=== PATIENT | female | born 1945 | race Caucasian/White ===

== ENCOUNTER 2017-06-05 12:47 | Inpatient (IN) | payer MEDICARE ==
[~2017-06-05] VITALS: Ht 160 cm; Wt 63.6 kg
[~2017-06-05 12:47] MED LIST: ACET325T9 PO; AMLO10TA4 PO; ASPI-630 PO; CLON0.5T3 PO; ESCITALOPRAM OX10 MG PO; LORA0.5T PO; MAG355OR17 PO; MAGN2400 PO; METH29OI TP; NITR0.4T22 SL; PROM25TA10 PO; QUET25TA5 PO; SERT25TA PO; SODI126M NS; TEMA15CA PO
[2017-06-05] MEDS ORDERED: METHYL SALICYLATE/MENTHOL TOPICAL OINTMENT 29GM TUBE. TP PRN ×2 (16:15→16:45)
[2017-06-05] MEDS ORDERED: PANT40TA3 PO (16:33)
[2017-06-05] MEDS ORDERED: ATOR20TA58 PO (16:33)
[2017-06-05] MEDS ORDERED: ONDA8TAB12 PO (16:33)
[2017-06-05] MEDS ORDERED: DOCU100C28 PO (16:33)
[2017-06-05] MEDS ORDERED: MULT1TAB52 PO (16:33)
[2017-06-05] MEDS ORDERED: QUET25TA5 PO (16:37)
[2017-06-05] MEDS ORDERED: LORA1TAB PO (16:37)
[2017-06-05] MEDS ORDERED: PARO20TA3 PO (16:37)
[2017-06-05] MEDS ORDERED: ACETAMINOPHEN 325 MG TABLET PO PRN (16:45)
[2017-06-05] MEDS ORDERED: NON FORMULARY ITEM (Magnesium Hydroxide (Milk Of Magnesia) 2,400 MG) PO PRN (16:45)
[2017-06-05] MEDS ORDERED: NON FORMULARY ITEM (Mag Hydrox/Al Hydrox/Simeth (Advanced Antacid Liquid) 15 ML) PO PRN (16:45)
[2017-06-05] MEDS ORDERED: SODIUM CHLORIDE 0.65% NASAL SPRAY 45ML BOTTLE. NS PRN (17:15)
[2017-06-05 17:23] LABS: BASO % 1 % (0-3); EOS % 1 % (0-3); HEMATOCRIT 29.7 % (36.0-47.0); HEMOGLOBIN 10.2 g/dL (12.0-15.5); LYMPH # 1.9 x10^3/uL (1.0-4.8); LYMPH % 29 % (24-48); MEAN CORPUSCULAR HEMOGLOBIN 32 pg (25-35); MEAN CORPUSCULAR HGB CONC 34 g/dL (31-37); MEAN CORPUSCULAR VOLUME 92 fL (79-100); MONO # 0.8 x10^3/uL (0.0-1.1); MONO % 13 % (0-9); NEUT # 3.7 x10^3uL (1.8-7.7); NEUT % 57 % (31-73); PLATELET COUNT 325 x10^3/uL (140-400); RED BLOOD COUNT 3.22 x10^6/uL (3.50-5.40); RED CELL DISTRIBUTION WIDTH 15.6 % (11.5-14.5); WHITE BLOOD COUNT 6.5 x10^3/uL (4.0-11.0)
[2017-06-05 17:35] LABS: ALBUMIN 3.3 g/dL (3.4-5.0); ALBUMIN/GLOBULIN RATIO 1.1 (1.0-1.7); CALCIUM 8.9 mg/dL (8.5-10.1); CREATININE 1.2 mg/dL (0.6-1.0); TOTAL PROTEIN 6.4 g/dL (6.4-8.2)
[2017-06-05 17:36] LABS: GFR 44.3; POTASSIUM 3.9 mmol/L (3.5-5.1); TOTAL BILIRUBIN 0.4 mg/dL (0.2-1.0)
[2017-06-05 18:10] VITALS: BP 133/77
[2017-06-05] MEDS ORDERED: ALPRAZolam 0.25 MG TABLET PO PRN (18:45)
[2017-06-05] MEDS: DOCUSATE SODIUM 100 MG CAPSULE PO SCH (19:45)
[2017-06-05] MEDS: ATORVASTATIN CALCIUM 20 MG TABLET PO SCH (19:45)
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
--- NOTE | 2017-06-05 20:05 | PDOC ---
Exam Note: Rian Note: Please also refer to the separate dictated note~for this date of service dictated separately.~Patient seen individually. Discussed the patient with Nursing staff reviewed the chart.~Reviewed interim history and current functioning. Reviewed vital signs,~Labs/ Radiology~and current medications noted below. Continue current treatment with the changes noted in the dictated addendum note Assessment: Vital Signs: Vital Signs Date Time Temp Pulse Resp B/P (MAP) Pulse Ox O2 Delivery O2 Flow Rate FiO2 06/05/17 18:10 98.2 86 18 133/77 (95) 97 Labs: Laboratory Tests Test 06/05/17 16:28 White Blood Count 6.5 x10^3/uL (4.0-11.0) Red Blood Count 3.22 x10^6/uL (3.50-5.40) L Hemoglobin 10.2 g/dL (12.0-15.5) L Hematocrit 29.7 % (36.0-47.0) L Mean Corpuscular Volume 92 fL (79-100) Mean Corpuscular Hemoglobin 32 pg (25-35) Mean Corpuscular Hemoglobin Concent 34 g/dL (31-37) Red Cell Distribution Width 15.6 % (11.5-14.5) H Platelet Count 325 x10^3/uL (140-400) Neutrophils (%) (Auto) 57 % (31-73) Lymphocytes (%) (Auto) 29 % (24-48) Monocytes (%) (Auto) 13 % (0-9) H Eosinophils (%) (Auto) 1 % (0-3) Basophils (%) (Auto) 1 % (0-3) Neutrophils # (Auto) 3.7 x10^3uL (1.8-7.7) Lymphocytes # (Auto) 1.9 x10^3/uL (1.0-4.8) Monocytes # (Auto) 0.8 x10^3/uL (0.0-1.1) Eosinophils # (Auto) 0.0 x10^3/uL (0.0-0.7) Basophils # (Auto) 0.0 x10^3/uL (0.0-0.2) Sodium Level 137 mmol/L (136-145) Potassium Level 3.9 mmol/L (3.5-5.1) Chloride Level 101 mmol/L (98-107) Carbon Dioxide Level 28 mmol/L (21-32) Anion Gap 8 (6-14) Blood Urea Nitrogen 10 mg/dL (7-20) Creatinine 1.2 mg/dL (0.6-1.0) H Estimated GFR (Cockcroft-Gault) 44.3 BUN/Creatinine Ratio 8 (6-20) Glucose Level 134 mg/dL (70-99) H Calcium Level 8.9 mg/dL (8.5-10.1) Magnesium Level 1.7 mg/dL (1.8-2.4) L Total Bilirubin 0.4 mg/dL (0.2-1.0) Aspartate Amino Transferase (AST) 23 U/L (15-37) Alanine Aminotransferase (ALT) 28 U/L (14-59) Alkaline Phosphatase 45 U/L (46-116) L Total Protein 6.4 g/dL (6.4-8.2) Albumin 3.3 g/dL (3.4-5.0) L Albumin/Globulin Ratio 1.1 (1.0-1.7) Current Medications: Meds: Current Medications Acetaminophen (Tylenol) 650 mg PRN Q6HRS PRN PO PAIN / TEMP; Start 06/05/17 at 16:15 Multi-Ingredient Ointment (Analgesic [place]) 1 stevan PRN QID PRN TP MUSCLE PAIN; Start 06/05/17 at 16:15 Al Hydroxide/Mg Hydroxide (Mylanta Plus Xs) 15 ml PRN AFTMEALHC PRN PO DYSPEPSIA; Start 06/05/17 at 16:15 Magnesium Hydroxide (Milk Of Magnesia) 2,400 mg PRN QHS PRN PO CONSTIPATION; Start 06/05/17 at 16:15 Aspirin (Children'S Aspirin) 81 mg DAILY PO ; Start 06/06/17 at 09:00 Sodium Chloride (Saline Mist Nasal) 1 stevan PRN Q1HR PRN NS NASAL CONGESTION; Start 06/05/17 at 17:15 Acetaminophen (Tylenol) 650 mg PRN Q6HRS PRN PO PAIN / TEMP; Start 06/05/17 at 16:45; Stop 06/05/17 at 16:45; Status DC Atorvastatin Calcium (Lipitor) 20 mg QHS PO Last administered on 06/05/17at 19:45 ; Start 06/05/17 at 21:00 Docusate Sodium (Colace) 100 mg BID PO Last administered on 06/05/17at 19:45; Start 06/05/17 at 21:00 Multi-Ingredient Ointment (Analgesic [place]) 1 stevan PRN QID PRN TP MUSCLE PAIN; Start 06/05/17 at 16:45; Stop 06/05/17 at 16:45; Status DC Pantoprazole Sodium (Protonix) 40 mg DAILY06 PO ; Start 06/06/17 at 06:00 Non-Formulary Medication 15 ml PRN AFTMEALHC PRN PO DYSPEPSIA; Start 06/05/17 at 16:45; Stop 06/05/17 at 16:45; Status DC Non-Formulary Medication 2,400 mg PRN QHS PRN PO CONSTIPATION; Start 06/05/17 at 16:45; Stop 06/05/17 at 16:45; Status DC Multivitamins/ Calcium (Thera-M Plus) 1 tab DAILY PO ; Start 06/06/17 at 09:00 Ondansetron HCl (Zofran Odt) 8 mg PRN Q6HRS PRN PO NAUSEA; Start 06/05/17 at 17: 00 Alprazolam (Xanax) 1 mg PRN TID PRN PO ANXIETY / AGITATION; Start 06/05/17 at 18 :45; Stop 06/05/17 at 19:15; Status DC Quetiapine Fumarate (SEROquel) 12.5 mg TID@0900,1300,1700 PO ; Start 06/06/17 at 09:00 Alprazolam (Xanax) 1 mg TIDAFTMEAL PO ; Start 06/06/17 at 09:00 Active Scripts Active Reported Seroquel (Quetiapine Fumarate) 25 Mg Tablet 1 Tab PO DAILY Paroxetine Hcl 20 Mg Tablet 1 Tab PO DAILY Lorazepam 1 Mg Tablet 1 Tab PO TID Protonix (Pantoprazole Sodium) 40 Mg Tablet.dr 1 Tab PO DAILY06 Zofran Odt (Ondansetron) 8 Mg Tab.rapdis 1 Tab PO Q6HRS PRN Multivitamins (Multivitamin) 1 Each Tablet 1 Tab PO DAILY Docusate Sodium 100 Mg Capsule 1 Cap PO BID Atorvastatin Calcium 20 Mg Tablet 20 Mg PO QHS Saline Nasal Mist (Sodium Chloride) 126 Ml Mist 1 Stevan NS PRN Q1HR PRN Zoloft (Sertraline Hcl) 25 Mg Tablet 12.5 Mg PO DAILY Seroquel (Quetiapine Fumarate) 25 Mg Tablet 12.5 Mg PO [id number] Seroquel (Quetiapine Fumarate) 25 Mg Tablet 25 Mg PO QHS NITROGLYCERIN SubLingual (Nitroglycerin) 0.4 Mg Tab.subl 0.4 Mg SL PRN Q5MIN PRN Analgesic [place] (Methyl Salicylate/Menthol) 29 Gm Oint...g. 1 Stevan TP PRN QID PRN Milk Of Magnesia (Magnesium Hydroxide) 2,400 Mg/10 Ml Oral.susp 2,400 Mg PO PRN QHS PRN Advanced Antacid Liquid (Mag Hydrox/Al Hydrox/Simeth) 355 Ml Oral.susp 15 Ml PO PRN AFTMEALHC PRN Lorazepam 0.5 Mg Tablet 0.5 Mg PO PRN TID PRN Lorazepam 0.5 Mg Tablet 0.5 Mg PO Q8HRS Tylenol (Acetaminophen) 325 Mg Tablet 650 Mg PO PRN Q6HRS PRN Promethazine Hcl 25 Mg Tablet 12.5 Mg PO PRN Q4HRS PRN Aspirin 81 Mg Tab.chew 81 Mg PO DAILY I have reviewed the current psychotropics carefully including drug interactions. Risk benefit ratio favors no change other than as noted in my dictated progress note. Diagnosis: Problems: (1) Anxiety disorder (2) Bipolar affective disorder, mixed (3) Impulse control disorder (4) Panic disorder with agoraphobia and severe panic attacks (5) Obsessive compulsive disorder SANTIAGO FARFAN MD Jun 05, 2017 20:05
[2017-06-06] MEDS: ACETAMINOPHEN 325 MG TABLET PO PRN ×2 (00:37→23:37)
[2017-06-06 05:45] VITALS: BP 148/58
[2017-06-06] MEDS: PANTOPRAZOLE 40 MG TABLET. PO SCH (06:02)
[2017-06-06] MEDS: DOCUSATE SODIUM 100 MG CAPSULE PO SCH ×2 (08:20→19:46)
[2017-06-06] MEDS: MULTIVITAMIN with MINERAL TABLET. PO SCH (08:20)
[2017-06-06] MEDS: QUEtiapine 25 MG TABLET. PO SCH ×3 (08:20→16:53)
[2017-06-06] MEDS: ASPIRIN 81 MG TAB.CHEW PO SCH (08:20)
[2017-06-06] MEDS: ALPRAZolam 0.5 MG TABLET PO SCH ×3 (08:21→16:53)
[2017-06-06 15:51] VITALS: BP 135/80
[2017-06-06] MEDS: MIRTAZAPINE 7.5 MG TABLET. PO SCH (19:46)
[2017-06-06] MEDS: ATORVASTATIN CALCIUM 20 MG TABLET PO SCH (19:46)
--- NOTE | 2017-06-06 20:17 | PDOC ---
Exam Note: Rian Note: Please also refer to the separate dictated note~for this date of service dictated separately.~Patient seen individually. Discussed the patient with Nursing staff reviewed the chart.~Reviewed interim history and current functioning. Reviewed vital signs,~Labs/ Radiology~and current medications noted below. Continue current treatment with the changes noted in the dictated addendum note Assessment: Vital Signs: Vital Signs Date Time Temp Pulse Resp B/P (MAP) Pulse Ox O2 Delivery O2 Flow Rate FiO2 06/06/17 15:51 98.3 89 16 135/80 (98) 97 I&O Intake and Output 06/06/17 07:00 Intake Total 240 ml Balance 240 ml Intake Oral 240 ml Current Medications: Meds: Current Medications Acetaminophen (Tylenol) 650 mg PRN Q6HRS PRN PO PAIN / TEMP Last administered on 06/06/17at 00:37; Start 06/05/17 at 16:15 Multi-Ingredient Ointment (Analgesic [place]) 1 stevan PRN QID PRN TP MUSCLE PAIN; Start 06/05/17 at 16:15 Al Hydroxide/Mg Hydroxide (Mylanta Plus Xs) 15 ml PRN AFTMEALHC PRN PO DYSPEPSIA; Start 06/05/17 at 16:15 Magnesium Hydroxide (Milk Of Magnesia) 2,400 mg PRN QHS PRN PO CONSTIPATION; Start 06/05/17 at 16:15 Aspirin (Children'S Aspirin) 81 mg DAILY PO Last administered on 06/06/17at 08:20 ; Start 06/06/17 at 09:00 Sodium Chloride (Saline Mist Nasal) 1 stevan PRN Q1HR PRN NS NASAL CONGESTION; Start 06/05/17 at 17:15 Acetaminophen (Tylenol) 650 mg PRN Q6HRS PRN PO PAIN / TEMP; Start 06/05/17 at 16:45; Stop 06/05/17 at 16:45; Status DC Atorvastatin Calcium (Lipitor) 20 mg QHS PO Last administered on 06/06/17at 19:46 ; Start 06/05/17 at 21:00 Docusate Sodium (Colace) 100 mg BID PO Last administered on 06/06/17at 19:46; Start 06/05/17 at 21:00 Multi-Ingredient Ointment (Analgesic [place]) 1 stevan PRN QID PRN TP MUSCLE PAIN; Start 06/05/17 at 16:45; Stop 06/05/17 at 16:45; Status DC Pantoprazole Sodium (Protonix) 40 mg DAILY06 PO Last administered on 06/06/17at 06:02; Start 06/06/17 at 06:00 Non-Formulary Medication 15 ml PRN AFTMEALHC PRN PO DYSPEPSIA; Start 06/05/17 at 16:45; Stop 06/05/17 at 16:45; Status DC Non-Formulary Medication 2,400 mg PRN QHS PRN PO CONSTIPATION; Start 06/05/17 at 16:45; Stop 06/05/17 at 16:45; Status DC Multivitamins/ Calcium (Thera-M Plus) 1 tab DAILY PO Last administered on at 08:20; Start 06/06/17 at 09:00 Ondansetron HCl (Zofran Odt) 8 mg PRN Q6HRS PRN PO NAUSEA; Start 06/05/17 at 17: 00 Alprazolam (Xanax) 1 mg PRN TID PRN PO ANXIETY / AGITATION; Start 06/05/17 at 18 :45; Stop 06/05/17 at 19:15; Status DC Quetiapine Fumarate (SEROquel) 12.5 mg TID@0900,1300,1700 PO Last administered on 06/06/17at 16:53; Start 06/06/17 at 09:00 Alprazolam (Xanax) 1 mg TIDAFTMEAL PO Last administered on 06/06/17at 16:53; Start 06/06/17 at 09:00 Mirtazapine (Remeron) 7.5 mg QHS PO Last administered on 06/06/17at 19:46; Start 06/06/17 at 21:00 Trazodone HCl (Desyrel) 50 mg PRN QHS PRN PO INSOMNIA, MAY REPEAT X1; Start 06/06/17 at 18:30 Active Scripts Active Reported Seroquel (Quetiapine Fumarate) 25 Mg Tablet 1 Tab PO DAILY Paroxetine Hcl 20 Mg Tablet 1 Tab PO DAILY Lorazepam 1 Mg Tablet 1 Tab PO TID Protonix (Pantoprazole Sodium) 40 Mg Tablet.dr 1 Tab PO DAILY06 Zofran Odt (Ondansetron) 8 Mg Tab.rapdis 1 Tab PO Q6HRS PRN Multivitamins (Multivitamin) 1 Each Tablet 1 Tab PO DAILY Docusate Sodium 100 Mg Capsule 1 Cap PO BID Atorvastatin Calcium 20 Mg Tablet 20 Mg PO QHS Saline Nasal Mist (Sodium Chloride) 126 Ml Mist 1 Stevan NS PRN Q1HR PRN Zoloft (Sertraline Hcl) 25 Mg Tablet 12.5 Mg PO DAILY Seroquel (Quetiapine Fumarate) 25 Mg Tablet 12.5 Mg PO [id number] Seroquel (Quetiapine Fumarate) 25 Mg Tablet 25 Mg PO QHS NITROGLYCERIN SubLingual (Nitroglycerin) 0.4 Mg Tab.subl 0.4 Mg SL PRN Q5MIN PRN Analgesic [place] (Methyl Salicylate/Menthol) 29 Gm Oint...g. 1 Stevan TP PRN QID PRN Milk Of Magnesia (Magnesium Hydroxide) 2,400 Mg/10 Ml Oral.susp 2,400 Mg PO PRN QHS PRN Advanced Antacid Liquid (Mag Hydrox/Al Hydrox/Simeth) 355 Ml Oral.susp 15 Ml PO PRN AFTMEALHC PRN Lorazepam 0.5 Mg Tablet 0.5 Mg PO PRN TID PRN Lorazepam 0.5 Mg Tablet 0.5 Mg PO Q8HRS Tylenol (Acetaminophen) 325 Mg Tablet 650 Mg PO PRN Q6HRS PRN Promethazine Hcl 25 Mg Tablet 12.5 Mg PO PRN Q4HRS PRN Aspirin 81 Mg Tab.chew 81 Mg PO DAILY I have reviewed the current psychotropics carefully including drug interactions. Risk benefit ratio favors no change other than as noted in my dictated progress note. Diagnosis: Problems: (1) Anxiety disorder (2) Bipolar affective disorder, mixed (3) Impulse control disorder (4) Panic disorder with agoraphobia and severe panic attacks (5) Obsessive compulsive disorder SANTIAGO FARFAN MD Jun 06, 2017 20:17
[2017-06-07] MEDS: PANTOPRAZOLE 40 MG TABLET. PO SCH (05:25)
[2017-06-07 05:45] VITALS: BP 149/87
[2017-06-07] MEDS: ASPIRIN 81 MG TAB.CHEW PO SCH (08:05)
[2017-06-07] MEDS: DOCUSATE SODIUM 100 MG CAPSULE PO SCH ×3 (08:05→20:12)
[2017-06-07] MEDS: MULTIVITAMIN with MINERAL TABLET. PO SCH (08:06)
[2017-06-07] MEDS: QUEtiapine 25 MG TABLET. PO SCH ×3 (08:06→17:26)
[2017-06-07] MEDS: ALPRAZolam 0.5 MG TABLET PO SCH ×3 (08:07→17:25)
[2017-06-07 15:51] VITALS: BP 116/68
[2017-06-07] MEDS: MIRTAZAPINE 7.5 MG TABLET. PO SCH (20:09)
[2017-06-07] MEDS: ATORVASTATIN CALCIUM 20 MG TABLET PO SCH (20:09)
--- NOTE | 2017-06-07 22:17 | PDOC ---
Exam Note: Rian Note: Please also refer to the separate dictated note~for this date of service dictated separately.~Patient seen individually. Discussed the patient with Nursing staff reviewed the chart.~Reviewed interim history and current functioning. Reviewed vital signs,~Labs/ Radiology~and current medications noted below. Continue current treatment with the changes noted in the dictated addendum note Assessment: Vital Signs: Vital Signs Date Time Temp Pulse Resp B/P (MAP) Pulse Ox O2 Delivery O2 Flow Rate FiO2 06/07/17 15:51 97.9 72 18 116/68 (84) 98 Room Air I&O Intake and Output 06/07/17 06:59 Intake Total 1200 ml Balance 1200 ml Intake Oral 1200 ml # Bowel Movements 1 Current Medications: Meds: Current Medications Acetaminophen (Tylenol) 650 mg PRN Q6HRS PRN PO PAIN / TEMP Last administered on 06/06/17at 23:37; Start 06/05/17 at 16:15 Multi-Ingredient Ointment (Analgesic [place]) 1 stevan PRN QID PRN TP MUSCLE PAIN; Start 06/05/17 at 16:15 Al Hydroxide/Mg Hydroxide (Mylanta Plus Xs) 15 ml PRN AFTMEALHC PRN PO DYSPEPSIA; Start 06/05/17 at 16:15 Magnesium Hydroxide (Milk Of Magnesia) 2,400 mg PRN QHS PRN PO CONSTIPATION; Start 06/05/17 at 16:15 Aspirin (Children'S Aspirin) 81 mg DAILY PO Last administered on 06/07/17at 08:05 ; Start 06/06/17 at 09:00 Sodium Chloride (Saline Mist Nasal) 1 stevan PRN Q1HR PRN NS NASAL CONGESTION; Start 06/05/17 at 17:15 Acetaminophen (Tylenol) 650 mg PRN Q6HRS PRN PO PAIN / TEMP; Start 06/05/17 at 16:45; Stop 06/05/17 at 16:45; Status DC Atorvastatin Calcium (Lipitor) 20 mg QHS PO Last administered on 06/07/17at 20:09 ; Start 06/05/17 at 21:00 Docusate Sodium (Colace) 100 mg BID PO Last administered on 06/07/17at 08:05; Start 06/05/17 at 21:00 Multi-Ingredient Ointment (Analgesic [place]) 1 stevan PRN QID PRN TP MUSCLE PAIN; Start 06/05/17 at 16:45; Stop 06/05/17 at 16:45; Status DC Pantoprazole Sodium (Protonix) 40 mg DAILY06 PO Last administered on 06/07/17at 05:25; Start 06/06/17 at 06:00 Non-Formulary Medication 15 ml PRN AFTMEALHC PRN PO DYSPEPSIA; Start 06/05/17 at 16:45; Stop 06/05/17 at 16:45; Status DC Non-Formulary Medication 2,400 mg PRN QHS PRN PO CONSTIPATION; Start 06/05/17 at 16:45; Stop 06/05/17 at 16:45; Status DC Multivitamins/ Calcium (Thera-M Plus) 1 tab DAILY PO Last administered on at 08:06; Start 06/06/17 at 09:00 Ondansetron HCl (Zofran Odt) 8 mg PRN Q6HRS PRN PO NAUSEA; Start 06/05/17 at 17: 00 Alprazolam (Xanax) 1 mg PRN TID PRN PO ANXIETY / AGITATION; Start 06/05/17 at 18 :45; Stop 06/05/17 at 19:15; Status DC Quetiapine Fumarate (SEROquel) 12.5 mg TID@0900,1300,1700 PO Last administered on 06/07/17at 17:26; Start 06/06/17 at 09:00 Alprazolam (Xanax) 1 mg TIDAFTMEAL PO Last administered on 06/07/17at 17:25; Start 06/06/17 at 09:00; Stop 06/07/17 at 19:13; Status DC Mirtazapine (Remeron) 7.5 mg QHS PO Last administered on 06/07/17at 20:09; Start 06/06/17 at 21:00 Trazodone HCl (Desyrel) 50 mg PRN QHS PRN PO INSOMNIA, MAY REPEAT X1; Start 06/06/17 at 18:30 Alprazolam (Xanax) 1 mg BID PO ; Start 06/08/17 at 09:00 Alprazolam (Xanax) 0.75 mg DAILY@1300 PO ; Start 06/08/17 at 13:00 Active Scripts Active Reported Seroquel (Quetiapine Fumarate) 25 Mg Tablet 1 Tab PO DAILY Paroxetine Hcl 20 Mg Tablet 1 Tab PO DAILY Lorazepam 1 Mg Tablet 1 Tab PO TID Protonix (Pantoprazole Sodium) 40 Mg Tablet.dr 1 Tab PO DAILY06 Zofran Odt (Ondansetron) 8 Mg Tab.rapdis 1 Tab PO Q6HRS PRN Multivitamins (Multivitamin) 1 Each Tablet 1 Tab PO DAILY Docusate Sodium 100 Mg Capsule 1 Cap PO BID Atorvastatin Calcium 20 Mg Tablet 20 Mg PO QHS Saline Nasal Mist (Sodium Chloride) 126 Ml Mist 1 Stevan NS PRN Q1HR PRN Zoloft (Sertraline Hcl) 25 Mg Tablet 12.5 Mg PO DAILY Seroquel (Quetiapine Fumarate) 25 Mg Tablet 12.5 Mg PO [id number] Seroquel (Quetiapine Fumarate) 25 Mg Tablet 25 Mg PO QHS NITROGLYCERIN SubLingual (Nitroglycerin) 0.4 Mg Tab.subl 0.4 Mg SL PRN Q5MIN PRN Analgesic [place] (Methyl Salicylate/Menthol) 29 Gm Oint...g. 1 Stevan TP PRN QID PRN Milk Of Magnesia (Magnesium Hydroxide) 2,400 Mg/10 Ml Oral.susp 2,400 Mg PO PRN QHS PRN Advanced Antacid Liquid (Mag Hydrox/Al Hydrox/Simeth) 355 Ml Oral.susp 15 Ml PO PRN AFTMEALHC PRN Lorazepam 0.5 Mg Tablet 0.5 Mg PO PRN TID PRN Lorazepam 0.5 Mg Tablet 0.5 Mg PO Q8HRS Tylenol (Acetaminophen) 325 Mg Tablet 650 Mg PO PRN Q6HRS PRN Promethazine Hcl 25 Mg Tablet 12.5 Mg PO PRN Q4HRS PRN Aspirin 81 Mg Tab.chew 81 Mg PO DAILY I have reviewed the current psychotropics carefully including drug interactions. Risk benefit ratio favors no change other than as noted in my dictated progress note. Diagnosis: Problems: (1) Anxiety disorder (2) Bipolar affective disorder, mixed (3) Impulse control disorder (4) Panic disorder with agoraphobia and severe panic attacks (5) Obsessive compulsive disorder SANTIAGO FARFAN MD Jun 07, 2017 22:17
[2017-06-08] MEDS: ACETAMINOPHEN 325 MG TABLET PO PRN ×2 (04:37→22:38)
[2017-06-08 06:08] VITALS: BP 122/65
[2017-06-08] MEDS: PANTOPRAZOLE 40 MG TABLET. PO SCH (06:31)
--- NOTE | 2017-06-08 07:50 | CONS ---
DATE OF CONSULTATION: REASON FOR CONSULTATION: Medical management. HISTORY OF PRESENT ILLNESS: The patient is a 72-year-old female patient resident of an independent living facility who apparently was seen at [facility] Emergency Room about 5 times within the last 10 days due to panic attacks, decreased appetite and depression, complaining that she is anxious, she is going to . All this and possible bipolar mixed anxiety disorder, panic disorder and was admitted to [facility] for inpatient psychiatric stabilization. PAST MEDICAL HISTORY: Significant for hypertension, hyperlipidemia, severe anxiety and weight loss. PAST SURGICAL HISTORY: Significant for right sinus surgery, and cholecystectomy. ALLERGIES: She is allergic to chocolate. FAMILY HISTORY: She has 2 sisters and brothers, all younger and healthy. SOCIAL HISTORY: She is . She has 2 daughters, 1 lives in [place] on 1 in [place]. She has never smoked. She does not drink alcohol or use recreational drugs. MEDICATIONS: She is currently on following medications: Tylenol 650 mg every 4 hours as needed, aspirin 81 mg once a day, atorvastatin, calcium 20 mg at bedtime, Colace 100 mg twice a day, lorazepam ____, magnesium hydroxide for Milk Of Magnesia 30 mL p.o. daily p.r.n. for constipation, multivitamin 1 tablet once a day, nitroglycerin 0.4 mg tablet sublingually q. 5 minutes x 3, ondansetron 8 mg as needed, Protonix 40 mg once a day, paroxetine 20 mg daily, promethazine 12.5 mg q. 4 hourly, Seroquel ____, sertraline 12.5 mg daily, saline nasal spray 1 spray to each nostril every hour. PHYSICAL EXAMINATION: GENERAL: When I examined her, she was resting slightly propped up in bed, in no apparent respiratory distress, pale, but no jaundice, cyanosis, or thyromegaly. No jugular venous distention. No limb edema. VITAL SIGNS: Her heart rate was 89, blood pressure 135/80, temperature was 98.3, respiratory rate was 16, and oxygen saturation was 97%. HEAD, EYES, EARS, NOSE AND THROAT: Showed normocephalic, atraumatic. NECK: Supple. HEART: Showed normal first and second sounds. No gallop, rub or murmur. CHEST: Clear to auscultation. No crepitation or rhonchi. ABDOMEN: Distended, soft, nontender. No guarding or rigidity. No organomegaly. Hernial orifice intact. Bowel sounds normal. NEUROLOGIC: She was awake, alert, responding appropriately. Cranial nerves intact. EXTREMITIES: She moves extremities without difficulty. She ambulates without assistance or assistive devices. LABORATORY DATA: Showed a white cell count 6500; hemoglobin 10; hematocrit 30; MCV 92; and platelet count 325,000. Her chemistry showed a serum sodium of 137, potassium 3.9, chloride 101, bicarbonate 28, anion gap of 8, BUN 10, creatinine 1.2, estimated GFR was 44 mL per minute. Her glucose 134, calcium was 8.9. Total bilirubin, AST, ALT, alkaline phosphatase were normal. Total protein 6.4, albumin was 3.3. Hemoglobin A1c was 5%. Magnesium was 1.7. Serum iron was 37, TIBC was 279 and percent saturation was 13. Her serum triglycerides were 118, cholesterol 198, LDL was 40, VLDL was 23, HDL cholesterol was 55 and the ratio was 2. TSH was 1.329. IMPRESSION: In summary, this is a 72-year-old female patient who was admitted with increasing anxiety and panic attacks. She apparently was seen in the Emergency Room of [facility] about day 5 times in the last 10 days with a panic attack and poor appetite, has not been eating for almost 2 weeks now. She is admitted here for inpatient psychiatric stabilization. Her vital signs, lab work are all within acceptable range. So medically she is stable. I will follow all the lab work that are still pending and make any necessary recommendation. Thank you, Dr. Lord, for allowing me to participate in the care of this patient. MARA PEANLOZA MD DR: ROBINSON/melody JOB#: [id number] / [id number]
[2017-06-08] MEDS: MULTIVITAMIN with MINERAL TABLET. PO SCH (08:22)
[2017-06-08] MEDS: ASPIRIN 81 MG TAB.CHEW PO SCH (08:22)
[2017-06-08] MEDS: QUEtiapine 25 MG TABLET. PO SCH ×4 (08:22→20:23)
[2017-06-08] MEDS: ALPRAZolam 0.5 MG TABLET PO SCH ×3 (08:23→20:21)
[2017-06-08] MEDS: DOCUSATE SODIUM 100 MG CAPSULE PO SCH ×2 (09:00→20:20)
[2017-06-08 09:44] LABS: BASO % 1 % (0-3); EOS # 0.1 x10^3/uL (0.0-0.7); EOS % 2 % (0-3); HEMATOCRIT 33.4 % (36.0-47.0); HEMOGLOBIN 11.2 g/dL (12.0-15.5); LYMPH # 1.5 x10^3/uL (1.0-4.8); LYMPH % 21 % (24-48); MEAN CORPUSCULAR HEMOGLOBIN 31 pg (25-35); MEAN CORPUSCULAR HGB CONC 34 g/dL (31-37); MEAN CORPUSCULAR VOLUME 93 fL (79-100); MONO # 0.7 x10^3/uL (0.0-1.1); MONO % 9 % (0-9); NEUT # 4.8 x10^3uL (1.8-7.7); NEUT % 67 % (31-73); PLATELET COUNT 358 x10^3/uL (140-400); RED BLOOD COUNT 3.59 x10^6/uL (3.50-5.40); WHITE BLOOD COUNT 7.1 x10^3/uL (4.0-11.0)
[2017-06-08 10:04] LABS: ALBUMIN 3.3 g/dL (3.4-5.0); CALCIUM 8.9 mg/dL (8.5-10.1); GFR 54.7; POTASSIUM 3.6 mmol/L (3.5-5.1); TOTAL BILIRUBIN 0.4 mg/dL (0.2-1.0); TOTAL PROTEIN 6.7 g/dL (6.4-8.2)
[2017-06-08 16:29] VITALS: BP 108/55
[2017-06-08] MEDS: ATORVASTATIN CALCIUM 20 MG TABLET PO SCH (20:20)
--- NOTE | 2017-06-08 20:20 | PDOC ---
Exam Note: Rian Note: Please also refer to the separate dictated note~for this date of service dictated separately.~Patient seen individually. Discussed the patient with Nursing staff reviewed the chart.~Reviewed interim history and current functioning. Reviewed vital signs,~Labs/ Radiology~and current medications noted below. Continue current treatment with the changes noted in the dictated addendum note Assessment: Vital Signs: Vital Signs Date Time Temp Pulse Resp B/P (MAP) Pulse Ox O2 Delivery O2 Flow Rate FiO2 06/08/17 16:29 97.9 76 18 108/55 (72) 100 Room Air 06/08/17 06:08 0.0 I&O Intake and Output 06/08/17 07:00 Intake Total 1200 ml Balance 1200 ml Intake Oral 1200 ml Labs: Laboratory Tests Test 06/08/17 09:25 White Blood Count 7.1 x10^3/uL (4.0-11.0) Red Blood Count 3.59 x10^6/uL (3.50-5.40) Hemoglobin 11.2 g/dL (12.0-15.5) L Hematocrit 33.4 % (36.0-47.0) L Mean Corpuscular Volume 93 fL (79-100) Mean Corpuscular Hemoglobin 31 pg (25-35) Mean Corpuscular Hemoglobin Concent 34 g/dL (31-37) Red Cell Distribution Width 16.0 % (11.5-14.5) H Platelet Count 358 x10^3/uL (140-400) Neutrophils (%) (Auto) 67 % (31-73) Lymphocytes (%) (Auto) 21 % (24-48) L Monocytes (%) (Auto) 9 % (0-9) Eosinophils (%) (Auto) 2 % (0-3) Basophils (%) (Auto) 1 % (0-3) Neutrophils # (Auto) 4.8 x10^3uL (1.8-7.7) Lymphocytes # (Auto) 1.5 x10^3/uL (1.0-4.8) Monocytes # (Auto) 0.7 x10^3/uL (0.0-1.1) Eosinophils # (Auto) 0.1 x10^3/uL (0.0-0.7) Basophils # (Auto) 0.0 x10^3/uL (0.0-0.2) Sodium Level 129 mmol/L (136-145) L Potassium Level 3.6 mmol/L (3.5-5.1) Chloride Level 99 mmol/L (98-107) Carbon Dioxide Level 29 mmol/L (21-32) Anion Gap 1 (6-14) L Blood Urea Nitrogen 12 mg/dL (7-20) Creatinine 1.0 mg/dL (0.6-1.0) Estimated GFR (Cockcroft-Gault) 54.7 BUN/Creatinine Ratio 12 (6-20) Glucose Level 113 mg/dL (70-99) H Lactic Acid Level 1.2 mmol/L (0.4-2.0) Calcium Level 8.9 mg/dL (8.5-10.1) Total Bilirubin 0.4 mg/dL (0.2-1.0) Aspartate Amino Transferase (AST) 21 U/L (15-37) Alanine Aminotransferase (ALT) 28 U/L (14-59) Alkaline Phosphatase 51 U/L (46-116) Lactate Dehydrogenase 156 U/L (81-234) Total Protein 6.7 g/dL (6.4-8.2) Albumin 3.3 g/dL (3.4-5.0) L Albumin/Globulin Ratio 1.0 (1.0-1.7) Lipase 181 U/L (73-393) Current Medications: Meds: Current Medications Acetaminophen (Tylenol) 650 mg PRN Q6HRS PRN PO PAIN / TEMP Last administered on 06/08/17at 04:37; Start 06/05/17 at 16:15 Multi-Ingredient Ointment (Analgesic [place]) 1 stevan PRN QID PRN TP MUSCLE PAIN; Start 06/05/17 at 16:15 Al Hydroxide/Mg Hydroxide (Mylanta Plus Xs) 15 ml PRN AFTMEALHC PRN PO DYSPEPSIA; Start 06/05/17 at 16:15 Magnesium Hydroxide (Milk Of Magnesia) 2,400 mg PRN QHS PRN PO CONSTIPATION; Start 06/05/17 at 16:15 Aspirin (Children'S Aspirin) 81 mg DAILY PO Last administered on 06/08/17at 08:22 ; Start 06/06/17 at 09:00 Sodium Chloride (Saline Mist Nasal) 1 stevan PRN Q1HR PRN NS NASAL CONGESTION; Start 06/05/17 at 17:15 Acetaminophen (Tylenol) 650 mg PRN Q6HRS PRN PO PAIN / TEMP; Start 06/05/17 at 16:45; Stop 06/05/17 at 16:45; Status DC Atorvastatin Calcium (Lipitor) 20 mg QHS PO Last administered on 06/07/17at 20:09 ; Start 06/05/17 at 21:00 Docusate Sodium (Colace) 100 mg BID PO Last administered on 06/07/17at 08:05; Start 06/05/17 at 21:00 Multi-Ingredient Ointment (Analgesic [place]) 1 stevan PRN QID PRN TP MUSCLE PAIN; Start 06/05/17 at 16:45; Stop 06/05/17 at 16:45; Status DC Pantoprazole Sodium (Protonix) 40 mg DAILY06 PO Last administered on 06/08/17at 06:31; Start 06/06/17 at 06:00 Non-Formulary Medication 15 ml PRN AFTMEALHC PRN PO DYSPEPSIA; Start 06/05/17 at 16:45; Stop 06/05/17 at 16:45; Status DC Non-Formulary Medication 2,400 mg PRN QHS PRN PO CONSTIPATION; Start 06/05/17 at 16:45; Stop 06/05/17 at 16:45; Status DC Multivitamins/ Calcium (Thera-M Plus) 1 tab DAILY PO Last administered on at 08:22; Start 06/06/17 at 09:00 Ondansetron HCl (Zofran Odt) 8 mg PRN Q6HRS PRN PO NAUSEA; Start 06/05/17 at 17: 00 Alprazolam (Xanax) 1 mg PRN TID PRN PO ANXIETY / AGITATION; Start 06/05/17 at 18 :45; Stop 06/05/17 at 19:15; Status DC Quetiapine Fumarate (SEROquel) 12.5 mg TID@0900,1300,1700 PO Last administered on 06/08/17at 17:05; Start 06/06/17 at 09:00; Stop 06/08/17 at 18:09; Status DC Alprazolam (Xanax) 1 mg TIDAFTMEAL PO Last administered on 06/07/17at 17:25; Start 06/06/17 at 09:00; Stop 06/07/17 at 19:13; Status DC Mirtazapine (Remeron) 7.5 mg QHS PO Last administered on 06/07/17at 20:09; Start 06/06/17 at 21:00; Stop 06/08/17 at 14:41; Status DC Trazodone HCl (Desyrel) 50 mg PRN QHS PRN PO INSOMNIA, MAY REPEAT X1; Start 06/06/17 at 18:30 Alprazolam (Xanax) 1 mg BID PO Last administered on 06/08/17at 08:23; Start at 09:00 Alprazolam (Xanax) 0.75 mg DAILY@1300 PO Last administered on 06/08/17at 13:23; Start 06/08/17 at 13:00 Quetiapine Fumarate (SEROquel) 12.5 mg QID PO ; Start 06/08/17 at 21:00 Lamotrigine (LaMICtal) 25 mg HS PO ; Start 06/08/17 at 21:00; Stop 06/12/17 at 21 :00 Lamotrigine (LaMICtal) 50 mg HS PO ; Start 06/13/17 at 21:00; Stop 06/17/17 at 21:00 Lamotrigine (LaMICtal) 75 mg HS PO ; Start 06/18/17 at 21:00; Stop 06/22/17 at 21:00 Lamotrigine (LaMICtal) 100 mg HS PO ; Start 06/23/17 at 21:00 Active Scripts Active Reported Seroquel (Quetiapine Fumarate) 25 Mg Tablet 1 Tab PO DAILY Paroxetine Hcl 20 Mg Tablet 1 Tab PO DAILY Lorazepam 1 Mg Tablet 1 Tab PO TID Protonix (Pantoprazole Sodium) 40 Mg Tablet.dr 1 Tab PO DAILY06 Zofran Odt (Ondansetron) 8 Mg Tab.rapdis 1 Tab PO Q6HRS PRN Multivitamins (Multivitamin) 1 Each Tablet 1 Tab PO DAILY Docusate Sodium 100 Mg Capsule 1 Cap PO BID Atorvastatin Calcium 20 Mg Tablet 20 Mg PO QHS Saline Nasal Mist (Sodium Chloride) 126 Ml Mist 1 Stevan NS PRN Q1HR PRN Zoloft (Sertraline Hcl) 25 Mg Tablet 12.5 Mg PO DAILY Seroquel (Quetiapine Fumarate) 25 Mg Tablet 12.5 Mg PO [id number] Seroquel (Quetiapine Fumarate) 25 Mg Tablet 25 Mg PO QHS NITROGLYCERIN SubLingual (Nitroglycerin) 0.4 Mg Tab.subl 0.4 Mg SL PRN Q5MIN PRN Analgesic [place] (Methyl Salicylate/Menthol) 29 Gm Oint...g. 1 Stevan TP PRN QID PRN Milk Of Magnesia (Magnesium Hydroxide) 2,400 Mg/10 Ml Oral.susp 2,400 Mg PO PRN QHS PRN Advanced Antacid Liquid (Mag Hydrox/Al Hydrox/Simeth) 355 Ml Oral.susp 15 Ml PO PRN AFTMEALHC PRN Lorazepam 0.5 Mg Tablet 0.5 Mg PO PRN TID PRN Lorazepam 0.5 Mg Tablet 0.5 Mg PO Q8HRS Tylenol (Acetaminophen) 325 Mg Tablet 650 Mg PO PRN Q6HRS PRN Promethazine Hcl 25 Mg Tablet 12.5 Mg PO PRN Q4HRS PRN Aspirin 81 Mg Tab.chew 81 Mg PO DAILY I have reviewed the current psychotropics carefully including drug interactions. Risk benefit ratio favors no change other than as noted in my dictated progress note. Diagnosis: Problems: (1) Anxiety disorder (2) Bipolar affective disorder, mixed (3) Impulse control disorder (4) Panic disorder with agoraphobia and severe panic attacks (5) Obsessive compulsive disorder SANTIAGO FARFAN MD Jun 08, 2017 20:20
[2017-06-08] MEDS: lamoTRIgine 25 MG TABLET. PO SCH (20:27)
[2017-06-08] MEDS: traZODone 50 MG TABLET. PO PRN (22:38)
--- NOTE | 2017-06-09 04:02 | PN ---
DATE: 06/07/2017 PSYCHIATRIC PROGRESS NOTE SUBJECTIVE: This late entry 06/07/2017 covers elements not covered in my initial note 06/07/2017. I met with the patient in her room. She did well the previous evening and questioned documents examiner 06/07/2017 she was medication seeking, having a weak somatic symptoms including rash on her lips. REVIEW OF SYSTEMS: No CV, , pulmonary, eye systems symptoms on review. MENTAL STATUS EXAM: Reasonably oriented, speech is coherent, abstraction fair, computation impaired. Language function intact. Mood and affect anxious, labile. No suicidal or homicidal ideation. LABORATORY DATA: Reviewed. IMPRESSION: Possible bipolar 1 mixed versus bipolar 2 disorder, depressed, anxiety disorder, panic disorder. PLAN: Reduce the Xanax from 1 mg t.i.d. to 1 mg in the morning and the evening, 0.75 in the afternoon. Seroquel is 12.5 mg t.i.d., may need to increase this. Consider adding Lamictal in due course. Continue Remeron 7.5 mg at bedtime, trazodone p.r.n. for insomnia. She slept 6-3/4 hours previous evening. MAN Richar FARFAN MD DR: INNA/melody JOB#: [id number] / [id number]
--- NOTE | 2017-06-09 04:08 | PN ---
DATE: 06/06/2017 PSYCHIATRIC PROGRESS NOTE This late entry 06/06/2017 covers elements not covered in my initial note 06/06/2017. SUBJECTIVE: Met with the patient in the evening of 06/06/2017 in her room. The patient has been quite anxious, having panic attacks, repeatedly telling nursing staff "I am dying." Slept 4-1/4 hours previous evening. REVIEW OF SYSTEMS: Positive for her anxiety, panic attacks, vague somatic symptoms of sores on her mouth, etc., which she believes is due to Xanax or other things at different times. MENTAL STATUS EXAM: Reasonably oriented. Speech is coherent, abstraction fair, computation impaired, language function intact. Attention span short. She is quite labile in her mood, anxious, somewhat delusional. No active suicidal or homicidal ideation. LABORATORY DATA: Reviewed. IMPRESSION: Bipolar 1 disorder, mixed versus depressed; anxiety disorder, unspecified panic disorder. PLAN: Start Remeron 7.5 mg p.o. at bedtime, trazodone 50 mg at bedtime p.r.n., may repeat x 1 for insomnia, Xanax 1 mg t.i.d., will gradually taper, Seroquel is at 12.5 mg t.i.d. We will maintain it for now and increase further if needed. Consider Lamictal as a mood stabilizer. SANTIAGO FARFAN MD DR: INNA/melody JOB#: [id number] / [id number]
[2017-06-09] MEDS: PANTOPRAZOLE 40 MG TABLET. PO SCH (04:13)
[2017-06-09] MEDS: MAGNESIUM HYDROXIDE 2,400 MG/30 ML ORAL.SUSP. PO PRN (04:13)
[2017-06-09 05:53] VITALS: BP 147/76
[2017-06-09 07:18] LABS: ALBUMIN 3.2 g/dL (3.4-5.0); ALBUMIN/GLOBULIN RATIO 0.9 (1.0-1.7); CREATININE 0.9 mg/dL (0.6-1.0); GFR 61.7; POTASSIUM 4.2 mmol/L (3.5-5.1); TOTAL BILIRUBIN 0.5 mg/dL (0.2-1.0); TOTAL PROTEIN 6.8 g/dL (6.4-8.2)
[2017-06-09] MEDS: MULTIVITAMIN with MINERAL TABLET. PO SCH (07:39)
[2017-06-09] MEDS: ASPIRIN 81 MG TAB.CHEW PO SCH (07:39)
[2017-06-09] MEDS: QUEtiapine 25 MG TABLET. PO SCH ×4 (07:39→20:26)
[2017-06-09] MEDS: DOCUSATE SODIUM 100 MG CAPSULE PO SCH ×2 (07:39→20:26)
[2017-06-09] MEDS: ALPRAZolam 0.5 MG TABLET PO SCH ×3 (07:40→20:30)
[2017-06-09 15:35] VITALS: BP 143/73
--- NOTE | 2017-06-09 20:09 | PDOC ---
Exam Note: Rian Note: Please also refer to the separate dictated note~for this date of service dictated separately.~Patient seen individually. Discussed the patient with Nursing staff reviewed the chart.~Reviewed interim history and current functioning. Reviewed vital signs,~Labs/ Radiology~and current medications noted below. Continue current treatment with the changes noted in the dictated addendum note Assessment: Vital Signs: Vital Signs Date Time Temp Pulse Resp B/P (MAP) Pulse Ox O2 Delivery O2 Flow Rate FiO2 06/09/17 15:35 97.4 81 16 143/73 (96) 99 06/09/17 05:53 Room Air 06/08/17 06:08 0.0 I&O Intake and Output 06/09/17 07:00 Intake Total 720 ml Balance 720 ml Intake Oral 720 ml Labs: Laboratory Tests Test 06/09/17 06:55 Sodium Level 139 mmol/L (136-145) Potassium Level 4.2 mmol/L (3.5-5.1) Chloride Level 104 mmol/L (98-107) Carbon Dioxide Level 28 mmol/L (21-32) Anion Gap 7 (6-14) Blood Urea Nitrogen 17 mg/dL (7-20) Creatinine 0.9 mg/dL (0.6-1.0) Estimated GFR (Cockcroft-Gault) 61.7 BUN/Creatinine Ratio 19 (6-20) Glucose Level 103 mg/dL (70-99) H Calcium Level 9.0 mg/dL (8.5-10.1) Total Bilirubin 0.5 mg/dL (0.2-1.0) Aspartate Amino Transferase (AST) 19 U/L (15-37) Alanine Aminotransferase (ALT) 25 U/L (14-59) Alkaline Phosphatase 48 U/L (46-116) Total Protein 6.8 g/dL (6.4-8.2) Albumin 3.2 g/dL (3.4-5.0) L Albumin/Globulin Ratio 0.9 (1.0-1.7) L Current Medications: Meds: Current Medications Acetaminophen (Tylenol) 650 mg PRN Q6HRS PRN PO PAIN / TEMP Last administered on 06/08/17at 22:38; Start 06/05/17 at 16:15 Multi-Ingredient Ointment (Analgesic [place]) 1 stevan PRN QID PRN TP MUSCLE PAIN; Start 06/05/17 at 16:15 Al Hydroxide/Mg Hydroxide (Mylanta Plus Xs) 15 ml PRN AFTMEALHC PRN PO DYSPEPSIA; Start 06/05/17 at 16:15 Magnesium Hydroxide (Milk Of Magnesia) 2,400 mg PRN QHS PRN PO CONSTIPATION Last administered on 06/09/17at 04:13; Start 06/05/17 at 16:15 Aspirin (Children'S Aspirin) 81 mg DAILY PO Last administered on 06/09/17at 07:39 ; Start 06/06/17 at 09:00 Sodium Chloride (Saline Mist Nasal) 1 stevan PRN Q1HR PRN NS NASAL CONGESTION; Start 06/05/17 at 17:15 Acetaminophen (Tylenol) 650 mg PRN Q6HRS PRN PO PAIN / TEMP; Start 06/05/17 at 16:45; Stop 06/05/17 at 16:45; Status DC Atorvastatin Calcium (Lipitor) 20 mg QHS PO Last administered on 06/08/17at 20:20 ; Start 06/05/17 at 21:00 Docusate Sodium (Colace) 100 mg BID PO Last administered on 06/09/17at 07:39; Start 06/05/17 at 21:00 Multi-Ingredient Ointment (Analgesic [place]) 1 stevan PRN QID PRN TP MUSCLE PAIN; Start 06/05/17 at 16:45; Stop 06/05/17 at 16:45; Status DC Pantoprazole Sodium (Protonix) 40 mg DAILY06 PO Last administered on 06/09/17at 04:13; Start 06/06/17 at 06:00 Non-Formulary Medication 15 ml PRN AFTMEALHC PRN PO DYSPEPSIA; Start 06/05/17 at 16:45; Stop 06/05/17 at 16:45; Status DC Non-Formulary Medication 2,400 mg PRN QHS PRN PO CONSTIPATION; Start 06/05/17 at 16:45; Stop 06/05/17 at 16:45; Status DC Multivitamins/ Calcium (Thera-M Plus) 1 tab DAILY PO Last administered on at 07:39; Start 06/06/17 at 09:00 Ondansetron HCl (Zofran Odt) 8 mg PRN Q6HRS PRN PO NAUSEA; Start 06/05/17 at 17: 00 Alprazolam (Xanax) 1 mg PRN TID PRN PO ANXIETY / AGITATION; Start 06/05/17 at 18 :45; Stop 06/05/17 at 19:15; Status DC Quetiapine Fumarate (SEROquel) 12.5 mg TID@0900,1300,1700 PO Last administered on 06/08/17at 17:05; Start 06/06/17 at 09:00; Stop 06/08/17 at 18:09; Status DC Alprazolam (Xanax) 1 mg TIDAFTMEAL PO Last administered on 06/07/17at 17:25; Start 06/06/17 at 09:00; Stop 06/07/17 at 19:13; Status DC Mirtazapine (Remeron) 7.5 mg QHS PO Last administered on 06/07/17at 20:09; Start 06/06/17 at 21:00; Stop 06/08/17 at 14:41; Status DC Trazodone HCl (Desyrel) 50 mg PRN QHS PRN PO INSOMNIA, MAY REPEAT X1 Last administered on 06/08/17at 22:38; Start 06/06/17 at 18:30 Alprazolam (Xanax) 1 mg BID PO Last administered on 06/09/17at 07:40; Start at 09:00 Alprazolam (Xanax) 0.75 mg DAILY@1300 PO Last administered on 06/09/17at 12:59; Start 06/08/17 at 13:00; Stop 06/09/17 at 18:52; Status DC Quetiapine Fumarate (SEROquel) 12.5 mg QID PO Last administered on 06/09/17at 16: 56; Start 06/08/17 at 21:00 Lamotrigine (LaMICtal) 25 mg HS PO Last administered on 06/08/17at 20:27; Start 06/08/17 at 21:00; Stop 06/12/17 at 21:00 Lamotrigine (LaMICtal) 50 mg HS PO ; Start 06/13/17 at 21:00; Stop 06/17/17 at 21:00 Lamotrigine (LaMICtal) 75 mg HS PO ; Start 06/18/17 at 21:00; Stop 06/22/17 at 21:00 Lamotrigine (LaMICtal) 100 mg HS PO ; Start 06/23/17 at 21:00 Alprazolam (Xanax) 0.5 mg DAILY@1300 PO ; Start 06/10/17 at 13:00 Active Scripts Active Reported Seroquel (Quetiapine Fumarate) 25 Mg Tablet 1 Tab PO DAILY Paroxetine Hcl 20 Mg Tablet 1 Tab PO DAILY Lorazepam 1 Mg Tablet 1 Tab PO TID Protonix (Pantoprazole Sodium) 40 Mg Tablet.dr 1 Tab PO DAILY06 Zofran Odt (Ondansetron) 8 Mg Tab.rapdis 1 Tab PO Q6HRS PRN Multivitamins (Multivitamin) 1 Each Tablet 1 Tab PO DAILY Docusate Sodium 100 Mg Capsule 1 Cap PO BID Atorvastatin Calcium 20 Mg Tablet 20 Mg PO QHS Saline Nasal Mist (Sodium Chloride) 126 Ml Mist 1 Stevan NS PRN Q1HR PRN Zoloft (Sertraline Hcl) 25 Mg Tablet 12.5 Mg PO DAILY Seroquel (Quetiapine Fumarate) 25 Mg Tablet 12.5 Mg PO [id number] Seroquel (Quetiapine Fumarate) 25 Mg Tablet 25 Mg PO QHS NITROGLYCERIN SubLingual (Nitroglycerin) 0.4 Mg Tab.subl 0.4 Mg SL PRN Q5MIN PRN Analgesic [place] (Methyl Salicylate/Menthol) 29 Gm Oint...g. 1 Stevan TP PRN QID PRN Milk Of Magnesia (Magnesium Hydroxide) 2,400 Mg/10 Ml Oral.susp 2,400 Mg PO PRN QHS PRN Advanced Antacid Liquid (Mag Hydrox/Al Hydrox/Simeth) 355 Ml Oral.susp 15 Ml PO PRN AFTMEALHC PRN Lorazepam 0.5 Mg Tablet 0.5 Mg PO PRN TID PRN Lorazepam 0.5 Mg Tablet 0.5 Mg PO Q8HRS Tylenol (Acetaminophen) 325 Mg Tablet 650 Mg PO PRN Q6HRS PRN Promethazine Hcl 25 Mg Tablet 12.5 Mg PO PRN Q4HRS PRN Aspirin 81 Mg Tab.chew 81 Mg PO DAILY I have reviewed the current psychotropics carefully including drug interactions. Risk benefit ratio favors no change other than as noted in my dictated progress note. Diagnosis: Problems: (1) Anxiety disorder (2) Bipolar affective disorder, mixed (3) Impulse control disorder (4) Panic disorder with agoraphobia and severe panic attacks (5) Obsessive compulsive disorder SANTIAGO FARFAN MD Jun 09, 2017 20:09
[2017-06-09] MEDS: ATORVASTATIN CALCIUM 20 MG TABLET PO SCH (20:26)
[2017-06-09] MEDS: lamoTRIgine 25 MG TABLET. PO SCH (20:26)
[2017-06-10 06:21] VITALS: BP 108/67
[2017-06-10] MEDS: ACETAMINOPHEN 325 MG TABLET PO PRN (07:29)
[2017-06-10] MEDS: ALPRAZolam 0.5 MG TABLET PO SCH ×3 (08:18→20:34)
[2017-06-10] MEDS: QUEtiapine 25 MG TABLET. PO SCH ×4 (08:19→20:33)
[2017-06-10] MEDS: MULTIVITAMIN with MINERAL TABLET. PO SCH (08:19)
[2017-06-10] MEDS: PANTOPRAZOLE 40 MG TABLET. PO SCH (08:19)
[2017-06-10] MEDS: DOCUSATE SODIUM 100 MG CAPSULE PO SCH ×2 (08:19→20:33)
[2017-06-10] MEDS: ASPIRIN 81 MG TAB.CHEW PO SCH (08:19)
--- NOTE | 2017-06-10 09:55 | PN ---
DATE: 06/08/2017 PSYCHIATRIC PROGRESS NOTE This late entry of 06/08/2017 covers elements not covered in my initial note for 06/08/2017. SUBJECTIVE: I met with the patient evening of 06/08/2017. The patient slept 8-1/2 hours previous evening, remains somewhat obsessive, repetitive, anxious, noted to have racing thoughts, hyperverbal at times with some loose associations. She is fixated on somatic problems, feels she needs to be transferred to [facility] for her medical treatment. We will defer medical management to Dr. Bertrand. CBC, CMP, lactic acid, lipase and amylase were unremarkable. She is on a 1500 mL fluid restriction. REVIEW OF SYSTEMS: Other than vague somatic symptoms, no CV, , pulmonary, eye system symptoms on review. MENTAL STATUS EXAM: Reasonably oriented. Speech is coherent, pressured at times. Abstraction fair, computation impaired, language function intact, attention span short. Mood and affect remain somewhat labile. LABORATORY DATA: Reviewed. IMPRESSION: Probable bipolar 1 disorder, mixed, obsessive compulsive disorder, anxiety disorder, unspecified panic disorder. PLAN: Start Lamictal as a mood stabilizer increasing from 25 mg a day every 5 days by 25 mg till we reach 100 mg a day, Seroquel is 12.5 mg t.i.d. We will increase it to 4 times a day. Reviewed drug interactions. Make further adjustments depending on her progress. SANTIAGO FARFAN MD DR: INNA/melody JOB#: [id number] / [id number]
[2017-06-10 16:12] VITALS: BP 127/77
--- NOTE | 2017-06-10 20:12 | PDOC ---
Exam Note: Rian Note: Please also refer to the separate dictated note~for this date of service dictated separately.~Patient seen individually. Discussed the patient with Nursing staff reviewed the chart.~Reviewed interim history and current functioning. Reviewed vital signs,~Labs/ Radiology~and current medications noted below. Continue current treatment with the changes noted in the dictated addendum note Assessment: Vital Signs: Vital Signs Date Time Temp Pulse Resp B/P (MAP) Pulse Ox O2 Delivery O2 Flow Rate FiO2 06/10/17 16:12 97.6 88 16 127/77 (94) 98 06/09/17 05:53 Room Air 06/08/17 06:08 0.0 I&O Intake and Output 06/10/17 07:00 Intake Total 600 ml Balance 600 ml Intake Oral 600 ml Current Medications: Meds: Current Medications Acetaminophen (Tylenol) 650 mg PRN Q6HRS PRN PO PAIN / TEMP Last administered on 06/10/17at 07:29; Start 06/05/17 at 16:15 Multi-Ingredient Ointment (Analgesic [place]) 1 stevan PRN QID PRN TP MUSCLE PAIN; Start 06/05/17 at 16:15 Al Hydroxide/Mg Hydroxide (Mylanta Plus Xs) 15 ml PRN AFTMEALHC PRN PO DYSPEPSIA; Start 06/05/17 at 16:15 Magnesium Hydroxide (Milk Of Magnesia) 2,400 mg PRN QHS PRN PO CONSTIPATION Last administered on 06/09/17at 04:13; Start 06/05/17 at 16:15 Aspirin (Children'S Aspirin) 81 mg DAILY PO Last administered on 06/10/17at 08:19 ; Start 06/06/17 at 09:00 Sodium Chloride (Saline Mist Nasal) 1 stevan PRN Q1HR PRN NS NASAL CONGESTION; Start 06/05/17 at 17:15 Acetaminophen (Tylenol) 650 mg PRN Q6HRS PRN PO PAIN / TEMP; Start 06/05/17 at 16:45; Stop 06/05/17 at 16:45; Status DC Atorvastatin Calcium (Lipitor) 20 mg QHS PO Last administered on 06/09/17at 20:26 ; Start 06/05/17 at 21:00 Docusate Sodium (Colace) 100 mg BID PO Last administered on 06/10/17at 08:19; Start 06/05/17 at 21:00 Multi-Ingredient Ointment (Analgesic [place]) 1 stevan PRN QID PRN TP MUSCLE PAIN; Start 06/05/17 at 16:45; Stop 06/05/17 at 16:45; Status DC Pantoprazole Sodium (Protonix) 40 mg DAILY06 PO Last administered on 06/09/17at 04:13; Start 06/06/17 at 06:00; Stop 06/10/17 at 05:49; Status DC Non-Formulary Medication 15 ml PRN AFTMEALHC PRN PO DYSPEPSIA; Start 06/05/17 at 16:45; Stop 06/05/17 at 16:45; Status DC Non-Formulary Medication 2,400 mg PRN QHS PRN PO CONSTIPATION; Start 06/05/17 at 16:45; Stop 06/05/17 at 16:45; Status DC Multivitamins/ Calcium (Thera-M Plus) 1 tab DAILY PO Last administered on at 08:19; Start 06/06/17 at 09:00 Ondansetron HCl (Zofran Odt) 8 mg PRN Q6HRS PRN PO NAUSEA; Start 06/05/17 at 17: 00 Alprazolam (Xanax) 1 mg PRN TID PRN PO ANXIETY / AGITATION; Start 06/05/17 at 18 :45; Stop 06/05/17 at 19:15; Status DC Quetiapine Fumarate (SEROquel) 12.5 mg TID@0900,1300,1700 PO Last administered on 06/08/17at 17:05; Start 06/06/17 at 09:00; Stop 06/08/17 at 18:09; Status DC Alprazolam (Xanax) 1 mg TIDAFTMEAL PO Last administered on 06/07/17at 17:25; Start 06/06/17 at 09:00; Stop 06/07/17 at 19:13; Status DC Mirtazapine (Remeron) 7.5 mg QHS PO Last administered on 06/07/17at 20:09; Start 06/06/17 at 21:00; Stop 06/08/17 at 14:41; Status DC Trazodone HCl (Desyrel) 50 mg PRN QHS PRN PO INSOMNIA, MAY REPEAT X1 Last administered on 06/08/17at 22:38; Start 06/06/17 at 18:30 Alprazolam (Xanax) 1 mg BID PO Last administered on 06/10/17at 08:18; Start at 09:00 Alprazolam (Xanax) 0.75 mg DAILY@1300 PO Last administered on 06/09/17at 12:59; Start 06/08/17 at 13:00; Stop 06/09/17 at 18:52; Status DC Quetiapine Fumarate (SEROquel) 12.5 mg QID PO Last administered on 06/10/17at 17: 02; Start 06/08/17 at 21:00 Lamotrigine (LaMICtal) 25 mg HS PO Last administered on 06/09/17at 20:26; Start 06/08/17 at 21:00; Stop 06/12/17 at 21:00 Lamotrigine (LaMICtal) 50 mg HS PO ; Start 06/13/17 at 21:00; Stop 06/17/17 at 21:00 Lamotrigine (LaMICtal) 75 mg HS PO ; Start 06/18/17 at 21:00; Stop 06/22/17 at 21:00 Lamotrigine (LaMICtal) 100 mg HS PO ; Start 06/23/17 at 21:00 Alprazolam (Xanax) 0.5 mg DAILY@1300 PO Last administered on 06/10/17at 13:15; Start 06/10/17 at 13:00 Pantoprazole Sodium (Protonix) 40 mg DAILYAC PO Last administered on 06/10/17at 08:19; Start 06/10/17 at 07:30 Active Scripts Active Reported Seroquel (Quetiapine Fumarate) 25 Mg Tablet 1 Tab PO DAILY Paroxetine Hcl 20 Mg Tablet 1 Tab PO DAILY Lorazepam 1 Mg Tablet 1 Tab PO TID Protonix (Pantoprazole Sodium) 40 Mg Tablet.dr 1 Tab PO DAILY06 Zofran Odt (Ondansetron) 8 Mg Tab.rapdis 1 Tab PO Q6HRS PRN Multivitamins (Multivitamin) 1 Each Tablet 1 Tab PO DAILY Docusate Sodium 100 Mg Capsule 1 Cap PO BID Atorvastatin Calcium 20 Mg Tablet 20 Mg PO QHS Saline Nasal Mist (Sodium Chloride) 126 Ml Mist 1 Stevan NS PRN Q1HR PRN Zoloft (Sertraline Hcl) 25 Mg Tablet 12.5 Mg PO DAILY Seroquel (Quetiapine Fumarate) 25 Mg Tablet 12.5 Mg PO [id number] Seroquel (Quetiapine Fumarate) 25 Mg Tablet 25 Mg PO QHS NITROGLYCERIN SubLingual (Nitroglycerin) 0.4 Mg Tab.subl 0.4 Mg SL PRN Q5MIN PRN Analgesic [place] (Methyl Salicylate/Menthol) 29 Gm Oint...g. 1 Stevan TP PRN QID PRN Milk Of Magnesia (Magnesium Hydroxide) 2,400 Mg/10 Ml Oral.susp 2,400 Mg PO PRN QHS PRN Advanced Antacid Liquid (Mag Hydrox/Al Hydrox/Simeth) 355 Ml Oral.susp 15 Ml PO PRN AFTMEALHC PRN Lorazepam 0.5 Mg Tablet 0.5 Mg PO PRN TID PRN Lorazepam 0.5 Mg Tablet 0.5 Mg PO Q8HRS Tylenol (Acetaminophen) 325 Mg Tablet 650 Mg PO PRN Q6HRS PRN Promethazine Hcl 25 Mg Tablet 12.5 Mg PO PRN Q4HRS PRN Aspirin 81 Mg Tab.chew 81 Mg PO DAILY I have reviewed the current psychotropics carefully including drug interactions. Risk benefit ratio favors no change other than as noted in my dictated progress note. Diagnosis: Problems: (1) Anxiety disorder (2) Bipolar affective disorder, mixed (3) Impulse control disorder (4) Panic disorder with agoraphobia and severe panic attacks (5) Obsessive compulsive disorder SANTIAGO FARFAN MD Jun 10, 2017 20:12
[2017-06-10] MEDS: ATORVASTATIN CALCIUM 20 MG TABLET PO SCH (20:33)
[2017-06-10] MEDS: lamoTRIgine 25 MG TABLET. PO SCH (20:33)
[2017-06-11] MEDS: PANTOPRAZOLE 40 MG TABLET. PO SCH (05:42)
[2017-06-11 06:25] VITALS: BP 111/68
[2017-06-11] MEDS: ACETAMINOPHEN 325 MG TABLET PO PRN (07:27)
[2017-06-11] MEDS: DOCUSATE SODIUM 100 MG CAPSULE PO SCH ×2 (07:49→20:02)
[2017-06-11] MEDS: ASPIRIN 81 MG TAB.CHEW PO SCH (07:49)
[2017-06-11] MEDS: QUEtiapine 25 MG TABLET. PO SCH ×4 (07:50→20:03)
[2017-06-11] MEDS: MULTIVITAMIN with MINERAL TABLET. PO SCH (07:50)
[2017-06-11] MEDS: ALPRAZolam 0.5 MG TABLET PO SCH ×3 (07:52→20:03)
--- NOTE | 2017-06-11 08:40 | PN ---
DATE: 06/09/2017 PSYCHIATRIC PROGRESS NOTE HISTORY OF PRESENT ILLNESS: This is a late entry of 06/09/2017 covers elements not covered in my initial note of 06/09/2017. I met with the patient in the evening of 06/09/2017. The patient has attended groups. Previous evening refused to talk. She has complained of diarrhea and remains somatically preoccupied later complaining of constipation, received prune juice. Sodium 139 is okay and fluid restrictions have been lifted per Dr. Bertrand. She has vague somatic symptoms. REVIEW OF SYSTEMS: No CV, , pulmonary, eye system symptoms on review, though she complains of some rash around her mouth, lips. MENTAL STATUS EXAMINATION: Reasonably oriented. I met with her in her room. Speech coherent, anxious, less so than before. Abstraction fair, computation impaired, language function intact. Mood and affect showing improvement. LABORATORY DATA: Reviewed. IMPRESSION: Bipolar 1 disorder, mixed versus depressed; anxiety disorder, unspecified; impulse control disorder, unspecified. PLAN: Taper the Xanax. She is currently on 2.75 mg a day. We will reduce it to 2.5 mg a day, 1 mg a.m. and p.m. and 0.5 mg in the afternoon. Continue Seroquel 12.5 mg 3 times a day. Lamictal is being slowly increased to reach a dosage of 100 mg a day. Maintain trazodone. MAN Richar FARFAN MD DR: INNA/melody JOB#: [id number] / [id number]
[2017-06-11 16:17] VITALS: BP 167/79
[2017-06-11 16:51] VITALS: BP 151/77
--- NOTE | 2017-06-11 19:54 | PDOC ---
Exam Note: Rian Note: Please also refer to the separate dictated note~for this date of service dictated separately.~Patient seen individually. Discussed the patient with Nursing staff reviewed the chart.~Reviewed interim history and current functioning. Reviewed vital signs,~Labs/ Radiology~and current medications noted below. Continue current treatment with the changes noted in the dictated addendum note Assessment: Vital Signs: Vital Signs Date Time Temp Pulse Resp B/P (MAP) Pulse Ox O2 Delivery O2 Flow Rate FiO2 06/11/17 16:51 97.8 151/77 (101) 06/11/17 16:17 88 20 98 06/09/17 05:53 Room Air 06/08/17 06:08 0.0 I&O Intake and Output 06/11/17 07:00 Intake Total 1140 ml Balance 1140 ml Intake Oral 1140 ml # Bowel Movements 1 Current Medications: Meds: Current Medications Acetaminophen (Tylenol) 650 mg PRN Q6HRS PRN PO PAIN / TEMP Last administered on 06/11/17at 07:27; Start 06/05/17 at 16:15 Multi-Ingredient Ointment (Analgesic [place]) 1 stevan PRN QID PRN TP MUSCLE PAIN; Start 06/05/17 at 16:15 Al Hydroxide/Mg Hydroxide (Mylanta Plus Xs) 15 ml PRN AFTMEALHC PRN PO DYSPEPSIA; Start 06/05/17 at 16:15 Magnesium Hydroxide (Milk Of Magnesia) 2,400 mg PRN QHS PRN PO CONSTIPATION Last administered on 06/09/17at 04:13; Start 06/05/17 at 16:15 Aspirin (Children'S Aspirin) 81 mg DAILY PO Last administered on 06/11/17at 07: 49; Start 06/06/17 at 09:00 Sodium Chloride (Saline Mist Nasal) 1 stevan PRN Q1HR PRN NS NASAL CONGESTION; Start 06/05/17 at 17:15 Acetaminophen (Tylenol) 650 mg PRN Q6HRS PRN PO PAIN / TEMP; Start 06/05/17 at 16:45; Stop 06/05/17 at 16:45; Status DC Atorvastatin Calcium (Lipitor) 20 mg QHS PO Last administered on 06/10/17at 20:33 ; Start 06/05/17 at 21:00 Docusate Sodium (Colace) 100 mg BID PO Last administered on 06/11/17at 07:49; Start 06/05/17 at 21:00 Multi-Ingredient Ointment (Analgesic [place]) 1 stevan PRN QID PRN TP MUSCLE PAIN; Start 06/05/17 at 16:45; Stop 06/05/17 at 16:45; Status DC Pantoprazole Sodium (Protonix) 40 mg DAILY06 PO Last administered on 06/09/17at 04:13; Start 06/06/17 at 06:00; Stop 06/10/17 at 05:49; Status DC Non-Formulary Medication 15 ml PRN AFTMEALHC PRN PO DYSPEPSIA; Start 06/05/17 at 16:45; Stop 06/05/17 at 16:45; Status DC Non-Formulary Medication 2,400 mg PRN QHS PRN PO CONSTIPATION; Start 06/05/17 at 16:45; Stop 06/05/17 at 16:45; Status DC Multivitamins/ Calcium (Thera-M Plus) 1 tab DAILY PO Last administered on at 07:50; Start 06/06/17 at 09:00 Ondansetron HCl (Zofran Odt) 8 mg PRN Q6HRS PRN PO NAUSEA; Start 06/05/17 at 17: 00 Alprazolam (Xanax) 1 mg PRN TID PRN PO ANXIETY / AGITATION; Start 06/05/17 at 18 :45; Stop 06/05/17 at 19:15; Status DC Quetiapine Fumarate (SEROquel) 12.5 mg TID@0900,1300,1700 PO Last administered on 06/08/17at 17:05; Start 06/06/17 at 09:00; Stop 06/08/17 at 18:09; Status DC Alprazolam (Xanax) 1 mg TIDAFTMEAL PO Last administered on 06/07/17at 17:25; Start 06/06/17 at 09:00; Stop 06/07/17 at 19:13; Status DC Mirtazapine (Remeron) 7.5 mg QHS PO Last administered on 06/07/17at 20:09; Start 06/06/17 at 21:00; Stop 06/08/17 at 14:41; Status DC Trazodone HCl (Desyrel) 50 mg PRN QHS PRN PO INSOMNIA, MAY REPEAT X1 Last administered on 06/08/17at 22:38; Start 06/06/17 at 18:30 Alprazolam (Xanax) 1 mg BID PO Last administered on 06/11/17at 07:52; Start 06/08 at 09:00 Alprazolam (Xanax) 0.75 mg DAILY@1300 PO Last administered on 06/09/17at 12:59; Start 06/08/17 at 13:00; Stop 06/09/17 at 18:52; Status DC Quetiapine Fumarate (SEROquel) 12.5 mg QID PO Last administered on 06/11/17at 16 :56; Start 06/08/17 at 21:00 Lamotrigine (LaMICtal) 25 mg HS PO Last administered on 06/10/17at 20:33; Start 06/08/17 at 21:00; Stop 06/12/17 at 21:00 Lamotrigine (LaMICtal) 50 mg HS PO ; Start 06/13/17 at 21:00; Stop 06/17/17 at 21:00 Lamotrigine (LaMICtal) 75 mg HS PO ; Start 06/18/17 at 21:00; Stop 06/22/17 at 21:00 Lamotrigine (LaMICtal) 100 mg HS PO ; Start 06/23/17 at 21:00 Alprazolam (Xanax) 0.5 mg DAILY@1300 PO Last administered on 06/11/17at 12:59; Start 06/10/17 at 13:00 Pantoprazole Sodium (Protonix) 40 mg DAILYAC PO Last administered on 06/11/17at 05:42; Start 06/10/17 at 07:30 Active Scripts Active Reported Seroquel (Quetiapine Fumarate) 25 Mg Tablet 1 Tab PO DAILY Paroxetine Hcl 20 Mg Tablet 1 Tab PO DAILY Lorazepam 1 Mg Tablet 1 Tab PO TID Protonix (Pantoprazole Sodium) 40 Mg Tablet.dr 1 Tab PO DAILY06 Zofran Odt (Ondansetron) 8 Mg Tab.rapdis 1 Tab PO Q6HRS PRN Multivitamins (Multivitamin) 1 Each Tablet 1 Tab PO DAILY Docusate Sodium 100 Mg Capsule 1 Cap PO BID Atorvastatin Calcium 20 Mg Tablet 20 Mg PO QHS Saline Nasal Mist (Sodium Chloride) 126 Ml Mist 1 Stevan NS PRN Q1HR PRN Zoloft (Sertraline Hcl) 25 Mg Tablet 12.5 Mg PO DAILY Seroquel (Quetiapine Fumarate) 25 Mg Tablet 12.5 Mg PO [id number] Seroquel (Quetiapine Fumarate) 25 Mg Tablet 25 Mg PO QHS NITROGLYCERIN SubLingual (Nitroglycerin) 0.4 Mg Tab.subl 0.4 Mg SL PRN Q5MIN PRN Analgesic [place] (Methyl Salicylate/Menthol) 29 Gm Oint...g. 1 Stevan TP PRN QID PRN Milk Of Magnesia (Magnesium Hydroxide) 2,400 Mg/10 Ml Oral.susp 2,400 Mg PO PRN QHS PRN Advanced Antacid Liquid (Mag Hydrox/Al Hydrox/Simeth) 355 Ml Oral.susp 15 Ml PO PRN AFTMEALHC PRN Lorazepam 0.5 Mg Tablet 0.5 Mg PO PRN TID PRN Lorazepam 0.5 Mg Tablet 0.5 Mg PO Q8HRS Tylenol (Acetaminophen) 325 Mg Tablet 650 Mg PO PRN Q6HRS PRN Promethazine Hcl 25 Mg Tablet 12.5 Mg PO PRN Q4HRS PRN Aspirin 81 Mg Tab.chew 81 Mg PO DAILY I have reviewed the current psychotropics carefully including drug interactions. Risk benefit ratio favors no change other than as noted in my dictated progress note. Diagnosis: Problems: (1) Anxiety disorder (2) Bipolar affective disorder, mixed (3) Impulse control disorder (4) Panic disorder with agoraphobia and severe panic attacks (5) Obsessive compulsive disorder SANTIAGO FARFAN MD Jun 11, 2017 19:54
[2017-06-11] MEDS: ATORVASTATIN CALCIUM 20 MG TABLET PO SCH (20:02)
[2017-06-11] MEDS: lamoTRIgine 25 MG TABLET. PO SCH (20:02)
[2017-06-12] MEDS: ACETAMINOPHEN 325 MG TABLET PO PRN (02:36)
--- NOTE | 2017-06-12 03:29 | PN ---
DATE: 06/10/2017 PSYCHIATRIC PROGRESS NOTE This is late entry 06/10/2017 covers elements not covered in my initial note 06/10/2017 SUBJECTIVE: Met with the patient in the evening of 06/10/2017. The patient remains somatically quite preoccupied and obsessive, slept 7-1/4 hours, slept off and on during the day, quite hyperverbal, distractible. This note covers elements not covered in my initial note 06/10/2017. REVIEW OF SYSTEMS: No CV, , pulmonary, eye system symptoms on review. She has vague somatic symptoms. MENTAL STATUS EXAM: Oriented to herself and situation. Speech is coherent, rapid. Abstraction fair, computation impaired, language function intact, attention span short. Mood and affect remains somewhat labile, at times grandiose. LABORATORY DATA: Reviewed. IMPRESSION: Bipolar 1 disorder, mixed; anxiety disorder, unspecified; panic disorder; symptoms of obsessive compulsive disorder. PLAN: Continue to gradually increase the Lamictal, maintain Seroquel. Xanax will be tapered down from 2.75 mg a day down to 2.5 mg a day. Continue trazodone p.r.n. Adjust further as clinically indicated. SANTIAGO FARFAN MD DR: INNA/melody JOB#: [id number] / [id number]
[2017-06-12] MEDS: PANTOPRAZOLE 40 MG TABLET. PO SCH (04:55)
[2017-06-12 06:04] VITALS: BP 127/67
[2017-06-12] MEDS: MAG HYDROX/AL HYDROX/SIMETH 30 ML ORAL.SUSP PO PRN (06:33)
[2017-06-12] MEDS: ASPIRIN 81 MG TAB.CHEW PO SCH (07:52)
[2017-06-12] MEDS: MULTIVITAMIN with MINERAL TABLET. PO SCH (07:52)
[2017-06-12] MEDS: QUEtiapine 25 MG TABLET. PO SCH ×4 (07:54→19:41)
[2017-06-12] MEDS: DOCUSATE SODIUM 100 MG CAPSULE PO SCH ×2 (07:54→19:41)
[2017-06-12] MEDS: ALPRAZolam 0.5 MG TABLET PO SCH ×3 (07:55→19:43)
[2017-06-12] MEDS: CHOLECALCIFEROL (VITAMIN D3) 1,000 UNIT TABLET PO SCH (12:02)
[2017-06-12 15:52] VITALS: BP 148/65
[2017-06-12] MEDS: ATORVASTATIN CALCIUM 20 MG TABLET PO SCH (19:41)
[2017-06-12] MEDS: lamoTRIgine 25 MG TABLET. PO SCH (19:43)
--- NOTE | 2017-06-12 20:04 | PDOC ---
Exam Note: Rian Note: Please also refer to the separate dictated note~for this date of service dictated separately.~Patient seen individually. Discussed the patient with Nursing staff reviewed the chart.~Reviewed interim history and current functioning. Reviewed vital signs,~Labs/ Radiology~and current medications noted below. Continue current treatment with the changes noted in the dictated addendum note Assessment: Vital Signs: Vital Signs Date Time Temp Pulse Resp B/P (MAP) Pulse Ox O2 Delivery O2 Flow Rate FiO2 06/12/17 15:52 97.9 98 18 148/65 (92) 98 06/09/17 05:53 Room Air 06/08/17 06:08 0.0 I&O Intake and Output 06/12/17 07:00 Intake Total 1320 ml Balance 1320 ml Intake Oral 1320 ml Current Medications: Meds: Current Medications Acetaminophen (Tylenol) 650 mg PRN Q6HRS PRN PO PAIN / TEMP Last administered on 06/12/17at 02:36; Start 06/05/17 at 16:15 Multi-Ingredient Ointment (Analgesic [place]) 1 stevan PRN QID PRN TP MUSCLE PAIN; Start 06/05/17 at 16:15 Al Hydroxide/Mg Hydroxide (Mylanta Plus Xs) 15 ml PRN AFTMEALHC PRN PO DYSPEPSIA Last administered on 06/12/17at 06:33; Start 06/05/17 at 16:15 Magnesium Hydroxide (Milk Of Magnesia) 2,400 mg PRN QHS PRN PO CONSTIPATION Last administered on 06/09/17at 04:13; Start 06/05/17 at 16:15 Aspirin (Children'S Aspirin) 81 mg DAILY PO Last administered on 06/12/17at 07: 52; Start 06/06/17 at 09:00 Sodium Chloride (Saline Mist Nasal) 1 stevan PRN Q1HR PRN NS NASAL CONGESTION; Start 06/05/17 at 17:15 Acetaminophen (Tylenol) 650 mg PRN Q6HRS PRN PO PAIN / TEMP; Start 06/05/17 at 16:45; Stop 06/05/17 at 16:45; Status DC Atorvastatin Calcium (Lipitor) 20 mg QHS PO Last administered on 06/12/17at 19: 41; Start 06/05/17 at 21:00 Docusate Sodium (Colace) 100 mg BID PO Last administered on 06/12/17at 19:41; Start 06/05/17 at 21:00 Multi-Ingredient Ointment (Analgesic [place]) 1 stevan PRN QID PRN TP MUSCLE PAIN; Start 06/05/17 at 16:45; Stop 06/05/17 at 16:45; Status DC Pantoprazole Sodium (Protonix) 40 mg DAILY06 PO Last administered on 06/09/17at 04:13; Start 06/06/17 at 06:00; Stop 06/10/17 at 05:49; Status DC Non-Formulary Medication 15 ml PRN AFTMEALHC PRN PO DYSPEPSIA; Start 06/05/17 at 16:45; Stop 06/05/17 at 16:45; Status DC Non-Formulary Medication 2,400 mg PRN QHS PRN PO CONSTIPATION; Start 06/05/17 at 16:45; Stop 06/05/17 at 16:45; Status DC Multivitamins/ Calcium (Thera-M Plus) 1 tab DAILY PO Last administered on at 07:52; Start 06/06/17 at 09:00 Ondansetron HCl (Zofran Odt) 8 mg PRN Q6HRS PRN PO NAUSEA; Start 06/05/17 at 17: 00 Alprazolam (Xanax) 1 mg PRN TID PRN PO ANXIETY / AGITATION; Start 06/05/17 at 18 :45; Stop 06/05/17 at 19:15; Status DC Quetiapine Fumarate (SEROquel) 12.5 mg TID@0900,1300,1700 PO Last administered on 06/08/17at 17:05; Start 06/06/17 at 09:00; Stop 06/08/17 at 18:09; Status DC Alprazolam (Xanax) 1 mg TIDAFTMEAL PO Last administered on 06/07/17at 17:25; Start 06/06/17 at 09:00; Stop 06/07/17 at 19:13; Status DC Mirtazapine (Remeron) 7.5 mg QHS PO Last administered on 06/07/17at 20:09; Start 06/06/17 at 21:00; Stop 06/08/17 at 14:41; Status DC Trazodone HCl (Desyrel) 50 mg PRN QHS PRN PO INSOMNIA, MAY REPEAT X1 Last administered on 06/08/17at 22:38; Start 06/06/17 at 18:30 Alprazolam (Xanax) 1 mg BID PO Last administered on 06/12/17at 19:43; Start 06/08 at 09:00 Alprazolam (Xanax) 0.75 mg DAILY@1300 PO Last administered on 06/09/17at 12:59; Start 06/08/17 at 13:00; Stop 06/09/17 at 18:52; Status DC Quetiapine Fumarate (SEROquel) 12.5 mg QID PO Last administered on 06/12/17at 19 :41; Start 06/08/17 at 21:00 Lamotrigine (LaMICtal) 25 mg HS PO Last administered on 06/12/17at 19:43; Start 06/08/17 at 21:00; Stop 06/12/17 at 21:00 Lamotrigine (LaMICtal) 50 mg HS PO ; Start 06/13/17 at 21:00; Stop 06/17/17 at 21:00 Lamotrigine (LaMICtal) 75 mg HS PO ; Start 06/18/17 at 21:00; Stop 06/22/17 at 21:00 Lamotrigine (LaMICtal) 100 mg HS PO ; Start 06/23/17 at 21:00 Alprazolam (Xanax) 0.5 mg DAILY@1300 PO Last administered on 06/12/17at 12:57; Start 06/10/17 at 13:00 Pantoprazole Sodium (Protonix) 40 mg DAILYAC PO Last administered on 06/12/17at 04:55; Start 06/10/17 at 07:30 Vitamin D (Vitamin D3) 2,000 unit DAILYBFRLUN PO Last administered on at 12:02; Start 06/12/17 at 11:30 Active Scripts Active Reported Seroquel (Quetiapine Fumarate) 25 Mg Tablet 1 Tab PO DAILY Paroxetine Hcl 20 Mg Tablet 1 Tab PO DAILY Lorazepam 1 Mg Tablet 1 Tab PO TID Protonix (Pantoprazole Sodium) 40 Mg Tablet.dr 1 Tab PO DAILY06 Zofran Odt (Ondansetron) 8 Mg Tab.rapdis 1 Tab PO Q6HRS PRN Multivitamins (Multivitamin) 1 Each Tablet 1 Tab PO DAILY Docusate Sodium 100 Mg Capsule 1 Cap PO BID Atorvastatin Calcium 20 Mg Tablet 20 Mg PO QHS Saline Nasal Mist (Sodium Chloride) 126 Ml Mist 1 Stevan NS PRN Q1HR PRN Zoloft (Sertraline Hcl) 25 Mg Tablet 12.5 Mg PO DAILY Seroquel (Quetiapine Fumarate) 25 Mg Tablet 12.5 Mg PO [id number] Seroquel (Quetiapine Fumarate) 25 Mg Tablet 25 Mg PO QHS NITROGLYCERIN SubLingual (Nitroglycerin) 0.4 Mg Tab.subl 0.4 Mg SL PRN Q5MIN PRN Analgesic [place] (Methyl Salicylate/Menthol) 29 Gm Oint...g. 1 Stevan TP PRN QID PRN Milk Of Magnesia (Magnesium Hydroxide) 2,400 Mg/10 Ml Oral.susp 2,400 Mg PO PRN QHS PRN Advanced Antacid Liquid (Mag Hydrox/Al Hydrox/Simeth) 355 Ml Oral.susp 15 Ml PO PRN AFTMEALHC PRN Lorazepam 0.5 Mg Tablet 0.5 Mg PO PRN TID PRN Lorazepam 0.5 Mg Tablet 0.5 Mg PO Q8HRS Tylenol (Acetaminophen) 325 Mg Tablet 650 Mg PO PRN Q6HRS PRN Promethazine Hcl 25 Mg Tablet 12.5 Mg PO PRN Q4HRS PRN Aspirin 81 Mg Tab.chew 81 Mg PO DAILY I have reviewed the current psychotropics carefully including drug interactions. Risk benefit ratio favors no change other than as noted in my dictated progress note. Diagnosis: Problems: (1) Anxiety disorder (2) Bipolar affective disorder, mixed (3) Impulse control disorder (4) Panic disorder with agoraphobia and severe panic attacks (5) Obsessive compulsive disorder SANTIAGO FARFAN MD Jun 12, 2017 20:04
[2017-06-12] MEDS: traZODone 50 MG TABLET. PO PRN (22:47)
[2017-06-13] MEDS: MAGNESIUM HYDROXIDE 2,400 MG/30 ML ORAL.SUSP. PO PRN (06:04)
[2017-06-13 06:32] VITALS: BP 152/62
[2017-06-13] MEDS: PANTOPRAZOLE 40 MG TABLET. PO SCH (07:13)
[2017-06-13] MEDS: MULTIVITAMIN with MINERAL TABLET. PO SCH (08:15)
[2017-06-13] MEDS: ASPIRIN 81 MG TAB.CHEW PO SCH (08:15)
[2017-06-13] MEDS: QUEtiapine 25 MG TABLET. PO SCH ×4 (08:15→19:09)
[2017-06-13] MEDS: DOCUSATE SODIUM 100 MG CAPSULE PO SCH ×2 (08:15→19:10)
[2017-06-13] MEDS: ALPRAZolam 0.5 MG TABLET PO SCH ×3 (08:17→19:09)
[2017-06-13] MEDS: CHOLECALCIFEROL (VITAMIN D3) 1,000 UNIT TABLET PO SCH (11:35)
[2017-06-13 16:01] VITALS: BP 149/88
[2017-06-13] MEDS: ATORVASTATIN CALCIUM 20 MG TABLET PO SCH (19:09)
--- NOTE | 2017-06-13 20:09 | PDOC ---
Exam Note: Rian Note: Please also refer to the separate dictated note~for this date of service dictated separately.~Patient seen individually. Discussed the patient with Nursing staff reviewed the chart.~Reviewed interim history and current functioning. Reviewed vital signs,~Labs/ Radiology~and current medications noted below. Continue current treatment with the changes noted in the dictated addendum note Assessment: Vital Signs: Vital Signs Date Time Temp Pulse Resp B/P (MAP) Pulse Ox O2 Delivery O2 Flow Rate FiO2 06/13/17 16:01 98.2 91 20 149/88 (108) 98 06/09/17 05:53 Room Air 06/08/17 06:08 0.0 I&O Intake and Output 06/13/17 07:00 Intake Total 960 ml Balance 960 ml Intake Oral 960 ml Current Medications: Meds: Current Medications Acetaminophen (Tylenol) 650 mg PRN Q6HRS PRN PO PAIN / TEMP Last administered on 06/12/17at 02:36; Start 06/05/17 at 16:15 Multi-Ingredient Ointment (Analgesic [place]) 1 stevan PRN QID PRN TP MUSCLE PAIN; Start 06/05/17 at 16:15 Al Hydroxide/Mg Hydroxide (Mylanta Plus Xs) 15 ml PRN AFTMEALHC PRN PO DYSPEPSIA Last administered on 06/12/17at 06:33; Start 06/05/17 at 16:15 Magnesium Hydroxide (Milk Of Magnesia) 2,400 mg PRN QHS PRN PO CONSTIPATION Last administered on 06/13/17at 06:04; Start 06/05/17 at 16:15 Aspirin (Children'S Aspirin) 81 mg DAILY PO Last administered on 06/13/17at 08: 15; Start 06/06/17 at 09:00 Sodium Chloride (Saline Mist Nasal) 1 stevan PRN Q1HR PRN NS NASAL CONGESTION; Start 06/05/17 at 17:15 Acetaminophen (Tylenol) 650 mg PRN Q6HRS PRN PO PAIN / TEMP; Start 06/05/17 at 16:45; Stop 06/05/17 at 16:45; Status DC Atorvastatin Calcium (Lipitor) 20 mg QHS PO Last administered on 06/13/17at 19: 09; Start 06/05/17 at 21:00 Docusate Sodium (Colace) 100 mg BID PO Last administered on 06/13/17at 19:10; Start 06/05/17 at 21:00 Multi-Ingredient Ointment (Analgesic [place]) 1 stevan PRN QID PRN TP MUSCLE PAIN; Start 06/05/17 at 16:45; Stop 06/05/17 at 16:45; Status DC Pantoprazole Sodium (Protonix) 40 mg DAILY06 PO Last administered on 06/09/17at 04:13; Start 06/06/17 at 06:00; Stop 06/10/17 at 05:49; Status DC Non-Formulary Medication 15 ml PRN AFTMEALHC PRN PO DYSPEPSIA; Start 06/05/17 at 16:45; Stop 06/05/17 at 16:45; Status DC Non-Formulary Medication 2,400 mg PRN QHS PRN PO CONSTIPATION; Start 06/05/17 at 16:45; Stop 06/05/17 at 16:45; Status DC Multivitamins/ Calcium (Thera-M Plus) 1 tab DAILY PO Last administered on at 08:15; Start 06/06/17 at 09:00 Ondansetron HCl (Zofran Odt) 8 mg PRN Q6HRS PRN PO NAUSEA; Start 06/05/17 at 17: 00 Alprazolam (Xanax) 1 mg PRN TID PRN PO ANXIETY / AGITATION; Start 06/05/17 at 18 :45; Stop 06/05/17 at 19:15; Status DC Quetiapine Fumarate (SEROquel) 12.5 mg TID@0900,1300,1700 PO Last administered on 06/08/17at 17:05; Start 06/06/17 at 09:00; Stop 06/08/17 at 18:09; Status DC Alprazolam (Xanax) 1 mg TIDAFTMEAL PO Last administered on 06/07/17at 17:25; Start 06/06/17 at 09:00; Stop 06/07/17 at 19:13; Status DC Mirtazapine (Remeron) 7.5 mg QHS PO Last administered on 06/07/17at 20:09; Start 06/06/17 at 21:00; Stop 06/08/17 at 14:41; Status DC Trazodone HCl (Desyrel) 50 mg PRN QHS PRN PO INSOMNIA, MAY REPEAT X1 Last administered on 06/12/17at 22:47; Start 06/06/17 at 18:30 Alprazolam (Xanax) 1 mg BID PO Last administered on 06/13/17at 19:09; Start 06/08 at 09:00 Alprazolam (Xanax) 0.75 mg DAILY@1300 PO Last administered on 06/09/17at 12:59; Start 06/08/17 at 13:00; Stop 06/09/17 at 18:52; Status DC Quetiapine Fumarate (SEROquel) 12.5 mg QID PO Last administered on 06/13/17at 19 :09; Start 06/08/17 at 21:00 Lamotrigine (LaMICtal) 25 mg HS PO Last administered on 06/12/17at 19:43; Start 06/08/17 at 21:00; Stop 06/12/17 at 21:00; Status DC Lamotrigine (LaMICtal) 50 mg HS PO ; Start 06/13/17 at 21:00; Stop 06/17/17 at 21:00 Lamotrigine (LaMICtal) 75 mg HS PO ; Start 06/18/17 at 21:00; Stop 06/22/17 at 21:00 Lamotrigine (LaMICtal) 100 mg HS PO ; Start 06/23/17 at 21:00 Alprazolam (Xanax) 0.5 mg DAILY@1300 PO Last administered on 06/13/17at 12:47; Start 06/10/17 at 13:00 Pantoprazole Sodium (Protonix) 40 mg DAILYAC PO Last administered on 06/13/17at 07:13; Start 06/10/17 at 07:30 Vitamin D (Vitamin D3) 2,000 unit DAILYBFRLUN PO Last administered on at 11:35; Start 06/12/17 at 11:30 Active Scripts Active Reported Seroquel (Quetiapine Fumarate) 25 Mg Tablet 1 Tab PO DAILY Paroxetine Hcl 20 Mg Tablet 1 Tab PO DAILY Lorazepam 1 Mg Tablet 1 Tab PO TID Protonix (Pantoprazole Sodium) 40 Mg Tablet.dr 1 Tab PO DAILY06 Zofran Odt (Ondansetron) 8 Mg Tab.rapdis 1 Tab PO Q6HRS PRN Multivitamins (Multivitamin) 1 Each Tablet 1 Tab PO DAILY Docusate Sodium 100 Mg Capsule 1 Cap PO BID Atorvastatin Calcium 20 Mg Tablet 20 Mg PO QHS Saline Nasal Mist (Sodium Chloride) 126 Ml Mist 1 Stevan NS PRN Q1HR PRN Zoloft (Sertraline Hcl) 25 Mg Tablet 12.5 Mg PO DAILY Seroquel (Quetiapine Fumarate) 25 Mg Tablet 12.5 Mg PO [id number] Seroquel (Quetiapine Fumarate) 25 Mg Tablet 25 Mg PO QHS NITROGLYCERIN SubLingual (Nitroglycerin) 0.4 Mg Tab.subl 0.4 Mg SL PRN Q5MIN PRN Analgesic [place] (Methyl Salicylate/Menthol) 29 Gm Oint...g. 1 Stevan TP PRN QID PRN Milk Of Magnesia (Magnesium Hydroxide) 2,400 Mg/10 Ml Oral.susp 2,400 Mg PO PRN QHS PRN Advanced Antacid Liquid (Mag Hydrox/Al Hydrox/Simeth) 355 Ml Oral.susp 15 Ml PO PRN AFTMEALHC PRN Lorazepam 0.5 Mg Tablet 0.5 Mg PO PRN TID PRN Lorazepam 0.5 Mg Tablet 0.5 Mg PO Q8HRS Tylenol (Acetaminophen) 325 Mg Tablet 650 Mg PO PRN Q6HRS PRN Promethazine Hcl 25 Mg Tablet 12.5 Mg PO PRN Q4HRS PRN Aspirin 81 Mg Tab.chew 81 Mg PO DAILY I have reviewed the current psychotropics carefully including drug interactions. Risk benefit ratio favors no change other than as noted in my dictated progress note. Diagnosis: Problems: (1) Anxiety disorder (2) Bipolar affective disorder, mixed (3) Impulse control disorder (4) Panic disorder with agoraphobia and severe panic attacks (5) Obsessive compulsive disorder SANTIAGO FARFAN MD Jun 13, 2017 20:09
[2017-06-13] MEDS: lamoTRIgine 25 MG TABLET. PO SCH (21:04)
[2017-06-13] MEDS: traZODone 50 MG TABLET. PO PRN (21:14)
[2017-06-14 06:08] VITALS: BP 130/59
[2017-06-14] MEDS: ASPIRIN 81 MG TAB.CHEW PO SCH (07:38)
[2017-06-14] MEDS: MULTIVITAMIN with MINERAL TABLET. PO SCH (07:38)
[2017-06-14] MEDS: PANTOPRAZOLE 40 MG TABLET. PO SCH (07:39)
[2017-06-14] MEDS: QUEtiapine 25 MG TABLET. PO SCH ×4 (07:39→19:21)
[2017-06-14] MEDS: DOCUSATE SODIUM 100 MG CAPSULE PO SCH ×2 (07:39→19:21)
[2017-06-14] MEDS: CHOLECALCIFEROL (VITAMIN D3) 1,000 UNIT TABLET PO SCH (07:43)
[2017-06-14] MEDS: ALPRAZolam 0.5 MG TABLET PO SCH ×3 (07:44→19:21)
[2017-06-14 15:47] VITALS: BP 148/73
[2017-06-14] MEDS: lamoTRIgine 25 MG TABLET. PO SCH (19:21)
[2017-06-14] MEDS: ATORVASTATIN CALCIUM 20 MG TABLET PO SCH (19:21)
--- NOTE | 2017-06-14 20:07 | PDOC ---
Exam Note: Rian Note: Please also refer to the separate dictated note~for this date of service dictated separately.~Patient seen individually. Discussed the patient with Nursing staff reviewed the chart.~Reviewed interim history and current functioning. Reviewed vital signs,~Labs/ Radiology~and current medications noted below. Continue current treatment with the changes noted in the dictated addendum note Assessment: Vital Signs: Vital Signs Date Time Temp Pulse Resp B/P (MAP) Pulse Ox O2 Delivery O2 Flow Rate FiO2 06/14/17 15:47 97.4 88 16 148/73 (98) 100 06/09/17 05:53 Room Air I&O Intake and Output 06/14/17 07:00 Intake Total 600 ml Balance 600 ml Intake Oral 600 ml # Bowel Movements 1 Current Medications: Meds: Current Medications Acetaminophen (Tylenol) 650 mg PRN Q6HRS PRN PO PAIN / TEMP Last administered on 06/12/17at 02:36; Start 06/05/17 at 16:15 Multi-Ingredient Ointment (Analgesic [place]) 1 stevan PRN QID PRN TP MUSCLE PAIN; Start 06/05/17 at 16:15 Al Hydroxide/Mg Hydroxide (Mylanta Plus Xs) 15 ml PRN AFTMEALHC PRN PO DYSPEPSIA Last administered on 06/12/17at 06:33; Start 06/05/17 at 16:15 Magnesium Hydroxide (Milk Of Magnesia) 2,400 mg PRN QHS PRN PO CONSTIPATION Last administered on 06/13/17at 06:04; Start 06/05/17 at 16:15 Aspirin (Children'S Aspirin) 81 mg DAILY PO Last administered on 06/14/17at 07: 38; Start 06/06/17 at 09:00 Sodium Chloride (Saline Mist Nasal) 1 stevan PRN Q1HR PRN NS NASAL CONGESTION; Start 06/05/17 at 17:15 Acetaminophen (Tylenol) 650 mg PRN Q6HRS PRN PO PAIN / TEMP; Start 06/05/17 at 16:45; Stop 06/05/17 at 16:45; Status DC Atorvastatin Calcium (Lipitor) 20 mg QHS PO Last administered on 06/14/17at 19: 21; Start 06/05/17 at 21:00 Docusate Sodium (Colace) 100 mg BID PO Last administered on 06/14/17at 19:21; Start 06/05/17 at 21:00 Multi-Ingredient Ointment (Analgesic [place]) 1 stevan PRN QID PRN TP MUSCLE PAIN; Start 06/05/17 at 16:45; Stop 06/05/17 at 16:45; Status DC Pantoprazole Sodium (Protonix) 40 mg DAILY06 PO Last administered on 06/09/17at 04:13; Start 06/06/17 at 06:00; Stop 06/10/17 at 05:49; Status DC Non-Formulary Medication 15 ml PRN AFTMEALHC PRN PO DYSPEPSIA; Start 06/05/17 at 16:45; Stop 06/05/17 at 16:45; Status DC Non-Formulary Medication 2,400 mg PRN QHS PRN PO CONSTIPATION; Start 06/05/17 at 16:45; Stop 06/05/17 at 16:45; Status DC Multivitamins/ Calcium (Thera-M Plus) 1 tab DAILY PO Last administered on at 07:38; Start 06/06/17 at 09:00 Ondansetron HCl (Zofran Odt) 8 mg PRN Q6HRS PRN PO NAUSEA; Start 06/05/17 at 17: 00 Alprazolam (Xanax) 1 mg PRN TID PRN PO ANXIETY / AGITATION; Start 06/05/17 at 18 :45; Stop 06/05/17 at 19:15; Status DC Quetiapine Fumarate (SEROquel) 12.5 mg TID@0900,1300,1700 PO Last administered on 06/08/17at 17:05; Start 06/06/17 at 09:00; Stop 06/08/17 at 18:09; Status DC Alprazolam (Xanax) 1 mg TIDAFTMEAL PO Last administered on 06/07/17at 17:25; Start 06/06/17 at 09:00; Stop 06/07/17 at 19:13; Status DC Mirtazapine (Remeron) 7.5 mg QHS PO Last administered on 06/07/17at 20:09; Start 06/06/17 at 21:00; Stop 06/08/17 at 14:41; Status DC Trazodone HCl (Desyrel) 50 mg PRN QHS PRN PO INSOMNIA, MAY REPEAT X1 Last administered on 06/13/17at 21:14; Start 06/06/17 at 18:30 Alprazolam (Xanax) 1 mg BID PO Last administered on 06/14/17at 19:21; Start 06/08 at 09:00 Alprazolam (Xanax) 0.75 mg DAILY@1300 PO Last administered on 06/09/17at 12:59; Start 06/08/17 at 13:00; Stop 06/09/17 at 18:52; Status DC Quetiapine Fumarate (SEROquel) 12.5 mg QID PO Last administered on 06/14/17 19 :21; Start 06/08/17 at 21:00 Lamotrigine (LaMICtal) 25 mg HS PO Last administered on 06/12/17at 19:43; Start 06/08/17 at 21:00; Stop 06/12/17 at 21:00; Status DC Lamotrigine (LaMICtal) 50 mg HS PO Last administered on 06/14/17at 19:21; Start 06/13/17 at 21:00; Stop 06/17/17 at 21:00 Lamotrigine (LaMICtal) 75 mg HS PO ; Start 06/18/17 at 21:00; Stop 06/22/17 at 21:00 Lamotrigine (LaMICtal) 100 mg HS PO ; Start 06/23/17 at 21:00 Alprazolam (Xanax) 0.5 mg DAILY@1300 PO Last administered on 06/14/17at 12:42; Start 06/10/17 at 13:00 Pantoprazole Sodium (Protonix) 40 mg DAILYAC PO Last administered on 06/14/17at 07:39; Start 06/10/17 at 07:30 Vitamin D (Vitamin D3) 2,000 unit DAILYBFRLUN PO Last administered on at 07:43; Start 06/12/17 at 11:30 Active Scripts Active Reported Seroquel (Quetiapine Fumarate) 25 Mg Tablet 1 Tab PO DAILY Paroxetine Hcl 20 Mg Tablet 1 Tab PO DAILY Lorazepam 1 Mg Tablet 1 Tab PO TID Protonix (Pantoprazole Sodium) 40 Mg Tablet.dr 1 Tab PO DAILY06 Zofran Odt (Ondansetron) 8 Mg Tab.rapdis 1 Tab PO Q6HRS PRN Multivitamins (Multivitamin) 1 Each Tablet 1 Tab PO DAILY Docusate Sodium 100 Mg Capsule 1 Cap PO BID Atorvastatin Calcium 20 Mg Tablet 20 Mg PO QHS Saline Nasal Mist (Sodium Chloride) 126 Ml Mist 1 Stevan NS PRN Q1HR PRN Zoloft (Sertraline Hcl) 25 Mg Tablet 12.5 Mg PO DAILY Seroquel (Quetiapine Fumarate) 25 Mg Tablet 12.5 Mg PO [id number] Seroquel (Quetiapine Fumarate) 25 Mg Tablet 25 Mg PO QHS NITROGLYCERIN SubLingual (Nitroglycerin) 0.4 Mg Tab.subl 0.4 Mg SL PRN Q5MIN PRN Analgesic [place] (Methyl Salicylate/Menthol) 29 Gm Oint...g. 1 Stevan TP PRN QID PRN Milk Of Magnesia (Magnesium Hydroxide) 2,400 Mg/10 Ml Oral.susp 2,400 Mg PO PRN QHS PRN Advanced Antacid Liquid (Mag Hydrox/Al Hydrox/Simeth) 355 Ml Oral.susp 15 Ml PO PRN AFTMEALHC PRN Lorazepam 0.5 Mg Tablet 0.5 Mg PO PRN TID PRN Lorazepam 0.5 Mg Tablet 0.5 Mg PO Q8HRS Tylenol (Acetaminophen) 325 Mg Tablet 650 Mg PO PRN Q6HRS PRN Promethazine Hcl 25 Mg Tablet 12.5 Mg PO PRN Q4HRS PRN Aspirin 81 Mg Tab.chew 81 Mg PO DAILY I have reviewed the current psychotropics carefully including drug interactions. Risk benefit ratio favors no change other than as noted in my dictated progress note. Diagnosis: Problems: (1) Anxiety disorder (2) Bipolar affective disorder, mixed (3) Impulse control disorder (4) Panic disorder with agoraphobia and severe panic attacks (5) Obsessive compulsive disorder SANTIAGO FARFAN MD Jun 14, 2017 20:07
[2017-06-14] MEDS: traZODone 50 MG TABLET. PO PRN (21:51)
[2017-06-15 05:49] VITALS: BP 138/84
[2017-06-15] MEDS: QUEtiapine 25 MG TABLET. PO SCH ×4 (07:47→19:27)
[2017-06-15] MEDS: ASPIRIN 81 MG TAB.CHEW PO SCH (07:47)
[2017-06-15] MEDS: PANTOPRAZOLE 40 MG TABLET. PO SCH (07:47)
[2017-06-15] MEDS: MULTIVITAMIN with MINERAL TABLET. PO SCH (07:48)
[2017-06-15] MEDS: ALPRAZolam 0.5 MG TABLET PO SCH ×3 (07:48→19:28)
[2017-06-15] MEDS: CHOLECALCIFEROL (VITAMIN D3) 1,000 UNIT TABLET PO SCH (07:48)
[2017-06-15] MEDS: DOCUSATE SODIUM 100 MG CAPSULE PO SCH ×2 (07:48→19:26)
[2017-06-15 16:47] VITALS: BP 143/79
[2017-06-15] MEDS: ATORVASTATIN CALCIUM 20 MG TABLET PO SCH (19:26)
[2017-06-15] MEDS: lamoTRIgine 25 MG TABLET. PO SCH (19:27)
[2017-06-15] MEDS: ONDANSETRON ODT 4 MG TAB.RAPDIS PO PRN (19:48)
--- NOTE | 2017-06-15 19:53 | PDOC ---
Exam Note: Rian Note: Please also refer to the separate dictated note~for this date of service dictated separately.~Patient seen individually. Discussed the patient with Nursing staff reviewed the chart.~Reviewed interim history and current functioning. Reviewed vital signs,~Labs/ Radiology~and current medications noted below. Continue current treatment with the changes noted in the dictated addendum note Assessment: Vital Signs: Vital Signs Date Time Temp Pulse Resp B/P (MAP) Pulse Ox O2 Delivery O2 Flow Rate FiO2 06/15/17 16:47 97.9 68 18 143/79 (100) 96 I&O Intake and Output 06/15/17 07:00 Intake Total 1320 ml Balance 1320 ml Intake Oral 1320 ml Current Medications: Meds: Current Medications Acetaminophen (Tylenol) 650 mg PRN Q6HRS PRN PO PAIN / TEMP Last administered on 06/12/17at 02:36; Start 06/05/17 at 16:15 Multi-Ingredient Ointment (Analgesic [place]) 1 stevan PRN QID PRN TP MUSCLE PAIN; Start 06/05/17 at 16:15 Al Hydroxide/Mg Hydroxide (Mylanta Plus Xs) 15 ml PRN AFTMEALHC PRN PO DYSPEPSIA Last administered on 06/12/17at 06:33; Start 06/05/17 at 16:15 Magnesium Hydroxide (Milk Of Magnesia) 2,400 mg PRN QHS PRN PO CONSTIPATION Last administered on 06/13/17at 06:04; Start 06/05/17 at 16:15 Aspirin (Children'S Aspirin) 81 mg DAILY PO Last administered on 06/15/17at 07: 47; Start 06/06/17 at 09:00 Sodium Chloride (Saline Mist Nasal) 1 stevan PRN Q1HR PRN NS NASAL CONGESTION; Start 06/05/17 at 17:15 Acetaminophen (Tylenol) 650 mg PRN Q6HRS PRN PO PAIN / TEMP; Start 06/05/17 at 16:45; Stop 06/05/17 at 16:45; Status DC Atorvastatin Calcium (Lipitor) 20 mg QHS PO Last administered on 06/15/17at 19: 26; Start 06/05/17 at 21:00 Docusate Sodium (Colace) 100 mg BID PO Last administered on 06/15/17at 19:26; Start 06/05/17 at 21:00 Multi-Ingredient Ointment (Analgesic Kimper) 1 stevan PRN QID PRN TP MUSCLE PAIN; Start 06/05/17 at 16:45; Stop 06/05/17 at 16:45; Status DC Pantoprazole Sodium (Protonix) 40 mg DAILY06 PO Last administered on 06/09/17at 04:13; Start 06/06/17 at 06:00; Stop 06/10/17 at 05:49; Status DC Non-Formulary Medication 15 ml PRN AFTMEALHC PRN PO DYSPEPSIA; Start 06/05/17 at 16:45; Stop 06/05/17 at 16:45; Status DC Non-Formulary Medication 2,400 mg PRN QHS PRN PO CONSTIPATION; Start 06/05/17 at 16:45; Stop 06/05/17 at 16:45; Status DC Multivitamins/ Calcium (Thera-M Plus) 1 tab DAILY PO Last administered on at 07:48; Start 06/06/17 at 09:00 Ondansetron HCl (Zofran Odt) 8 mg PRN Q6HRS PRN PO NAUSEA Last administered on 06/15/17at 19:48; Start 06/05/17 at 17:00 Alprazolam (Xanax) 1 mg PRN TID PRN PO ANXIETY / AGITATION; Start 06/05/17 at 18 :45; Stop 06/05/17 at 19:15; Status DC Quetiapine Fumarate (SEROquel) 12.5 mg TID@0900,1300,1700 PO Last administered on 06/08/17at 17:05; Start 06/06/17 at 09:00; Stop 06/08/17 at 18:09; Status DC Alprazolam (Xanax) 1 mg TIDAFTMEAL PO Last administered on 06/07/17at 17:25; Start 06/06/17 at 09:00; Stop 06/07/17 at 19:13; Status DC Mirtazapine (Remeron) 7.5 mg QHS PO Last administered on 06/07/17at 20:09; Start 06/06/17 at 21:00; Stop 06/08/17 at 14:41; Status DC Trazodone HCl (Desyrel) 50 mg PRN QHS PRN PO INSOMNIA, MAY REPEAT X1 Last administered on 06/14/17at 21:51; Start 06/06/17 at 18:30 Alprazolam (Xanax) 1 mg BID PO Last administered on 06/15/17at 19:28; Start 06/08 at 09:00 Alprazolam (Xanax) 0.75 mg DAILY@1300 PO Last administered on 06/09/17at 12:59; Start 06/08/17 at 13:00; Stop 06/09/17 at 18:52; Status DC Quetiapine Fumarate (SEROquel) 12.5 mg QID PO Last administered on 06/15/17at 19 :27; Start 06/08/17 at 21:00 Lamotrigine (LaMICtal) 25 mg HS PO Last administered on 06/12/17at 19:43; Start 06/08/17 at 21:00; Stop 06/12/17 at 21:00; Status DC Lamotrigine (LaMICtal) 50 mg HS PO Last administered on 06/15/17at 19:27; Start 06/13/17 at 21:00; Stop 06/17/17 at 21:00 Lamotrigine (LaMICtal) 75 mg HS PO ; Start 06/18/17 at 21:00; Stop 06/22/17 at 21:00 Lamotrigine (LaMICtal) 100 mg HS PO ; Start 06/23/17 at 21:00 Alprazolam (Xanax) 0.5 mg DAILY@1300 PO Last administered on 06/15/17at 14:26; Start 06/10/17 at 13:00 Pantoprazole Sodium (Protonix) 40 mg DAILYAC PO Last administered on 06/15/17at 07:47; Start 06/10/17 at 07:30 Vitamin D (Vitamin D3) 2,000 unit DAILYBFRLUN PO Last administered on at 07:48; Start 06/12/17 at 11:30 Active Scripts Active Reported Seroquel (Quetiapine Fumarate) 25 Mg Tablet 1 Tab PO DAILY Paroxetine Hcl 20 Mg Tablet 1 Tab PO DAILY Lorazepam 1 Mg Tablet 1 Tab PO TID Protonix (Pantoprazole Sodium) 40 Mg Tablet.dr 1 Tab PO DAILY06 Zofran Odt (Ondansetron) 8 Mg Tab.rapdis 1 Tab PO Q6HRS PRN Multivitamins (Multivitamin) 1 Each Tablet 1 Tab PO DAILY Docusate Sodium 100 Mg Capsule 1 Cap PO BID Atorvastatin Calcium 20 Mg Tablet 20 Mg PO QHS Saline Nasal Mist (Sodium Chloride) 126 Ml Mist 1 Stevan NS PRN Q1HR PRN Zoloft (Sertraline Hcl) 25 Mg Tablet 12.5 Mg PO DAILY Seroquel (Quetiapine Fumarate) 25 Mg Tablet 12.5 Mg PO [id number] Seroquel (Quetiapine Fumarate) 25 Mg Tablet 25 Mg PO QHS NITROGLYCERIN SubLingual (Nitroglycerin) 0.4 Mg Tab.subl 0.4 Mg SL PRN Q5MIN PRN Analgesic [place] (Methyl Salicylate/Menthol) 29 Gm Oint...g. 1 Stevan TP PRN QID PRN Milk Of Magnesia (Magnesium Hydroxide) 2,400 Mg/10 Ml Oral.susp 2,400 Mg PO PRN QHS PRN Advanced Antacid Liquid (Mag Hydrox/Al Hydrox/Simeth) 355 Ml Oral.susp 15 Ml PO PRN AFTMEALHC PRN Lorazepam 0.5 Mg Tablet 0.5 Mg PO PRN TID PRN Lorazepam 0.5 Mg Tablet 0.5 Mg PO Q8HRS Tylenol (Acetaminophen) 325 Mg Tablet 650 Mg PO PRN Q6HRS PRN Promethazine Hcl 25 Mg Tablet 12.5 Mg PO PRN Q4HRS PRN Aspirin 81 Mg Tab.chew 81 Mg PO DAILY I have reviewed the current psychotropics carefully including drug interactions. Risk benefit ratio favors no change other than as noted in my dictated progress note. Diagnosis: Problems: (1) Anxiety disorder (2) Bipolar affective disorder, mixed (3) Impulse control disorder (4) Panic disorder with agoraphobia and severe panic attacks (5) Obsessive compulsive disorder SANTIAGO FARFAN MD Jun 15, 2017 19:53
[2017-06-15 20:09] VITALS: BP 172/92
--- NOTE | 2017-06-15 23:55 | PN ---
DATE: 06/11/2017 PSYCHIATRIC PROGRESS NOTE This late entry 06/11/2017 covers elements not covered in my initial note 06/11/2017. SUBJECTIVE: I met with the patient in the evening of 06/11/2017. The patient slept 7-1/2 hours previous evening, quite somatically preoccupied, wanting Tylenol frequently gets anxious, complains of occasional panic attacks. She has vague somatic symptoms. REVIEW OF SYSTEMS: No CV, , pulmonary, eye or ENT system symptoms on review. MENTAL STATUS EXAM: Oriented to herself and situation. Speech coherent. Abstraction fair. Computation impaired. Language function intact. Attention span short. Mood and affect anxious, somewhat obsessive. No suicidal or homicidal ideation. LABORATORY DATA: Reviewed. IMPRESSION: 1. Bipolar 1 disorder, mixed with anxiety disorder. 2. Unspecified panic disorder. 3. The patient slept 7-1/2 hours previous evening. PLAN: Continue psychotropics mentioned in my initial note. Continue to increase the Lamictal. Maintain Xanax at 2.5 mg a day, may reduce further. Continue Seroquel 12.5 mg 4 times a day, trazodone p.r.n. insomnia. MAN Richar FARFAN MD DR: INNA/melody JOB#: [id number] / [id number]
--- NOTE | 2017-06-15 23:58 | PN ---
DATE: 06/12/2017 This late entry of 06/12/2017 covers elements not covered in my initial note of 06/12/2017. I initially dictated this note, but cannot trace that dictation. SUBJECTIVE: The patient was staffed at a treatment team meeting with the entire team morning of 06/12/2017. Then, I saw her independently individually after that. Average sleep 6-1/2 hours, slept 3-1/2 hours previous evening. Appetite 75% compliant with medications, still somatically preoccupied, anxious. REVIEW OF SYSTEMS: Positive for vague somatic symptoms and anxiety symptoms. No CV, , pulmonary, eye system symptoms on review. MENTAL STATUS EXAMINATION: Reasonably oriented. Speech coherent, abstraction fair, computation impaired, language function intact, attention span short. Mood and affect remain somewhat anxious, dysphoric, labile at times, improved. LABORATORY DATA: Reviewed. IMPRESSION: Bipolar 1 disorder, mixed versus depressed; anxiety disorder, unspecified; panic disorder. PLAN: Continue current psychotropics, Xanax reduced to 2.5 mg a day, Seroquel, Lamictal is being increased and trazodone will continue. MAN Richar FARFAN MD DR: INNA/melody JOB#: [id number] / [id number]
[2017-06-16 00:45] VITALS: BP 156/81
[2017-06-16 01:29] LABS: BASO % 1 % (0-3); EOS % 0 % (0-3); HEMATOCRIT 32.1 % (36.0-47.0); HEMOGLOBIN 10.8 g/dL (12.0-15.5); LYMPH % 15 % (24-48); MEAN CORPUSCULAR HEMOGLOBIN 32 pg (25-35); MEAN CORPUSCULAR HGB CONC 34 g/dL (31-37); MEAN CORPUSCULAR VOLUME 94 fL (79-100); MONO # 0.4 x10^3/uL (0.0-1.1); MONO % 5 % (0-9); NEUT # 5.3 x10^3uL (1.8-7.7); NEUT % 79 % (31-73); PLATELET COUNT 313 x10^3/uL (140-400); RED BLOOD COUNT 3.42 x10^6/uL (3.50-5.40); RED CELL DISTRIBUTION WIDTH 15.8 % (11.5-14.5); WHITE BLOOD COUNT 6.6 x10^3/uL (4.0-11.0)
[2017-06-16 01:40] LABS: ALBUMIN 3.5 g/dL (3.4-5.0); ALBUMIN/GLOBULIN RATIO 0.9 (1.0-1.7); CALCIUM 9.1 mg/dL (8.5-10.1); GFR 54.7; POTASSIUM 3.8 mmol/L (3.5-5.1); TOTAL BILIRUBIN 0.5 mg/dL (0.2-1.0); TOTAL PROTEIN 7.3 g/dL (6.4-8.2)
--- NOTE | 2017-06-16 02:42 | PN ---
DATE: 06/14/2017 This late entry of 06/14 covers elements not covered in my initial note of 06/14. The patient slept 6-3/4 hours previous evening. No redirections needed, less anxious, done better per nursing report. REVIEW OF SYSTEMS: Vague somatic symptoms consequent to anxiety. No CV, , pulmonary, eye, ENT system symptoms on review. MENTAL STATUS EXAM: Reasonably oriented. Speech coherent, abstraction fair, computation impaired, language function intact. She remains somewhat hyperverbal, less labile, but anxious. No suicidal or homicidal ideation. LABORATORY DATA: Reviewed. IMPRESSION: Bipolar 1 disorder, mixed with psychotic features; anxiety disorder, unspecified panic disorder. PLAN: Continue psychotropics mentioned in my initial note. MAN Richar FARFAN MD DR: INNA/melody JOB#: [id number] / [id number]
[2017-06-16 04:31] LABS: AMYLASE 52 U/L (25-115); LIPASE 111 U/L (73-393)
[2017-06-16 06:16] VITALS: BP 154/82
[2017-06-16] MEDS: ASPIRIN 81 MG TAB.CHEW PO SCH (07:52)
[2017-06-16] MEDS: PANTOPRAZOLE 40 MG TABLET. PO SCH (07:52)
[2017-06-16] MEDS: DOCUSATE SODIUM 100 MG CAPSULE PO SCH ×2 (07:52→20:20)
[2017-06-16] MEDS: QUEtiapine 25 MG TABLET. PO SCH ×3 (07:52→17:23)
[2017-06-16] MEDS: MULTIVITAMIN with MINERAL TABLET. PO SCH ×2 (07:52→08:40)
[2017-06-16] MEDS: ALPRAZolam 0.5 MG TABLET PO SCH ×3 (07:53→20:20)
--- NOTE | 2017-06-16 08:10 | PN ---
DATE: 06/13/2017 This is a late entry 06/13/2017. Covers elements not covered in my initial note 06/13/2017. SUBJECTIVE: Met with the patient in the evening of 06/13/2017. The patient has been more social, still complains of having panic attacks, very hyperverbal, obsessive. Slept 6-1/4 hours previous evening, received trazodone. REVIEW OF SYSTEMS: No CV, , pulmonary, eye, ENT system symptoms on review. Admits to being anxious. MENTAL STATUS EXAM: Oriented to herself and situation. Speech is coherent, abstraction fair, computation impaired, language function intact, attention span short. Mood and affect were dysphoric, anxious. No suicidal or homicidal ideation. IMPRESSION: Bipolar 1 disorder, mixed with history of psychotic features; panic disorder; anxiety disorder, unspecified. PLAN: Continue psychotropics mentioned in my initial note, gradually increase the Lamictal. MAN Richar FARFAN MD DR: INNA/melody JOB#: [id number] / [id number]
--- NOTE | 2017-06-16 11:29 | RAD ---
Single AP view abdomen 06/16/2017 Clinical indication: Vomiting. Comparison: None. Findings: There is a nonobstructive bowel gas pattern. Large amount of retained colonic stool in the rectal vault. Multilevel lower lumbar spondylosis. Impression: No radiographic evidence of bowel obstruction with a large amount of stool in the rectal vault, may contribute to constipation.
[2017-06-16] MEDS: CHOLECALCIFEROL (VITAMIN D3) 1,000 UNIT TABLET PO SCH (12:30)
[2017-06-16 16:06] VITALS: BP 134/77
--- NOTE | 2017-06-16 20:10 | PDOC ---
Exam Note: Rian Note: Please also refer to the separate dictated note~for this date of service dictated separately.~Patient seen individually. Discussed the patient with Nursing staff reviewed the chart.~Reviewed interim history and current functioning. Reviewed vital signs,~Labs/ Radiology~and current medications noted below. Continue current treatment with the changes noted in the dictated addendum note Assessment: Vital Signs: Vital Signs Date Time Temp Pulse Resp B/P (MAP) Pulse Ox O2 Delivery O2 Flow Rate FiO2 06/16/17 16:06 98.5 97 16 134/77 (96) 98 06/16/17 06:16 Room Air I&O Intake and Output 06/16/17 07:00 Intake Total 840 ml Balance 840 ml Intake Oral 840 ml Labs: Laboratory Tests Test 06/16/17 01:20 White Blood Count 6.6 x10^3/uL (4.0-11.0) Red Blood Count 3.42 x10^6/uL (3.50-5.40) L Hemoglobin 10.8 g/dL (12.0-15.5) L Hematocrit 32.1 % (36.0-47.0) L Mean Corpuscular Volume 94 fL (79-100) Mean Corpuscular Hemoglobin 32 pg (25-35) Mean Corpuscular Hemoglobin Concent 34 g/dL (31-37) Red Cell Distribution Width 15.8 % (11.5-14.5) H Platelet Count 313 x10^3/uL (140-400) Neutrophils (%) (Auto) 79 % (31-73) H Lymphocytes (%) (Auto) 15 % (24-48) L Monocytes (%) (Auto) 5 % (0-9) Eosinophils (%) (Auto) 0 % (0-3) Basophils (%) (Auto) 1 % (0-3) Neutrophils # (Auto) 5.3 x10^3uL (1.8-7.7) Lymphocytes # (Auto) 1.0 x10^3/uL (1.0-4.8) Monocytes # (Auto) 0.4 x10^3/uL (0.0-1.1) Eosinophils # (Auto) 0.0 x10^3/uL (0.0-0.7) Basophils # (Auto) 0.0 x10^3/uL (0.0-0.2) Sodium Level 141 mmol/L (136-145) Potassium Level 3.8 mmol/L (3.5-5.1) Chloride Level 104 mmol/L (98-107) Carbon Dioxide Level 28 mmol/L (21-32) Anion Gap 9 (6-14) Blood Urea Nitrogen 11 mg/dL (7-20) Creatinine 1.0 mg/dL (0.6-1.0) Estimated GFR (Cockcroft-Gault) 54.7 BUN/Creatinine Ratio 11 (6-20) Glucose Level 144 mg/dL (70-99) H Calcium Level 9.1 mg/dL (8.5-10.1) Total Bilirubin 0.5 mg/dL (0.2-1.0) Aspartate Amino Transferase (AST) 20 U/L (15-37) Alanine Aminotransferase (ALT) 24 U/L (14-59) Alkaline Phosphatase 62 U/L (46-116) Total Protein 7.3 g/dL (6.4-8.2) Albumin 3.5 g/dL (3.4-5.0) Albumin/Globulin Ratio 0.9 (1.0-1.7) L Amylase Level 52 U/L (25-115) Lipase 111 U/L (73-393) Current Medications: Meds: Current Medications Acetaminophen (Tylenol) 650 mg PRN Q6HRS PRN PO PAIN / TEMP Last administered on 06/12/17at 02:36; Start 06/05/17 at 16:15 Multi-Ingredient Ointment (Analgesic [place]) 1 stevan PRN QID PRN TP MUSCLE PAIN; Start 06/05/17 at 16:15 Al Hydroxide/Mg Hydroxide (Mylanta Plus Xs) 15 ml PRN AFTMEALHC PRN PO DYSPEPSIA Last administered on 06/12/17at 06:33; Start 06/05/17 at 16:15 Magnesium Hydroxide (Milk Of Magnesia) 2,400 mg PRN QHS PRN PO CONSTIPATION Last administered on 06/13/17at 06:04; Start 06/05/17 at 16:15 Aspirin (Children'S Aspirin) 81 mg DAILY PO Last administered on 06/16/17at 07: 52; Start 06/06/17 at 09:00 Sodium Chloride (Saline Mist Nasal) 1 stevan PRN Q1HR PRN NS NASAL CONGESTION; Start 06/05/17 at 17:15 Acetaminophen (Tylenol) 650 mg PRN Q6HRS PRN PO PAIN / TEMP; Start 06/05/17 at 16:45; Stop 06/05/17 at 16:45; Status DC Atorvastatin Calcium (Lipitor) 20 mg QHS PO Last administered on 06/15/17at 19: 26; Start 06/05/17 at 21:00 Docusate Sodium (Colace) 100 mg BID PO Last administered on 06/16/17at 07:52; Start 06/05/17 at 21:00 Multi-Ingredient Ointment (Analgesic [place]) 1 stevan PRN QID PRN TP MUSCLE PAIN; Start 06/05/17 at 16:45; Stop 06/05/17 at 16:45; Status DC Pantoprazole Sodium (Protonix) 40 mg DAILY06 PO Last administered on 06/09/17at 04:13; Start 06/06/17 at 06:00; Stop 06/10/17 at 05:49; Status DC Non-Formulary Medication 15 ml PRN AFTMEALHC PRN PO DYSPEPSIA; Start 06/05/17 at 16:45; Stop 06/05/17 at 16:45; Status DC Non-Formulary Medication 2,400 mg PRN QHS PRN PO CONSTIPATION; Start 06/05/17 at 16:45; Stop 06/05/17 at 16:45; Status DC Multivitamins/ Calcium (Thera-M Plus) 1 tab DAILY PO Last administered on at 07:48; Start 06/06/17 at 09:00 Ondansetron HCl (Zofran Odt) 8 mg PRN Q6HRS PRN PO NAUSEA Last administered on 06/15/17at 19:48; Start 06/05/17 at 17:00 Alprazolam (Xanax) 1 mg PRN TID PRN PO ANXIETY / AGITATION; Start 06/05/17 at 18 :45; Stop 06/05/17 at 19:15; Status DC Quetiapine Fumarate (SEROquel) 12.5 mg TID@0900,1300,1700 PO Last administered on 06/08/17at 17:05; Start 06/06/17 at 09:00; Stop 06/08/17 at 18:09; Status DC Alprazolam (Xanax) 1 mg TIDAFTMEAL PO Last administered on 06/07/17at 17:25; Start 06/06/17 at 09:00; Stop 06/07/17 at 19:13; Status DC Mirtazapine (Remeron) 7.5 mg QHS PO Last administered on 06/07/17at 20:09; Start 06/06/17 at 21:00; Stop 06/08/17 at 14:41; Status DC Trazodone HCl (Desyrel) 50 mg PRN QHS PRN PO INSOMNIA, MAY REPEAT X1 Last administered on 06/14/17at 21:51; Start 06/06/17 at 18:30 Alprazolam (Xanax) 1 mg BID PO Last administered on 06/16/17at 07:53; Start 06/08 at 09:00 Alprazolam (Xanax) 0.75 mg DAILY@1300 PO Last administered on 06/09/17at 12:59; Start 06/08/17 at 13:00; Stop 06/09/17 at 18:52; Status DC Quetiapine Fumarate (SEROquel) 12.5 mg QID PO Last administered on 06/16/17at 17 :23; Start 06/08/17 at 21:00; Stop 06/16/17 at 19:33; Status DC Lamotrigine (LaMICtal) 25 mg HS PO Last administered on 06/12/17at 19:43; Start 06/08/17 at 21:00; Stop 06/12/17 at 21:00; Status DC Lamotrigine (LaMICtal) 50 mg HS PO Last administered on 06/15/17at 19:27; Start 06/13/17 at 21:00; Stop 06/17/17 at 21:00 Lamotrigine (LaMICtal) 75 mg HS PO ; Start 06/18/17 at 21:00; Stop 06/22/17 at 21:00 Lamotrigine (LaMICtal) 100 mg HS PO ; Start 06/23/17 at 21:00 Alprazolam (Xanax) 0.5 mg DAILY@1300 PO Last administered on 06/16/17at 12:29; Start 06/10/17 at 13:00 Pantoprazole Sodium (Protonix) 40 mg DAILYAC PO Last administered on 06/16/17at 07:52; Start 06/10/17 at 07:30 Vitamin D (Vitamin D3) 2,000 unit DAILYBFRLUN PO Last administered on at 12:30; Start 06/12/17 at 11:30 Olanzapine (ZyPREXA ZYDIS) 2.5 mg PRN Q2HR PRN PO PSYCHOSIS Last administered on 06/16/17at 01:31; Start 06/16/17 at 01:00 Active Scripts Active Reported Seroquel (Quetiapine Fumarate) 25 Mg Tablet 1 Tab PO DAILY Paroxetine Hcl 20 Mg Tablet 1 Tab PO DAILY Lorazepam 1 Mg Tablet 1 Tab PO TID Protonix (Pantoprazole Sodium) 40 Mg Tablet.dr 1 Tab PO DAILY06 Zofran Odt (Ondansetron) 8 Mg Tab.rapdis 1 Tab PO Q6HRS PRN Multivitamins (Multivitamin) 1 Each Tablet 1 Tab PO DAILY Docusate Sodium 100 Mg Capsule 1 Cap PO BID Atorvastatin Calcium 20 Mg Tablet 20 Mg PO QHS Saline Nasal Mist (Sodium Chloride) 126 Ml Mist 1 Stevan NS PRN Q1HR PRN Zoloft (Sertraline Hcl) 25 Mg Tablet 12.5 Mg PO DAILY Seroquel (Quetiapine Fumarate) 25 Mg Tablet 12.5 Mg PO [id number] Seroquel (Quetiapine Fumarate) 25 Mg Tablet 25 Mg PO QHS NITROGLYCERIN SubLingual (Nitroglycerin) 0.4 Mg Tab.subl 0.4 Mg SL PRN Q5MIN PRN Analgesic [place] (Methyl Salicylate/Menthol) 29 Gm Oint...g. 1 Stevan TP PRN QID PRN Milk Of Magnesia (Magnesium Hydroxide) 2,400 Mg/10 Ml Oral.susp 2,400 Mg PO PRN QHS PRN Advanced Antacid Liquid (Mag Hydrox/Al Hydrox/Simeth) 355 Ml Oral.susp 15 Ml PO PRN AFTMEALHC PRN Lorazepam 0.5 Mg Tablet 0.5 Mg PO PRN TID PRN Lorazepam 0.5 Mg Tablet 0.5 Mg PO Q8HRS Tylenol (Acetaminophen) 325 Mg Tablet 650 Mg PO PRN Q6HRS PRN Promethazine Hcl 25 Mg Tablet 12.5 Mg PO PRN Q4HRS PRN Aspirin 81 Mg Tab.chew 81 Mg PO DAILY I have reviewed the current psychotropics carefully including drug interactions. Risk benefit ratio favors no change other than as noted in my dictated progress note. Diagnosis: Problems: (1) Anxiety disorder (2) Bipolar affective disorder, mixed (3) Impulse control disorder (4) Panic disorder with agoraphobia and severe panic attacks (5) Obsessive compulsive disorder SANTIAGO FARFAN MD Jun 16, 2017 20:10
[2017-06-16 20:12] LABS: BASO # 0.1 x10^3/uL (0.0-0.2); BASO % 1 % (0-3); EOS % 1 % (0-3); HEMATOCRIT 33.3 % (36.0-47.0); LYMPH # 2.1 x10^3/uL (1.0-4.8); LYMPH % 25 % (24-48); MEAN CORPUSCULAR HEMOGLOBIN 31 pg (25-35); MEAN CORPUSCULAR HGB CONC 33 g/dL (31-37); MEAN CORPUSCULAR VOLUME 95 fL (79-100); MONO # 1.2 x10^3/uL (0.0-1.1); MONO % 14 % (0-9); NEUT # 5.2 x10^3uL (1.8-7.7); NEUT % 61 % (31-73); PLATELET COUNT 348 x10^3/uL (140-400); RED BLOOD COUNT 3.51 x10^6/uL (3.50-5.40); RED CELL DISTRIBUTION WIDTH 16.4 % (11.5-14.5); WHITE BLOOD COUNT 8.5 x10^3/uL (4.0-11.0)
[2017-06-16] MEDS: ATORVASTATIN CALCIUM 20 MG TABLET PO SCH (20:20)
[2017-06-16] MEDS: lamoTRIgine 25 MG TABLET. PO SCH (20:22)
[2017-06-16] MEDS: MAGNESIUM HYDROXIDE 2,400 MG/30 ML ORAL.SUSP. PO PRN (20:23)
[2017-06-16 20:30] LABS: ALBUMIN 3.8 g/dL (3.4-5.0); ALBUMIN/GLOBULIN RATIO 0.9 (1.0-1.7); CALCIUM 9.4 mg/dL (8.5-10.1); CREATININE 1.1 mg/dL (0.6-1.0); POTASSIUM 3.3 mmol/L (3.5-5.1); TOTAL BILIRUBIN 0.4 mg/dL (0.2-1.0)
--- NOTE | 2017-06-16 20:38 | RAD ---
CT HEAD INDICATION: 835442.001 Mental status change, confusion, left sided headache and neck pain. No priors. COMPARISON: None Available. TECHNIQUE: 5 mm contiguous axial images were obtained from the skull base to the vertex. Exposure: One or more of the following individualized dose reduction techniques were utilized for this examination: 1. Automated exposure control 2. Adjustment of the mA and/or kV according to patient size 3. Use of iterative reconstruction technique FINDINGS: Mild bilateral periventricular white matter hypodensities likely chronic small vessel ischemic disease. No evidence of acute intracranial hemorrhage. No extra-axial fluid collections. No mass effect or midline shift. Ventricular size is appropriate. Basal cisterns are patent. No fractures identified.Aden-white differentiation is preserved.Globes and orbits are within normal limits. Paranasal sinuses and mastoid air cells are clear. IMPRESSION: No acute intracranial findings. Electronically signed by: Jose Eduardo Sosa MD (06/16/2017 8:34 PM) [id number]
[2017-06-16 20:57] VITALS: BP 165/76
[2017-06-16] MEDS: ONDANSETRON ODT 4 MG TAB.RAPDIS PO PRN (20:57)
[2017-06-16 21:47] LABS: COLOR,URINE YELLOW
[2017-06-16 21:48] LABS: BACTERIA,URINE FEW /HPF (0-FEW); BILIRUBIN,URINE NEG (NEG); CLARITY,URINE HAZY; GLUCOSE,URINE NEG (NEG); HYALINE CASTS, URINE FEW /HPF; NITRITE,URINE NEG (NEG); SQUAMOUS EPITHELIAL CELL,UR FEW /LPF; UROBILINOGEN,URINE 0.2 mg/dL (0.2 mg/dL); WBC,URINE >40 /HPF (0-4)
[2017-06-17 06:36] VITALS: BP 135/58
[2017-06-17] MEDS: ASPIRIN 81 MG TAB.CHEW PO SCH (08:40)
[2017-06-17] MEDS: MULTIVITAMIN with MINERAL TABLET. PO SCH (08:40)
[2017-06-17] MEDS: DOCUSATE SODIUM 100 MG CAPSULE PO SCH ×2 (08:40→19:41)
[2017-06-17] MEDS: PANTOPRAZOLE 40 MG TABLET. PO SCH (08:40)
[2017-06-17] MEDS: ALPRAZolam 0.5 MG TABLET PO SCH ×3 (08:41→19:42)
[2017-06-17] MEDS: CHOLECALCIFEROL (VITAMIN D3) 1,000 UNIT TABLET PO SCH ×2 (11:30→12:32)
[2017-06-17 16:23] VITALS: BP 136/71
[2017-06-17] MEDS: MAG HYDROX/AL HYDROX/SIMETH 30 ML ORAL.SUSP PO PRN (17:19)
[2017-06-17] MEDS: lamoTRIgine 25 MG TABLET. PO SCH (19:41)
[2017-06-17] MEDS: POTASSIUM CHLORIDE 20 MEQ TABLET.ER. PO SCH (19:41)
[2017-06-17] MEDS: ATORVASTATIN CALCIUM 20 MG TABLET PO SCH (19:41)
--- NOTE | 2017-06-17 20:13 | PDOC ---
Exam Note: Rian Note: Please also refer to the separate dictated note~for this date of service dictated separately.~Patient seen individually. Discussed the patient with Nursing staff reviewed the chart.~Reviewed interim history and current functioning. Reviewed vital signs,~Labs/ Radiology~and current medications noted below. Continue current treatment with the changes noted in the dictated addendum note Assessment: Vital Signs: Vital Signs Date Time Temp Pulse Resp B/P (MAP) Pulse Ox O2 Delivery O2 Flow Rate FiO2 06/17/17 16:23 98.9 88 20 136/71 (92) 98 06/16/17 06:16 Room Air I&O Intake and Output 06/17/17 07:00 Intake Total 360 ml Balance 360 ml Intake Oral 360 ml # Bowel Movements 1 Labs: Laboratory Tests Test 06/16/17 20:31 Glucose (Fingerstick) 116 mg/dL (70-99) H Current Medications: Meds: Current Medications Acetaminophen (Tylenol) 650 mg PRN Q6HRS PRN PO PAIN / TEMP Last administered on 06/12/17at 02:36; Start 06/05/17 at 16:15 Multi-Ingredient Ointment (Analgesic [place]) 1 stevan PRN QID PRN TP MUSCLE PAIN; Start 06/05/17 at 16:15 Al Hydroxide/Mg Hydroxide (Mylanta Plus Xs) 15 ml PRN AFTMEALHC PRN PO DYSPEPSIA Last administered on 06/17/17at 17:19; Start 06/05/17 at 16:15 Magnesium Hydroxide (Milk Of Magnesia) 2,400 mg PRN QHS PRN PO CONSTIPATION Last administered on 06/16/17at 20:23; Start 06/05/17 at 16:15 Aspirin (Children'S Aspirin) 81 mg DAILY PO Last administered on 06/17/17at 08: 40; Start 06/06/17 at 09:00 Sodium Chloride (Saline Mist Nasal) 1 stevan PRN Q1HR PRN NS NASAL CONGESTION; Start 06/05/17 at 17:15 Acetaminophen (Tylenol) 650 mg PRN Q6HRS PRN PO PAIN / TEMP; Start 06/05/17 at 16:45; Stop 06/05/17 at 16:45; Status DC Atorvastatin Calcium (Lipitor) 20 mg QHS PO Last administered on 06/17/17at 19: 41; Start 06/05/17 at 21:00 Docusate Sodium (Colace) 100 mg BID PO Last administered on 06/17/17at 19:41; Start 06/05/17 at 21:00 Multi-Ingredient Ointment (Analgesic [place]) 1 stevan PRN QID PRN TP MUSCLE PAIN; Start 06/05/17 at 16:45; Stop 06/05/17 at 16:45; Status DC Pantoprazole Sodium (Protonix) 40 mg DAILY06 PO Last administered on 06/09/17at 04:13; Start 06/06/17 at 06:00; Stop 06/10/17 at 05:49; Status DC Non-Formulary Medication 15 ml PRN AFTMEALHC PRN PO DYSPEPSIA; Start 06/05/17 at 16:45; Stop 06/05/17 at 16:45; Status DC Non-Formulary Medication 2,400 mg PRN QHS PRN PO CONSTIPATION; Start 06/05/17 at 16:45; Stop 06/05/17 at 16:45; Status DC Multivitamins/ Calcium (Thera-M Plus) 1 tab DAILY PO Last administered on at 08:40; Start 06/06/17 at 09:00 Ondansetron HCl (Zofran Odt) 8 mg PRN Q6HRS PRN PO NAUSEA Last administered on 06/16/17at 20:57; Start 06/05/17 at 17:00 Alprazolam (Xanax) 1 mg PRN TID PRN PO ANXIETY / AGITATION; Start 06/05/17 at 18 :45; Stop 06/05/17 at 19:15; Status DC Quetiapine Fumarate (SEROquel) 12.5 mg TID@0900,1300,1700 PO Last administered on 06/08/17at 17:05; Start 06/06/17 at 09:00; Stop 06/08/17 at 18:09; Status DC Alprazolam (Xanax) 1 mg TIDAFTMEAL PO Last administered on 06/07/17at 17:25; Start 06/06/17 at 09:00; Stop 06/07/17 at 19:13; Status DC Mirtazapine (Remeron) 7.5 mg QHS PO Last administered on 06/07/17at 20:09; Start 06/06/17 at 21:00; Stop 06/08/17 at 14:41; Status DC Trazodone HCl (Desyrel) 50 mg PRN QHS PRN PO INSOMNIA, MAY REPEAT X1 Last administered on 06/14/17at 21:51; Start 06/06/17 at 18:30 Alprazolam (Xanax) 1 mg BID PO Last administered on 06/17/17at 19:42; Start 06/08 at 09:00 Alprazolam (Xanax) 0.75 mg DAILY@1300 PO Last administered on 06/09/17at 12:59; Start 06/08/17 at 13:00; Stop 06/09/17 at 18:52; Status DC Quetiapine Fumarate (SEROquel) 12.5 mg QID PO Last administered on 06/16/17at 17 :23; Start 06/08/17 at 21:00; Stop 06/16/17 at 19:33; Status DC Lamotrigine (LaMICtal) 25 mg HS PO Last administered on 06/12/17at 19:43; Start 06/08/17 at 21:00; Stop 06/12/17 at 21:00; Status DC Lamotrigine (LaMICtal) 50 mg HS PO Last administered on 06/17/17at 19:41; Start 06/13/17 at 21:00; Stop 06/17/17 at 21:00 Lamotrigine (LaMICtal) 75 mg HS PO ; Start 06/18/17 at 21:00; Stop 06/22/17 at 21:00 Lamotrigine (LaMICtal) 100 mg HS PO ; Start 06/23/17 at 21:00 Alprazolam (Xanax) 0.5 mg DAILY@1300 PO Last administered on 06/17/17at 12:32; Start 06/10/17 at 13:00 Pantoprazole Sodium (Protonix) 40 mg DAILYAC PO Last administered on 06/17/17at 08:40; Start 06/10/17 at 07:30 Vitamin D (Vitamin D3) 2,000 unit DAILYBFRLUN PO Last administered on at 12:30; Start 06/12/17 at 11:30 Olanzapine (ZyPREXA ZYDIS) 2.5 mg PRN Q2HR PRN PO PSYCHOSIS Last administered on 06/16/17at 01:31; Start 06/16/17 at 01:00 Potassium Chloride (Klor-Con) 20 meq BID PO Last administered on 06/17/17at 19: 41; Start 06/17/17 at 21:00 Active Scripts Active Reported Seroquel (Quetiapine Fumarate) 25 Mg Tablet 1 Tab PO DAILY Paroxetine Hcl 20 Mg Tablet 1 Tab PO DAILY Lorazepam 1 Mg Tablet 1 Tab PO TID Protonix (Pantoprazole Sodium) 40 Mg Tablet.dr 1 Tab PO DAILY06 Zofran Odt (Ondansetron) 8 Mg Tab.rapdis 1 Tab PO Q6HRS PRN Multivitamins (Multivitamin) 1 Each Tablet 1 Tab PO DAILY Docusate Sodium 100 Mg Capsule 1 Cap PO BID Atorvastatin Calcium 20 Mg Tablet 20 Mg PO QHS Saline Nasal Mist (Sodium Chloride) 126 Ml Mist 1 Stevan NS PRN Q1HR PRN Zoloft (Sertraline Hcl) 25 Mg Tablet 12.5 Mg PO DAILY Seroquel (Quetiapine Fumarate) 25 Mg Tablet 12.5 Mg PO [id number] Seroquel (Quetiapine Fumarate) 25 Mg Tablet 25 Mg PO QHS NITROGLYCERIN SubLingual (Nitroglycerin) 0.4 Mg Tab.subl 0.4 Mg SL PRN Q5MIN PRN Analgesic [place] (Methyl Salicylate/Menthol) 29 Gm Oint...g. 1 Stevan TP PRN QID PRN Milk Of Magnesia (Magnesium Hydroxide) 2,400 Mg/10 Ml Oral.susp 2,400 Mg PO PRN QHS PRN Advanced Antacid Liquid (Mag Hydrox/Al Hydrox/Simeth) 355 Ml Oral.susp 15 Ml PO PRN AFTMEALHC PRN Lorazepam 0.5 Mg Tablet 0.5 Mg PO PRN TID PRN Lorazepam 0.5 Mg Tablet 0.5 Mg PO Q8HRS Tylenol (Acetaminophen) 325 Mg Tablet 650 Mg PO PRN Q6HRS PRN Promethazine Hcl 25 Mg Tablet 12.5 Mg PO PRN Q4HRS PRN Aspirin 81 Mg Tab.chew 81 Mg PO DAILY I have reviewed the current psychotropics carefully including drug interactions. Risk benefit ratio favors no change other than as noted in my dictated progress note. Diagnosis: Problems: (1) Anxiety disorder (2) Bipolar affective disorder, mixed (3) Impulse control disorder (4) Panic disorder with agoraphobia and severe panic attacks (5) Obsessive compulsive disorder SANTIAGO FARFAN MD Jun 17, 2017 20:13
[2017-06-18] MEDS: ONDANSETRON ODT 4 MG TAB.RAPDIS PO PRN (00:24)
[2017-06-18] MEDS: traZODone 50 MG TABLET. PO PRN (00:34)
--- NOTE | 2017-06-18 02:54 | PN ---
DATE: 06/15/2017 SUBJECTIVE: Covers elements, not covered in my initial note on 06/15. The patient was seen on rounds evening of 06/15, discussed with staff, reviewed the chart. Overall, the patient has been somewhat withdrawn, anxious, had a good day, forgot to ask for Xanax on one occasion, but handled this well without worsening anxiety. She complains of some GI symptoms by the evening, complains of feeling sick. REVIEW OF SYSTEMS: No CV, , pulmonary, eye system symptoms on review. RELIABILITY: Varies. MENTAL STATUS EXAMINATION: Oriented to herself and situation. Speech is coherent, abstraction fair, computation impaired, language function intact. Mood and affect somewhat dysphoric. LABORATORY DATA: Reviewed. IMPRESSION: Bipolar 1 disorder, mixed with psychotic features; anxiety disorder, unspecified. Rest unchanged. PLAN: Continue psychotropics as mentioned in my initial note. MAN Richar FARFAN MD DR: INNA/melody JOB#: [id number] / [id number]
[2017-06-18 06:07] VITALS: BP 155/65
[2017-06-18] MEDS: PANTOPRAZOLE 40 MG TABLET. PO SCH (07:30)
[2017-06-18] MEDS: MULTIVITAMIN with MINERAL TABLET. PO SCH (09:00)
[2017-06-18] MEDS: POTASSIUM CHLORIDE 20 MEQ TABLET.ER. PO SCH ×2 (09:00→20:10)
[2017-06-18] MEDS: DOCUSATE SODIUM 100 MG CAPSULE PO SCH ×2 (09:00→20:10)
[2017-06-18] MEDS: ALPRAZolam 0.5 MG TABLET PO SCH ×3 (09:00→20:15)
[2017-06-18] MEDS: ASPIRIN 81 MG TAB.CHEW PO SCH (09:00)
[2017-06-18] MEDS: CHOLECALCIFEROL (VITAMIN D3) 1,000 UNIT TABLET PO SCH (09:36)
[2017-06-18 15:57] VITALS: BP 136/65
[2017-06-18] MEDS: MAG HYDROX/AL HYDROX/SIMETH 30 ML ORAL.SUSP PO PRN (18:40)
--- NOTE | 2017-06-18 20:04 | PDOC ---
Exam Note: Rian Note: Please also refer to the separate dictated note~for this date of service dictated separately.~Patient seen individually. Discussed the patient with Nursing staff reviewed the chart.~Reviewed interim history and current functioning. Reviewed vital signs,~Labs/ Radiology~and current medications noted below. Continue current treatment with the changes noted in the dictated addendum note Assessment: Vital Signs: Vital Signs Date Time Temp Pulse Resp B/P (MAP) Pulse Ox O2 Delivery O2 Flow Rate FiO2 06/18/17 15:57 98.0 67 16 136/65 (88) 97 Room Air I&O Intake and Output 06/18/17 07:00 Intake Total 720 ml Balance 720 ml Intake Oral 720 ml # Voids 2 Current Medications: Meds: Current Medications Acetaminophen (Tylenol) 650 mg PRN Q6HRS PRN PO PAIN / TEMP Last administered on 06/12/17at 02:36; Start 06/05/17 at 16:15 Multi-Ingredient Ointment (Analgesic [place]) 1 stevan PRN QID PRN TP MUSCLE PAIN; Start 06/05/17 at 16:15 Al Hydroxide/Mg Hydroxide (Mylanta Plus Xs) 15 ml PRN AFTMEALHC PRN PO DYSPEPSIA Last administered on 06/18/17at 18:40; Start 06/05/17 at 16:15 Magnesium Hydroxide (Milk Of Magnesia) 2,400 mg PRN QHS PRN PO CONSTIPATION Last administered on 06/16/17at 20:23; Start 06/05/17 at 16:15 Aspirin (Children'S Aspirin) 81 mg DAILY PO Last administered on 06/18/17at 09: 00; Start 06/06/17 at 09:00 Sodium Chloride (Saline Mist Nasal) 1 stevan PRN Q1HR PRN NS NASAL CONGESTION; Start 06/05/17 at 17:15 Acetaminophen (Tylenol) 650 mg PRN Q6HRS PRN PO PAIN / TEMP; Start 06/05/17 at 16:45; Stop 06/05/17 at 16:45; Status DC Atorvastatin Calcium (Lipitor) 20 mg QHS PO Last administered on 06/17/17at 19: 41; Start 06/05/17 at 21:00 Docusate Sodium (Colace) 100 mg BID PO Last administered on 06/18/17at 09:00; Start 06/05/17 at 21:00 Multi-Ingredient Ointment (Analgesic [place]) 1 stevan PRN QID PRN TP MUSCLE PAIN; Start 06/05/17 at 16:45; Stop 06/05/17 at 16:45; Status DC Pantoprazole Sodium (Protonix) 40 mg DAILY06 PO Last administered on 06/09/17at 04:13; Start 06/06/17 at 06:00; Stop 06/10/17 at 05:49; Status DC Non-Formulary Medication 15 ml PRN AFTMEALHC PRN PO DYSPEPSIA; Start 06/05/17 at 16:45; Stop 06/05/17 at 16:45; Status DC Non-Formulary Medication 2,400 mg PRN QHS PRN PO CONSTIPATION; Start 06/05/17 at 16:45; Stop 06/05/17 at 16:45; Status DC Multivitamins/ Calcium (Thera-M Plus) 1 tab DAILY PO Last administered on at 09:00; Start 06/06/17 at 09:00 Ondansetron HCl (Zofran Odt) 8 mg PRN Q6HRS PRN PO NAUSEA Last administered on 06/18/17at 00:24; Start 06/05/17 at 17:00 Alprazolam (Xanax) 1 mg PRN TID PRN PO ANXIETY / AGITATION; Start 06/05/17 at 18 :45; Stop 06/05/17 at 19:15; Status DC Quetiapine Fumarate (SEROquel) 12.5 mg TID@0900,1300,1700 PO Last administered on 06/08/17at 17:05; Start 06/06/17 at 09:00; Stop 06/08/17 at 18:09; Status DC Alprazolam (Xanax) 1 mg TIDAFTMEAL PO Last administered on 06/07/17at 17:25; Start 06/06/17 at 09:00; Stop 06/07/17 at 19:13; Status DC Mirtazapine (Remeron) 7.5 mg QHS PO Last administered on 06/07/17at 20:09; Start 06/06/17 at 21:00; Stop 06/08/17 at 14:41; Status DC Trazodone HCl (Desyrel) 50 mg PRN QHS PRN PO INSOMNIA, MAY REPEAT X1 Last administered on 06/18/17at 00:34; Start 06/06/17 at 18:30 Alprazolam (Xanax) 1 mg BID PO Last administered on 06/18/17at 09:00; Start 06/08 at 09:00 Alprazolam (Xanax) 0.75 mg DAILY@1300 PO Last administered on 06/09/17at 12:59; Start 06/08/17 at 13:00; Stop 06/09/17 at 18:52; Status DC Quetiapine Fumarate (SEROquel) 12.5 mg QID PO Last administered on 06/16/17at 17 :23; Start 06/08/17 at 21:00; Stop 06/16/17 at 19:33; Status DC Lamotrigine (LaMICtal) 25 mg HS PO Last administered on 06/12/17at 19:43; Start 06/08/17 at 21:00; Stop 06/12/17 at 21:00; Status DC Lamotrigine (LaMICtal) 50 mg HS PO Last administered on 06/17/17at 19:41; Start 06/13/17 at 21:00; Stop 06/17/17 at 21:00; Status DC Lamotrigine (LaMICtal) 75 mg HS PO ; Start 06/18/17 at 21:00; Stop 06/22/17 at 21:00 Lamotrigine (LaMICtal) 100 mg HS PO ; Start 06/23/17 at 21:00 Alprazolam (Xanax) 0.5 mg DAILY@1300 PO Last administered on 06/18/17at 12:29; Start 06/10/17 at 13:00 Pantoprazole Sodium (Protonix) 40 mg DAILYAC PO Last administered on 06/18/17at 07:30; Start 06/10/17 at 07:30 Vitamin D (Vitamin D3) 2,000 unit DAILYBFRLUN PO Last administered on at 09:36; Start 06/12/17 at 11:30 Olanzapine (ZyPREXA ZYDIS) 2.5 mg PRN Q2HR PRN PO PSYCHOSIS Last administered on 06/18/17at 09:37; Start 06/16/17 at 01:00 Potassium Chloride (Klor-Con) 20 meq BID PO Last administered on 06/18/17at 09: 00; Start 06/17/17 at 21:00 Mirtazapine (Remeron) 7.5 mg QHS PO ; Start 06/18/17 at 21:00 Active Scripts Active Reported Seroquel (Quetiapine Fumarate) 25 Mg Tablet 1 Tab PO DAILY Paroxetine Hcl 20 Mg Tablet 1 Tab PO DAILY Lorazepam 1 Mg Tablet 1 Tab PO TID Protonix (Pantoprazole Sodium) 40 Mg Tablet.dr 1 Tab PO DAILY06 Zofran Odt (Ondansetron) 8 Mg Tab.rapdis 1 Tab PO Q6HRS PRN Multivitamins (Multivitamin) 1 Each Tablet 1 Tab PO DAILY Docusate Sodium 100 Mg Capsule 1 Cap PO BID Atorvastatin Calcium 20 Mg Tablet 20 Mg PO QHS Saline Nasal Mist (Sodium Chloride) 126 Ml Mist 1 Stevan NS PRN Q1HR PRN Zoloft (Sertraline Hcl) 25 Mg Tablet 12.5 Mg PO DAILY Seroquel (Quetiapine Fumarate) 25 Mg Tablet 12.5 Mg PO [id number] Seroquel (Quetiapine Fumarate) 25 Mg Tablet 25 Mg PO QHS NITROGLYCERIN SubLingual (Nitroglycerin) 0.4 Mg Tab.subl 0.4 Mg SL PRN Q5MIN PRN Analgesic [place] (Methyl Salicylate/Menthol) 29 Gm Oint...g. 1 Stevan TP PRN QID PRN Milk Of Magnesia (Magnesium Hydroxide) 2,400 Mg/10 Ml Oral.susp 2,400 Mg PO PRN QHS PRN Advanced Antacid Liquid (Mag Hydrox/Al Hydrox/Simeth) 355 Ml Oral.susp 15 Ml PO PRN AFTMEALHC PRN Lorazepam 0.5 Mg Tablet 0.5 Mg PO PRN TID PRN Lorazepam 0.5 Mg Tablet 0.5 Mg PO Q8HRS Tylenol (Acetaminophen) 325 Mg Tablet 650 Mg PO PRN Q6HRS PRN Promethazine Hcl 25 Mg Tablet 12.5 Mg PO PRN Q4HRS PRN Aspirin 81 Mg Tab.chew 81 Mg PO DAILY I have reviewed the current psychotropics carefully including drug interactions. Risk benefit ratio favors no change other than as noted in my dictated progress note. Diagnosis: Problems: (1) Anxiety disorder (2) Bipolar affective disorder, mixed (3) Impulse control disorder (4) Panic disorder with agoraphobia and severe panic attacks (5) Obsessive compulsive disorder SANTIAGO FARFAN MD Jun 18, 2017 20:04
[2017-06-18] MEDS: ATORVASTATIN CALCIUM 20 MG TABLET PO SCH (20:10)
[2017-06-18] MEDS: MIRTAZAPINE 7.5 MG TABLET. PO SCH (20:15)
[2017-06-18] MEDS: lamoTRIgine 25 MG TABLET. PO SCH (20:15)
[2017-06-19 05:57] VITALS: BP 157/76
[2017-06-19] MEDS: PANTOPRAZOLE 40 MG TABLET. PO SCH (07:52)
[2017-06-19] MEDS: MULTIVITAMIN with MINERAL TABLET. PO SCH (07:52)
[2017-06-19] MEDS: DOCUSATE SODIUM 100 MG CAPSULE PO SCH ×2 (07:52→20:10)
[2017-06-19] MEDS: POTASSIUM CHLORIDE 20 MEQ TABLET.ER. PO SCH ×2 (07:52→20:10)
[2017-06-19] MEDS: ALPRAZolam 0.5 MG TABLET PO SCH ×3 (07:52→20:12)
[2017-06-19] MEDS: ASPIRIN 81 MG TAB.CHEW PO SCH (07:52)
--- NOTE | 2017-06-19 10:13 | PN ---
DATE: 06/12/2017 PSYCHIATRIC PROGRESS NOTE SUBJECTIVE: This late entry 06/12/2017 covers elements not covered in my initial note 06/12/2017. The patient was staffed at treatment team meeting with the entire team on the morning of 06/12/2017, then seen individually after that. Slept 6-1/2 hours on an average, but previous evening slept 3-1/2 hours. Appetite 75%. Compliant with medications. Somatically preoccupied. REVIEW OF SYSTEMS: Vague somatic symptoms. , pulmonary, eye, ENT system symptoms reviewed. PHYSICAL EXAMINATION: General: Oriented. DICTATION ENDS HERE MAN Richar FARFAN MD DR: INNA/melody JOB#: [id number] / [id number]
--- NOTE | 2017-06-19 10:23 | PN ---
DATE: 06/16/2017 This is a late entry 06/16. Covers elements not covered in my initial note 06/16. SUBJECTIVE: Met with the patient in the evening of 06/16. The patient slept just 2 hours previous evening and I was called by nursing staff in middle of the night as reportedly she was making herself throw up. She was demanding Xanax in the evening, refusing to eat, stating it would make herself sick, making herself vomit multiple times. Moved to the quiet room for visual monitoring. Had an episode of vomiting at breakfast and then none until I met with her the evening of 06/16. REVIEW OF SYSTEMS: No CV, , pulmonary, eye system symptoms on review. MENTAL STATUS EXAM: Oriented to herself and situation. Speech has some latency, coherent. Abstraction fair, computation impaired, language function intact. She appeared little more confused. No suicidal or homicidal ideation. LABORATORY DATA: Reviewed. IMPRESSION: Bipolar 1 disorder, mixed with psychotic features; anxiety disorder, unspecified; panic disorder. Rest unchanged. PLAN: Check CBC, CMP, UA and a CT head as workup of her increasing confusion. We will also check an EKG since she is on Seroquel and we will stop the Seroquel for now. Continue rest of the psychotropics unchanged. SANTIAGO FARFAN MD DR: INNA/melody JOB#: [id number] / [id number]
--- NOTE | 2017-06-19 10:24 | PN ---
DATE: 06/17/2017 This is a late entry 06/17, covers elements not covered in my initial note 06/17. SUBJECTIVE: I met with the patient in the evening of 06/17. The patient slept [address] head unremarkable. She does have a UTI. Culture is awaited. Had some episodes of blanking out in the morning, was somewhat sweaty when standing in front of the mirror. We will consult Dr. Houser, Neurology, to make sure these are not seizure-like episodes. After shower, she would not stand up, said she was weak and was in a wheelchair briefly. Refused her vitamins. No throwing up noted 06/17. REVIEW OF SYSTEMS: No CV, , pulmonary, eye system symptoms on review. MENTAL STATUS EXAM: Reasonably oriented. Speech coherent, abstraction fair, computation impaired, language function intact, attention span short. Mood and affect still somewhat anxious, labile, but improved. LABORATORY DATA: Labs reviewed. IMPRESSION: Bipolar 1 disorder, mixed with psychotic features; possible urinary tract infection; anxiety disorder, unspecified. Rest unchanged. PLAN: Continue current psychotropics. Seroquel was stopped, Xanax is 2.5 mg a day. Adjust further as clinically indicated. MAN Richar FARFAN MD DR: INNA/melody JOB#: [id number] / [id number]
[2017-06-19] MEDS: CHOLECALCIFEROL (VITAMIN D3) 1,000 UNIT TABLET PO SCH (11:30)
[2017-06-19 16:00] VITALS: BP 94/60
[2017-06-19] MEDS ORDERED: risperiDONE 0.5 MG TABLET. PO ONE (18:15)
[2017-06-19] MEDS: MIRTAZAPINE 7.5 MG TABLET. PO SCH (20:11)
[2017-06-19] MEDS: lamoTRIgine 25 MG TABLET. PO SCH (20:11)
[2017-06-19] MEDS: ATORVASTATIN CALCIUM 20 MG TABLET PO SCH (20:11)
--- NOTE | 2017-06-19 20:20 | PDOC ---
Exam Note: Rian Note: Please also refer to the separate dictated note~for this date of service dictated separately.~Patient seen individually. Discussed the patient with Nursing staff reviewed the chart.~Reviewed interim history and current functioning. Reviewed vital signs,~Labs/ Radiology~and current medications noted below. Continue current treatment with the changes noted in the dictated addendum note Assessment: Vital Signs: Vital Signs Date Time Temp Pulse Resp B/P (MAP) Pulse Ox O2 Delivery O2 Flow Rate FiO2 06/19/17 16:00 96.0 113 22 94/60 (71) 98 Room Air I&O Intake and Output 06/19/17 07:00 Intake Total 840 ml Balance 840 ml Intake Oral 840 ml Current Medications: Meds: Current Medications Acetaminophen (Tylenol) 650 mg PRN Q6HRS PRN PO PAIN / TEMP Last administered on 06/12/17at 02:36; Start 06/05/17 at 16:15 Multi-Ingredient Ointment (Analgesic [place]) 1 stevan PRN QID PRN TP MUSCLE PAIN; Start 06/05/17 at 16:15 Al Hydroxide/Mg Hydroxide (Mylanta Plus Xs) 15 ml PRN AFTMEALHC PRN PO DYSPEPSIA Last administered on 06/18/17at 18:40; Start 06/05/17 at 16:15 Magnesium Hydroxide (Milk Of Magnesia) 2,400 mg PRN QHS PRN PO CONSTIPATION Last administered on 06/16/17at 20:23; Start 06/05/17 at 16:15 Aspirin (Children'S Aspirin) 81 mg DAILY PO Last administered on 06/19/17at 07: 52; Start 06/06/17 at 09:00 Sodium Chloride (Saline Mist Nasal) 1 stevan PRN Q1HR PRN NS NASAL CONGESTION; Start 06/05/17 at 17:15 Acetaminophen (Tylenol) 650 mg PRN Q6HRS PRN PO PAIN / TEMP; Start 06/05/17 at 16:45; Stop 06/05/17 at 16:45; Status DC Atorvastatin Calcium (Lipitor) 20 mg QHS PO Last administered on 06/19/17at 20: 11; Start 06/05/17 at 21:00 Docusate Sodium (Colace) 100 mg BID PO Last administered on 06/19/17at 20:10; Start 06/05/17 at 21:00 Multi-Ingredient Ointment (Analgesic [place]) 1 stevan PRN QID PRN TP MUSCLE PAIN; Start 06/05/17 at 16:45; Stop 06/05/17 at 16:45; Status DC Pantoprazole Sodium (Protonix) 40 mg DAILY06 PO Last administered on 06/09/17at 04:13; Start 06/06/17 at 06:00; Stop 06/10/17 at 05:49; Status DC Non-Formulary Medication 15 ml PRN AFTMEALHC PRN PO DYSPEPSIA; Start 06/05/17 at 16:45; Stop 06/05/17 at 16:45; Status DC Non-Formulary Medication 2,400 mg PRN QHS PRN PO CONSTIPATION; Start 06/05/17 at 16:45; Stop 06/05/17 at 16:45; Status DC Multivitamins/ Calcium (Thera-M Plus) 1 tab DAILY PO Last administered on at 07:52; Start 06/06/17 at 09:00 Ondansetron HCl (Zofran Odt) 8 mg PRN Q6HRS PRN PO NAUSEA Last administered on 06/18/17at 00:24; Start 06/05/17 at 17:00 Alprazolam (Xanax) 1 mg PRN TID PRN PO ANXIETY / AGITATION; Start 06/05/17 at 18 :45; Stop 06/05/17 at 19:15; Status DC Quetiapine Fumarate (SEROquel) 12.5 mg TID@0900,1300,1700 PO Last administered on 06/08/17at 17:05; Start 06/06/17 at 09:00; Stop 06/08/17 at 18:09; Status DC Alprazolam (Xanax) 1 mg TIDAFTMEAL PO Last administered on 06/07/17at 17:25; Start 06/06/17 at 09:00; Stop 06/07/17 at 19:13; Status DC Mirtazapine (Remeron) 7.5 mg QHS PO Last administered on 06/07/17at 20:09; Start 06/06/17 at 21:00; Stop 06/08/17 at 14:41; Status DC Trazodone HCl (Desyrel) 50 mg PRN QHS PRN PO INSOMNIA, MAY REPEAT X1 Last administered on 06/18/17at 00:34; Start 06/06/17 at 18:30 Alprazolam (Xanax) 1 mg BID PO Last administered on 06/19/17at 20:12; Start 06/08 at 09:00 Alprazolam (Xanax) 0.75 mg DAILY@1300 PO Last administered on 06/09/17at 12:59; Start 06/08/17 at 13:00; Stop 06/09/17 at 18:52; Status DC Quetiapine Fumarate (SEROquel) 12.5 mg QID PO Last administered on 06/16/17at 17 :23; Start 06/08/17 at 21:00; Stop 06/16/17 at 19:33; Status DC Lamotrigine (LaMICtal) 25 mg HS PO Last administered on 06/12/17at 19:43; Start 06/08/17 at 21:00; Stop 06/12/17 at 21:00; Status DC Lamotrigine (LaMICtal) 50 mg HS PO Last administered on 06/17/17at 19:41; Start 06/13/17 at 21:00; Stop 06/17/17 at 21:00; Status DC Lamotrigine (LaMICtal) 75 mg HS PO Last administered on 06/19/17at 20:11; Start 06/18/17 at 21:00; Stop 06/22/17 at 21:00 Lamotrigine (LaMICtal) 100 mg HS PO ; Start 06/23/17 at 21:00 Alprazolam (Xanax) 0.5 mg DAILY@1300 PO Last administered on 06/19/17at 15:00; Start 06/10/17 at 13:00 Pantoprazole Sodium (Protonix) 40 mg DAILYAC PO Last administered on 06/19/17 07:52; Start 06/10/17 at 07:30 Vitamin D (Vitamin D3) 2,000 unit DAILYBFRLUN PO Last administered on at 09:36; Start 06/12/17 at 11:30 Olanzapine (ZyPREXA ZYDIS) 2.5 mg PRN Q2HR PRN PO PSYCHOSIS Last administered on 06/19/17at 13:58; Start 06/16/17 at 01:00 Potassium Chloride (Klor-Con) 20 meq BID PO Last administered on 06/19/17at 20: 10; Start 06/17/17 at 21:00 Mirtazapine (Remeron) 7.5 mg QHS PO Last administered on 06/19/17at 20:11; Start 06/18/17 at 21:00 Risperidone (RisperDAL) 0.5 mg DAILY PO ; Start 06/20/17 at 09:00 Risperidone (RisperDAL) 0.5 mg 1X ONCE PO Last administered on 06/19/17at 18:14 ; Start 06/19/17 at 18:15; Stop 06/19/17 at 18:16; Status DC Active Scripts Active Reported Seroquel (Quetiapine Fumarate) 25 Mg Tablet 1 Tab PO DAILY Paroxetine Hcl 20 Mg Tablet 1 Tab PO DAILY Lorazepam 1 Mg Tablet 1 Tab PO TID Protonix (Pantoprazole Sodium) 40 Mg Tablet.dr 1 Tab PO DAILY06 Zofran Odt (Ondansetron) 8 Mg Tab.rapdis 1 Tab PO Q6HRS PRN Multivitamins (Multivitamin) 1 Each Tablet 1 Tab PO DAILY Docusate Sodium 100 Mg Capsule 1 Cap PO BID Atorvastatin Calcium 20 Mg Tablet 20 Mg PO QHS Saline Nasal Mist (Sodium Chloride) 126 Ml Mist 1 Stevan NS PRN Q1HR PRN Zoloft (Sertraline Hcl) 25 Mg Tablet 12.5 Mg PO DAILY Seroquel (Quetiapine Fumarate) 25 Mg Tablet 12.5 Mg PO [id number] Seroquel (Quetiapine Fumarate) 25 Mg Tablet 25 Mg PO QHS NITROGLYCERIN SubLingual (Nitroglycerin) 0.4 Mg Tab.subl 0.4 Mg SL PRN Q5MIN PRN Analgesic [place] (Methyl Salicylate/Menthol) 29 Gm Oint...g. 1 Stevan TP PRN QID PRN Milk Of Magnesia (Magnesium Hydroxide) 2,400 Mg/10 Ml Oral.susp 2,400 Mg PO PRN QHS PRN Advanced Antacid Liquid (Mag Hydrox/Al Hydrox/Simeth) 355 Ml Oral.susp 15 Ml PO PRN AFTMEALHC PRN Lorazepam 0.5 Mg Tablet 0.5 Mg PO PRN TID PRN Lorazepam 0.5 Mg Tablet 0.5 Mg PO Q8HRS Tylenol (Acetaminophen) 325 Mg Tablet 650 Mg PO PRN Q6HRS PRN Promethazine Hcl 25 Mg Tablet 12.5 Mg PO PRN Q4HRS PRN Aspirin 81 Mg Tab.chew 81 Mg PO DAILY I have reviewed the current psychotropics carefully including drug interactions. Risk benefit ratio favors no change other than as noted in my dictated progress note. 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
[2017-06-20] MEDS: PANTOPRAZOLE 40 MG TABLET. PO SCH (07:30)
[2017-06-20] MEDS: risperiDONE 0.5 MG TABLET. PO SCH (07:49)
[2017-06-20] MEDS: DOCUSATE SODIUM 100 MG CAPSULE PO SCH ×2 (09:00→19:40)
[2017-06-20] MEDS: POTASSIUM CHLORIDE 20 MEQ TABLET.ER. PO SCH ×2 (09:00→19:40)
[2017-06-20] MEDS: MULTIVITAMIN with MINERAL TABLET. PO SCH (09:00)
[2017-06-20] MEDS: ASPIRIN 81 MG TAB.CHEW PO SCH (09:00)
[2017-06-20] MEDS ORDERED: risperiDONE 0.5 MG TABLET. PO ONE ×2 (10:30→17:00)
[2017-06-20] MEDS: ALPRAZolam 0.5 MG TABLET PO SCH ×3 (10:30→19:40)
[2017-06-20] MEDS: CHOLECALCIFEROL (VITAMIN D3) 1,000 UNIT TABLET PO SCH (11:30)
[2017-06-20 12:57] LABS: BASO # 0.1 x10^3/uL (0.0-0.2); BASO % 1 % (0-3); EOS % 0 % (0-3); HEMATOCRIT 35.5 % (36.0-47.0); HEMOGLOBIN 11.5 g/dL (12.0-15.5); LYMPH # 1.8 x10^3/uL (1.0-4.8); LYMPH % 15 % (24-48); MEAN CORPUSCULAR HEMOGLOBIN 31 pg (25-35); MEAN CORPUSCULAR HGB CONC 32 g/dL (31-37); MEAN CORPUSCULAR VOLUME 94 fL (79-100); MONO # 1.5 x10^3/uL (0.0-1.1); MONO % 12 % (0-9); NEUT # 9.1 x10^3uL (1.8-7.7); NEUT % 72 % (31-73); PLATELET COUNT 323 x10^3/uL (140-400); RED BLOOD COUNT 3.77 x10^6/uL (3.50-5.40); RED CELL DISTRIBUTION WIDTH 16.4 % (11.5-14.5); WHITE BLOOD COUNT 12.6 x10^3/uL (4.0-11.0)
[2017-06-20 13:08] LABS: ALBUMIN 4.2 g/dL (3.4-5.0); ALBUMIN/GLOBULIN RATIO 1.1 (1.0-1.7); CALCIUM 10.1 mg/dL (8.5-10.1); CREATININE 1.7 mg/dL (0.6-1.0); GFR 29.6; MAGNESIUM 2.3 mg/dL (1.8-2.4); POTASSIUM 3.9 mmol/L (3.5-5.1); TOTAL PROTEIN 8.1 g/dL (6.4-8.2)
[2017-06-20 13:46] LABS: % BANDS 1 % (0-9); % BASOS 1 % (0-3); % EOS 1 % (0-5); % LYMPHS 16 % (24-48); % MONOS 6 % (0-10); % SEGS 75 % (35-66); PLATELET CLUMP PRESENT; PLT ESTIMATE ADEQUATE (ADEQUATE); SCHISTOCYTES OCC; TARGET CELLS OCC
[2017-06-20 16:22] VITALS: BP 170/74
[2017-06-20] MEDS: MIRTAZAPINE 7.5 MG TABLET. PO SCH (19:40)
[2017-06-20] MEDS: ATORVASTATIN CALCIUM 20 MG TABLET PO SCH (19:40)
[2017-06-20] MEDS: traZODone 50 MG TABLET. PO PRN (19:41)
[2017-06-20] MEDS: TEMAZEPAM 15 MG CAPSULE PO SCH (19:41)
--- NOTE | 2017-06-20 20:15 | PDOC ---
Exam Note: Rian Note: Please also refer to the separate dictated note~for this date of service dictated separately.~Patient seen individually. Discussed the patient with Nursing staff reviewed the chart.~Reviewed interim history and current functioning. Reviewed vital signs,~Labs/ Radiology~and current medications noted below. Continue current treatment with the changes noted in the dictated addendum note Assessment: Vital Signs: Vital Signs Date Time Temp Pulse Resp B/P (MAP) Pulse Ox O2 Delivery O2 Flow Rate FiO2 06/20/17 16:22 78 24 170/74 (106) 97 Room Air 06/19/17 16:00 96.0 I&O Intake and Output 06/20/17 07:00 Intake Total 120 ml Balance 120 ml Intake Oral 120 ml Labs: Laboratory Tests Test 06/20/17 12:50 White Blood Count 12.6 x10^3/uL (4.0-11.0) H Red Blood Count 3.77 x10^6/uL (3.50-5.40) Hemoglobin 11.5 g/dL (12.0-15.5) L Hematocrit 35.5 % (36.0-47.0) L Mean Corpuscular Volume 94 fL (79-100) Mean Corpuscular Hemoglobin 31 pg (25-35) Mean Corpuscular Hemoglobin Concent 32 g/dL (31-37) Red Cell Distribution Width 16.4 % (11.5-14.5) H Platelet Count 323 x10^3/uL (140-400) Neutrophils (%) (Auto) 72 % (31-73) Lymphocytes (%) (Auto) 15 % (24-48) L Monocytes (%) (Auto) 12 % (0-9) H Eosinophils (%) (Auto) 0 % (0-3) Basophils (%) (Auto) 1 % (0-3) Neutrophils # (Auto) 9.1 x10^3uL (1.8-7.7) H Lymphocytes # (Auto) 1.8 x10^3/uL (1.0-4.8) Monocytes # (Auto) 1.5 x10^3/uL (0.0-1.1) H Eosinophils # (Auto) 0.0 x10^3/uL (0.0-0.7) Basophils # (Auto) 0.1 x10^3/uL (0.0-0.2) Segmented Neutrophils % 75 % (35-66) H Band Neutrophils % 1 % (0-9) Lymphocytes % 16 % (24-48) L Monocytes % 6 % (0-10) Eosinophils % 1 % (0-5) Basophils % 1 % (0-3) Platelet Estimate Adequate (ADEQUATE) Platelet Clumps, EDTA Present Target Cells Occ Schistocytes Occ Sodium Level 148 mmol/L (136-145) H Potassium Level 3.9 mmol/L (3.5-5.1) Chloride Level 108 mmol/L (98-107) H Carbon Dioxide Level 26 mmol/L (21-32) Anion Gap 14 (6-14) Blood Urea Nitrogen 36 mg/dL (7-20) H Creatinine 1.7 mg/dL (0.6-1.0) H Estimated GFR (Cockcroft-Gault) 29.6 BUN/Creatinine Ratio 21 (6-20) H Glucose Level 114 mg/dL (70-99) H Calcium Level 10.1 mg/dL (8.5-10.1) Magnesium Level 2.3 mg/dL (1.8-2.4) Total Bilirubin 1.0 mg/dL (0.2-1.0) Aspartate Amino Transferase (AST) 72 U/L (15-37) H Alanine Aminotransferase (ALT) 45 U/L (14-59) Alkaline Phosphatase 67 U/L (46-116) Total Protein 8.1 g/dL (6.4-8.2) Albumin 4.2 g/dL (3.4-5.0) Albumin/Globulin Ratio 1.1 (1.0-1.7) Current Medications: Meds: Current Medications Acetaminophen (Tylenol) 650 mg PRN Q6HRS PRN PO PAIN / TEMP Last administered on 06/12/17at 02:36; Start 06/05/17 at 16:15 Multi-Ingredient Ointment (Analgesic [place]) 1 stevan PRN QID PRN TP MUSCLE PAIN; Start 06/05/17 at 16:15 Al Hydroxide/Mg Hydroxide (Mylanta Plus Xs) 15 ml PRN AFTMEALHC PRN PO DYSPEPSIA Last administered on 06/18/17at 18:40; Start 06/05/17 at 16:15 Magnesium Hydroxide (Milk Of Magnesia) 2,400 mg PRN QHS PRN PO CONSTIPATION Last administered on 06/16/17at 20:23; Start 06/05/17 at 16:15 Aspirin (Children'S Aspirin) 81 mg DAILY PO Last administered on 06/19/17at 07: 52; Start 06/06/17 at 09:00 Sodium Chloride (Saline Mist Nasal) 1 stevan PRN Q1HR PRN NS NASAL CONGESTION; Start 06/05/17 at 17:15 Acetaminophen (Tylenol) 650 mg PRN Q6HRS PRN PO PAIN / TEMP; Start 06/05/17 at 16:45; Stop 06/05/17 at 16:45; Status DC Atorvastatin Calcium (Lipitor) 20 mg QHS PO Last administered on 06/20/17at 19: 40; Start 06/05/17 at 21:00 Docusate Sodium (Colace) 100 mg BID PO Last administered on 06/20/17at 19:40; Start 06/05/17 at 21:00 Multi-Ingredient Ointment (Analgesic [place]) 1 stevan PRN QID PRN TP MUSCLE PAIN; Start 06/05/17 at 16:45; Stop 06/05/17 at 16:45; Status DC Pantoprazole Sodium (Protonix) 40 mg DAILY06 PO Last administered on 06/09/17at 04:13; Start 06/06/17 at 06:00; Stop 06/10/17 at 05:49; Status DC Non-Formulary Medication 15 ml PRN AFTMEALHC PRN PO DYSPEPSIA; Start 06/05/17 at 16:45; Stop 06/05/17 at 16:45; Status DC Non-Formulary Medication 2,400 mg PRN QHS PRN PO CONSTIPATION; Start 06/05/17 at 16:45; Stop 06/05/17 at 16:45; Status DC Multivitamins/ Calcium (Thera-M Plus) 1 tab DAILY PO Last administered on at 07:52; Start 06/06/17 at 09:00 Ondansetron HCl (Zofran Odt) 8 mg PRN Q6HRS PRN PO NAUSEA Last administered on 06/18/17at 00:24; Start 06/05/17 at 17:00 Alprazolam (Xanax) 1 mg PRN TID PRN PO ANXIETY / AGITATION; Start 06/05/17 at 18 :45; Stop 06/05/17 at 19:15; Status DC Quetiapine Fumarate (SEROquel) 12.5 mg TID@0900,1300,1700 PO Last administered on 06/08/17at 17:05; Start 06/06/17 at 09:00; Stop 06/08/17 at 18:09; Status DC Alprazolam (Xanax) 1 mg TIDAFTMEAL PO Last administered on 06/07/17at 17:25; Start 06/06/17 at 09:00; Stop 06/07/17 at 19:13; Status DC Mirtazapine (Remeron) 7.5 mg QHS PO Last administered on 06/07/17at 20:09; Start 06/06/17 at 21:00; Stop 06/08/17 at 14:41; Status DC Trazodone HCl (Desyrel) 50 mg PRN QHS PRN PO INSOMNIA, MAY REPEAT X1 Last administered on 06/20/17at 19:41; Start 06/06/17 at 18:30 Alprazolam (Xanax) 1 mg BID PO Last administered on 06/20/17at 19:40; Start 06/08 at 09:00 Alprazolam (Xanax) 0.75 mg DAILY@1300 PO Last administered on 06/09/17at 12:59; Start 06/08/17 at 13:00; Stop 06/09/17 at 18:52; Status DC Quetiapine Fumarate (SEROquel) 12.5 mg QID PO Last administered on 06/16/17at 17 :23; Start 06/08/17 at 21:00; Stop 06/16/17 at 19:33; Status DC Lamotrigine (LaMICtal) 25 mg HS PO Last administered on 06/12/17at 19:43; Start 06/08/17 at 21:00; Stop 06/12/17 at 21:00; Status DC Lamotrigine (LaMICtal) 50 mg HS PO Last administered on 06/17/17at 19:41; Start 06/13/17 at 21:00; Stop 06/17/17 at 21:00; Status DC Lamotrigine (LaMICtal) 75 mg HS PO Last administered on 06/19/17at 20:11; Start 06/18/17 at 21:00; Stop 06/20/17 at 11:26; Status DC Lamotrigine (LaMICtal) 100 mg HS PO ; Start 06/23/17 at 21:00; Stop 06/23/17 at 21:00; Status DC Alprazolam (Xanax) 0.5 mg DAILY@1300 PO Last administered on 06/20/17at 14:17; Start 06/10/17 at 13:00 Pantoprazole Sodium (Protonix) 40 mg DAILYAC PO Last administered on 06/19/17at 07:52; Start 06/10/17 at 07:30 Vitamin D (Vitamin D3) 2,000 unit DAILYBFRLUN PO Last administered on at 09:36; Start 06/12/17 at 11:30 Olanzapine (ZyPREXA ZYDIS) 2.5 mg PRN Q2HR PRN PO PSYCHOSIS Last administered on 06/19/17at 13:58; Start 06/16/17 at 01:00 Potassium Chloride (Klor-Con) 20 meq BID PO Last administered on 06/20/17at 19: 40; Start 06/17/17 at 21:00 Mirtazapine (Remeron) 7.5 mg QHS PO Last administered on 06/20/17at 19:40; Start 06/18/17 at 21:00 Risperidone (RisperDAL) 0.5 mg DAILY PO Last administered on 06/20/17at 07:49; Start 06/20/17 at 09:00 Risperidone (RisperDAL) 0.5 mg 1X ONCE PO Last administered on 06/19/17at 18:14 ; Start 06/19/17 at 18:15; Stop 06/19/17 at 18:16; Status DC Risperidone (RisperDAL) 0.5 mg 1X ONCE PO Last administered on 06/20/17at 10:31 ; Start 06/20/17 at 10:30; Stop 06/20/17 at 10:31; Status DC Risperidone (RisperDAL) 0.5 mg 1X ONCE PO Last administered on 06/20/17at 17:55 ; Start 06/20/17 at 17:00; Stop 06/20/17 at 17:01; Status DC Temazepam (Restoril) 15 mg QHS PO Last administered on 06/20/17at 19:41; Start 06/20/17 at 21:00 Temazepam (Restoril) 15 mg PRN QHS PRN PO INSOMNIA; Start 06/20/17 at 19:30 Active Scripts Active Reported Seroquel (Quetiapine Fumarate) 25 Mg Tablet 1 Tab PO DAILY Paroxetine Hcl 20 Mg Tablet 1 Tab PO DAILY Lorazepam 1 Mg Tablet 1 Tab PO TID Protonix (Pantoprazole Sodium) 40 Mg Tablet.dr 1 Tab PO DAILY06 Zofran Odt (Ondansetron) 8 Mg Tab.rapdis 1 Tab PO Q6HRS PRN Multivitamins (Multivitamin) 1 Each Tablet 1 Tab PO DAILY Docusate Sodium 100 Mg Capsule 1 Cap PO BID Atorvastatin Calcium 20 Mg Tablet 20 Mg PO QHS Saline Nasal Mist (Sodium Chloride) 126 Ml Mist 1 Stevan NS PRN Q1HR PRN Zoloft (Sertraline Hcl) 25 Mg Tablet 12.5 Mg PO DAILY Seroquel (Quetiapine Fumarate) 25 Mg Tablet 12.5 Mg PO [id number] Seroquel (Quetiapine Fumarate) 25 Mg Tablet 25 Mg PO QHS NITROGLYCERIN SubLingual (Nitroglycerin) 0.4 Mg Tab.subl 0.4 Mg SL PRN Q5MIN PRN Analgesic [place] (Methyl Salicylate/Menthol) 29 Gm Oint...g. 1 Stevan TP PRN QID PRN Milk Of Magnesia (Magnesium Hydroxide) 2,400 Mg/10 Ml Oral.susp 2,400 Mg PO PRN QHS PRN Advanced Antacid Liquid (Mag Hydrox/Al Hydrox/Simeth) 355 Ml Oral.susp 15 Ml PO PRN AFTMEALHC PRN Lorazepam 0.5 Mg Tablet 0.5 Mg PO PRN TID PRN Lorazepam 0.5 Mg Tablet 0.5 Mg PO Q8HRS Tylenol (Acetaminophen) 325 Mg Tablet 650 Mg PO PRN Q6HRS PRN Promethazine Hcl 25 Mg Tablet 12.5 Mg PO PRN Q4HRS PRN Aspirin 81 Mg Tab.chew 81 Mg PO DAILY I have reviewed the current psychotropics carefully including drug interactions. Risk benefit ratio favors no change other than as noted in my dictated progress note. 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
--- NOTE | 2017-06-20 22:49 | CONS ---
DATE OF CONSULTATION: 06/18/2017 REASON FOR CONSULTATION: Rule out seizure versus syncope. REFERRING PHYSICIAN: Dr. Lord. HISTORY OF PRESENT ILLNESS: This is a 72-year-old female who was admitted on 06/05/2017 with a diagnosis of bipolar disorder, anxiety and panic attacks. Neuro consult was requested because it was reported that the patient had had episodes of "blacking out" while standing in front of the mirror. The patient slept 7 hours last night and she has not had any episodes today. She denies convulsions or injuries or falling to the floor. She denies confusion, disorientation after the episode which may last a few minutes. The patient has had any history of seizure or head injuries. She was initially admitted after she was seen in the Emergency Room at [facility] x 5 within 10 days due to panic attacks, depression, anxiety and poor appetite. She was [facility] inpatient [facility] care. Currently, she denies headaches, visual disturbances, nausea, vomiting, chest pain, shortness of breath, palpitation, dysarthria, dysphagia, weakness or paresthesia. PAST MEDICAL HISTORY: Significant for hypertension, hyperlipidemia, reported significant weight loss, anxiety and possible bipolar disorder, GERD. PAST SURGICAL HISTORY: Positive for , cholecystectomy and sinus surgery. FAMILY HISTORY: Noncontributory. SOCIAL HISTORY: The patient is a . She is a resident at an independent living facility. She has 2 daughters. She denies smoking, alcohol drinking, or illicit drug use. CURRENT MEDICATIONS: Lamotrigine 100 mg at bedtime, Risperdal 0.5 mg daily, mirtazapine 7.5 mg at bedtime, potassium 20 mEq b.i.d., olanzapine 2.5 mg q. 2 hours p.r.n. for psychosis, vitamin D 2000 units daily, alprazolam 0.5 mg at the afternoon and 1 mg b.i.d., trazodone 50 mg at bedtime, multivitamins and calcium, aspirin 81 mg daily, Colace 100 mg b.i.d., Lipitor 20 mg at bedtime, Zofran 8 mg q. 6 hours p.r.n. for nausea and vomiting, Tylenol 650 mg p.r.n. for pain. ALLERGIES: INFLUENZA VACCINE AND CHOCOLATE FLAVOR. REVIEW OF SYSTEMS: A 10-point review of system was performed as mentioned above in history of present illness, otherwise unremarkable. PHYSICAL EXAMINATION: GENERAL: Well-developed, well-nourished white female, not in acute distress. VITAL SIGNS: She weighs 136.5 pounds. Blood pressure 136/65, respiratory rate 16, pulse is 67 and regular, temperature 98, oxygen saturation 97% on room air. HEENT: Normocephalic, atraumatic, otherwise unremarkable. NECK: Supple. Negative for carotid bruit, lymphadenopathy or thyromegaly. LUNGS: Clear to A and P. CARDIOVASCULAR: Regular rate and rhythm, normal S1, S2. There is no S3, S4 or murmur. ABDOMEN: Soft. Bowel sounds positive. No palpable mass, organomegaly or tenderness. EXTREMITIES: Negative for cyanosis, clubbing or pitting edema. NEUROLOGICAL: Mental Status: The patient is alert and oriented x 3. Speech is fluent. There is no language dysfunction. Memory: The patient recalls 2/3 immediately and after 1 and 3 minutes. Judgment and abstract thinking are fair. The patient denies hallucination or delusion. Cranial Nerves: Visual morales are full. The pupils are reactive to light and accommodation. Extraocular movements are intact. There is no nystagmus. There is no facial motor or sensory deficit. Hearing is intact bilaterally. The palate is elevated symmetrically. Sternocleidomastoid muscles are powerful bilaterally. The patient shrugs her shoulders symmetrically and protrudes her tongue in the midline without fasciculation or atrophy. Motor: No focal muscle bulk was seen. The tone is normal. The strength is 5/5 throughout. Sensory examination revealed normal pinprick, light touch, vibratory and position senses. Deep tendon reflexes were symmetric and active without pathology responses. Gait and coordination are normal. LABORATORY DATA: CBC 06/16/2017 revealed white blood cells of 8,500, hemoglobin 11, hematocrit 33.3, platelet count 348,000. Chemistry revealed sodium of 140, potassium 3.3, chloride 100, CO2 of 28, BUN 15, creatinine 1.1. Glucose 106, calcium 9.4. Liver enzymes are normal. Urinalysis; urine leukocyte esterase is large and positive, white blood cells more than 40. RPR nonreactive. DIAGNOSTIC: Head CT scan revealed no acute intracranial findings, KUB x-ray revealed no abnormalities. IMPRESSION: 1. Recurrent episodes of blacking out, not present today, etiology uncertain, syncope versus nonconvulsive seizures; however, anxiety and panic attacks may have contributed to the current symptoms. 2. Multiple psychiatric problems include bipolar disorder, anxiety disorders and panic attacks. 3. Multiple medical problems include hypertension, hyperlipidemia, gastroesophageal reflux disease. 4. Urinary tract infection. RECOMMENDATIONS: 1. Await urine culture. 2. Continue with current management initiated by Dr. Bertrand. 3. Initiate current psychiatric care initiated by Dr. Lord. 4. Encourage the patient to drink enough water and fluid. 5. The patient has a seizure-like activity, we will arrange for EEG. M Jody DOCKERY MD DR: LAXMI/melody JOB#: [id number] / [id number]
[2017-06-21] MEDS: TEMAZEPAM 15 MG CAPSULE PO PRN (00:31)
--- NOTE | 2017-06-21 03:33 | PN ---
DATE: 06/18/2017 This late entry 06/18/2017 covers elements not covered in my initial note 06/18/2017. SUBJECTIVE: Met with the patient evening of 06/18/2017. The patient slept 1-3/4 hours previous evening. She has been quite disorganized, was quite somatic, states she needs to get to [facility] because she is dying. Other time, she is interactive and appropriate and then shifts to periods when she sits with her mouth open. She said she cannot eat at lunchtime and dinnertime. Appears quite psychotic, but information from daughter indicates she has had similar episodes in the past and daughter believes she feigns the somatic symptoms. We have asked for a Neurology consult with Dr. Houser and CT head has been unremarkable. Labs so far are unremarkable. REVIEW OF SYSTEMS: No CV, , pulmonary, eye, ENT system symptoms on review, but she does seem quite psychotic. MENTAL STATUS EXAMINATION: Oriented to herself. Insight, judgment, recent memory is impaired, though difficult to assess given the above. No active suicidal or homicidal ideation, quite disorganized, psychotic. LABORATORY DATA: Reviewed. IMPRESSION: Bipolar 1 disorder, mixed with psychotic features; anxiety disorder, unspecified; rule out personality disorder. PLAN: Start Remeron 7.5 mg p.o. at bedtime. Continue Lamictal along with Xanax 2.5 mg a day. Rest unchanged. We will make further decisions depending on her progress. MAN Richar FARFAN MD DR: INNA/melody JOB#: [id number] / [id number]
[2017-06-21 05:59] VITALS: BP 112/62
[2017-06-21] MEDS: PANTOPRAZOLE 40 MG TABLET. PO SCH (07:30)
[2017-06-21] MEDS: risperiDONE 0.5 MG TABLET. PO SCH (07:41)
[2017-06-21] MEDS: ASPIRIN 81 MG TAB.CHEW PO SCH (07:41)
[2017-06-21] MEDS: MULTIVITAMIN with MINERAL TABLET. PO SCH (07:41)
[2017-06-21] MEDS: DOCUSATE SODIUM 100 MG CAPSULE PO SCH ×2 (07:41→19:15)
[2017-06-21] MEDS: ALPRAZolam 0.5 MG TABLET PO SCH ×3 (07:42→19:15)
[2017-06-21] MEDS: POTASSIUM CHLORIDE 20 MEQ TABLET.ER. PO SCH ×2 (07:42→19:15)
--- NOTE | 2017-06-21 08:07 | RAD ---
EXAM: Chest, single view. HISTORY: Leukocytosis. COMPARISON: None. FINDINGS: A frontal view of the chest is obtained. There is no infiltrate, effusion or pneumothorax. The heart is normal in size. There is a sclerotic lesion within the proximal left humerus, likely an enchondroma of no clinical significance. IMPRESSION: No acute pulmonary finding.
[2017-06-21 08:19] LABS: BASO % 0 % (0-3); EOS # 0.2 x10^3/uL (0.0-0.7); EOS % 2 % (0-3); HEMATOCRIT 36.3 % (36.0-47.0); HEMOGLOBIN 11.9 g/dL (12.0-15.5); LYMPH # 1.2 x10^3/uL (1.0-4.8); LYMPH % 11 % (24-48); MEAN CORPUSCULAR HEMOGLOBIN 31 pg (25-35); MEAN CORPUSCULAR HGB CONC 33 g/dL (31-37); MEAN CORPUSCULAR VOLUME 94 fL (79-100); MONO # 0.9 x10^3/uL (0.0-1.1); MONO % 8 % (0-9); NEUT % 79 % (31-73); PLATELET COUNT 293 x10^3/uL (140-400); RED BLOOD COUNT 3.85 x10^6/uL (3.50-5.40); RED CELL DISTRIBUTION WIDTH 16.3 % (11.5-14.5); WHITE BLOOD COUNT 11.4 x10^3/uL (4.0-11.0)
[2017-06-21 08:30] LABS: ALBUMIN 3.8 g/dL (3.4-5.0); CALCIUM 9.7 mg/dL (8.5-10.1); CREATININE 1.5 mg/dL (0.6-1.0); GFR 34.2; POTASSIUM 3.6 mmol/L (3.5-5.1); TOTAL BILIRUBIN 1.1 mg/dL (0.2-1.0); TOTAL PROTEIN 7.8 g/dL (6.4-8.2)
--- NOTE | 2017-06-21 13:05 | PN ---
DATE: 06/19/2017 PSYCHIATRIC PROGRESS NOTE This is a late entry 06/19/2017, covers elements not covered in my initial note 06/19/2017. SUBJECTIVE: The patient was staffed at treatment team meeting with the entire team morning of 06/19/2017, seen individually evening of 06/19/2017, slept 6 hours previous evening. She attended groups and then has moments where she is quite catatonic. At times she is arguing with staff, other times more engaged. She appeared quite psychotic, putting toothpaste on her legs and the daughter has told the nursing staff she has had similar episodes in the past. Another time she was quite paranoid, yelling to close this place, rubbing her hand on different taking a banana and rubbing it on the table, refusing to eat, said she could not talk and then later she would. REVIEW OF SYSTEMS: No CV, , pulmonary, eye, ENT system symptoms on review. Reliability poor. MENTAL STATUS EXAM: Oriented to herself. Insight is poor. Judgment marginal, language function intact. Attention span short. She is quite disorganized, paranoid. No active suicidal or homicidal ideation. Attention span short. IMPRESSION: Bipolar 1 disorder, mixed with psychotic features. Delirium, unspecified. PLAN: The patient's labs so far have been unremarkable. We will repeat CBC, CMP. CT head was noncontributory. UA culture is pending. We had stopped the Seroquel. We will start Risperdal 0.5 mg daily, may need to increase this. Xanax is at 2.5 mg a day. May discontinue the Lamictal since this is something new, which started since her admission. Continue trazodone, Zyprexa p.r.n., Remeron 7.5 mg p.o. at bedtime. We will request Dr. Houser to follow her from a neurological standpoint and Dr. Houser has already seen her once or twice before this. Dr. Childress/Dr. Bertrand are following her from a medical standpoint. MAN Richar FARFAN MD DR: INNA/melody JOB#: [id number] / [id number]
[2017-06-21] MEDS: CHOLECALCIFEROL (VITAMIN D3) 1,000 UNIT TABLET PO SCH (13:17)
[2017-06-21 16:18] VITALS: BP 157/90
[2017-06-21] MEDS ORDERED: IV DEXTROSE 5 %-0.2 % NACL 1,000 ML IV ONE (17:45)
[2017-06-21] MEDS: ACETAMINOPHEN 325 MG TABLET PO PRN (18:36)
[2017-06-21] MEDS: MIRTAZAPINE 7.5 MG TABLET. PO SCH (19:15)
[2017-06-21] MEDS: TEMAZEPAM 15 MG CAPSULE PO SCH (19:15)
[2017-06-21] MEDS: ATORVASTATIN CALCIUM 20 MG TABLET PO SCH (19:15)
[2017-06-21] MEDS: MAGNESIUM HYDROXIDE 2,400 MG/30 ML ORAL.SUSP. PO PRN (19:16)
[2017-06-21 19:48] LABS: BACTERIA,URINE MANY /HPF (0-FEW); BILIRUBIN,URINE NEG (NEG); CLARITY,URINE CLOUDY; COLOR,URINE YELLOW; GLUCOSE,URINE NEG (NEG); NITRITE,URINE NEG (NEG); SQUAMOUS EPITHELIAL CELL,UR OCC /LPF; UROBILINOGEN,URINE 0.2 mg/dL (0.2 mg/dL)
--- NOTE | 2017-06-21 20:37 | PDOC ---
Exam Note: Rian Note: Please also refer to the separate dictated note~for this date of service dictated separately.~Patient seen individually. Discussed the patient with Nursing staff reviewed the chart.~Reviewed interim history and current functioning. Reviewed vital signs,~Labs/ Radiology~and current medications noted below. Continue current treatment with the changes noted in the dictated addendum note Assessment: Vital Signs: Vital Signs Date Time Temp Pulse Resp B/P (MAP) Pulse Ox O2 Delivery O2 Flow Rate FiO2 06/21/17 16:18 98.5 89 18 157/90 (112) 98 06/20/17 16:22 Room Air I&O Intake and Output 06/21/17 07:00 Intake Total 1200 ml Balance 1200 ml Intake Oral 1200 ml Labs: Laboratory Tests Test 06/21/17 07:38 06/21/17 18:45 White Blood Count 11.4 x10^3/uL (4.0-11.0) H Red Blood Count 3.85 x10^6/uL (3.50-5.40) Hemoglobin 11.9 g/dL (12.0-15.5) L Hematocrit 36.3 % (36.0-47.0) Mean Corpuscular Volume 94 fL (79-100) Mean Corpuscular Hemoglobin 31 pg (25-35) Mean Corpuscular Hemoglobin Concent 33 g/dL (31-37) Red Cell Distribution Width 16.3 % (11.5-14.5) H Platelet Count 293 x10^3/uL (140-400) Neutrophils (%) (Auto) 79 % (31-73) H Lymphocytes (%) (Auto) 11 % (24-48) L Monocytes (%) (Auto) 8 % (0-9) Eosinophils (%) (Auto) 2 % (0-3) Basophils (%) (Auto) 0 % (0-3) Neutrophils # (Auto) 9.0 x10^3uL (1.8-7.7) H Lymphocytes # (Auto) 1.2 x10^3/uL (1.0-4.8) Monocytes # (Auto) 0.9 x10^3/uL (0.0-1.1) Eosinophils # (Auto) 0.2 x10^3/uL (0.0-0.7) Basophils # (Auto) 0.0 x10^3/uL (0.0-0.2) Sodium Level 143 mmol/L (136-145) Potassium Level 3.6 mmol/L (3.5-5.1) Chloride Level 105 mmol/L (98-107) Carbon Dioxide Level 24 mmol/L (21-32) Anion Gap 14 (6-14) Blood Urea Nitrogen 37 mg/dL (7-20) H Creatinine 1.5 mg/dL (0.6-1.0) H Estimated GFR (Cockcroft-Gault) 34.2 BUN/Creatinine Ratio 25 (6-20) H Glucose Level 113 mg/dL (70-99) H Calcium Level 9.7 mg/dL (8.5-10.1) Magnesium Level 2.0 mg/dL (1.8-2.4) Total Bilirubin 1.1 mg/dL (0.2-1.0) H Aspartate Amino Transferase (AST) 111 U/L (15-37) H Alanine Aminotransferase (ALT) 70 U/L (14-59) H Alkaline Phosphatase 68 U/L (46-116) Total Protein 7.8 g/dL (6.4-8.2) Albumin 3.8 g/dL (3.4-5.0) Albumin/Globulin Ratio 1.0 (1.0-1.7) Urine Collection Type Unknown Urine Color Yellow Urine Clarity Cloudy Urine pH 5.0 Urine Specific [place] 1.020 Urine Protein 100 mg/dl (NEG-TRACE) Urine Glucose (UA) Neg mg/dL (NEG) Urine Ketones (Stick) Trace mg/dL (NEG) Urine Blood Small (NEG) Urine Nitrite Neg (NEG) Urine Bilirubin Neg (NEG) Urine Urobilinogen Dipstick 0.2 mg/dL (0.2 mg/dL) Urine Leukocyte Esterase Mod (NEG) Urine RBC 3-5 /HPF (0-2) Urine WBC 11-20 /HPF (0-4) Urine Squamous Epithelial Cells Occ /LPF Urine Bacteria Many /HPF (0-FEW) Urine Mucus Slight /LPF Current Medications: Meds: Current Medications Acetaminophen (Tylenol) 650 mg PRN Q6HRS PRN PO PAIN / TEMP Last administered on 06/21/17at 18:36; Start 06/05/17 at 16:15 Multi-Ingredient Ointment (Analgesic [place]) 1 stevan PRN QID PRN TP MUSCLE PAIN Last administered on 06/21/17at 18:37; Start 06/05/17 at 16:15 Al Hydroxide/Mg Hydroxide (Mylanta Plus Xs) 15 ml PRN AFTMEALHC PRN PO DYSPEPSIA Last administered on 06/18/17at 18:40; Start 06/05/17 at 16:15 Magnesium Hydroxide (Milk Of Magnesia) 2,400 mg PRN QHS PRN PO CONSTIPATION Last administered on 06/21/17at 19:16; Start 06/05/17 at 16:15 Aspirin (Children'S Aspirin) 81 mg DAILY PO Last administered on 06/21/17at 07: 41; Start 06/06/17 at 09:00 Sodium Chloride (Saline Mist Nasal) 1 stevan PRN Q1HR PRN NS NASAL CONGESTION; Start 06/05/17 at 17:15 Acetaminophen (Tylenol) 650 mg PRN Q6HRS PRN PO PAIN / TEMP; Start 06/05/17 at 16:45; Stop 06/05/17 at 16:45; Status DC Atorvastatin Calcium (Lipitor) 20 mg QHS PO Last administered on 06/21/17at 19: 15; Start 06/05/17 at 21:00 Docusate Sodium (Colace) 100 mg BID PO Last administered on 06/21/17at 19:15; Start 06/05/17 at 21:00 Multi-Ingredient Ointment (Analgesic [place]) 1 stevan PRN QID PRN TP MUSCLE PAIN; Start 06/05/17 at 16:45; Stop 06/05/17 at 16:45; Status DC Pantoprazole Sodium (Protonix) 40 mg DAILY06 PO Last administered on 06/09/17at 04:13; Start 06/06/17 at 06:00; Stop 06/10/17 at 05:49; Status DC Non-Formulary Medication 15 ml PRN AFTMEALHC PRN PO DYSPEPSIA; Start 06/05/17 at 16:45; Stop 06/05/17 at 16:45; Status DC Non-Formulary Medication 2,400 mg PRN QHS PRN PO CONSTIPATION; Start 06/05/17 at 16:45; Stop 06/05/17 at 16:45; Status DC Multivitamins/ Calcium (Thera-M Plus) 1 tab DAILY PO Last administered on at 07:41; Start 06/06/17 at 09:00 Ondansetron HCl (Zofran Odt) 8 mg PRN Q6HRS PRN PO NAUSEA Last administered on 06/18/17at 00:24; Start 06/05/17 at 17:00 Alprazolam (Xanax) 1 mg PRN TID PRN PO ANXIETY / AGITATION; Start 06/05/17 at 18 :45; Stop 06/05/17 at 19:15; Status DC Quetiapine Fumarate (SEROquel) 12.5 mg TID@0900,1300,1700 PO Last administered on 06/08/17at 17:05; Start 06/06/17 at 09:00; Stop 06/08/17 at 18:09; Status DC Alprazolam (Xanax) 1 mg TIDAFTMEAL PO Last administered on 06/07/17at 17:25; Start 06/06/17 at 09:00; Stop 06/07/17 at 19:13; Status DC Mirtazapine (Remeron) 7.5 mg QHS PO Last administered on 06/07/17at 20:09; Start 06/06/17 at 21:00; Stop 06/08/17 at 14:41; Status DC Trazodone HCl (Desyrel) 50 mg PRN QHS PRN PO INSOMNIA, MAY REPEAT X1 Last administered on 06/20/17at 19:41; Start 06/06/17 at 18:30 Alprazolam (Xanax) 1 mg BID PO Last administered on 06/21/17at 19:15; Start 06/08 at 09:00 Alprazolam (Xanax) 0.75 mg DAILY@1300 PO Last administered on 06/09/17at 12:59; Start 06/08/17 at 13:00; Stop 06/09/17 at 18:52; Status DC Quetiapine Fumarate (SEROquel) 12.5 mg QID PO Last administered on 06/16/17at 17 :23; Start 06/08/17 at 21:00; Stop 06/16/17 at 19:33; Status DC Lamotrigine (LaMICtal) 25 mg HS PO Last administered on 06/12/17at 19:43; Start 06/08/17 at 21:00; Stop 06/12/17 at 21:00; Status DC Lamotrigine (LaMICtal) 50 mg HS PO Last administered on 06/17/17at 19:41; Start 06/13/17 at 21:00; Stop 06/17/17 at 21:00; Status DC Lamotrigine (LaMICtal) 75 mg HS PO Last administered on 06/19/17at 20:11; Start 06/18/17 at 21:00; Stop 06/20/17 at 11:26; Status DC Lamotrigine (LaMICtal) 100 mg HS PO ; Start 06/23/17 at 21:00; Stop 06/23/17 at 21:00; Status DC Alprazolam (Xanax) 0.5 mg DAILY@1300 PO Last administered on 06/21/17at 13:17; Start 06/10/17 at 13:00 Pantoprazole Sodium (Protonix) 40 mg DAILYAC PO Last administered on 06/21/17at 07:30; Start 06/10/17 at 07:30 Vitamin D (Vitamin D3) 2,000 unit DAILYBFRLUN PO Last administered on at 13:17; Start 06/12/17 at 11:30 Olanzapine (ZyPREXA ZYDIS) 2.5 mg PRN Q2HR PRN PO PSYCHOSIS Last administered on 06/19/17at 13:58; Start 06/16/17 at 01:00 Potassium Chloride (Klor-Con) 20 meq BID PO Last administered on 06/21/17at 19: 15; Start 06/17/17 at 21:00 Mirtazapine (Remeron) 7.5 mg QHS PO Last administered on 06/21/17at 19:15; Start 06/18/17 at 21:00 Risperidone (RisperDAL) 0.5 mg DAILY PO Last administered on 06/21/17at 07:41; Start 06/20/17 at 09:00 Risperidone (RisperDAL) 0.5 mg 1X ONCE PO Last administered on 06/19/17at 18:14 ; Start 06/19/17 at 18:15; Stop 06/19/17 at 18:16; Status DC Risperidone (RisperDAL) 0.5 mg 1X ONCE PO Last administered on 06/20/17at 10:31 ; Start 06/20/17 at 10:30; Stop 06/20/17 at 10:31; Status DC Risperidone (RisperDAL) 0.5 mg 1X ONCE PO Last administered on 06/20/17at 17:55 ; Start 06/20/17 at 17:00; Stop 06/20/17 at 17:01; Status DC Temazepam (Restoril) 15 mg QHS PO Last administered on 06/21/17at 19:15; Start 06/20/17 at 21:00 Temazepam (Restoril) 15 mg PRN QHS PRN PO INSOMNIA Last administered on at 00:31; Start 06/20/17 at 19:30 Dextrose/Sodium Chloride 1,000 ml @ 75 mls/hr 1X ONCE IV Last administered on 06/21/17at 17:45; Start 06/21/17 at 17:45; Stop 06/22/17 at 07:04 Active Scripts Active Reported Seroquel (Quetiapine Fumarate) 25 Mg Tablet 1 Tab PO DAILY Paroxetine Hcl 20 Mg Tablet 1 Tab PO DAILY Lorazepam 1 Mg Tablet 1 Tab PO TID Protonix (Pantoprazole Sodium) 40 Mg Tablet.dr 1 Tab PO DAILY06 Zofran Odt (Ondansetron) 8 Mg Tab.rapdis 1 Tab PO Q6HRS PRN Multivitamins (Multivitamin) 1 Each Tablet 1 Tab PO DAILY Docusate Sodium 100 Mg Capsule 1 Cap PO BID Atorvastatin Calcium 20 Mg Tablet 20 Mg PO QHS Saline Nasal Mist (Sodium Chloride) 126 Ml Mist 1 Stevan NS PRN Q1HR PRN Zoloft (Sertraline Hcl) 25 Mg Tablet 12.5 Mg PO DAILY Seroquel (Quetiapine Fumarate) 25 Mg Tablet 12.5 Mg PO [id number] Seroquel (Quetiapine Fumarate) 25 Mg Tablet 25 Mg PO QHS NITROGLYCERIN SubLingual (Nitroglycerin) 0.4 Mg Tab.subl 0.4 Mg SL PRN Q5MIN PRN Analgesic [place] (Methyl Salicylate/Menthol) 29 Gm Oint...g. 1 Stevan TP PRN QID PRN Milk Of Magnesia (Magnesium Hydroxide) 2,400 Mg/10 Ml Oral.susp 2,400 Mg PO PRN QHS PRN Advanced Antacid Liquid (Mag Hydrox/Al Hydrox/Simeth) 355 Ml Oral.susp 15 Ml PO PRN AFTMEALHC PRN Lorazepam 0.5 Mg Tablet 0.5 Mg PO PRN TID PRN Lorazepam 0.5 Mg Tablet 0.5 Mg PO Q8HRS Tylenol (Acetaminophen) 325 Mg Tablet 650 Mg PO PRN Q6HRS PRN Promethazine Hcl 25 Mg Tablet 12.5 Mg PO PRN Q4HRS PRN Aspirin 81 Mg Tab.chew 81 Mg PO DAILY I have reviewed the current psychotropics carefully including drug interactions. Risk benefit ratio favors no change other than as noted in my dictated progress note. Diagnosis: Problems: (1) Anxiety disorder (2) Bipolar affective disorder, mixed (3) Impulse control disorder (4) Panic disorder with agoraphobia and severe panic attacks (5) Obsessive compulsive disorder SANTIAGO FARFAN MD Jun 21, 2017 20:37
[2017-06-22 05:50] VITALS: BP 121/76
[2017-06-22] MEDS: POTASSIUM CHLORIDE 20 MEQ TABLET.ER. PO SCH ×2 (07:55→19:22)
[2017-06-22] MEDS: ALPRAZolam 0.5 MG TABLET PO SCH ×3 (07:55→19:23)
[2017-06-22] MEDS: risperiDONE 0.5 MG TABLET. PO SCH (07:55)
[2017-06-22] MEDS: ASPIRIN 81 MG TAB.CHEW PO SCH (07:56)
[2017-06-22] MEDS: PANTOPRAZOLE 40 MG TABLET. PO SCH (07:56)
[2017-06-22] MEDS: MULTIVITAMIN with MINERAL TABLET. PO SCH (07:56)
[2017-06-22] MEDS: DOCUSATE SODIUM 100 MG CAPSULE PO SCH ×2 (07:56→19:23)
[2017-06-22 10:06] LABS: BASO # 0.1 x10^3/uL (0.0-0.2); BASO % 1 % (0-3); EOS # 0.6 x10^3/uL (0.0-0.7); EOS % 7 % (0-3); HEMATOCRIT 34.2 % (36.0-47.0); HEMOGLOBIN 11.2 g/dL (12.0-15.5); LYMPH # 2.1 x10^3/uL (1.0-4.8); LYMPH % 25 % (24-48); MEAN CORPUSCULAR HEMOGLOBIN 31 pg (25-35); MEAN CORPUSCULAR HGB CONC 33 g/dL (31-37); MEAN CORPUSCULAR VOLUME 94 fL (79-100); MONO # 0.8 x10^3/uL (0.0-1.1); MONO % 9 % (0-9); NEUT # 4.9 x10^3uL (1.8-7.7); NEUT % 58 % (31-73); PLATELET COUNT 259 x10^3/uL (140-400); RED BLOOD COUNT 3.64 x10^6/uL (3.50-5.40); RED CELL DISTRIBUTION WIDTH 16.9 % (11.5-14.5); WHITE BLOOD COUNT 8.5 x10^3/uL (4.0-11.0)
[2017-06-22 10:13] LABS: CALCIUM 9.3 mg/dL (8.5-10.1); CREATININE 1.2 mg/dL (0.6-1.0); GFR 44.3; POTASSIUM 4.6 mmol/L (3.5-5.1)
--- NOTE | 2017-06-22 11:02 | PN ---
DATE: 06/20/2017 SUBJECTIVE: I received a call from the [facility] today because the patient has had a change in her behavior within the last 24 hours. On arrival to the unit, she was lying on the floor as well. According to the nursing staff, the patient has been going herself to the floor refusing medications and refusing to cooperative with the nursing staff in taking her medication. At the lunch and at the dinner yesterday the patient refused to eat but mouth opened in both events. She wanted to leave the hospital and she has been repeatedly stating, "I am leaving, I am leaving." She refused to cooperative with the exam; however, her speech is still intact and she moves upper and lower extremities without any obvious neurological deficits. OBJECTIVE: GENERAL: Well-developed, well-nourished white female, not in acute distress. VITAL SIGNS: Blood pressure is 94/60, respiratory rate 22, pulse is 113 regular, temperature 96, oxygen saturation 98% on room air. NECK: Supple. Negative for carotid bruit or lymphadenopathy. LUNGS: Clear to A and P. CARDIOVASCULAR: Tachycardic. Normal S1, S2. EXTREMITIES: Negative for cyanosis, clubbing, or pitting edema. NEUROLOGIC: The patient is alert and oriented to herself and the place. Speech is fluid. There is no facial motor or sensory deficit. Hearing appears to be intact. There is no obvious motor or sensory deficit. Deep tendon reflexes were symmetric without pathologic responses. Gait: The patient has a normal stand and she walks without assistance. IMPRESSION: 1. Behavior disturbance with psychotic features. 2. Anxiety and depressions. 3. No evidence of seizure disorder. 4. Multiple medical problems include hypertension, hyperlipidemia, gastroesophageal reflux disease, and urinary tract infections. Urine culture revealed mixed urogenital sonja 50-100,000. RECOMMENDATION: The patient was given 0.5 mg of Risperdal for behavior disturbances along with olanzapine 2.5 mg every 2 hours p.r.n. for psychosis. We will continue with current psych and medical care. M Jody DOCKERY MD DR: LAXMI/melody JOB#: [id number] / [id number]
--- NOTE | 2017-06-22 11:17 | PN ---
DATE: 06/21/2017 SUBJECTIVE: The patient denies any new medical complaints. She denies any recurrent seizure or as such. According to the nursing staff, the patient has been quiet today; however, she refused to eat. On occasions, she walks with a catatonic posturing, lasted minutes. However, she has not had any recurrent seizure-like activities or "blacking out spells." OBJECTIVE: GENERAL: Well-developed, well-nourished white female, not in acute distress. VITAL SIGNS: Blood pressure 112/62, respiratory rate 22, pulse is 103 and regular, temperature is 97.9, oxygen saturation 96% on room air. HEENT: Normocephalic, atraumatic, otherwise unremarkable. NECK: Supple. Negative for carotid bruit, lymphadenopathy or thyromegaly. LUNGS: Clear to A and P. CARDIOVASCULAR: Regular rate and rhythm, normal S1 and S2. There is no S3, S4 or murmur. ABDOMEN: Soft. Bowel sounds positive. EXTREMITIES: Negative for cyanosis, clubbing or pitting edema. NEUROLOGICAL: Mental Status: The patient is alert and oriented x 3. Speech is fluent. There is no language dysfunction. Memory, judgment, abstract thinking are fair. The patient denies hallucination or delusion. Cranial nerves are intact. No focal motor or sensory deficit. Deep tendon reflexes are symmetric and active without pathology responses. Gait and coordination are normal. IMPRESSION: 1. Intermittent behavior disturbances, probably psychosis. 2. Anxiety disorders and possible depression. 3. Multiple medical problems include hypertension, hyperlipidemia, gastroesophageal reflux disease, and chronic lower back pain. RECOMMENDATIONS: Continue with current medical and psychiatric care. The patient is neurologically stable. M Jody DOCKERY MD DR: LAXMI/melody JOB#: [id number] / [id number]
[2017-06-22] MEDS: CHOLECALCIFEROL (VITAMIN D3) 1,000 UNIT TABLET PO SCH (13:01)
[2017-06-22 16:22] VITALS: BP 124/73
[2017-06-22] MEDS ORDERED: SODIUM PHOSPHATES 19/7GM 133 ML ENEMA. PR ONE (17:30)
--- NOTE | 2017-06-22 19:04 | PN ---
DATE: 06/20/2017 This late entry 06/20/2017 covers elements not covered in my initial note 06/20/2017. SUBJECTIVE: I have discussed the patient with the nursing staff several times during the day on 06/20/2017 as she progressively appeared more psychotic, disorganized, rolling on the floor, slept 0 hours previous evening. She sustained bruising on her arms consequent to rolling, ate no breakfast or lunch, unable to complete full sentences, meds have to be syringed, constantly states "I am leaving." Repeat UA has been done. WBC is elevated. She is dehydrated. BUN and creatinine increased. Later in the evening with much persistence nursing staff were able to push 1200 mL of fluid and then Boost. We will be checking labs morning of 06/21/2017. REVIEW OF SYSTEMS: No CV, , pulmonary, eye, ENT system symptoms on review. Reliability poor, quite psychotic, confused, disorganized. MENTAL STATUS EXAM: Oriented to herself. Insight, judgment, recent memory is impaired. Language function intact. Attention span short. Mood and affect labile. LABORATORY DATA: Reviewed. IMPRESSION: Bipolar 1 disorder, mixed with psychotic features; psychotic disorder, unspecified; anxiety disorder, unspecified. PLAN: We will go ahead and stop the patient's Lamictal and Seroquel before then, we will continue Xanax 2.5 mg a day, trazodone and Zyprexa p.r.n., Remeron 7.5 mg at bedtime, start Risperdal 0.5 mg daily, Restoril 15 mg at bedtime p.r.n., may repeat x 1 for insomnia, may need to repeat dosage of Risperdal, which we did as she is extremely psychotic as I met with her. Adjust further as clinically indicated. MAN iRchar FARFAN MD DR: INNA/melody JOB#: [id number] / [id number]
[2017-06-22] MEDS: TEMAZEPAM 15 MG CAPSULE PO SCH (19:22)
[2017-06-22] MEDS: ATORVASTATIN CALCIUM 20 MG TABLET PO SCH (19:22)
[2017-06-22] MEDS: MIRTAZAPINE 7.5 MG TABLET. PO SCH (19:22)
--- NOTE | 2017-06-22 20:14 | PDOC ---
Exam Note: Rian Note: Please also refer to the separate dictated note~for this date of service dictated separately.~Patient seen individually. Discussed the patient with Nursing staff reviewed the chart.~Reviewed interim history and current functioning. Reviewed vital signs,~Labs/ Radiology~and current medications noted below. Continue current treatment with the changes noted in the dictated addendum note Assessment: Vital Signs: Vital Signs Date Time Temp Pulse Resp B/P (MAP) Pulse Ox O2 Delivery O2 Flow Rate FiO2 06/22/17 16:22 98.9 98 22 124/73 (90) 98 06/20/17 16:22 Room Air I&O Intake and Output 06/22/17 07:00 Intake Total 800 ml Balance 800 ml Intake Oral 800 ml Labs: Laboratory Tests Test 06/22/17 09:26 White Blood Count 8.5 x10^3/uL (4.0-11.0) Red Blood Count 3.64 x10^6/uL (3.50-5.40) Hemoglobin 11.2 g/dL (12.0-15.5) L Hematocrit 34.2 % (36.0-47.0) L Mean Corpuscular Volume 94 fL (79-100) Mean Corpuscular Hemoglobin 31 pg (25-35) Mean Corpuscular Hemoglobin Concent 33 g/dL (31-37) Red Cell Distribution Width 16.9 % (11.5-14.5) H Platelet Count 259 x10^3/uL (140-400) Neutrophils (%) (Auto) 58 % (31-73) Lymphocytes (%) (Auto) 25 % (24-48) Monocytes (%) (Auto) 9 % (0-9) Eosinophils (%) (Auto) 7 % (0-3) H Basophils (%) (Auto) 1 % (0-3) Neutrophils # (Auto) 4.9 x10^3uL (1.8-7.7) Lymphocytes # (Auto) 2.1 x10^3/uL (1.0-4.8) Monocytes # (Auto) 0.8 x10^3/uL (0.0-1.1) Eosinophils # (Auto) 0.6 x10^3/uL (0.0-0.7) Basophils # (Auto) 0.1 x10^3/uL (0.0-0.2) Sodium Level 135 mmol/L (136-145) L Potassium Level 4.6 mmol/L (3.5-5.1) Chloride Level 100 mmol/L (98-107) Carbon Dioxide Level 29 mmol/L (21-32) Anion Gap 6 (6-14) Blood Urea Nitrogen 25 mg/dL (7-20) H Creatinine 1.2 mg/dL (0.6-1.0) H Estimated GFR (Cockcroft-Gault) 44.3 Glucose Level 124 mg/dL (70-99) H Calcium Level 9.3 mg/dL (8.5-10.1) Current Medications: Meds: Current Medications Acetaminophen (Tylenol) 650 mg PRN Q6HRS PRN PO PAIN / TEMP Last administered on 06/21/17at 18:36; Start 06/05/17 at 16:15 Multi-Ingredient Ointment (Analgesic [place]) 1 stevan PRN QID PRN TP MUSCLE PAIN Last administered on 06/21/17at 18:37; Start 06/05/17 at 16:15 Al Hydroxide/Mg Hydroxide (Mylanta Plus Xs) 15 ml PRN AFTMEALHC PRN PO DYSPEPSIA Last administered on 06/18/17at 18:40; Start 06/05/17 at 16:15 Magnesium Hydroxide (Milk Of Magnesia) 2,400 mg PRN QHS PRN PO CONSTIPATION Last administered on 06/21/17at 19:16; Start 06/05/17 at 16:15 Aspirin (Children'S Aspirin) 81 mg DAILY PO Last administered on 06/22/17at 07: 56; Start 06/06/17 at 09:00 Sodium Chloride (Saline Mist Nasal) 1 stevan PRN Q1HR PRN NS NASAL CONGESTION; Start 06/05/17 at 17:15 Acetaminophen (Tylenol) 650 mg PRN Q6HRS PRN PO PAIN / TEMP; Start 06/05/17 at 16:45; Stop 06/05/17 at 16:45; Status DC Atorvastatin Calcium (Lipitor) 20 mg QHS PO Last administered on 06/22/17at 19: 22; Start 06/05/17 at 21:00 Docusate Sodium (Colace) 100 mg BID PO Last administered on 06/22/17at 19:23; Start 06/05/17 at 21:00 Multi-Ingredient Ointment (Analgesic [place]) 1 stevan PRN QID PRN TP MUSCLE PAIN; Start 06/05/17 at 16:45; Stop 06/05/17 at 16:45; Status DC Pantoprazole Sodium (Protonix) 40 mg DAILY06 PO Last administered on 06/09/17at 04:13; Start 06/06/17 at 06:00; Stop 06/10/17 at 05:49; Status DC Non-Formulary Medication 15 ml PRN AFTMEALHC PRN PO DYSPEPSIA; Start 06/05/17 at 16:45; Stop 06/05/17 at 16:45; Status DC Non-Formulary Medication 2,400 mg PRN QHS PRN PO CONSTIPATION; Start 06/05/17 at 16:45; Stop 06/05/17 at 16:45; Status DC Multivitamins/ Calcium (Thera-M Plus) 1 tab DAILY PO Last administered on at 07:56; Start 06/06/17 at 09:00 Ondansetron HCl (Zofran Odt) 8 mg PRN Q6HRS PRN PO NAUSEA Last administered on 06/18/17at 00:24; Start 06/05/17 at 17:00 Alprazolam (Xanax) 1 mg PRN TID PRN PO ANXIETY / AGITATION; Start 06/05/17 at 18 :45; Stop 06/05/17 at 19:15; Status DC Quetiapine Fumarate (SEROquel) 12.5 mg TID@0900,1300,1700 PO Last administered on 06/08/17at 17:05; Start 06/06/17 at 09:00; Stop 06/08/17 at 18:09; Status DC Alprazolam (Xanax) 1 mg TIDAFTMEAL PO Last administered on 06/07/17at 17:25; Start 06/06/17 at 09:00; Stop 06/07/17 at 19:13; Status DC Mirtazapine (Remeron) 7.5 mg QHS PO Last administered on 06/07/17at 20:09; Start 06/06/17 at 21:00; Stop 06/08/17 at 14:41; Status DC Trazodone HCl (Desyrel) 50 mg PRN QHS PRN PO INSOMNIA, MAY REPEAT X1 Last administered on 06/20/17at 19:41; Start 06/06/17 at 18:30 Alprazolam (Xanax) 1 mg BID PO Last administered on 06/22/17at 19:23; Start 06/08 at 09:00 Alprazolam (Xanax) 0.75 mg DAILY@1300 PO Last administered on 06/09/17at 12:59; Start 06/08/17 at 13:00; Stop 06/09/17 at 18:52; Status DC Quetiapine Fumarate (SEROquel) 12.5 mg QID PO Last administered on 06/16/17at 17 :23; Start 06/08/17 at 21:00; Stop 06/16/17 at 19:33; Status DC Lamotrigine (LaMICtal) 25 mg HS PO Last administered on 06/12/17at 19:43; Start 06/08/17 at 21:00; Stop 06/12/17 at 21:00; Status DC Lamotrigine (LaMICtal) 50 mg HS PO Last administered on 06/17/17at 19:41; Start 06/13/17 at 21:00; Stop 06/17/17 at 21:00; Status DC Lamotrigine (LaMICtal) 75 mg HS PO Last administered on 06/19/17at 20:11; Start 06/18/17 at 21:00; Stop 06/20/17 at 11:26; Status DC Lamotrigine (LaMICtal) 100 mg HS PO ; Start 06/23/17 at 21:00; Stop 06/23/17 at 21:00; Status DC Alprazolam (Xanax) 0.5 mg DAILY@1300 PO Last administered on 06/22/17at 13:01; Start 06/10/17 at 13:00 Pantoprazole Sodium (Protonix) 40 mg DAILYAC PO Last administered on 06/22/17at 07:56; Start 06/10/17 at 07:30 Vitamin D (Vitamin D3) 2,000 unit DAILYBFRLUN PO Last administered on at 13:01; Start 06/12/17 at 11:30 Olanzapine (ZyPREXA ZYDIS) 2.5 mg PRN Q2HR PRN PO PSYCHOSIS Last administered on 06/19/17at 13:58; Start 06/16/17 at 01:00 Potassium Chloride (Klor-Con) 20 meq BID PO Last administered on 06/22/17at 19: 22; Start 06/17/17 at 21:00 Mirtazapine (Remeron) 7.5 mg QHS PO Last administered on 06/22/17at 19:22; Start 06/18/17 at 21:00 Risperidone (RisperDAL) 0.5 mg DAILY PO Last administered on 06/22/17at 07:55; Start 06/20/17 at 09:00 Risperidone (RisperDAL) 0.5 mg 1X ONCE PO Last administered on 06/19/17at 18:14 ; Start 06/19/17 at 18:15; Stop 06/19/17 at 18:16; Status DC Risperidone (RisperDAL) 0.5 mg 1X ONCE PO Last administered on 06/20/17at 10:31 ; Start 06/20/17 at 10:30; Stop 06/20/17 at 10:31; Status DC Risperidone (RisperDAL) 0.5 mg 1X ONCE PO Last administered on 06/20/17at 17:55 ; Start 06/20/17 at 17:00; Stop 06/20/17 at 17:01; Status DC Temazepam (Restoril) 15 mg QHS PO Last administered on 06/22/17at 19:22; Start 06/20/17 at 21:00 Temazepam (Restoril) 15 mg PRN QHS PRN PO INSOMNIA Last administered on at 00:31; Start 06/20/17 at 19:30 Dextrose/Sodium Chloride 1,000 ml @ 75 mls/hr 1X ONCE IV Last administered on 06/21/17at 17:45; Start 06/21/17 at 17:45; Stop 06/22/17 at 07:04; Status DC Sodium Biphosphate/ Sodium Phosphate (Fleet Adult) 133 ml 1X ONCE RI Last administered on 06/22/17at 19:22; Start 06/22/17 at 17:30; Stop 06/22/17 at 17:31 ; Status DC Active Scripts Active Reported Seroquel (Quetiapine Fumarate) 25 Mg Tablet 1 Tab PO DAILY Paroxetine Hcl 20 Mg Tablet 1 Tab PO DAILY Lorazepam 1 Mg Tablet 1 Tab PO TID Protonix (Pantoprazole Sodium) 40 Mg Tablet.dr 1 Tab PO DAILY06 Zofran Odt (Ondansetron) 8 Mg Tab.rapdis 1 Tab PO Q6HRS PRN Multivitamins (Multivitamin) 1 Each Tablet 1 Tab PO DAILY Docusate Sodium 100 Mg Capsule 1 Cap PO BID Atorvastatin Calcium 20 Mg Tablet 20 Mg PO QHS Saline Nasal Mist (Sodium Chloride) 126 Ml Mist 1 Stevan NS PRN Q1HR PRN Zoloft (Sertraline Hcl) 25 Mg Tablet 12.5 Mg PO DAILY Seroquel (Quetiapine Fumarate) 25 Mg Tablet 12.5 Mg PO [id number] Seroquel (Quetiapine Fumarate) 25 Mg Tablet 25 Mg PO QHS NITROGLYCERIN SubLingual (Nitroglycerin) 0.4 Mg Tab.subl 0.4 Mg SL PRN Q5MIN PRN Analgesic [place] (Methyl Salicylate/Menthol) 29 Gm Oint...g. 1 Stevan TP PRN QID PRN Milk Of Magnesia (Magnesium Hydroxide) 2,400 Mg/10 Ml Oral.susp 2,400 Mg PO PRN QHS PRN Advanced Antacid Liquid (Mag Hydrox/Al Hydrox/Simeth) 355 Ml Oral.susp 15 Ml PO PRN AFTMEALHC PRN Lorazepam 0.5 Mg Tablet 0.5 Mg PO PRN TID PRN Lorazepam 0.5 Mg Tablet 0.5 Mg PO Q8HRS Tylenol (Acetaminophen) 325 Mg Tablet 650 Mg PO PRN Q6HRS PRN Promethazine Hcl 25 Mg Tablet 12.5 Mg PO PRN Q4HRS PRN Aspirin 81 Mg Tab.chew 81 Mg PO DAILY I have reviewed the current psychotropics carefully including drug interactions. Risk benefit ratio favors no change other than as noted in my dictated progress note. Diagnosis: Problems: (1) Anxiety disorder (2) Bipolar affective disorder, mixed (3) Impulse control disorder (4) Panic disorder with agoraphobia and severe panic attacks (5) Obsessive compulsive disorder SANTIAGO FARFAN MD Jun 22, 2017 20:14
[2017-06-22] MEDS: TEMAZEPAM 15 MG CAPSULE PO PRN (23:17)
[2017-06-23] MEDS: traZODone 50 MG TABLET. PO PRN (01:06)
--- NOTE | 2017-06-23 03:24 | PN ---
DATE: 06/22/2017 SUBJECTIVE: The patient denies any new medical or neurological complaints. She has been quiet and cooperative in the last 24 hours. The patient did recall the long conversation between her and me yesterday and she promised me, to be cooperative with the nursing staff and take her medication and eat as well. The patient has not been eating well in the last few days and not drinking water or fluid. It was recommended that she needs to be encouraged to drink more water and eat as well. OBJECTIVE: GENERAL: The patient is a well-developed, well-nourished, white female not in acute distress. VITAL SIGNS: Blood pressure 121/76, respiratory rate 18, pulse is 88, oxygen saturation 97% on room air, and temperature 97.6. HEENT: Normocephalic, atraumatic, otherwise unremarkable. NECK: Supple. Negative for carotid bruit, lymphadenopathy or thyromegaly. LUNGS: Clear to A and P. CARDIOVASCULAR: Regular rate and rhythm, normal S1, S2. ABDOMEN: Soft. Bowel sounds positive. EXTREMITIES: Negative for cyanosis, clubbing or pitting edema. NEUROLOGICAL EXAM: Mental Status: The patient is alert and oriented x 3. Speech is fluent. There is no language dysfunction. She denies hallucination or delusion. Cranial nerves are intact. Motor Examination: No focal muscle bulk was seen. The tone was normal. The strength was 5/5 throughout. Sensory examination: Revealed normal pinprick, light touch, vibratory and position senses. Deep tendon reflexes were symmetric with absent Achilles responses. Gait and coordination are normal. LABORATORY DATA: CBC today revealed white blood cells of 8.5, hemoglobin 11.2, hematocrit 34.2, platelet count 259,000. Chemistry revealed sodium of 135, potassium of 4.6, chloride of 100, CO2 of 29, BUN 25, creatinine 1.2, glucose 124, and calcium 9.3. Urinalysis from yesterday revealed moderate leukocyte esterase with white blood cells of 11-20 and any bacteria. Recent urine culture revealed no growth. IMPRESSION: 1. Intermittent behavioral disturbance with psychosis - Improved. 2. Multiple medical problems include hypertension, hyperlipidemia, gastroesophageal reflux disease and chronic low back pain. 3. Multiple psychiatric problems including anxiety and depression with intermittent psychosis. RECOMMENDATIONS: 1. Continue with current medical and psychiatric care. 2. Encourage the patient to drink more water and fluid. M Jody DOCKERY MD DR: Amy JOB#: [id number] / [id number]
[2017-06-23 06:26] VITALS: BP 116/58
[2017-06-23] MEDS: POTASSIUM CHLORIDE 20 MEQ TABLET.ER. PO SCH ×2 (08:19→19:35)
[2017-06-23] MEDS: MULTIVITAMIN with MINERAL TABLET. PO SCH (08:19)
[2017-06-23] MEDS: risperiDONE 0.5 MG TABLET. PO SCH (08:19)
[2017-06-23] MEDS: DOCUSATE SODIUM 100 MG CAPSULE PO SCH ×2 (08:19→19:35)
[2017-06-23] MEDS: ALPRAZolam 0.5 MG TABLET PO SCH ×3 (08:19→19:39)
[2017-06-23] MEDS: PANTOPRAZOLE 40 MG TABLET. PO SCH (08:19)
[2017-06-23] MEDS: ASPIRIN 81 MG TAB.CHEW PO SCH (08:19)
[2017-06-23] MEDS: CHOLECALCIFEROL (VITAMIN D3) 1,000 UNIT TABLET PO SCH (12:42)
[2017-06-23 16:08] VITALS: BP 132/77
[2017-06-23] MEDS: ATORVASTATIN CALCIUM 20 MG TABLET PO SCH (19:35)
[2017-06-23] MEDS: MIRTAZAPINE 7.5 MG TABLET. PO SCH (19:35)
[2017-06-23] MEDS: TEMAZEPAM 15 MG CAPSULE PO SCH (19:39)
[2017-06-23] MEDS: traZODone 50 MG TABLET. PO SCH (19:39)
--- NOTE | 2017-06-23 20:17 | PDOC ---
Exam Note: Rian Note: Please also refer to the separate dictated note~for this date of service dictated separately.~Patient seen individually. Discussed the patient with Nursing staff reviewed the chart.~Reviewed interim history and current functioning. Reviewed vital signs,~Labs/ Radiology~and current medications noted below. Continue current treatment with the changes noted in the dictated addendum note Assessment: Vital Signs: Vital Signs Date Time Temp Pulse Resp B/P (MAP) Pulse Ox O2 Delivery O2 Flow Rate FiO2 06/23/17 16:08 97.7 96 16 132/77 (95) 100 06/20/17 16:22 Room Air I&O Intake and Output 06/23/17 07:00 Intake Total 1380 ml Balance 1380 ml Intake Oral 1380 ml # Voids 2 # Bowel Movements 1 Current Medications: Meds: Current Medications Acetaminophen (Tylenol) 650 mg PRN Q6HRS PRN PO PAIN / TEMP Last administered on 06/21/17at 18:36; Start 06/05/17 at 16:15 Multi-Ingredient Ointment (Analgesic [place]) 1 stevan PRN QID PRN TP MUSCLE PAIN Last administered on 06/21/17at 18:37; Start 06/05/17 at 16:15 Al Hydroxide/Mg Hydroxide (Mylanta Plus Xs) 15 ml PRN AFTMEALHC PRN PO DYSPEPSIA Last administered on 06/18/17at 18:40; Start 06/05/17 at 16:15 Magnesium Hydroxide (Milk Of Magnesia) 2,400 mg PRN QHS PRN PO CONSTIPATION Last administered on 06/21/17at 19:16; Start 06/05/17 at 16:15 Aspirin (Children'S Aspirin) 81 mg DAILY PO Last administered on 06/23/17at 08: 19; Start 06/06/17 at 09:00 Sodium Chloride (Saline Mist Nasal) 1 stevan PRN Q1HR PRN NS NASAL CONGESTION; Start 06/05/17 at 17:15 Acetaminophen (Tylenol) 650 mg PRN Q6HRS PRN PO PAIN / TEMP; Start 06/05/17 at 16:45; Stop 06/05/17 at 16:45; Status DC Atorvastatin Calcium (Lipitor) 20 mg QHS PO Last administered on 06/23/17at 19: 35; Start 06/05/17 at 21:00 Docusate Sodium (Colace) 100 mg BID PO Last administered on 06/23/17at 19:35; Start 06/05/17 at 21:00 Multi-Ingredient Ointment (Analgesic [place]) 1 stevan PRN QID PRN TP MUSCLE PAIN; Start 06/05/17 at 16:45; Stop 06/05/17 at 16:45; Status DC Pantoprazole Sodium (Protonix) 40 mg DAILY06 PO Last administered on 06/09/17at 04:13; Start 06/06/17 at 06:00; Stop 06/10/17 at 05:49; Status DC Non-Formulary Medication 15 ml PRN AFTMEALHC PRN PO DYSPEPSIA; Start 06/05/17 at 16:45; Stop 06/05/17 at 16:45; Status DC Non-Formulary Medication 2,400 mg PRN QHS PRN PO CONSTIPATION; Start 06/05/17 at 16:45; Stop 06/05/17 at 16:45; Status DC Multivitamins/ Calcium (Thera-M Plus) 1 tab DAILY PO Last administered on at 08:19; Start 06/06/17 at 09:00 Ondansetron HCl (Zofran Odt) 8 mg PRN Q6HRS PRN PO NAUSEA Last administered on 06/18/17at 00:24; Start 06/05/17 at 17:00 Alprazolam (Xanax) 1 mg PRN TID PRN PO ANXIETY / AGITATION; Start 06/05/17 at 18 :45; Stop 06/05/17 at 19:15; Status DC Quetiapine Fumarate (SEROquel) 12.5 mg TID@0900,1300,1700 PO Last administered on 06/08/17at 17:05; Start 06/06/17 at 09:00; Stop 06/08/17 at 18:09; Status DC Alprazolam (Xanax) 1 mg TIDAFTMEAL PO Last administered on 06/07/17at 17:25; Start 06/06/17 at 09:00; Stop 06/07/17 at 19:13; Status DC Mirtazapine (Remeron) 7.5 mg QHS PO Last administered on 06/07/17at 20:09; Start 06/06/17 at 21:00; Stop 06/08/17 at 14:41; Status DC Trazodone HCl (Desyrel) 50 mg PRN QHS PRN PO INSOMNIA, MAY REPEAT X1 Last administered on 06/23/17at 01:06; Start 06/06/17 at 18:30; Stop 06/23/17 at 18:08 ; Status DC Alprazolam (Xanax) 1 mg BID PO Last administered on 06/23/17at 19:39; Start 06/08 at 09:00 Alprazolam (Xanax) 0.75 mg DAILY@1300 PO Last administered on 06/09/17at 12:59; Start 06/08/17 at 13:00; Stop 06/09/17 at 18:52; Status DC Quetiapine Fumarate (SEROquel) 12.5 mg QID PO Last administered on 06/16/17at 17 :23; Start 06/08/17 at 21:00; Stop 06/16/17 at 19:33; Status DC Lamotrigine (LaMICtal) 25 mg HS PO Last administered on 06/12/17at 19:43; Start 06/08/17 at 21:00; Stop 06/12/17 at 21:00; Status DC Lamotrigine (LaMICtal) 50 mg HS PO Last administered on 06/17/17at 19:41; Start 06/13/17 at 21:00; Stop 06/17/17 at 21:00; Status DC Lamotrigine (LaMICtal) 75 mg HS PO Last administered on 06/19/17at 20:11; Start 06/18/17 at 21:00; Stop 06/20/17 at 11:26; Status DC Lamotrigine (LaMICtal) 100 mg HS PO ; Start 06/23/17 at 21:00; Stop 06/23/17 at 21:00; Status DC Alprazolam (Xanax) 0.5 mg DAILY@1300 PO Last administered on 06/23/17at 12:42; Start 06/10/17 at 13:00; Stop 06/23/17 at 18:08; Status DC Pantoprazole Sodium (Protonix) 40 mg DAILYAC PO Last administered on 06/23/17at 08:19; Start 06/10/17 at 07:30 Vitamin D (Vitamin D3) 2,000 unit DAILYBFRLUN PO Last administered on at 12:42; Start 06/12/17 at 11:30 Olanzapine (ZyPREXA ZYDIS) 2.5 mg PRN Q2HR PRN PO PSYCHOSIS Last administered on 06/19/17at 13:58; Start 06/16/17 at 01:00 Potassium Chloride (Klor-Con) 20 meq BID PO Last administered on 06/23/17at 19: 35; Start 06/17/17 at 21:00 Mirtazapine (Remeron) 7.5 mg QHS PO Last administered on 06/23/17at 19:35; Start 06/18/17 at 21:00 Risperidone (RisperDAL) 0.5 mg DAILY PO Last administered on 06/23/17at 08:19; Start 06/20/17 at 09:00; Stop 06/23/17 at 14:58; Status DC Risperidone (RisperDAL) 0.5 mg 1X ONCE PO Last administered on 06/19/17at 18:14 ; Start 06/19/17 at 18:15; Stop 06/19/17 at 18:16; Status DC Risperidone (RisperDAL) 0.5 mg 1X ONCE PO Last administered on 06/20/17at 10:31 ; Start 06/20/17 at 10:30; Stop 06/20/17 at 10:31; Status DC Risperidone (RisperDAL) 0.5 mg 1X ONCE PO Last administered on 06/20/17at 17:55 ; Start 06/20/17 at 17:00; Stop 06/20/17 at 17:01; Status DC Temazepam (Restoril) 15 mg QHS PO Last administered on 06/23/17at 19:39; Start 06/20/17 at 21:00 Temazepam (Restoril) 15 mg PRN QHS PRN PO INSOMNIA Last administered on at 23:17; Start 06/20/17 at 19:30 Dextrose/Sodium Chloride 1,000 ml @ 75 mls/hr 1X ONCE IV Last administered on 06/21/17at 17:45; Start 06/21/17 at 17:45; Stop 06/22/17 at 07:04; Status DC Sodium Biphosphate/ Sodium Phosphate (Fleet Adult) 133 ml 1X ONCE MA Last administered on 06/22/17at 19:22; Start 06/22/17 at 17:30; Stop 06/22/17 at 17:31 ; Status DC Risperidone (RisperDAL) 0.75 mg DAILY PO ; Start 06/24/17 at 09:00 Alprazolam (Xanax) 0.25 mg DAILY@1300 PO ; Start 06/24/17 at 13:00 Trazodone HCl (Desyrel) 50 mg QHS PO Last administered on 06/23/17at 19:39; Start 06/23/17 at 21:00 Active Scripts Active Reported Seroquel (Quetiapine Fumarate) 25 Mg Tablet 1 Tab PO DAILY Paroxetine Hcl 20 Mg Tablet 1 Tab PO DAILY Lorazepam 1 Mg Tablet 1 Tab PO TID Protonix (Pantoprazole Sodium) 40 Mg Tablet.dr 1 Tab PO DAILY06 Zofran Odt (Ondansetron) 8 Mg Tab.rapdis 1 Tab PO Q6HRS PRN Multivitamins (Multivitamin) 1 Each Tablet 1 Tab PO DAILY Docusate Sodium 100 Mg Capsule 1 Cap PO BID Atorvastatin Calcium 20 Mg Tablet 20 Mg PO QHS Saline Nasal Mist (Sodium Chloride) 126 Ml Mist 1 Stevan NS PRN Q1HR PRN Zoloft (Sertraline Hcl) 25 Mg Tablet 12.5 Mg PO DAILY Seroquel (Quetiapine Fumarate) 25 Mg Tablet 12.5 Mg PO [id number] Seroquel (Quetiapine Fumarate) 25 Mg Tablet 25 Mg PO QHS NITROGLYCERIN SubLingual (Nitroglycerin) 0.4 Mg Tab.subl 0.4 Mg SL PRN Q5MIN PRN Analgesic [place] (Methyl Salicylate/Menthol) 29 Gm Oint...g. 1 Stevan TP PRN QID PRN Milk Of Magnesia (Magnesium Hydroxide) 2,400 Mg/10 Ml Oral.susp 2,400 Mg PO PRN QHS PRN Advanced Antacid Liquid (Mag Hydrox/Al Hydrox/Simeth) 355 Ml Oral.susp 15 Ml PO PRN AFTMEALHC PRN Lorazepam 0.5 Mg Tablet 0.5 Mg PO PRN TID PRN Lorazepam 0.5 Mg Tablet 0.5 Mg PO Q8HRS Tylenol (Acetaminophen) 325 Mg Tablet 650 Mg PO PRN Q6HRS PRN Promethazine Hcl 25 Mg Tablet 12.5 Mg PO PRN Q4HRS PRN Aspirin 81 Mg Tab.chew 81 Mg PO DAILY I have reviewed the current psychotropics carefully including drug interactions. Risk benefit ratio favors no change other than as noted in my dictated progress note. Diagnosis: Problems: (1) Anxiety disorder (2) Bipolar affective disorder, mixed (3) Impulse control disorder (4) Panic disorder with agoraphobia and severe panic attacks (5) Obsessive compulsive disorder SANTIAGO FARFAN MD Jun 23, 2017 20:17
[2017-06-23] MEDS ORDERED: lamoTRIgine 100 MG TABLET. PO SCH (21:00)
--- NOTE | 2017-06-24 00:40 | PN ---
DATE: 06/22/2017 This is a late entry for 06/22/2017 and covers the elements not covered in my initial note of 06/22/2017. SUBJECTIVE: I met with the patient in the evening of 06/22/2017 in her room. She slept 9-1/2 hours previous evening, received a bag of fluids previous night, has been doing much better during the day of 06/22/2017. REVIEW OF SYSTEMS: Positive for some tiredness, somewhat delusional, believes someone pulled her up from the floor and her shoulder is hurting, later denied shoulder was hurting. No CV, , pulmonary, eye system symptoms on review. MENTAL STATUS EXAM: Reasonably oriented. Speech coherent, rapid at times. Abstraction fair, computation impaired, language function intact, attention span short. Mood and affect remains somewhat anxious, labile. LABORATORY DATA: Reviewed. IMPRESSION: Bipolar 1 disorder, mixed with psychotic features. Rest unchanged. PLAN: Continue Risperdal at current dosage together with Xanax, trazodone, Remeron. We will increase the Risperdal to 0.75 mg daily. Consider Depakote as a mood stabilizer, but she has been resistive to this. SANTIAGO FARFAN MD DR: INNA/melody JOB#: [id number] / [id number]
--- NOTE | 2017-06-24 00:49 | PN ---
DATE: 06/21/2017 This is a late entry 06/21/2017 covers elements not covered in my initial note 06/21/2017. I met with the patient evening of 06/21/2017. I have been called by the nursing staff several times during the day on account of the patient's ongoing psychotic symptoms, but she is gradually showing some improvement as compared to the day before, less psychotic, less rolling around on the floor. REVIEW OF SYSTEMS: Ambulation impaired. No CV, , pulmonary, eye system symptoms on review. MENTAL STATUS EXAM: Reasonably oriented. Speech coherent, rapid, pressured at times. Abstraction fair, computation impaired, language function intact, attention span short. Mood and affect remains intermittently labile, psychotic. LABORATORY DATA: Reviewed. IMPRESSION: Bipolar 1 disorder, mixed with psychotic features; anxiety disorder, unspecified. PLAN: We stopped the Lamictal. Risperdal has been started. We may need to adjust this upward. Antidepressants have been stopped given her bipolar, psychotic, manic symptoms. Adjust further as clinically indicated. MAN Richar FARFAN MD DR: INNA/melody JOB#: [id number] / [id number]
[2017-06-24] MEDS: ACETAMINOPHEN 325 MG TABLET PO PRN (03:30)
[2017-06-24 06:24] VITALS: BP 116/66
[2017-06-24 07:45] LABS: BASO # 0.1 x10^3/uL (0.0-0.2); BASO % 1 % (0-3); EOS # 0.3 x10^3/uL (0.0-0.7); EOS % 6 % (0-3); HEMATOCRIT 27.9 % (36.0-47.0); HEMOGLOBIN 9.6 g/dL (12.0-15.5); LYMPH # 2.3 x10^3/uL (1.0-4.8); LYMPH % 44 % (24-48); MEAN CORPUSCULAR HEMOGLOBIN 32 pg (25-35); MEAN CORPUSCULAR HGB CONC 34 g/dL (31-37); MEAN CORPUSCULAR VOLUME 93 fL (79-100); MONO # 0.8 x10^3/uL (0.0-1.1); MONO % 15 % (0-9); NEUT # 1.8 x10^3uL (1.8-7.7); NEUT % 34 % (31-73); PLATELET COUNT 250 x10^3/uL (140-400); RED CELL DISTRIBUTION WIDTH 16.1 % (11.5-14.5); WHITE BLOOD COUNT 5.2 x10^3/uL (4.0-11.0)
[2017-06-24 08:01] LABS: ALBUMIN 2.6 g/dL (3.4-5.0); ALBUMIN/GLOBULIN RATIO 0.8 (1.0-1.7); CALCIUM 8.5 mg/dL (8.5-10.1); CREATININE 1.1 mg/dL (0.6-1.0); MAGNESIUM 1.6 mg/dL (1.8-2.4); POTASSIUM 4.3 mmol/L (3.5-5.1); TOTAL BILIRUBIN 0.4 mg/dL (0.2-1.0); TOTAL PROTEIN 5.8 g/dL (6.4-8.2)
[2017-06-24] MEDS: DOCUSATE SODIUM 100 MG CAPSULE PO SCH ×2 (08:01→19:37)
[2017-06-24] MEDS: MULTIVITAMIN with MINERAL TABLET. PO SCH (08:02)
[2017-06-24] MEDS: ALPRAZolam 0.5 MG TABLET PO SCH ×2 (08:02→19:40)
[2017-06-24] MEDS: POTASSIUM CHLORIDE 20 MEQ TABLET.ER. PO SCH ×2 (08:02→19:37)
[2017-06-24] MEDS: ASPIRIN 81 MG TAB.CHEW PO SCH (08:02)
[2017-06-24] MEDS: PANTOPRAZOLE 40 MG TABLET. PO SCH (08:02)
[2017-06-24] MEDS: risperiDONE 0.5 MG TABLET. PO SCH (08:03)
[2017-06-24] MEDS ORDERED: MAGNESIUM CITRATE 296 ML SOLUTION. PO ONE (09:00)
[2017-06-24] MEDS: CHOLECALCIFEROL (VITAMIN D3) 1,000 UNIT TABLET PO SCH (13:14)
[2017-06-24] MEDS: ALPRAZolam 0.25 MG TABLET PO SCH (13:14)
[2017-06-24 16:40] VITALS: BP 166/82
[2017-06-24] MEDS: ATORVASTATIN CALCIUM 20 MG TABLET PO SCH (19:37)
[2017-06-24] MEDS: MIRTAZAPINE 7.5 MG TABLET. PO SCH (19:37)
[2017-06-24] MEDS: traZODone 50 MG TABLET. PO SCH (19:37)
[2017-06-24] MEDS: TEMAZEPAM 15 MG CAPSULE PO SCH (19:40)
--- NOTE | 2017-06-24 20:19 | PDOC ---
Exam Note: Rian Note: Please also refer to the separate dictated note~for this date of service dictated separately.~Patient seen individually. Discussed the patient with Nursing staff reviewed the chart.~Reviewed interim history and current functioning. Reviewed vital signs,~Labs/ Radiology~and current medications noted below. Continue current treatment with the changes noted in the dictated addendum note Assessment: Vital Signs: Vital Signs Date Time Temp Pulse Resp B/P (MAP) Pulse Ox O2 Delivery O2 Flow Rate FiO2 06/24/17 16:40 97.8 101 20 166/82 (110) 98 Room Air I&O Intake and Output 06/24/17 07:00 Intake Total 1320 ml Balance 1320 ml Intake Oral 1320 ml # Voids 2 Labs: Laboratory Tests Test 06/24/17 07:27 White Blood Count 5.2 x10^3/uL (4.0-11.0) Red Blood Count 3.00 x10^6/uL (3.50-5.40) L Hemoglobin 9.6 g/dL (12.0-15.5) L Hematocrit 27.9 % (36.0-47.0) L Mean Corpuscular Volume 93 fL (79-100) Mean Corpuscular Hemoglobin 32 pg (25-35) Mean Corpuscular Hemoglobin Concent 34 g/dL (31-37) Red Cell Distribution Width 16.1 % (11.5-14.5) H Platelet Count 250 x10^3/uL (140-400) Neutrophils (%) (Auto) 34 % (31-73) Lymphocytes (%) (Auto) 44 % (24-48) Monocytes (%) (Auto) 15 % (0-9) H Eosinophils (%) (Auto) 6 % (0-3) H Basophils (%) (Auto) 1 % (0-3) Neutrophils # (Auto) 1.8 x10^3uL (1.8-7.7) Lymphocytes # (Auto) 2.3 x10^3/uL (1.0-4.8) Monocytes # (Auto) 0.8 x10^3/uL (0.0-1.1) Eosinophils # (Auto) 0.3 x10^3/uL (0.0-0.7) Basophils # (Auto) 0.1 x10^3/uL (0.0-0.2) Sodium Level 140 mmol/L (136-145) Potassium Level 4.3 mmol/L (3.5-5.1) Chloride Level 107 mmol/L (98-107) Carbon Dioxide Level 28 mmol/L (21-32) Anion Gap 5 (6-14) L Blood Urea Nitrogen 17 mg/dL (7-20) Creatinine 1.1 mg/dL (0.6-1.0) H Estimated GFR (Cockcroft-Gault) 49.0 BUN/Creatinine Ratio 15 (6-20) Glucose Level 88 mg/dL (70-99) Calcium Level 8.5 mg/dL (8.5-10.1) Magnesium Level 1.6 mg/dL (1.8-2.4) L Total Bilirubin 0.4 mg/dL (0.2-1.0) Aspartate Amino Transferase (AST) 32 U/L (15-37) Alanine Aminotransferase (ALT) 45 U/L (14-59) Alkaline Phosphatase 48 U/L (46-116) Total Protein 5.8 g/dL (6.4-8.2) L Albumin 2.6 g/dL (3.4-5.0) L Albumin/Globulin Ratio 0.8 (1.0-1.7) L Current Medications: Meds: Current Medications Acetaminophen (Tylenol) 650 mg PRN Q6HRS PRN PO PAIN / TEMP Last administered on 06/24/17at 03:30; Start 06/05/17 at 16:15 Multi-Ingredient Ointment (Analgesic [place]) 1 stevan PRN QID PRN TP MUSCLE PAIN Last administered on 06/21/17at 18:37; Start 06/05/17 at 16:15 Al Hydroxide/Mg Hydroxide (Mylanta Plus Xs) 15 ml PRN AFTMEALHC PRN PO DYSPEPSIA Last administered on 06/18/17 18:40; Start 06/05/17 at 16:15 Magnesium Hydroxide (Milk Of Magnesia) 2,400 mg PRN QHS PRN PO CONSTIPATION Last administered on 06/21/17at 19:16; Start 06/05/17 at 16:15 Aspirin (Children'S Aspirin) 81 mg DAILY PO Last administered on 06/24/17at 08: 02; Start 06/06/17 at 09:00 Sodium Chloride (Saline Mist Nasal) 1 stevan PRN Q1HR PRN NS NASAL CONGESTION; Start 06/05/17 at 17:15 Acetaminophen (Tylenol) 650 mg PRN Q6HRS PRN PO PAIN / TEMP; Start 06/05/17 at 16:45; Stop 06/05/17 at 16:45; Status DC Atorvastatin Calcium (Lipitor) 20 mg QHS PO Last administered on 06/24/17at 19: 37; Start 06/05/17 at 21:00 Docusate Sodium (Colace) 100 mg BID PO Last administered on 06/24/17at 19:37; Start 06/05/17 at 21:00 Multi-Ingredient Ointment (Analgesic [place]) 1 stevan PRN QID PRN TP MUSCLE PAIN; Start 06/05/17 at 16:45; Stop 06/05/17 at 16:45; Status DC Pantoprazole Sodium (Protonix) 40 mg DAILY06 PO Last administered on 06/09/17at 04:13; Start 06/06/17 at 06:00; Stop 06/10/17 at 05:49; Status DC Non-Formulary Medication 15 ml PRN AFTMEALHC PRN PO DYSPEPSIA; Start 06/05/17 at 16:45; Stop 06/05/17 at 16:45; Status DC Non-Formulary Medication 2,400 mg PRN QHS PRN PO CONSTIPATION; Start 06/05/17 at 16:45; Stop 06/05/17 at 16:45; Status DC Multivitamins/ Calcium (Thera-M Plus) 1 tab DAILY PO Last administered on at 08:02; Start 06/06/17 at 09:00 Ondansetron HCl (Zofran Odt) 8 mg PRN Q6HRS PRN PO NAUSEA Last administered on 06/18/17at 00:24; Start 06/05/17 at 17:00 Alprazolam (Xanax) 1 mg PRN TID PRN PO ANXIETY / AGITATION; Start 06/05/17 at 18 :45; Stop 06/05/17 at 19:15; Status DC Quetiapine Fumarate (SEROquel) 12.5 mg TID@0900,1300,1700 PO Last administered on 06/08/17at 17:05; Start 06/06/17 at 09:00; Stop 06/08/17 at 18:09; Status DC Alprazolam (Xanax) 1 mg TIDAFTMEAL PO Last administered on 06/07/17at 17:25; Start 06/06/17 at 09:00; Stop 06/07/17 at 19:13; Status DC Mirtazapine (Remeron) 7.5 mg QHS PO Last administered on 06/07/17at 20:09; Start 06/06/17 at 21:00; Stop 06/08/17 at 14:41; Status DC Trazodone HCl (Desyrel) 50 mg PRN QHS PRN PO INSOMNIA, SEPTEMBER REPEAT X1 Last administered on 06/23/17at 01:06; Start 06/06/17 at 18:30; Stop 06/23/17 at 18:08 ; Status DC Alprazolam (Xanax) 1 mg BID PO Last administered on 06/24/17at 19:40; Start 06/08 at 09:00 Alprazolam (Xanax) 0.75 mg DAILY@1300 PO Last administered on 06/09/17at 12:59; Start 06/08/17 at 13:00; Stop 06/09/17 at 18:52; Status DC Quetiapine Fumarate (SEROquel) 12.5 mg QID PO Last administered on 06/16/17at 17 :23; Start 06/08/17 at 21:00; Stop 06/16/17 at 19:33; Status DC Lamotrigine (LaMICtal) 25 mg HS PO Last administered on 06/12/17at 19:43; Start 06/08/17 at 21:00; Stop 06/12/17 at 21:00; Status DC Lamotrigine (LaMICtal) 50 mg HS PO Last administered on 06/17/17at 19:41; Start 06/13/17 at 21:00; Stop 06/17/17 at 21:00; Status DC Lamotrigine (LaMICtal) 75 mg HS PO Last administered on 06/19/17at 20:11; Start 06/18/17 at 21:00; Stop 06/20/17 at 11:26; Status DC Lamotrigine (LaMICtal) 100 mg HS PO ; Start 06/23/17 at 21:00; Stop 06/23/17 at 21:00; Status DC Alprazolam (Xanax) 0.5 mg DAILY@1300 PO Last administered on 06/23/17at 12:42; Start 06/10/17 at 13:00; Stop 06/23/17 at 18:08; Status DC Pantoprazole Sodium (Protonix) 40 mg DAILYAC PO Last administered on 06/24/17at 08:02; Start 06/10/17 at 07:30 Vitamin D (Vitamin D3) 2,000 unit DAILYBFRLUN PO Last administered on at 13:14; Start 06/12/17 at 11:30 Olanzapine (ZyPREXA ZYDIS) 2.5 mg PRN Q2HR PRN PO PSYCHOSIS Last administered on 06/19/17 13:58; Start 06/16/17 at 01:00 Potassium Chloride (Klor-Con) 20 meq BID PO Last administered on 06/24/17at 19: 37; Start 06/17/17 at 21:00 Mirtazapine (Remeron) 7.5 mg QHS PO Last administered on 06/24/17at 19:37; Start 06/18/17 at 21:00 Risperidone (RisperDAL) 0.5 mg DAILY PO Last administered on 06/23/17at 08:19; Start 06/20/17 at 09:00; Stop 06/23/17 at 14:58; Status DC Risperidone (RisperDAL) 0.5 mg 1X ONCE PO Last administered on 06/19/17at 18:14 ; Start 06/19/17 at 18:15; Stop 06/19/17 at 18:16; Status DC Risperidone (RisperDAL) 0.5 mg 1X ONCE PO Last administered on 06/20/17at 10:31 ; Start 06/20/17 at 10:30; Stop 06/20/17 at 10:31; Status DC Risperidone (RisperDAL) 0.5 mg 1X ONCE PO Last administered on 06/20/17at 17:55 ; Start 06/20/17 at 17:00; Stop 06/20/17 at 17:01; Status DC Temazepam (Restoril) 15 mg QHS PO Last administered on 06/24/17at 19:40; Start 06/20/17 at 21:00 Temazepam (Restoril) 15 mg PRN QHS PRN PO INSOMNIA Last administered on at 23:17; Start 06/20/17 at 19:30 Dextrose/Sodium Chloride 1,000 ml @ 75 mls/hr 1X ONCE IV Last administered on 06/21/17at 17:45; Start 06/21/17 at 17:45; Stop 06/22/17 at 07:04; Status DC Sodium Biphosphate/ Sodium Phosphate (Fleet Adult) 133 ml 1X ONCE IN Last administered on 06/22/17at 19:22; Start 06/22/17 at 17:30; Stop 06/22/17 at 17:31 ; Status DC Risperidone (RisperDAL) 0.75 mg DAILY PO Last administered on 06/24/17at 08:03; Start 06/24/17 at 09:00 Alprazolam (Xanax) 0.25 mg DAILY@1300 PO Last administered on 06/24/17at 13:14; Start 06/24/17 at 13:00 Trazodone HCl (Desyrel) 50 mg QHS PO Last administered on 06/24/17at 19:37; Start 06/23/17 at 21:00 Magnesium Citrate (Citroma) 296 ml 1X ONCE PO Last administered on 06/24/17at 09:32; Start 06/24/17 at 09:00; Stop 06/24/17 at 09:09; Status DC Active Scripts Active Reported Seroquel (Quetiapine Fumarate) 25 Mg Tablet 1 Tab PO DAILY Paroxetine Hcl 20 Mg Tablet 1 Tab PO DAILY Lorazepam 1 Mg Tablet 1 Tab PO TID Protonix (Pantoprazole Sodium) 40 Mg Tablet.dr 1 Tab PO DAILY06 Zofran Odt (Ondansetron) 8 Mg Tab.rapdis 1 Tab PO Q6HRS PRN Multivitamins (Multivitamin) 1 Each Tablet 1 Tab PO DAILY Docusate Sodium 100 Mg Capsule 1 Cap PO BID Atorvastatin Calcium 20 Mg Tablet 20 Mg PO QHS Saline Nasal Mist (Sodium Chloride) 126 Ml Mist 1 Stevan NS PRN Q1HR PRN Zoloft (Sertraline Hcl) 25 Mg Tablet 12.5 Mg PO DAILY Seroquel (Quetiapine Fumarate) 25 Mg Tablet 12.5 Mg PO [id number] Seroquel (Quetiapine Fumarate) 25 Mg Tablet 25 Mg PO QHS NITROGLYCERIN SubLingual (Nitroglycerin) 0.4 Mg Tab.subl 0.4 Mg SL PRN Q5MIN PRN Analgesic [place] (Methyl Salicylate/Menthol) 29 Gm Oint...g. 1 Stevan TP PRN QID PRN Milk Of Magnesia (Magnesium Hydroxide) 2,400 Mg/10 Ml Oral.susp 2,400 Mg PO PRN QHS PRN Advanced Antacid Liquid (Mag Hydrox/Al Hydrox/Simeth) 355 Ml Oral.susp 15 Ml PO PRN AFTMEALHC PRN Lorazepam 0.5 Mg Tablet 0.5 Mg PO PRN TID PRN Lorazepam 0.5 Mg Tablet 0.5 Mg PO Q8HRS Tylenol (Acetaminophen) 325 Mg Tablet 650 Mg PO PRN Q6HRS PRN Promethazine Hcl 25 Mg Tablet 12.5 Mg PO PRN Q4HRS PRN Aspirin 81 Mg Tab.chew 81 Mg PO DAILY I have reviewed the current psychotropics carefully including drug interactions. Risk benefit ratio favors no change other than as noted in my dictated progress note. Diagnosis: Problems: (1) Anxiety disorder (2) Bipolar affective disorder, mixed (3) Impulse control disorder (4) Panic disorder with agoraphobia and severe panic attacks (5) Obsessive compulsive disorder SANTIAGO FARFAN MD Jun 24, 2017 20:19
--- NOTE | 2017-06-25 00:58 | PN ---
DATE: 06/23/2017 PSYCHIATRIC PROGRESS NOTE This is a late entry 06/23/2017 covers elements not covered in my initial note 06/23/2017. SUBJECTIVE: I met with the patient evening of 06/23/2017. The patient had a much better day, seems much more coherent, oriented, much less labile, less paranoid, still somewhat intrusive at times. REVIEW OF SYSTEMS: No CV, , pulmonary, eye, ENT system symptoms on review. MENTAL STATUS EXAM: Oriented to herself and situation. Speech is coherent, less pressured. Abstraction fair, computation impaired, language function intact, attention span short. Mood and affect less labile. LABORATORY DATA: Reviewed. IMPRESSION: Bipolar 1 disorder, mixed with psychotic features, in partial remission. Rest unchanged; anxiety disorder, unspecified. PLAN: The patient wants to reduce her Xanax. She is currently on 2.5 mg a day. We will reduce it to 2.25 mg a day and reduce further gradually. Changed the trazodone 50 mg at bedtime p.r.n., may repeat x 50 mg at bedtime schedule, may repeat x 1 p.r.n. Continue rest unchanged. SANTIAGO FARFAN MD DR: INNA/melody JOB#: [id number] / [id number]
[2017-06-25 06:35] VITALS: BP 129/71
[2017-06-25] MEDS: DOCUSATE SODIUM 100 MG CAPSULE PO SCH ×2 (07:52→19:23)
[2017-06-25] MEDS: POTASSIUM CHLORIDE 20 MEQ TABLET.ER. PO SCH ×2 (07:53→19:23)
[2017-06-25] MEDS: CHOLECALCIFEROL (VITAMIN D3) 1,000 UNIT TABLET PO SCH (07:53)
[2017-06-25] MEDS: ASPIRIN 81 MG TAB.CHEW PO SCH (07:54)
[2017-06-25] MEDS: risperiDONE 0.5 MG TABLET. PO SCH (07:54)
[2017-06-25] MEDS: PANTOPRAZOLE 40 MG TABLET. PO SCH (07:54)
[2017-06-25] MEDS: MULTIVITAMIN with MINERAL TABLET. PO SCH ×2 (07:54→08:06)
[2017-06-25] MEDS: ALPRAZolam 0.5 MG TABLET PO SCH ×2 (07:57→19:23)
[2017-06-25 10:40] LABS: FECAL OB PT NEGATIVE (NEG)
[2017-06-25] MEDS: ALPRAZolam 0.25 MG TABLET PO SCH (13:10)
[2017-06-25 15:58] VITALS: BP 152/72
[2017-06-25] MEDS: MIRTAZAPINE 7.5 MG TABLET. PO SCH (19:23)
[2017-06-25] MEDS: TEMAZEPAM 15 MG CAPSULE PO SCH (19:23)
[2017-06-25] MEDS: ATORVASTATIN CALCIUM 20 MG TABLET PO SCH (19:23)
[2017-06-25] MEDS: traZODone 50 MG TABLET. PO SCH (19:23)
--- NOTE | 2017-06-25 20:18 | PDOC ---
Exam Note: Rian Note: Please also refer to the separate dictated note~for this date of service dictated separately.~Patient seen individually. Discussed the patient with Nursing staff reviewed the chart.~Reviewed interim history and current functioning. Reviewed vital signs,~Labs/ Radiology~and current medications noted below. Continue current treatment with the changes noted in the dictated addendum note Assessment: Vital Signs: Vital Signs Date Time Temp Pulse Resp B/P (MAP) Pulse Ox O2 Delivery O2 Flow Rate FiO2 06/25/17 15:58 98.5 89 20 152/72 (98) 94 06/25/17 06:35 Room Air I&O Intake and Output 06/25/17 07:00 Intake Total 1080 ml Balance 1080 ml Intake Oral 1080 ml # Bowel Movements 2 Labs: Laboratory Tests Test 06/25/17 10:20 Stool Occult Blood Negative (NEG) Current Medications: Meds: Current Medications Acetaminophen (Tylenol) 650 mg PRN Q6HRS PRN PO PAIN / TEMP Last administered on 06/24/17at 03:30; Start 06/05/17 at 16:15 Multi-Ingredient Ointment (Analgesic [place]) 1 stevan PRN QID PRN TP MUSCLE PAIN Last administered on 06/21/17at 18:37; Start 06/05/17 at 16:15 Al Hydroxide/Mg Hydroxide (Mylanta Plus Xs) 15 ml PRN AFTMEALHC PRN PO DYSPEPSIA Last administered on 06/18/17at 18:40; Start 06/05/17 at 16:15 Magnesium Hydroxide (Milk Of Magnesia) 2,400 mg PRN QHS PRN PO CONSTIPATION Last administered on 06/21/17at 19:16; Start 06/05/17 at 16:15 Aspirin (Children'S Aspirin) 81 mg DAILY PO Last administered on 06/25/17at 07: 54; Start 06/06/17 at 09:00 Sodium Chloride (Saline Mist Nasal) 1 stevan PRN Q1HR PRN NS NASAL CONGESTION; Start 06/05/17 at 17:15 Acetaminophen (Tylenol) 650 mg PRN Q6HRS PRN PO PAIN / TEMP; Start 06/05/17 at 16:45; Stop 06/05/17 at 16:45; Status DC Atorvastatin Calcium (Lipitor) 20 mg QHS PO Last administered on 06/25/17at 19: 23; Start 06/05/17 at 21:00 Docusate Sodium (Colace) 100 mg BID PO Last administered on 06/25/17at 19:23; Start 06/05/17 at 21:00 Multi-Ingredient Ointment (Analgesic [place]) 1 stevan PRN QID PRN TP MUSCLE PAIN; Start 06/05/17 at 16:45; Stop 06/05/17 at 16:45; Status DC Pantoprazole Sodium (Protonix) 40 mg DAILY06 PO Last administered on 06/09/17at 04:13; Start 06/06/17 at 06:00; Stop 06/10/17 at 05:49; Status DC Non-Formulary Medication 15 ml PRN AFTMEALHC PRN PO DYSPEPSIA; Start 06/05/17 at 16:45; Stop 06/05/17 at 16:45; Status DC Non-Formulary Medication 2,400 mg PRN QHS PRN PO CONSTIPATION; Start 06/05/17 at 16:45; Stop 06/05/17 at 16:45; Status DC Multivitamins/ Calcium (Thera-M Plus) 1 tab DAILY PO Last administered on at 08:02; Start 06/06/17 at 09:00 Ondansetron HCl (Zofran Odt) 8 mg PRN Q6HRS PRN PO NAUSEA Last administered on 06/18/17at 00:24; Start 06/05/17 at 17:00 Alprazolam (Xanax) 1 mg PRN TID PRN PO ANXIETY / AGITATION; Start 06/05/17 at 18 :45; Stop 06/05/17 at 19:15; Status DC Quetiapine Fumarate (SEROquel) 12.5 mg TID@0900,1300,1700 PO Last administered on 06/08/17at 17:05; Start 06/06/17 at 09:00; Stop 06/08/17 at 18:09; Status DC Alprazolam (Xanax) 1 mg TIDAFTMEAL PO Last administered on 06/07/17at 17:25; Start 06/06/17 at 09:00; Stop 06/07/17 at 19:13; Status DC Mirtazapine (Remeron) 7.5 mg QHS PO Last administered on 06/07/17at 20:09; Start 06/06/17 at 21:00; Stop 06/08/17 at 14:41; Status DC Trazodone HCl (Desyrel) 50 mg PRN QHS PRN PO INSOMNIA, MAY REPEAT X1 Last administered on 06/23/17at 01:06; Start 06/06/17 at 18:30; Stop 06/23/17 at 18:08 ; Status DC Alprazolam (Xanax) 1 mg BID PO Last administered on 06/25/17at 19:23; Start 06/08 at 09:00 Alprazolam (Xanax) 0.75 mg DAILY@1300 PO Last administered on 06/09/17at 12:59; Start 06/08/17 at 13:00; Stop 06/09/17 at 18:52; Status DC Quetiapine Fumarate (SEROquel) 12.5 mg QID PO Last administered on 06/16/17at 17 :23; Start 06/08/17 at 21:00; Stop 06/16/17 at 19:33; Status DC Lamotrigine (LaMICtal) 25 mg HS PO Last administered on 06/12/17at 19:43; Start 06/08/17 at 21:00; Stop 06/12/17 at 21:00; Status DC Lamotrigine (LaMICtal) 50 mg HS PO Last administered on 06/17/17at 19:41; Start 06/13/17 at 21:00; Stop 06/17/17 at 21:00; Status DC Lamotrigine (LaMICtal) 75 mg HS PO Last administered on 06/19/17at 20:11; Start 06/18/17 at 21:00; Stop 06/20/17 at 11:26; Status DC Lamotrigine (LaMICtal) 100 mg HS PO ; Start 06/23/17 at 21:00; Stop 06/23/17 at 21:00; Status DC Alprazolam (Xanax) 0.5 mg DAILY@1300 PO Last administered on 06/23/17at 12:42; Start 06/10/17 at 13:00; Stop 06/23/17 at 18:08; Status DC Pantoprazole Sodium (Protonix) 40 mg DAILYAC PO Last administered on 06/25/17at 07:54; Start 06/10/17 at 07:30 Vitamin D (Vitamin D3) 2,000 unit DAILYBFRLUN PO Last administered on at 07:53; Start 06/12/17 at 11:30 Olanzapine (ZyPREXA ZYDIS) 2.5 mg PRN Q2HR PRN PO PSYCHOSIS Last administered on 06/19/17at 13:58; Start 06/16/17 at 01:00 Potassium Chloride (Klor-Con) 20 meq BID PO Last administered on 06/25/17at 19: 23; Start 06/17/17 at 21:00 Mirtazapine (Remeron) 7.5 mg QHS PO Last administered on 06/25/17at 19:23; Start 06/18/17 at 21:00 Risperidone (RisperDAL) 0.5 mg DAILY PO Last administered on 06/23/17at 08:19; Start 06/20/17 at 09:00; Stop 06/23/17 at 14:58; Status DC Risperidone (RisperDAL) 0.5 mg 1X ONCE PO Last administered on 06/19/17at 18:14 ; Start 06/19/17 at 18:15; Stop 06/19/17 at 18:16; Status DC Risperidone (RisperDAL) 0.5 mg 1X ONCE PO Last administered on 06/20/17at 10:31 ; Start 06/20/17 at 10:30; Stop 06/20/17 at 10:31; Status DC Risperidone (RisperDAL) 0.5 mg 1X ONCE PO Last administered on 06/20/17at 17:55 ; Start 06/20/17 at 17:00; Stop 06/20/17 at 17:01; Status DC Temazepam (Restoril) 15 mg QHS PO Last administered on 06/25/17at 19:23; Start 06/20/17 at 21:00 Temazepam (Restoril) 15 mg PRN QHS PRN PO INSOMNIA Last administered on at 23:17; Start 06/20/17 at 19:30 Dextrose/Sodium Chloride 1,000 ml @ 75 mls/hr 1X ONCE IV Last administered on 06/21/17at 17:45; Start 06/21/17 at 17:45; Stop 06/22/17 at 07:04; Status DC Sodium Biphosphate/ Sodium Phosphate (Fleet Adult) 133 ml 1X ONCE PA Last administered on 06/22/17at 19:22; Start 06/22/17 at 17:30; Stop 06/22/17 at 17:31 ; Status DC Risperidone (RisperDAL) 0.75 mg DAILY PO Last administered on 06/25/17at 07:54; Start 06/24/17 at 09:00 Alprazolam (Xanax) 0.25 mg DAILY@1300 PO Last administered on 06/25/17at 13:10; Start 06/24/17 at 13:00 Trazodone HCl (Desyrel) 50 mg QHS PO Last administered on 06/25/17at 19:23; Start 06/23/17 at 21:00 Magnesium Citrate (Citroma) 296 ml 1X ONCE PO Last administered on 06/24/17at 09:32; Start 06/24/17 at 09:00; Stop 06/24/17 at 09:09; Status DC Divalproex Sodium (Depakote Er) 250 mg QHS PO ; Start 06/25/17 at 21:00 Active Scripts Active Reported Seroquel (Quetiapine Fumarate) 25 Mg Tablet 1 Tab PO DAILY Paroxetine Hcl 20 Mg Tablet 1 Tab PO DAILY Lorazepam 1 Mg Tablet 1 Tab PO TID Protonix (Pantoprazole Sodium) 40 Mg Tablet.dr 1 Tab PO DAILY06 Zofran Odt (Ondansetron) 8 Mg Tab.rapdis 1 Tab PO Q6HRS PRN Multivitamins (Multivitamin) 1 Each Tablet 1 Tab PO DAILY Docusate Sodium 100 Mg Capsule 1 Cap PO BID Atorvastatin Calcium 20 Mg Tablet 20 Mg PO QHS Saline Nasal Mist (Sodium Chloride) 126 Ml Mist 1 Stevan NS PRN Q1HR PRN Zoloft (Sertraline Hcl) 25 Mg Tablet 12.5 Mg PO DAILY Seroquel (Quetiapine Fumarate) 25 Mg Tablet 12.5 Mg PO [id number] Seroquel (Quetiapine Fumarate) 25 Mg Tablet 25 Mg PO QHS NITROGLYCERIN SubLingual (Nitroglycerin) 0.4 Mg Tab.subl 0.4 Mg SL PRN Q5MIN PRN Analgesic [place] (Methyl Salicylate/Menthol) 29 Gm Oint...g. 1 Stevan TP PRN QID PRN Milk Of Magnesia (Magnesium Hydroxide) 2,400 Mg/10 Ml Oral.susp 2,400 Mg PO PRN QHS PRN Advanced Antacid Liquid (Mag Hydrox/Al Hydrox/Simeth) 355 Ml Oral.susp 15 Ml PO PRN AFTMEALHC PRN Lorazepam 0.5 Mg Tablet 0.5 Mg PO PRN TID PRN Lorazepam 0.5 Mg Tablet 0.5 Mg PO Q8HRS Tylenol (Acetaminophen) 325 Mg Tablet 650 Mg PO PRN Q6HRS PRN Promethazine Hcl 25 Mg Tablet 12.5 Mg PO PRN Q4HRS PRN Aspirin 81 Mg Tab.chew 81 Mg PO DAILY I have reviewed the current psychotropics carefully including drug interactions. Risk benefit ratio favors no change other than as noted in my dictated progress note. Diagnosis: Problems: (1) Anxiety disorder (2) Bipolar affective disorder, mixed (3) Impulse control disorder (4) Panic disorder with agoraphobia and severe panic attacks (5) Obsessive compulsive disorder SANTIAGO FARFAN MD Jun 25, 2017 20:18
[2017-06-25] MEDS: DIVALPROEX ER 250 MG TAB.ER.24H. PO SCH (21:56)
[2017-06-25] MEDS: ACETAMINOPHEN 325 MG TABLET PO PRN (21:57)
--- NOTE | 2017-06-26 03:09 | PN ---
DATE: 06/24/2017 PSYCHIATRIC PROGRESS NOTE This late entry 06/24/2017 covers elements not covered in my initial note 06/24/2017. SUBJECTIVE: I met with the patient in the evening of 06/24/2017. The patient slept 6 hours previous evening, has been stuttering during the day today, telling the nursing staff "would you know, I have dementia." Somewhat bizarre at times consistent with a bipolar diagnosis. We will consider Depakote, but I have just adjusted the Risperdal and do not want to add a Depakote just yet. REVIEW OF SYSTEMS: No CV, , pulmonary, eye, ENT system symptoms on review. MENTAL STATUS EXAM: Oriented to herself and situation. Speech as noted, abstraction fair, computation impaired, language function intact, attention span short. Mood and affect showing ongoing mood lability. LABORATORIES: Reviewed. IMPRESSION: Bipolar 1 disorder, mixed with psychotic features; anxiety disorder, unspecified. Rest unchanged. PLAN: Continue current psychotropics. Consider Depakote as a mood stabilizer. MAN Richar FARFAN MD DR: INNA/melody JOB#: [id number] / [id number]
[2017-06-26 06:03] VITALS: BP 124/70
[2017-06-26 07:11] LABS: BASO % 1 % (0-3); EOS # 0.3 x10^3/uL (0.0-0.7); EOS % 6 % (0-3); HEMOGLOBIN 9.4 g/dL (12.0-15.5); LYMPH # 1.9 x10^3/uL (1.0-4.8); LYMPH % 41 % (24-48); MEAN CORPUSCULAR HEMOGLOBIN 32 pg (25-35); MEAN CORPUSCULAR HGB CONC 34 g/dL (31-37); MEAN CORPUSCULAR VOLUME 94 fL (79-100); MONO # 0.7 x10^3/uL (0.0-1.1); MONO % 14 % (0-9); NEUT # 1.8 x10^3uL (1.8-7.7); NEUT % 38 % (31-73); PLATELET COUNT 248 x10^3/uL (140-400); RED BLOOD COUNT 2.99 x10^6/uL (3.50-5.40); RED CELL DISTRIBUTION WIDTH 16.1 % (11.5-14.5); WHITE BLOOD COUNT 4.7 x10^3/uL (4.0-11.0)
[2017-06-26 07:17] LABS: ALBUMIN 2.6 g/dL (3.4-5.0); ALBUMIN/GLOBULIN RATIO 0.8 (1.0-1.7); CALCIUM 8.7 mg/dL (8.5-10.1); CREATININE 0.9 mg/dL (0.6-1.0); GFR 61.7; MAGNESIUM 1.7 mg/dL (1.8-2.4); POTASSIUM 4.1 mmol/L (3.5-5.1); TOTAL BILIRUBIN 0.3 mg/dL (0.2-1.0); TOTAL PROTEIN 5.8 g/dL (6.4-8.2)
[2017-06-26] MEDS: DOCUSATE SODIUM 100 MG CAPSULE PO SCH ×2 (07:41→19:34)
[2017-06-26] MEDS: PANTOPRAZOLE 40 MG TABLET. PO SCH (07:41)
[2017-06-26] MEDS: POTASSIUM CHLORIDE 20 MEQ TABLET.ER. PO SCH ×2 (07:41→19:34)
[2017-06-26] MEDS: risperiDONE 0.5 MG TABLET. PO SCH (07:41)
[2017-06-26] MEDS: ASPIRIN 81 MG TAB.CHEW PO SCH (07:42)
[2017-06-26] MEDS: MULTIVITAMIN with MINERAL TABLET. PO SCH ×2 (07:42→08:13)
[2017-06-26] MEDS: ALPRAZolam 0.5 MG TABLET PO SCH ×2 (07:44→19:41)
[2017-06-26] MEDS: ALPRAZolam 0.25 MG TABLET PO SCH (12:21)
[2017-06-26] MEDS: CHOLECALCIFEROL (VITAMIN D3) 1,000 UNIT TABLET PO SCH (12:22)
[2017-06-26 16:07] VITALS: BP 116/82
--- NOTE | 2017-06-26 19:24 | PN ---
DATE: 06/24/2017 SUBJECTIVE: The patient denies any new medical or neurological complaints. Apparently, she is very quiet, cooperative with the nursing staff. She eats and drinks fine. There is no history of recent falls or seizure-like activities. OBJECTIVE: GENERAL: Well-developed, well-nourished white female, not in acute distress. VITAL SIGNS: Blood pressure ____, respiratory rate 18, pulse is 89, temperature 98, oxygen saturation 99% on room air. HEENT: Normocephalic, atraumatic, otherwise unremarkable. NECK: Supple. Negative for carotid bruit, lymphadenopathy, or thyromegaly. LUNGS: Clear to A and P. CARDIOVASCULAR: Regular rate and rhythm, normal S1, S2. There is no S3, S4, or murmur. ABDOMEN: Soft. Bowel sounds positive. EXTREMITIES: Negative for cyanosis, clubbing, or pitting edema. NEUROLOGICAL EXAM: Mental Status: The patient is alert and oriented x 3. Speech is fluent. There is no language dysfunction. Memory, judgment, and abstraction thinking are fair. The patient denies hallucination or delusion. Cranial nerves are intact. Motor Examination: No focal muscle bulk was seen. The tone is normal. The strength is 5/5 throughout. Sensory examination revealed normal pinprick and light touch senses throughout. Deep tendon reflexes are symmetric and hypoactive with absent Achilles responses. Gait and coordination are normal. LABORATORY DATA: Today revealed white blood cells of 5.2, red blood cells is low at 3, hemoglobin is low at 9.6, and hematocrit 27.9 with normal MCV, MCH, and MCHC but RDW is elevated at 16.1, and platelet count is ____. Chemistry revealed sodium of 140, potassium 4.3, chloride 107, CO2 of 28, BUN 17, creatinine 1.1, glucose is 88, and calcium 8.5. Magnesium is low at 1.6. Liver enzymes are normal. IMPRESSION: 1. Intermittent behavior disturbances with psychosis - improved. 2. Multiple medical problems include hypertension, hyperlipidemia, gastroesophageal reflux disease, chronic lower back pain. 3. Anemia with elevated RDW. 4. Multiple psychiatric problems include anxiety, depressions, and intermittent psychosis. RECOMMENDATIONS: 1. We will correct the underlying anemia. We will check iron and vitamin B12. 2. Continue with current medical and psychiatric care. M Jody DOCKERY MD DR: Amy JOB#: [id number] / [id number]
[2017-06-26] MEDS: DIVALPROEX ER 250 MG TAB.ER.24H. PO SCH (19:34)
[2017-06-26] MEDS: traZODone 50 MG TABLET. PO SCH (19:34)
[2017-06-26] MEDS: MIRTAZAPINE 7.5 MG TABLET. PO SCH (19:34)
[2017-06-26] MEDS: ATORVASTATIN CALCIUM 20 MG TABLET PO SCH (19:34)
[2017-06-26] MEDS: TEMAZEPAM 15 MG CAPSULE PO SCH (19:38)
--- NOTE | 2017-06-26 20:06 | PDOC ---
Exam Note: Rian Note: Please also refer to the separate dictated note~for this date of service dictated separately.~Patient seen individually. Discussed the patient with Nursing staff reviewed the chart.~Reviewed interim history and current functioning. Reviewed vital signs,~Labs/ Radiology~and current medications noted below. Continue current treatment with the changes noted in the dictated addendum note Assessment: Vital Signs: Vital Signs Date Time Temp Pulse Resp B/P (MAP) Pulse Ox O2 Delivery O2 Flow Rate FiO2 06/26/17 16:07 98.2 91 16 116/82 (93) 96 06/25/17 06:35 Room Air I&O Intake and Output 06/26/17 07:00 Intake Total 1440 ml Balance 1440 ml Intake Oral 1440 ml # Bowel Movements 1 Labs: Laboratory Tests Test 06/26/17 06:44 White Blood Count 4.7 x10^3/uL (4.0-11.0) Red Blood Count 2.99 x10^6/uL (3.50-5.40) L Hemoglobin 9.4 g/dL (12.0-15.5) L Hematocrit 28.0 % (36.0-47.0) L Mean Corpuscular Volume 94 fL (79-100) Mean Corpuscular Hemoglobin 32 pg (25-35) Mean Corpuscular Hemoglobin Concent 34 g/dL (31-37) Red Cell Distribution Width 16.1 % (11.5-14.5) H Platelet Count 248 x10^3/uL (140-400) Neutrophils (%) (Auto) 38 % (31-73) Lymphocytes (%) (Auto) 41 % (24-48) Monocytes (%) (Auto) 14 % (0-9) H Eosinophils (%) (Auto) 6 % (0-3) H Basophils (%) (Auto) 1 % (0-3) Neutrophils # (Auto) 1.8 x10^3uL (1.8-7.7) Lymphocytes # (Auto) 1.9 x10^3/uL (1.0-4.8) Monocytes # (Auto) 0.7 x10^3/uL (0.0-1.1) Eosinophils # (Auto) 0.3 x10^3/uL (0.0-0.7) Basophils # (Auto) 0.0 x10^3/uL (0.0-0.2) Sodium Level 143 mmol/L (136-145) Potassium Level 4.1 mmol/L (3.5-5.1) Chloride Level 108 mmol/L (98-107) H Carbon Dioxide Level 28 mmol/L (21-32) Anion Gap 7 (6-14) Blood Urea Nitrogen 8 mg/dL (7-20) Creatinine 0.9 mg/dL (0.6-1.0) Estimated GFR (Cockcroft-Gault) 61.7 BUN/Creatinine Ratio 9 (6-20) Glucose Level 92 mg/dL (70-99) Calcium Level 8.7 mg/dL (8.5-10.1) Magnesium Level 1.7 mg/dL (1.8-2.4) L Iron Level 21 ug/dL (50-170) L Total Iron Binding Capacity 225 ug/dL (250-450) L Iron Saturation 9 % (15-34) L Total Bilirubin 0.3 mg/dL (0.2-1.0) Aspartate Amino Transferase (AST) 22 U/L (15-37) Alanine Aminotransferase (ALT) 39 U/L (14-59) Alkaline Phosphatase 47 U/L (46-116) Total Protein 5.8 g/dL (6.4-8.2) L Albumin 2.6 g/dL (3.4-5.0) L Albumin/Globulin Ratio 0.8 (1.0-1.7) L Vitamin B12 Level 731 pg/mL (247-911) Current Medications: Meds: Current Medications Acetaminophen (Tylenol) 650 mg PRN Q6HRS PRN PO PAIN / TEMP Last administered on 06/25/17at 21:57; Start 06/05/17 at 16:15 Multi-Ingredient Ointment (Analgesic [place]) 1 stevan PRN QID PRN TP MUSCLE PAIN Last administered on 06/21/17at 18:37; Start 06/05/17 at 16:15 Al Hydroxide/Mg Hydroxide (Mylanta Plus Xs) 15 ml PRN AFTMEALHC PRN PO DYSPEPSIA Last administered on 06/18/17at 18:40; Start 06/05/17 at 16:15 Magnesium Hydroxide (Milk Of Magnesia) 2,400 mg PRN QHS PRN PO CONSTIPATION Last administered on 06/21/17at 19:16; Start 06/05/17 at 16:15 Aspirin (Children'S Aspirin) 81 mg DAILY PO Last administered on 06/26/17at 07: 42; Start 06/06/17 at 09:00 Sodium Chloride (Saline Mist Nasal) 1 stevan PRN Q1HR PRN NS NASAL CONGESTION; Start 06/05/17 at 17:15 Acetaminophen (Tylenol) 650 mg PRN Q6HRS PRN PO PAIN / TEMP; Start 06/05/17 at 16:45; Stop 06/05/17 at 16:45; Status DC Atorvastatin Calcium (Lipitor) 20 mg QHS PO Last administered on 06/26/17at 19: 34; Start 06/05/17 at 21:00 Docusate Sodium (Colace) 100 mg BID PO Last administered on 06/26/17at 19:34; Start 06/05/17 at 21:00 Multi-Ingredient Ointment (Analgesic [place]) 1 stevan PRN QID PRN TP MUSCLE PAIN; Start 06/05/17 at 16:45; Stop 06/05/17 at 16:45; Status DC Pantoprazole Sodium (Protonix) 40 mg DAILY06 PO Last administered on 06/09/17at 04:13; Start 06/06/17 at 06:00; Stop 06/10/17 at 05:49; Status DC Non-Formulary Medication 15 ml PRN AFTMEALHC PRN PO DYSPEPSIA; Start 06/05/17 at 16:45; Stop 06/05/17 at 16:45; Status DC Non-Formulary Medication 2,400 mg PRN QHS PRN PO CONSTIPATION; Start 06/05/17 at 16:45; Stop 06/05/17 at 16:45; Status DC Multivitamins/ Calcium (Thera-M Plus) 1 tab DAILY PO Last administered on at 08:02; Start 06/06/17 at 09:00 Ondansetron HCl (Zofran Odt) 8 mg PRN Q6HRS PRN PO NAUSEA Last administered on 06/18/17at 00:24; Start 06/05/17 at 17:00 Alprazolam (Xanax) 1 mg PRN TID PRN PO ANXIETY / AGITATION; Start 06/05/17 at 18 :45; Stop 06/05/17 at 19:15; Status DC Quetiapine Fumarate (SEROquel) 12.5 mg TID@0900,1300,1700 PO Last administered on 06/08/17at 17:05; Start 06/06/17 at 09:00; Stop 06/08/17 at 18:09; Status DC Alprazolam (Xanax) 1 mg TIDAFTMEAL PO Last administered on 06/07/17at 17:25; Start 06/06/17 at 09:00; Stop 06/07/17 at 19:13; Status DC Mirtazapine (Remeron) 7.5 mg QHS PO Last administered on 06/07/17at 20:09; Start 06/06/17 at 21:00; Stop 06/08/17 at 14:41; Status DC Trazodone HCl (Desyrel) 50 mg PRN QHS PRN PO INSOMNIA, MAY REPEAT X1 Last administered on 06/23/17at 01:06; Start 06/06/17 at 18:30; Stop 06/23/17 at 18:08 ; Status DC Alprazolam (Xanax) 1 mg BID PO Last administered on 06/26/17at 19:41; Start 06/08 at 09:00 Alprazolam (Xanax) 0.75 mg DAILY@1300 PO Last administered on 06/09/17at 12:59; Start 06/08/17 at 13:00; Stop 06/09/17 at 18:52; Status DC Quetiapine Fumarate (SEROquel) 12.5 mg QID PO Last administered on 06/16/17at 17 :23; Start 06/08/17 at 21:00; Stop 06/16/17 at 19:33; Status DC Lamotrigine (LaMICtal) 25 mg HS PO Last administered on 06/12/17at 19:43; Start 06/08/17 at 21:00; Stop 06/12/17 at 21:00; Status DC Lamotrigine (LaMICtal) 50 mg HS PO Last administered on 06/17/17at 19:41; Start 06/13/17 at 21:00; Stop 06/17/17 at 21:00; Status DC Lamotrigine (LaMICtal) 75 mg HS PO Last administered on 06/19/17at 20:11; Start 06/18/17 at 21:00; Stop 06/20/17 at 11:26; Status DC Lamotrigine (LaMICtal) 100 mg HS PO ; Start 06/23/17 at 21:00; Stop 06/23/17 at 21:00; Status DC Alprazolam (Xanax) 0.5 mg DAILY@1300 PO Last administered on 06/23/17at 12:42; Start 06/10/17 at 13:00; Stop 06/23/17 at 18:08; Status DC Pantoprazole Sodium (Protonix) 40 mg DAILYAC PO Last administered on 06/26/17 07:41; Start 06/10/17 at 07:30 Vitamin D (Vitamin D3) 2,000 unit DAILYBFRLUN PO Last administered on at 12:22; Start 06/12/17 at 11:30 Olanzapine (ZyPREXA ZYDIS) 2.5 mg PRN Q2HR PRN PO PSYCHOSIS Last administered on 06/19/17at 13:58; Start 06/16/17 at 01:00 Potassium Chloride (Klor-Con) 20 meq BID PO Last administered on 06/26/17at 19: 34; Start 06/17/17 at 21:00 Mirtazapine (Remeron) 7.5 mg QHS PO Last administered on 06/26/17at 19:34; Start 06/18/17 at 21:00 Risperidone (RisperDAL) 0.5 mg DAILY PO Last administered on 06/23/17at 08:19; Start 06/20/17 at 09:00; Stop 06/23/17 at 14:58; Status DC Risperidone (RisperDAL) 0.5 mg 1X ONCE PO Last administered on 06/19/17at 18:14 ; Start 06/19/17 at 18:15; Stop 06/19/17 at 18:16; Status DC Risperidone (RisperDAL) 0.5 mg 1X ONCE PO Last administered on 06/20/17at 10:31 ; Start 06/20/17 at 10:30; Stop 06/20/17 at 10:31; Status DC Risperidone (RisperDAL) 0.5 mg 1X ONCE PO Last administered on 06/20/17at 17:55 ; Start 06/20/17 at 17:00; Stop 06/20/17 at 17:01; Status DC Temazepam (Restoril) 15 mg QHS PO Last administered on 06/26/17at 19:38; Start 06/20/17 at 21:00 Temazepam (Restoril) 15 mg PRN QHS PRN PO INSOMNIA Last administered on at 23:17; Start 06/20/17 at 19:30 Dextrose/Sodium Chloride 1,000 ml @ 75 mls/hr 1X ONCE IV Last administered on 06/21/17at 17:45; Start 06/21/17 at 17:45; Stop 06/22/17 at 07:04; Status DC Sodium Biphosphate/ Sodium Phosphate (Fleet Adult) 133 ml 1X ONCE [place] Last administered on 06/22/17at 19:22; Start 06/22/17 at 17:30; Stop 06/22/17 at 17:31 ; Status DC Risperidone (RisperDAL) 0.75 mg DAILY PO Last administered on 06/26/17at 07:41; Start 06/24/17 at 09:00 Alprazolam (Xanax) 0.25 mg DAILY@1300 PO Last administered on 06/26/17at 12:21; Start 06/24/17 at 13:00 Trazodone HCl (Desyrel) 50 mg QHS PO Last administered on 06/26/17at 19:34; Start 06/23/17 at 21:00 Magnesium Citrate (Citroma) 296 ml 1X ONCE PO Last administered on 06/24/17at 09:32; Start 06/24/17 at 09:00; Stop 06/24/17 at 09:09; Status DC Divalproex Sodium (Depakote Er) 250 mg QHS PO Last administered on 06/26/17at 19 :34; Start 06/25/17 at 21:00 Active Scripts Active Reported Seroquel (Quetiapine Fumarate) 25 Mg Tablet 1 Tab PO DAILY Paroxetine Hcl 20 Mg Tablet 1 Tab PO DAILY Lorazepam 1 Mg Tablet 1 Tab PO TID Protonix (Pantoprazole Sodium) 40 Mg Tablet.dr 1 Tab PO DAILY06 Zofran Odt (Ondansetron) 8 Mg Tab.rapdis 1 Tab PO Q6HRS PRN Multivitamins (Multivitamin) 1 Each Tablet 1 Tab PO DAILY Docusate Sodium 100 Mg Capsule 1 Cap PO BID Atorvastatin Calcium 20 Mg Tablet 20 Mg PO QHS Saline Nasal Mist (Sodium Chloride) 126 Ml Mist 1 Stevan NS PRN Q1HR PRN Zoloft (Sertraline Hcl) 25 Mg Tablet 12.5 Mg PO DAILY Seroquel (Quetiapine Fumarate) 25 Mg Tablet 12.5 Mg PO [id number] Seroquel (Quetiapine Fumarate) 25 Mg Tablet 25 Mg PO QHS NITROGLYCERIN SubLingual (Nitroglycerin) 0.4 Mg Tab.subl 0.4 Mg SL PRN Q5MIN PRN Analgesic [place] (Methyl Salicylate/Menthol) 29 Gm Oint...g. 1 Stevan TP PRN QID PRN Milk Of Magnesia (Magnesium Hydroxide) 2,400 Mg/10 Ml Oral.susp 2,400 Mg PO PRN QHS PRN Advanced Antacid Liquid (Mag Hydrox/Al Hydrox/Simeth) 355 Ml Oral.susp 15 Ml PO PRN AFTMEALHC PRN Lorazepam 0.5 Mg Tablet 0.5 Mg PO PRN TID PRN Lorazepam 0.5 Mg Tablet 0.5 Mg PO Q8HRS Tylenol (Acetaminophen) 325 Mg Tablet 650 Mg PO PRN Q6HRS PRN Promethazine Hcl 25 Mg Tablet 12.5 Mg PO PRN Q4HRS PRN Aspirin 81 Mg Tab.chew 81 Mg PO DAILY I have reviewed the current psychotropics carefully including drug interactions. Risk benefit ratio favors no change other than as noted in my dictated progress note. Diagnosis: Problems: (1) Anxiety disorder (2) Bipolar affective disorder, mixed (3) Impulse control disorder (4) Panic disorder with agoraphobia and severe panic attacks (5) Obsessive compulsive disorder SANTIAGO FARFAN MD Jun 26, 2017 20:06
[2017-06-27 06:12] VITALS: BP 120/73
[2017-06-27] MEDS: CHOLECALCIFEROL (VITAMIN D3) 1,000 UNIT TABLET PO SCH (08:50)
[2017-06-27] MEDS: POTASSIUM CHLORIDE 20 MEQ TABLET.ER. PO SCH ×2 (08:50→20:03)
[2017-06-27] MEDS: MULTIVITAMIN with MINERAL TABLET. PO SCH (08:50)
[2017-06-27] MEDS: risperiDONE 0.5 MG TABLET. PO SCH (08:50)
[2017-06-27] MEDS: ASPIRIN 81 MG TAB.CHEW PO SCH (08:50)
[2017-06-27] MEDS: PANTOPRAZOLE 40 MG TABLET. PO SCH (08:50)
[2017-06-27] MEDS: DOCUSATE SODIUM 100 MG CAPSULE PO SCH ×2 (08:50→20:03)
[2017-06-27] MEDS: ALPRAZolam 0.5 MG TABLET PO SCH ×2 (08:51→20:03)
[2017-06-27] MEDS: ALPRAZolam 0.25 MG TABLET PO SCH (12:48)
[2017-06-27] MEDS: ACETAMINOPHEN 325 MG TABLET PO PRN ×2 (14:06→23:07)
[2017-06-27 16:36] VITALS: BP 148/88
[2017-06-27] MEDS: ATORVASTATIN CALCIUM 20 MG TABLET PO SCH (20:02)
[2017-06-27] MEDS: traZODone 50 MG TABLET. PO SCH (20:03)
[2017-06-27] MEDS: DIVALPROEX ER 250 MG TAB.ER.24H. PO SCH (20:03)
[2017-06-27] MEDS: MIRTAZAPINE 7.5 MG TABLET. PO SCH (20:03)
[2017-06-27] MEDS: TEMAZEPAM 15 MG CAPSULE PO SCH (20:03)
[2017-06-28] MEDS: TEMAZEPAM 15 MG CAPSULE PO PRN (01:22)
[2017-06-28 06:04] VITALS: BP 121/65
[2017-06-28] MEDS: PANTOPRAZOLE 40 MG TABLET. PO SCH (07:35)
[2017-06-28] MEDS: ALPRAZolam 0.5 MG TABLET PO SCH ×2 (07:35→20:42)
[2017-06-28] MEDS: risperiDONE 0.5 MG TABLET. PO SCH (07:35)
[2017-06-28] MEDS: DOCUSATE SODIUM 100 MG CAPSULE PO SCH ×2 (07:36→20:40)
[2017-06-28] MEDS: MULTIVITAMIN with MINERAL TABLET. PO SCH (07:36)
[2017-06-28] MEDS: POTASSIUM CHLORIDE 20 MEQ TABLET.ER. PO SCH ×2 (07:36→20:42)
[2017-06-28] MEDS: ASPIRIN 81 MG TAB.CHEW PO SCH (07:36)
[2017-06-28 07:57] LABS: BASO # 0.1 x10^3/uL (0.0-0.2); BASO % 1 % (0-3); EOS # 0.2 x10^3/uL (0.0-0.7); EOS % 5 % (0-3); HEMATOCRIT 27.4 % (36.0-47.0); HEMOGLOBIN 9.3 g/dL (12.0-15.5); LYMPH # 1.9 x10^3/uL (1.0-4.8); LYMPH % 39 % (24-48); MEAN CORPUSCULAR HEMOGLOBIN 32 pg (25-35); MEAN CORPUSCULAR HGB CONC 34 g/dL (31-37); MEAN CORPUSCULAR VOLUME 93 fL (79-100); MONO # 0.7 x10^3/uL (0.0-1.1); MONO % 14 % (0-9); NEUT # 1.9 x10^3uL (1.8-7.7); NEUT % 40 % (31-73); PLATELET COUNT 265 x10^3/uL (140-400); RED BLOOD COUNT 2.93 x10^6/uL (3.50-5.40); RED CELL DISTRIBUTION WIDTH 15.9 % (11.5-14.5); WHITE BLOOD COUNT 4.7 x10^3/uL (4.0-11.0)
[2017-06-28 08:17] LABS: ALBUMIN 2.5 g/dL (3.4-5.0); ALBUMIN/GLOBULIN RATIO 0.8 (1.0-1.7); ALK PHOS 48 U/L (46-116); ALT (SGPT) 32 U/L (14-59); ANION GAP 5 (6-14); AST (SGOT) 19 U/L (15-37); BLOOD UREA NITROGEN 10 mg/dL (7-20); BUN/CREATININE RATIO 10 (6-20); CALCIUM 8.3 mg/dL (8.5-10.1); CARBON DIOXIDE 27 mmol/L (21-32); CHLORIDE 108 mmol/L (98-107); GFR 54.7; GLUCOSE 96 mg/dL (70-99); POTASSIUM 4.2 mmol/L (3.5-5.1); SODIUM 140 mmol/L (136-145); TOTAL BILIRUBIN 0.2 mg/dL (0.2-1.0); TOTAL PROTEIN 5.8 g/dL (6.4-8.2)
--- NOTE | 2017-06-28 08:18 | PN ---
DATE: 06/25/2017 This late entry, 06/25/2017, covers elements not covered in my initial note of 06/25/2017. SUBJECTIVE: I met with the patient the evening of 06/25/2017. The patient has been much more cooperative, compliant with her medications. Overall doing better, still somewhat labile in her mood. REVIEW OF SYSTEMS: Has some difficulty with her speech, but this is improved from earlier. No CV, , pulmonary, eye system symptoms on review. MENTAL STATUS EXAM: Reasonably oriented. Speech is improved. Abstraction fair, computation impaired, language function intact, attention span short. Mood and affect remain somewhat labile, but better than before. LABORATORY DATA: Reviewed. IMPRESSION: Bipolar 1 disorder, mixed, with psychotic features; anxiety disorder, unspecified; impulse control disorder, unspecified. PLAN: Start Depakote ER 250 mg at bedtime for her bipolar disorder. Check CBC, CMP, valproic acid level in 3 days. Continue rest of the psychotropics unchanged for now. SANTIAGO FARFAN MD DR: INNA/melody JOB#: [id number] / [id number]
[2017-06-28 08:22] LABS: VAL ACID 22 mcg/mL (50-100)
--- NOTE | 2017-06-28 09:38 | PN ---
DATE: 06/26/2017 This late entry 06/26/2017 covers elements not covered in my initial note 06/26/2017. SUBJECTIVE: I met with the patient in the evening of 06/26/2017, staffed at a treatment team meeting with the entire team morning of 06/26/2017. Sleeping about 5-7 hours. Appetite 80%. Pleasant, coherent. Speech is much clearer. Last weekend she was not very participatory in groups and she is doing better. No CV, , pulmonary, eye system symptoms on review. Reliability fair. MENTAL STATUS EXAM: Reasonably oriented. Speech coherent, less pressured. Abstraction fair, computation impaired, language function intact, attention span short. Mood lability is improved. LABORATORY DATA: Reviewed. IMPRESSION: Bipolar 1 disorder, mixed with psychotic features. Rest unchanged. PLAN: Continue current psychotropics. Adjust Depakote to reach a therapeutic level. MAN Richar FARFAN MD DR: INNA/melody JOB#: [id number] / [id number]
--- NOTE | 2017-06-28 09:57 | PDOC ---
Exam Note: Rian Note: Please also refer to the separate dictated note~for this date of service dictated separately.~Patient seen individually. Discussed the patient with Nursing staff reviewed the chart.~Reviewed interim history and current functioning. Reviewed vital signs,~Labs/ Radiology~and current medications noted below. Continue current treatment with the changes noted in the dictated addendum note. This is a late entry for date of service June 27, 2017 Assessment: Vital Signs: VS - Last 72 Hours, by Label Date Time Temp Pulse Resp B/P (MAP) Pulse Ox O2 Delivery O2 Flow Rate FiO2 06/28/17 06:04 98.3 83 16 121/65 (83) 96 06/27/17 16:36 98.6 92 20 148/88 (108) 98 Room Air 06/27/17 06:12 98.6 78 16 120/73 (89) 95 06/26/17 16:07 98.2 91 16 116/82 (93) 96 06/26/17 06:03 98.1 86 20 124/70 (88) 93 06/25/17 15:58 98.5 89 20 152/72 (98) 94 Vital Signs Date Time Temp Pulse Resp B/P (MAP) Pulse Ox O2 Delivery O2 Flow Rate FiO2 06/28/17 06:04 98.3 83 16 121/65 (83) 96 06/27/17 16:36 Room Air I&O Intake and Output 06/28/17 07:00 Intake Total 1680 ml Balance 1680 ml Intake Oral 1680 ml Labs: Laboratory Tests Test 06/28/17 07:34 White Blood Count 4.7 x10^3/uL (4.0-11.0) Red Blood Count 2.93 x10^6/uL (3.50-5.40) L Hemoglobin 9.3 g/dL (12.0-15.5) L Hematocrit 27.4 % (36.0-47.0) L Mean Corpuscular Volume 93 fL (79-100) Mean Corpuscular Hemoglobin 32 pg (25-35) Mean Corpuscular Hemoglobin Concent 34 g/dL (31-37) Red Cell Distribution Width 15.9 % (11.5-14.5) H Platelet Count 265 x10^3/uL (140-400) Neutrophils (%) (Auto) 40 % (31-73) Lymphocytes (%) (Auto) 39 % (24-48) Monocytes (%) (Auto) 14 % (0-9) H Eosinophils (%) (Auto) 5 % (0-3) H Basophils (%) (Auto) 1 % (0-3) Neutrophils # (Auto) 1.9 x10^3uL (1.8-7.7) Lymphocytes # (Auto) 1.9 x10^3/uL (1.0-4.8) Monocytes # (Auto) 0.7 x10^3/uL (0.0-1.1) Eosinophils # (Auto) 0.2 x10^3/uL (0.0-0.7) Basophils # (Auto) 0.1 x10^3/uL (0.0-0.2) Sodium Level 140 mmol/L (136-145) Potassium Level 4.2 mmol/L (3.5-5.1) Chloride Level 108 mmol/L (98-107) H Carbon Dioxide Level 27 mmol/L (21-32) Anion Gap 5 (6-14) L Blood Urea Nitrogen 10 mg/dL (7-20) Creatinine 1.0 mg/dL (0.6-1.0) Estimated GFR (Cockcroft-Gault) 54.7 BUN/Creatinine Ratio 10 (6-20) Glucose Level 96 mg/dL (70-99) Calcium Level 8.3 mg/dL (8.5-10.1) L Total Bilirubin 0.2 mg/dL (0.2-1.0) Aspartate Amino Transferase (AST) 19 U/L (15-37) Alanine Aminotransferase (ALT) 32 U/L (14-59) Alkaline Phosphatase 48 U/L (46-116) Total Protein 5.8 g/dL (6.4-8.2) L Albumin 2.5 g/dL (3.4-5.0) L Albumin/Globulin Ratio 0.8 (1.0-1.7) L Valproic Acid Level 22 mcg/mL (50-100) L Valproic Acid Last Dose Date 06/27/17 Valproic Acid Last Dose Time 2100 Current Medications: Meds: Current Medications Acetaminophen (Tylenol) 650 mg PRN Q6HRS PRN PO PAIN / TEMP Last administered on 06/27/17at 23:07; Start 06/05/17 at 16:15 Multi-Ingredient Ointment (Analgesic [place]) 1 stevan PRN QID PRN TP MUSCLE PAIN Last administered on 06/21/17at 18:37; Start 06/05/17 at 16:15 Al Hydroxide/Mg Hydroxide (Mylanta Plus Xs) 15 ml PRN AFTMEALHC PRN PO DYSPEPSIA Last administered on 06/18/17at 18:40; Start 06/05/17 at 16:15 Magnesium Hydroxide (Milk Of Magnesia) 2,400 mg PRN QHS PRN PO CONSTIPATION Last administered on 06/21/17at 19:16; Start 06/05/17 at 16:15 Aspirin (Children'S Aspirin) 81 mg DAILY PO Last administered on 06/28/17at 07: 36; Start 06/06/17 at 09:00 Sodium Chloride (Saline Mist Nasal) 1 stevan PRN Q1HR PRN NS NASAL CONGESTION; Start 06/05/17 at 17:15 Acetaminophen (Tylenol) 650 mg PRN Q6HRS PRN PO PAIN / TEMP; Start 06/05/17 at 16:45; Stop 06/05/17 at 16:45; Status DC Atorvastatin Calcium (Lipitor) 20 mg QHS PO Last administered on 06/27/17at 20: 02; Start 06/05/17 at 21:00 Docusate Sodium (Colace) 100 mg BID PO Last administered on 06/28/17at 07:36; Start 06/05/17 at 21:00 Multi-Ingredient Ointment (Analgesic [place]) 1 stevan PRN QID PRN TP MUSCLE PAIN; Start 06/05/17 at 16:45; Stop 06/05/17 at 16:45; Status DC Pantoprazole Sodium (Protonix) 40 mg DAILY06 PO Last administered on 06/09/17at 04:13; Start 06/06/17 at 06:00; Stop 06/10/17 at 05:49; Status DC Non-Formulary Medication 15 ml PRN AFTMEALHC PRN PO DYSPEPSIA; Start 06/05/17 at 16:45; Stop 06/05/17 at 16:45; Status DC Non-Formulary Medication 2,400 mg PRN QHS PRN PO CONSTIPATION; Start 06/05/17 at 16:45; Stop 06/05/17 at 16:45; Status DC Multivitamins/ Calcium (Thera-M Plus) 1 tab DAILY PO Last administered on at 07:36; Start 06/06/17 at 09:00 Ondansetron HCl (Zofran Odt) 8 mg PRN Q6HRS PRN PO NAUSEA Last administered on 06/18/17at 00:24; Start 06/05/17 at 17:00 Alprazolam (Xanax) 1 mg PRN TID PRN PO ANXIETY / AGITATION; Start 06/05/17 at 18 :45; Stop 06/05/17 at 19:15; Status DC Quetiapine Fumarate (SEROquel) 12.5 mg TID@0900,1300,1700 PO Last administered on 06/08/17at 17:05; Start 06/06/17 at 09:00; Stop 06/08/17 at 18:09; Status DC Alprazolam (Xanax) 1 mg TIDAFTMEAL PO Last administered on 06/07/17at 17:25; Start 06/06/17 at 09:00; Stop 06/07/17 at 19:13; Status DC Mirtazapine (Remeron) 7.5 mg QHS PO Last administered on 06/07/17at 20:09; Start 06/06/17 at 21:00; Stop 06/08/17 at 14:41; Status DC Trazodone HCl (Desyrel) 50 mg PRN QHS PRN PO INSOMNIA, MAY REPEAT X1 Last administered on 06/23/17at 01:06; Start 06/06/17 at 18:30; Stop 06/23/17 at 18:08 ; Status DC Alprazolam (Xanax) 1 mg BID PO Last administered on 06/28/17at 07:35; Start 06/08 at 09:00 Alprazolam (Xanax) 0.75 mg DAILY@1300 PO Last administered on 06/09/17at 12:59; Start 06/08/17 at 13:00; Stop 06/09/17 at 18:52; Status DC Quetiapine Fumarate (SEROquel) 12.5 mg QID PO Last administered on 06/16/17at 17 :23; Start 06/08/17 at 21:00; Stop 06/16/17 at 19:33; Status DC Lamotrigine (LaMICtal) 25 mg HS PO Last administered on 06/12/17at 19:43; Start 06/08/17 at 21:00; Stop 06/12/17 at 21:00; Status DC Lamotrigine (LaMICtal) 50 mg HS PO Last administered on 06/17/17at 19:41; Start 06/13/17 at 21:00; Stop 06/17/17 at 21:00; Status DC Lamotrigine (LaMICtal) 75 mg HS PO Last administered on 06/19/17at 20:11; Start 06/18/17 at 21:00; Stop 06/20/17 at 11:26; Status DC Lamotrigine (LaMICtal) 100 mg HS PO ; Start 06/23/17 at 21:00; Stop 06/23/17 at 21:00; Status DC Alprazolam (Xanax) 0.5 mg DAILY@1300 PO Last administered on 06/23/17at 12:42; Start 06/10/17 at 13:00; Stop 06/23/17 at 18:08; Status DC Pantoprazole Sodium (Protonix) 40 mg DAILYAC PO Last administered on 06/28/17at 07:35; Start 06/10/17 at 07:30 Vitamin D (Vitamin D3) 2,000 unit DAILYBFRLUN PO Last administered on at 08:50; Start 06/12/17 at 11:30 Olanzapine (ZyPREXA ZYDIS) 2.5 mg PRN Q2HR PRN PO PSYCHOSIS Last administered on 06/19/17at 13:58; Start 06/16/17 at 01:00 Potassium Chloride (Klor-Con) 20 meq BID PO Last administered on 06/28/17at 07: 36; Start 06/17/17 at 21:00 Mirtazapine (Remeron) 7.5 mg QHS PO Last administered on 06/27/17at 20:03; Start 06/18/17 at 21:00 Risperidone (RisperDAL) 0.5 mg DAILY PO Last administered on 06/23/17at 08:19; Start 06/20/17 at 09:00; Stop 06/23/17 at 14:58; Status DC Risperidone (RisperDAL) 0.5 mg 1X ONCE PO Last administered on 06/19/17at 18:14 ; Start 06/19/17 at 18:15; Stop 06/19/17 at 18:16; Status DC Risperidone (RisperDAL) 0.5 mg 1X ONCE PO Last administered on 06/20/17at 10:31 ; Start 06/20/17 at 10:30; Stop 06/20/17 at 10:31; Status DC Risperidone (RisperDAL) 0.5 mg 1X ONCE PO Last administered on 06/20/17at 17:55 ; Start 06/20/17 at 17:00; Stop 06/20/17 at 17:01; Status DC Temazepam (Restoril) 15 mg QHS PO Last administered on 06/27/17at 20:03; Start 06/20/17 at 21:00 Temazepam (Restoril) 15 mg PRN QHS PRN PO INSOMNIA Last administered on at 01:22; Start 06/20/17 at 19:30 Dextrose/Sodium Chloride 1,000 ml @ 75 mls/hr 1X ONCE IV Last administered on 06/21/17at 17:45; Start 06/21/17 at 17:45; Stop 06/22/17 at 07:04; Status DC Sodium Biphosphate/ Sodium Phosphate (Fleet Adult) 133 ml 1X ONCE [place] Last administered on 06/22/17at 19:22; Start 06/22/17 at 17:30; Stop 06/22/17 at 17:31 ; Status DC Risperidone (RisperDAL) 0.75 mg DAILY PO Last administered on 06/28/17at 07:35; Start 06/24/17 at 09:00 Alprazolam (Xanax) 0.25 mg DAILY@1300 PO Last administered on 06/27/17at 12:48; Start 06/24/17 at 13:00 Trazodone HCl (Desyrel) 50 mg QHS PO Last administered on 06/27/17at 20:03; Start 06/23/17 at 21:00 Magnesium Citrate (Citroma) 296 ml 1X ONCE PO Last administered on 06/24/17at 09:32; Start 06/24/17 at 09:00; Stop 06/24/17 at 09:09; Status DC Divalproex Sodium (Depakote Er) 250 mg QHS PO Last administered on 06/27/17at 20 :03; Start 06/25/17 at 21:00 Active Scripts Active Reported Seroquel (Quetiapine Fumarate) 25 Mg Tablet 1 Tab PO DAILY Paroxetine Hcl 20 Mg Tablet 1 Tab PO DAILY Lorazepam 1 Mg Tablet 1 Tab PO TID Protonix (Pantoprazole Sodium) 40 Mg Tablet.dr 1 Tab PO DAILY06 Zofran Odt (Ondansetron) 8 Mg Tab.rapdis 1 Tab PO Q6HRS PRN Multivitamins (Multivitamin) 1 Each Tablet 1 Tab PO DAILY Docusate Sodium 100 Mg Capsule 1 Cap PO BID Atorvastatin Calcium 20 Mg Tablet 20 Mg PO QHS Saline Nasal Mist (Sodium Chloride) 126 Ml Mist 1 Stevan NS PRN Q1HR PRN Zoloft (Sertraline Hcl) 25 Mg Tablet 12.5 Mg PO DAILY Seroquel (Quetiapine Fumarate) 25 Mg Tablet 12.5 Mg PO [id number] Seroquel (Quetiapine Fumarate) 25 Mg Tablet 25 Mg PO QHS NITROGLYCERIN SubLingual (Nitroglycerin) 0.4 Mg Tab.subl 0.4 Mg SL PRN Q5MIN PRN Analgesic [place] (Methyl Salicylate/Menthol) 29 Gm Oint...g. 1 Stevan TP PRN QID PRN Milk Of Magnesia (Magnesium Hydroxide) 2,400 Mg/10 Ml Oral.susp 2,400 Mg PO PRN QHS PRN Advanced Antacid Liquid (Mag Hydrox/Al Hydrox/Simeth) 355 Ml Oral.susp 15 Ml PO PRN AFTMEALHC PRN Lorazepam 0.5 Mg Tablet 0.5 Mg PO PRN TID PRN Lorazepam 0.5 Mg Tablet 0.5 Mg PO Q8HRS Tylenol (Acetaminophen) 325 Mg Tablet 650 Mg PO PRN Q6HRS PRN Promethazine Hcl 25 Mg Tablet 12.5 Mg PO PRN Q4HRS PRN Aspirin 81 Mg Tab.chew 81 Mg PO DAILY I have reviewed the current psychotropics carefully including drug interactions. Risk benefit ratio favors no change other than as noted in my dictated progress note. Diagnosis: Problems: (1) Anxiety disorder (2) Bipolar affective disorder, mixed (3) Impulse control disorder (4) Panic disorder with agoraphobia and severe panic attacks (5) Obsessive compulsive disorder SANTIAGO FARFAN MD Jun 28, 2017 09:57
[2017-06-28] MEDS: CHOLECALCIFEROL (VITAMIN D3) 1,000 UNIT TABLET PO SCH (13:15)
[2017-06-28] MEDS: ALPRAZolam 0.25 MG TABLET PO SCH (13:15)
[2017-06-28 16:19] VITALS: BP 169/83
[2017-06-28] MEDS: MIRTAZAPINE 7.5 MG TABLET. PO SCH (20:42)
[2017-06-28] MEDS: TEMAZEPAM 15 MG CAPSULE PO SCH (20:42)
[2017-06-28] MEDS: ATORVASTATIN CALCIUM 20 MG TABLET PO SCH (20:42)
[2017-06-28] MEDS: traZODone 50 MG TABLET. PO SCH (20:43)
[2017-06-28] MEDS: DIVALPROEX ER 500 MG TAB.ER.24H PO SCH (20:43)
[2017-06-28] MEDS: ACETAMINOPHEN 325 MG TABLET PO PRN (22:11)
--- NOTE | 2017-06-28 22:26 | PDOC ---
Exam Note: Rian Note: Please also refer to the separate dictated note~for this date of service dictated separately.~Patient seen individually. Discussed the patient with Nursing staff reviewed the chart.~Reviewed interim history and current functioning. Reviewed vital signs,~Labs/ Radiology~and current medications noted below. Continue current treatment with the changes noted in the dictated addendum note Assessment: Vital Signs: Vital Signs Date Time Temp Pulse Resp B/P (MAP) Pulse Ox O2 Delivery O2 Flow Rate FiO2 06/28/17 16:19 97.3 95 20 169/83 (111) 100 06/27/17 16:36 Room Air I&O Intake and Output 06/28/17 07:00 Intake Total 1680 ml Balance 1680 ml Intake Oral 1680 ml Labs: Laboratory Tests Test 06/28/17 07:34 White Blood Count 4.7 x10^3/uL (4.0-11.0) Red Blood Count 2.93 x10^6/uL (3.50-5.40) L Hemoglobin 9.3 g/dL (12.0-15.5) L Hematocrit 27.4 % (36.0-47.0) L Mean Corpuscular Volume 93 fL (79-100) Mean Corpuscular Hemoglobin 32 pg (25-35) Mean Corpuscular Hemoglobin Concent 34 g/dL (31-37) Red Cell Distribution Width 15.9 % (11.5-14.5) H Platelet Count 265 x10^3/uL (140-400) Neutrophils (%) (Auto) 40 % (31-73) Lymphocytes (%) (Auto) 39 % (24-48) Monocytes (%) (Auto) 14 % (0-9) H Eosinophils (%) (Auto) 5 % (0-3) H Basophils (%) (Auto) 1 % (0-3) Neutrophils # (Auto) 1.9 x10^3uL (1.8-7.7) Lymphocytes # (Auto) 1.9 x10^3/uL (1.0-4.8) Monocytes # (Auto) 0.7 x10^3/uL (0.0-1.1) Eosinophils # (Auto) 0.2 x10^3/uL (0.0-0.7) Basophils # (Auto) 0.1 x10^3/uL (0.0-0.2) Sodium Level 140 mmol/L (136-145) Potassium Level 4.2 mmol/L (3.5-5.1) Chloride Level 108 mmol/L (98-107) H Carbon Dioxide Level 27 mmol/L (21-32) Anion Gap 5 (6-14) L Blood Urea Nitrogen 10 mg/dL (7-20) Creatinine 1.0 mg/dL (0.6-1.0) Estimated GFR (Cockcroft-Gault) 54.7 BUN/Creatinine Ratio 10 (6-20) Glucose Level 96 mg/dL (70-99) Calcium Level 8.3 mg/dL (8.5-10.1) L Total Bilirubin 0.2 mg/dL (0.2-1.0) Aspartate Amino Transferase (AST) 19 U/L (15-37) Alanine Aminotransferase (ALT) 32 U/L (14-59) Alkaline Phosphatase 48 U/L (46-116) Total Protein 5.8 g/dL (6.4-8.2) L Albumin 2.5 g/dL (3.4-5.0) L Albumin/Globulin Ratio 0.8 (1.0-1.7) L Valproic Acid Level 22 mcg/mL (50-100) L Valproic Acid Last Dose Date 06/27/17 Valproic Acid Last Dose Time 2100 Current Medications: Meds: Current Medications Acetaminophen (Tylenol) 650 mg PRN Q6HRS PRN PO PAIN / TEMP Last administered on 06/28/17at 22:11; Start 06/05/17 at 16:15 Multi-Ingredient Ointment (Analgesic [place]) 1 stevan PRN QID PRN TP MUSCLE PAIN Last administered on 06/21/17at 18:37; Start 06/05/17 at 16:15 Al Hydroxide/Mg Hydroxide (Mylanta Plus Xs) 15 ml PRN AFTMEALHC PRN PO DYSPEPSIA Last administered on 06/18/17 18:40; Start 06/05/17 at 16:15 Magnesium Hydroxide (Milk Of Magnesia) 2,400 mg PRN QHS PRN PO CONSTIPATION Last administered on 06/21/17 19:16; Start 06/05/17 at 16:15 Aspirin (Children'S Aspirin) 81 mg DAILY PO Last administered on 06/28/17at 07: 36; Start 06/06/17 at 09:00 Sodium Chloride (Saline Mist Nasal) 1 stevan PRN Q1HR PRN NS NASAL CONGESTION; Start 06/05/17 at 17:15 Acetaminophen (Tylenol) 650 mg PRN Q6HRS PRN PO PAIN / TEMP; Start 06/05/17 at 16:45; Stop 06/05/17 at 16:45; Status DC Atorvastatin Calcium (Lipitor) 20 mg QHS PO Last administered on 06/28/17at 20: 42; Start 06/05/17 at 21:00 Docusate Sodium (Colace) 100 mg BID PO Last administered on 06/28/17at 20:40; Start 06/05/17 at 21:00 Multi-Ingredient Ointment (Analgesic [place]) 1 stevan PRN QID PRN TP MUSCLE PAIN; Start 06/05/17 at 16:45; Stop 06/05/17 at 16:45; Status DC Pantoprazole Sodium (Protonix) 40 mg DAILY06 PO Last administered on 06/09/17at 04:13; Start 06/06/17 at 06:00; Stop 06/10/17 at 05:49; Status DC Non-Formulary Medication 15 ml PRN AFTMEALHC PRN PO DYSPEPSIA; Start 06/05/17 at 16:45; Stop 06/05/17 at 16:45; Status DC Non-Formulary Medication 2,400 mg PRN QHS PRN PO CONSTIPATION; Start 06/05/17 at 16:45; Stop 06/05/17 at 16:45; Status DC Multivitamins/ Calcium (Thera-M Plus) 1 tab DAILY PO Last administered on at 07:36; Start 06/06/17 at 09:00 Ondansetron HCl (Zofran Odt) 8 mg PRN Q6HRS PRN PO NAUSEA Last administered on 06/18/17at 00:24; Start 06/05/17 at 17:00 Alprazolam (Xanax) 1 mg PRN TID PRN PO ANXIETY / AGITATION; Start 06/05/17 at 18 :45; Stop 06/05/17 at 19:15; Status DC Quetiapine Fumarate (SEROquel) 12.5 mg TID@0900,1300,1700 PO Last administered on 06/08/17at 17:05; Start 06/06/17 at 09:00; Stop 06/08/17 at 18:09; Status DC Alprazolam (Xanax) 1 mg TIDAFTMEAL PO Last administered on 06/07/17at 17:25; Start 06/06/17 at 09:00; Stop 06/07/17 at 19:13; Status DC Mirtazapine (Remeron) 7.5 mg QHS PO Last administered on 06/07/17at 20:09; Start 06/06/17 at 21:00; Stop 06/08/17 at 14:41; Status DC Trazodone HCl (Desyrel) 50 mg PRN QHS PRN PO INSOMNIA, MAY REPEAT X1 Last administered on 06/23/17at 01:06; Start 06/06/17 at 18:30; Stop 06/23/17 at 18:08 ; Status DC Alprazolam (Xanax) 1 mg BID PO Last administered on 06/28/17at 20:42; Start 06/08 at 09:00 Alprazolam (Xanax) 0.75 mg DAILY@1300 PO Last administered on 06/09/17at 12:59; Start 06/08/17 at 13:00; Stop 06/09/17 at 18:52; Status DC Quetiapine Fumarate (SEROquel) 12.5 mg QID PO Last administered on 06/16/17at 17 :23; Start 06/08/17 at 21:00; Stop 06/16/17 at 19:33; Status DC Lamotrigine (LaMICtal) 25 mg HS PO Last administered on 06/12/17at 19:43; Start 06/08/17 at 21:00; Stop 06/12/17 at 21:00; Status DC Lamotrigine (LaMICtal) 50 mg HS PO Last administered on 06/17/17at 19:41; Start 06/13/17 at 21:00; Stop 06/17/17 at 21:00; Status DC Lamotrigine (LaMICtal) 75 mg HS PO Last administered on 06/19/17at 20:11; Start 06/18/17 at 21:00; Stop 06/20/17 at 11:26; Status DC Lamotrigine (LaMICtal) 100 mg HS PO ; Start 06/23/17 at 21:00; Stop 06/23/17 at 21:00; Status DC Alprazolam (Xanax) 0.5 mg DAILY@1300 PO Last administered on 06/23/17at 12:42; Start 06/10/17 at 13:00; Stop 06/23/17 at 18:08; Status DC Pantoprazole Sodium (Protonix) 40 mg DAILYAC PO Last administered on 06/28/17at 07:35; Start 06/10/17 at 07:30 Vitamin D (Vitamin D3) 2,000 unit DAILYBFRLUN PO Last administered on 13:15; Start 06/12/17 at 11:30 Olanzapine (ZyPREXA ZYDIS) 2.5 mg PRN Q2HR PRN PO PSYCHOSIS Last administered on 06/19/17 13:58; Start 06/16/17 at 01:00 Potassium Chloride (Klor-Con) 20 meq BID PO Last administered on 06/28/17at 20: 42; Start 06/17/17 at 21:00 Mirtazapine (Remeron) 7.5 mg QHS PO Last administered on 06/28/17at 20:42; Start 06/18/17 at 21:00 Risperidone (RisperDAL) 0.5 mg DAILY PO Last administered on 06/23/17at 08:19; Start 06/20/17 at 09:00; Stop 06/23/17 at 14:58; Status DC Risperidone (RisperDAL) 0.5 mg 1X ONCE PO Last administered on 06/19/17at 18:14 ; Start 06/19/17 at 18:15; Stop 06/19/17 at 18:16; Status DC Risperidone (RisperDAL) 0.5 mg 1X ONCE PO Last administered on 06/20/17at 10:31 ; Start 06/20/17 at 10:30; Stop 06/20/17 at 10:31; Status DC Risperidone (RisperDAL) 0.5 mg 1X ONCE PO Last administered on 06/20/17at 17:55 ; Start 06/20/17 at 17:00; Stop 06/20/17 at 17:01; Status DC Temazepam (Restoril) 15 mg QHS PO Last administered on 06/28/17at 20:42; Start 06/20/17 at 21:00 Temazepam (Restoril) 15 mg PRN QHS PRN PO INSOMNIA Last administered on at 01:22; Start 06/20/17 at 19:30 Dextrose/Sodium Chloride 1,000 ml @ 75 mls/hr 1X ONCE IV Last administered on 06/21/17at 17:45; Start 06/21/17 at 17:45; Stop 06/22/17 at 07:04; Status DC Sodium Biphosphate/ Sodium Phosphate (Fleet Adult) 133 ml 1X ONCE ME Last administered on 06/22/17at 19:22; Start 06/22/17 at 17:30; Stop 06/22/17 at 17:31 ; Status DC Risperidone (RisperDAL) 0.75 mg DAILY PO Last administered on 06/28/17at 07:35; Start 06/24/17 at 09:00 Alprazolam (Xanax) 0.25 mg DAILY@1300 PO Last administered on 06/28/17at 13:15; Start 06/24/17 at 13:00 Trazodone HCl (Desyrel) 50 mg QHS PO Last administered on 06/28/17at 20:43; Start 06/23/17 at 21:00 Magnesium Citrate (Citroma) 296 ml 1X ONCE PO Last administered on 06/24/17at 09:32; Start 06/24/17 at 09:00; Stop 06/24/17 at 09:09; Status DC Divalproex Sodium (Depakote Er) 250 mg QHS PO Last administered on 06/27/17at 20 :03; Start 06/25/17 at 21:00; Stop 06/28/17 at 19:29; Status DC Divalproex Sodium (Depakote Er) 500 mg QHS PO Last administered on 06/28/17at 20 :43; Start 06/28/17 at 21:00 Ferrous Sulfate (Feosol) 325 mg DAILYWBKFT PO ; Start 06/29/17 at 08:00 Active Scripts Active Reported Seroquel (Quetiapine Fumarate) 25 Mg Tablet 1 Tab PO DAILY Paroxetine Hcl 20 Mg Tablet 1 Tab PO DAILY Lorazepam 1 Mg Tablet 1 Tab PO TID Protonix (Pantoprazole Sodium) 40 Mg Tablet.dr 1 Tab PO DAILY06 Zofran Odt (Ondansetron) 8 Mg Tab.rapdis 1 Tab PO Q6HRS PRN Multivitamins (Multivitamin) 1 Each Tablet 1 Tab PO DAILY Docusate Sodium 100 Mg Capsule 1 Cap PO BID Atorvastatin Calcium 20 Mg Tablet 20 Mg PO QHS Saline Nasal Mist (Sodium Chloride) 126 Ml Mist 1 Stevan NS PRN Q1HR PRN Zoloft (Sertraline Hcl) 25 Mg Tablet 12.5 Mg PO DAILY Seroquel (Quetiapine Fumarate) 25 Mg Tablet 12.5 Mg PO [id number] Seroquel (Quetiapine Fumarate) 25 Mg Tablet 25 Mg PO QHS NITROGLYCERIN SubLingual (Nitroglycerin) 0.4 Mg Tab.subl 0.4 Mg SL PRN Q5MIN PRN Analgesic [place] (Methyl Salicylate/Menthol) 29 Gm Oint...g. 1 Stevan TP PRN QID PRN Milk Of Magnesia (Magnesium Hydroxide) 2,400 Mg/10 Ml Oral.susp 2,400 Mg PO PRN QHS PRN Advanced Antacid Liquid (Mag Hydrox/Al Hydrox/Simeth) 355 Ml Oral.susp 15 Ml PO PRN AFTMEALHC PRN Lorazepam 0.5 Mg Tablet 0.5 Mg PO PRN TID PRN Lorazepam 0.5 Mg Tablet 0.5 Mg PO Q8HRS Tylenol (Acetaminophen) 325 Mg Tablet 650 Mg PO PRN Q6HRS PRN Promethazine Hcl 25 Mg Tablet 12.5 Mg PO PRN Q4HRS PRN Aspirin 81 Mg Tab.chew 81 Mg PO DAILY I have reviewed the current psychotropics carefully including drug interactions. Risk benefit ratio favors no change other than as noted in my dictated progress note. Diagnosis: Problems: (1) Anxiety disorder (2) Bipolar affective disorder, mixed (3) Impulse control disorder (4) Panic disorder with agoraphobia and severe panic attacks (5) Obsessive compulsive disorder SANTIAGO FARFAN MD Jun 28, 2017 22:26
[2017-06-29 06:31] VITALS: BP 121/70
[2017-06-29] MEDS: risperiDONE 0.5 MG TABLET. PO SCH (07:37)
[2017-06-29] MEDS: MULTIVITAMIN with MINERAL TABLET. PO SCH (07:38)
[2017-06-29] MEDS: ASPIRIN 81 MG TAB.CHEW PO SCH (07:38)
[2017-06-29] MEDS: PANTOPRAZOLE 40 MG TABLET. PO SCH (07:38)
[2017-06-29] MEDS: POTASSIUM CHLORIDE 20 MEQ TABLET.ER. PO SCH ×2 (07:38→19:31)
[2017-06-29] MEDS: DOCUSATE SODIUM 100 MG CAPSULE PO SCH ×2 (07:39→19:31)
[2017-06-29] MEDS: CHOLECALCIFEROL (VITAMIN D3) 1,000 UNIT TABLET PO SCH (07:41)
[2017-06-29] MEDS: ALPRAZolam 0.5 MG TABLET PO SCH ×2 (07:41→19:31)
[2017-06-29] MEDS: FERROUS SULFATE 325 MG TABLET. PO SCH (07:41)
[2017-06-29] MEDS: ALPRAZolam 0.25 MG TABLET PO SCH (13:37)
[2017-06-29 16:22] VITALS: BP 149/84
[2017-06-29] MEDS: ATORVASTATIN CALCIUM 20 MG TABLET PO SCH (19:31)
[2017-06-29] MEDS: TEMAZEPAM 15 MG CAPSULE PO SCH (19:31)
[2017-06-29] MEDS: DIVALPROEX ER 500 MG TAB.ER.24H PO SCH (19:31)
[2017-06-29] MEDS: MIRTAZAPINE 7.5 MG TABLET. PO SCH (19:31)
[2017-06-29] MEDS: traZODone 50 MG TABLET. PO SCH (19:32)
--- NOTE | 2017-06-29 20:18 | PDOC ---
Exam Note: Rian Note: Please also refer to the separate dictated note~for this date of service dictated separately.~Patient seen individually. Discussed the patient with Nursing staff reviewed the chart.~Reviewed interim history and current functioning. Reviewed vital signs,~Labs/ Radiology~and current medications noted below. Continue current treatment with the changes noted in the dictated addendum note Assessment: Vital Signs: Vital Signs Date Time Temp Pulse Resp B/P (MAP) Pulse Ox O2 Delivery O2 Flow Rate FiO2 06/29/17 16:22 97.8 92 16 149/84 (105) 100 Room Air I&O Intake and Output 06/29/17 07:00 Intake Total 960 ml Balance 960 ml Intake Oral 960 ml Current Medications: Meds: Current Medications Acetaminophen (Tylenol) 650 mg PRN Q6HRS PRN PO PAIN / TEMP Last administered on 06/28/17at 22:11; Start 06/05/17 at 16:15 Multi-Ingredient Ointment (Analgesic [place]) 1 stevan PRN QID PRN TP MUSCLE PAIN Last administered on 06/21/17at 18:37; Start 06/05/17 at 16:15 Al Hydroxide/Mg Hydroxide (Mylanta Plus Xs) 15 ml PRN AFTMEALHC PRN PO DYSPEPSIA Last administered on 06/18/17at 18:40; Start 06/05/17 at 16:15 Magnesium Hydroxide (Milk Of Magnesia) 2,400 mg PRN QHS PRN PO CONSTIPATION Last administered on 06/21/17at 19:16; Start 06/05/17 at 16:15 Aspirin (Children'S Aspirin) 81 mg DAILY PO Last administered on 06/29/17at 07: 38; Start 06/06/17 at 09:00 Sodium Chloride (Saline Mist Nasal) 1 stevan PRN Q1HR PRN NS NASAL CONGESTION; Start 06/05/17 at 17:15 Acetaminophen (Tylenol) 650 mg PRN Q6HRS PRN PO PAIN / TEMP; Start 06/05/17 at 16:45; Stop 06/05/17 at 16:45; Status DC Atorvastatin Calcium (Lipitor) 20 mg QHS PO Last administered on 06/29/17at 19: 31; Start 06/05/17 at 21:00 Docusate Sodium (Colace) 100 mg BID PO Last administered on 1/28/18at 19:31; Start 06/05/17 at 21:00 Multi-Ingredient Ointment (Analgesic [place]) 1 stevan PRN QID PRN TP MUSCLE PAIN; Start 06/05/17 at 16:45; Stop 06/05/17 at 16:45; Status DC Pantoprazole Sodium (Protonix) 40 mg DAILY06 PO Last administered on 06/09/17at 04:13; Start 06/06/17 at 06:00; Stop 06/10/17 at 05:49; Status DC Non-Formulary Medication 15 ml PRN AFTMEALHC PRN PO DYSPEPSIA; Start 06/05/17 at 16:45; Stop 06/05/17 at 16:45; Status DC Non-Formulary Medication 2,400 mg PRN QHS PRN PO CONSTIPATION; Start 06/05/17 at 16:45; Stop 06/05/17 at 16:45; Status DC Multivitamins/ Calcium (Thera-M Plus) 1 tab DAILY PO Last administered on at 07:38; Start 06/06/17 at 09:00 Ondansetron HCl (Zofran Odt) 8 mg PRN Q6HRS PRN PO NAUSEA Last administered on 06/18/17at 00:24; Start 06/05/17 at 17:00 Alprazolam (Xanax) 1 mg PRN TID PRN PO ANXIETY / AGITATION; Start 06/05/17 at 18 :45; Stop 06/05/17 at 19:15; Status DC Quetiapine Fumarate (SEROquel) 12.5 mg TID@0900,1300,1700 PO Last administered on 06/08/17at 17:05; Start 06/06/17 at 09:00; Stop 06/08/17 at 18:09; Status DC Alprazolam (Xanax) 1 mg TIDAFTMEAL PO Last administered on 06/07/17at 17:25; Start 06/06/17 at 09:00; Stop 06/07/17 at 19:13; Status DC Mirtazapine (Remeron) 7.5 mg QHS PO Last administered on 06/07/17at 20:09; Start 06/06/17 at 21:00; Stop 06/08/17 at 14:41; Status DC Trazodone HCl (Desyrel) 50 mg PRN QHS PRN PO INSOMNIA, MAY REPEAT X1 Last administered on 06/23/17at 01:06; Start 06/06/17 at 18:30; Stop 06/23/17 at 18:08 ; Status DC Alprazolam (Xanax) 1 mg BID PO Last administered on 06/29/17at 19:31; Start 06/08 at 09:00 Alprazolam (Xanax) 0.75 mg DAILY@1300 PO Last administered on 06/09/17at 12:59; Start 06/08/17 at 13:00; Stop 06/09/17 at 18:52; Status DC Quetiapine Fumarate (SEROquel) 12.5 mg QID PO Last administered on 06/16/17at 17 :23; Start 06/08/17 at 21:00; Stop 06/16/17 at 19:33; Status DC Lamotrigine (LaMICtal) 25 mg HS PO Last administered on 06/12/17at 19:43; Start 06/08/17 at 21:00; Stop 06/12/17 at 21:00; Status DC Lamotrigine (LaMICtal) 50 mg HS PO Last administered on 06/17/17at 19:41; Start 06/13/17 at 21:00; Stop 06/17/17 at 21:00; Status DC Lamotrigine (LaMICtal) 75 mg HS PO Last administered on 06/19/17at 20:11; Start 06/18/17 at 21:00; Stop 06/20/17 at 11:26; Status DC Lamotrigine (LaMICtal) 100 mg HS PO ; Start 06/23/17 at 21:00; Stop 06/23/17 at 21:00; Status DC Alprazolam (Xanax) 0.5 mg DAILY@1300 PO Last administered on 06/23/17at 12:42; Start 06/10/17 at 13:00; Stop 06/23/17 at 18:08; Status DC Pantoprazole Sodium (Protonix) 40 mg DAILYAC PO Last administered on 06/29/17at 07:38; Start 06/10/17 at 07:30 Vitamin D (Vitamin D3) 2,000 unit DAILYBFRLUN PO Last administered on at 07:41; Start 06/12/17 at 11:30 Olanzapine (ZyPREXA ZYDIS) 2.5 mg PRN Q2HR PRN PO PSYCHOSIS Last administered on 06/19/17at 13:58; Start 06/16/17 at 01:00 Potassium Chloride (Klor-Con) 20 meq BID PO Last administered on 06/29/17 19: 31; Start 06/17/17 at 21:00 Mirtazapine (Remeron) 7.5 mg QHS PO Last administered on 06/29/17at 19:31; Start 06/18/17 at 21:00 Risperidone (RisperDAL) 0.5 mg DAILY PO Last administered on 06/23/17 08:19; Start 06/20/17 at 09:00; Stop 06/23/17 at 14:58; Status DC Risperidone (RisperDAL) 0.5 mg 1X ONCE PO Last administered on 06/19/17at 18:14 ; Start 06/19/17 at 18:15; Stop 06/19/17 at 18:16; Status DC Risperidone (RisperDAL) 0.5 mg 1X ONCE PO Last administered on 06/20/17at 10:31 ; Start 06/20/17 at 10:30; Stop 06/20/17 at 10:31; Status DC Risperidone (RisperDAL) 0.5 mg 1X ONCE PO Last administered on 06/20/17at 17:55 ; Start 06/20/17 at 17:00; Stop 06/20/17 at 17:01; Status DC Temazepam (Restoril) 15 mg QHS PO Last administered on 06/29/17at 19:31; Start 06/20/17 at 21:00 Temazepam (Restoril) 15 mg PRN QHS PRN PO INSOMNIA Last administered on 01:22; Start 06/20/17 at 19:30 Dextrose/Sodium Chloride 1,000 ml @ 75 mls/hr 1X ONCE IV Last administered on 06/21/17at 17:45; Start 06/21/17 at 17:45; Stop 06/22/17 at 07:04; Status DC Sodium Biphosphate/ Sodium Phosphate (Fleet Adult) 133 ml 1X ONCE [place] Last administered on 06/22/17at 19:22; Start 06/22/17 at 17:30; Stop 06/22/17 at 17:31 ; Status DC Risperidone (RisperDAL) 0.75 mg DAILY PO Last administered on 06/29/17at 07:37; Start 06/24/17 at 09:00 Alprazolam (Xanax) 0.25 mg DAILY@1300 PO Last administered on 06/29/17at 13:37; Start 06/24/17 at 13:00 Trazodone HCl (Desyrel) 50 mg QHS PO Last administered on 06/29/17at 19:32; Start 06/23/17 at 21:00 Magnesium Citrate (Citroma) 296 ml 1X ONCE PO Last administered on 06/24/17at 09:32; Start 06/24/17 at 09:00; Stop 06/24/17 at 09:09; Status DC Divalproex Sodium (Depakote Er) 250 mg QHS PO Last administered on 06/27/17at 20 :03; Start 06/25/17 at 21:00; Stop 06/28/17 at 19:29; Status DC Divalproex Sodium (Depakote Er) 500 mg QHS PO Last administered on 06/29/17at 19 :31; Start 06/28/17 at 21:00 Ferrous Sulfate (Feosol) 325 mg DAILYWBKFT PO Last administered on 06/29/17at 07 :41; Start 06/29/17 at 08:00 Active Scripts Active Reported Seroquel (Quetiapine Fumarate) 25 Mg Tablet 1 Tab PO DAILY Paroxetine Hcl 20 Mg Tablet 1 Tab PO DAILY Lorazepam 1 Mg Tablet 1 Tab PO TID Protonix (Pantoprazole Sodium) 40 Mg Tablet.dr 1 Tab PO DAILY06 Zofran Odt (Ondansetron) 8 Mg Tab.rapdis 1 Tab PO Q6HRS PRN Multivitamins (Multivitamin) 1 Each Tablet 1 Tab PO DAILY Docusate Sodium 100 Mg Capsule 1 Cap PO BID Atorvastatin Calcium 20 Mg Tablet 20 Mg PO QHS Saline Nasal Mist (Sodium Chloride) 126 Ml Mist 1 Stevan NS PRN Q1HR PRN Zoloft (Sertraline Hcl) 25 Mg Tablet 12.5 Mg PO DAILY Seroquel (Quetiapine Fumarate) 25 Mg Tablet 12.5 Mg PO [id number] Seroquel (Quetiapine Fumarate) 25 Mg Tablet 25 Mg PO QHS NITROGLYCERIN SubLingual (Nitroglycerin) 0.4 Mg Tab.subl 0.4 Mg SL PRN Q5MIN PRN Analgesic [place] (Methyl Salicylate/Menthol) 29 Gm Oint...g. 1 Stevan TP PRN QID PRN Milk Of Magnesia (Magnesium Hydroxide) 2,400 Mg/10 Ml Oral.susp 2,400 Mg PO PRN QHS PRN Advanced Antacid Liquid (Mag Hydrox/Al Hydrox/Simeth) 355 Ml Oral.susp 15 Ml PO PRN AFTMEALHC PRN Lorazepam 0.5 Mg Tablet 0.5 Mg PO PRN TID PRN Lorazepam 0.5 Mg Tablet 0.5 Mg PO Q8HRS Tylenol (Acetaminophen) 325 Mg Tablet 650 Mg PO PRN Q6HRS PRN Promethazine Hcl 25 Mg Tablet 12.5 Mg PO PRN Q4HRS PRN Aspirin 81 Mg Tab.chew 81 Mg PO DAILY I have reviewed the current psychotropics carefully including drug interactions. Risk benefit ratio favors no change other than as noted in my dictated progress note. Diagnosis: Problems: (1) Anxiety disorder (2) Bipolar affective disorder, mixed (3) Impulse control disorder (4) Panic disorder with agoraphobia and severe panic attacks (5) Obsessive compulsive disorder SANTIAGO FARFAN MD Jun 29, 2017 20:18
--- NOTE | 2017-06-29 20:24 | PN ---
DATE: 06/26/2017 SUBJECTIVE: The patient denies any new medical or neurological complaints. She has not had any seizure-like activities or falls. She is a quiet, cooperative, eats and drinks well. She sleeps 6-7 hours nightly. She is more engaged in conversation. OBJECTIVE: GENERAL: Well-developed, well-nourished white female, not in acute distress. VITAL SIGNS: Blood pressure is 116/82, respiratory rate 16, pulse is 91 and regular, temperature 98.2, oxygen saturation 96% on room air. HEENT: Normocephalic, atraumatic, otherwise unremarkable. NECK: Supple. Negative for carotid bruit, lymphadenopathy or thyromegaly. LUNGS: Clear to A and P. CARDIOVASCULAR: Regular rate and rhythm, normal S1, S2. ABDOMEN: Soft. Bowel sounds positive. EXTREMITIES: Negative for cyanosis, clubbing or pitting edema. NEUROLOGIC: Mental Status: The patient is alert and oriented x 3. Speech is fluent. There is no language dysfunction. Memory, judgment and abstraction thinking are fair. The patient denies hallucination or delusion. Cranial nerves are intact. No focal motor or sensory deficit. Deep tendon reflexes are symmetric and hypoactive without pathologic responses. Gait and coordination are normal. LABORATORY DATA: CBC revealed white blood cells of 4.7 thousand, hemoglobin 9.4, hematocrit 28, platelet count 248,000. Chemistry revealed sodium of 143, potassium 4.1, chloride 108, CO2 of 28, BUN 8, creatinine 0.9. Glucose 92, calcium 8.7, magnesium is low at 1.7, iron is low at 21, TIBC is low at 225, and iron saturation is very low at 9. B12 is 731. IMPRESSION: 1. Intermittent behavior disturbances with psychosis -- improved. 2. Anemia, probably with iron deficiency. 3. Multiple medical problems include hypertension, hyperlipidemia, gastroesophageal reflux disease, chronic lower back pain. 4. Multiple psychiatric problems including anxiety, depressions with intermittent psychosis. RECOMMENDATIONS: Continue with current medical and psychiatric care. We will start the patient on iron. M Jody DOCKERY MD DR: LAXMI/melody JOB#: [id number] / [id number] MTDD
[2017-06-29] MEDS: ACETAMINOPHEN 325 MG TABLET PO PRN (20:28)
--- NOTE | 2017-06-29 20:30 | PN ---
DATE: 06/28/2017 SUBJECTIVE: The patient denies any new medical or neurological complaints. OBJECTIVE: GENERAL: The patient is a well-developed, well-nourished white female, not in acute distress. VITAL SIGNS: Blood pressure 121/65, respiratory rate 16, pulse is 83, temperature 98.3, and oxygen saturation 96%. HEENT: Normocephalic, atraumatic, otherwise unremarkable. NECK: Supple. Negative for carotid bruit, lymphadenopathy or thyromegaly. LUNGS: Clear to A and P. CARDIOVASCULAR: Regular rhythm, normal S1, S2. There is no S3, S4 or murmur. ABDOMEN: Soft. Bowel sounds positive. EXTREMITIES: Negative for cyanosis, clubbing or pitting edema. NEUROLOGICAL EXAM: Mental Status: The patient is alert and oriented x 3. Speech is fluent. There is no language dysfunction. Judgment and abstract thinking are fair. The patient denies hallucination or delusion. Cranial nerves are intact. No focal motor or sensory deficit. Deep tendon reflexes are symmetric and hypoactive with absent Achilles responses. Gait and coordination are normal. LABORATORY DATA: CBC revealed white blood cells of 4.7, hemoglobin 9.3, hematocrit 27.4, platelet count 265,000. Chemistry: Sodium of 140, potassium 4.2, chloride 103, CO2 of 27, BUN 10, creatinine 1, glucose 96 and calcium 8.3. IMPRESSION: 1. Intermittent behavior disturbance with frequent falls, no recurrent seizure-like activities. 2. Multiple medical problems include hypertension, hyperlipidemia, gastroesophageal reflux disease and chronic low back pain. 3. Anemia, probably of iron deficiency. 4. Multiple psychiatric problems including bipolar disorder, anxiety and depression. RECOMMENDATIONS: Continue with current medical and psychiatric care. We will start the patient on ferrous sulfate 325 mg p.o. daily. M Jody DOCKERY MD DR: LAXMI/melody JOB#: [id number] / [id number] LIZANDRO
--- NOTE | 2017-06-29 21:49 | PN ---
DATE: 06/27/2017 PSYCHIATRIC PROGRESS NOTE This late entry 06/27/2017 covers elements not covered in my initial note of 06/27/2017. I met with the patient in the evening of 06/27/2017. The patient has been quite verbal, appropriate, not psychotic, not rolling on the floor. REVIEW OF SYSTEMS: No CV, , pulmonary, eye, ENT system symptoms on review. MENTAL STATUS EXAM: Reasonably oriented. Speech coherent, very pleasant, abstraction fair, computation impaired, language function intact. Mood and affect is improved. LABORATORY DATA: Reviewed. IMPRESSION: Bipolar 1 disorder, mixed with psychotic features, in partial remission. PLAN: Continue current psychotropics. We taper the Xanax further. SANTIAGO FARFAN MD DR: INNA/melody JOB#: [id number] / [id number]
--- NOTE | 2017-06-29 23:21 | PN ---
DATE: 06/28/2017 PSYCHIATRIC PROGRESS NOTE This is a late entry of 06/28/2017 covers elements not covered in my initial note of 06/28/2017. HISTORY OF PRESENT ILLNESS: I met with the patient evening of 06/28/2017. The patient had a much better day, slept 5 hours previous evening, more organized, coherent in her speech, less labile, less paranoid, delusional. REVIEW OF SYSTEMS: No CV, , pulmonary, eye, ENT system symptoms on review. MENTAL STATUS EXAM: Oriented reasonably. Speech is coherent, abstraction fair, computation impaired, language function intact. Mood and affect, less labile and much more appropriate. LABORATORY DATA: Reviewed. IMPRESSION: Bipolar 1 disorder, mixed with psychotic features. Rest unchanged. PLAN: Valproic acid level is 22. We will increase the Depakote ER from 250 at bedtime to 500 mg at bedtime. Check CBC and CMP level and valproic acid level in 3 days. Continue rest unchanged. MAN Richar FARFAN MD DR: INNA/melody JOB#: [id number] / [id number]
[2017-06-30] MEDS: TEMAZEPAM 15 MG CAPSULE PO PRN (01:35)
[2017-06-30 06:07] VITALS: BP 142/78
[2017-06-30] MEDS: PANTOPRAZOLE 40 MG TABLET. PO SCH (07:41)
[2017-06-30] MEDS: FERROUS SULFATE 325 MG TABLET. PO SCH (07:50)
[2017-06-30] MEDS: ASPIRIN 81 MG TAB.CHEW PO SCH (07:50)
[2017-06-30] MEDS: DOCUSATE SODIUM 100 MG CAPSULE PO SCH ×2 (07:50→20:35)
[2017-06-30] MEDS: ALPRAZolam 0.5 MG TABLET PO SCH ×2 (07:50→20:36)
[2017-06-30] MEDS: risperiDONE 0.5 MG TABLET. PO SCH (07:51)
[2017-06-30] MEDS: MULTIVITAMIN with MINERAL TABLET. PO SCH (07:52)
[2017-06-30] MEDS: POTASSIUM CHLORIDE 20 MEQ TABLET.ER. PO SCH ×2 (07:52→20:35)
[2017-06-30] MEDS: CHOLECALCIFEROL (VITAMIN D3) 1,000 UNIT TABLET PO SCH (11:53)
[2017-06-30] MEDS: ALPRAZolam 0.25 MG TABLET PO SCH (13:49)
[2017-06-30 16:05] VITALS: BP 153/82
--- NOTE | 2017-06-30 20:10 | PDOC ---
Exam Note: Rian Note: Please also refer to the separate dictated note~for this date of service dictated separately.~Patient seen individually. Discussed the patient with Nursing staff reviewed the chart.~Reviewed interim history and current functioning. Reviewed vital signs,~Labs/ Radiology~and current medications noted below. Continue current treatment with the changes noted in the dictated addendum note Assessment: Vital Signs: Vital Signs Date Time Temp Pulse Resp B/P (MAP) Pulse Ox O2 Delivery O2 Flow Rate FiO2 06/30/17 16:05 97.6 93 18 153/82 (105) 98 06/29/17 16:22 Room Air I&O Intake and Output 06/30/17 07:00 Intake Total 1800 ml Balance 1800 ml Intake Oral 1800 ml # Voids 1 Current Medications: Meds: Current Medications Acetaminophen (Tylenol) 650 mg PRN Q6HRS PRN PO PAIN / TEMP Last administered on 06/29/17at 20:28; Start 06/05/17 at 16:15 Multi-Ingredient Ointment (Analgesic [place]) 1 stevan PRN QID PRN TP MUSCLE PAIN Last administered on 06/21/17at 18:37; Start 06/05/17 at 16:15 Al Hydroxide/Mg Hydroxide (Mylanta Plus Xs) 15 ml PRN AFTMEALHC PRN PO DYSPEPSIA Last administered on 06/18/17at 18:40; Start 06/05/17 at 16:15 Magnesium Hydroxide (Milk Of Magnesia) 2,400 mg PRN QHS PRN PO CONSTIPATION Last administered on 06/21/17at 19:16; Start 06/05/17 at 16:15 Aspirin (Children'S Aspirin) 81 mg DAILY PO Last administered on 06/30/17at 07: 50; Start 06/06/17 at 09:00 Sodium Chloride (Saline Mist Nasal) 1 stevan PRN Q1HR PRN NS NASAL CONGESTION; Start 06/05/17 at 17:15 Acetaminophen (Tylenol) 650 mg PRN Q6HRS PRN PO PAIN / TEMP; Start 06/05/17 at 16:45; Stop 06/05/17 at 16:45; Status DC Atorvastatin Calcium (Lipitor) 20 mg QHS PO Last administered on 06/29/17at 19: 31; Start 06/05/17 at 21:00 Docusate Sodium (Colace) 100 mg BID PO Last administered on 06/30/17at 07:50; Start 06/05/17 at 21:00 Multi-Ingredient Ointment (Analgesic [place]) 1 stevan PRN QID PRN TP MUSCLE PAIN; Start 06/05/17 at 16:45; Stop 06/05/17 at 16:45; Status DC Pantoprazole Sodium (Protonix) 40 mg DAILY06 PO Last administered on 06/09/17at 04:13; Start 06/06/17 at 06:00; Stop 06/10/17 at 05:49; Status DC Non-Formulary Medication 15 ml PRN AFTMEALHC PRN PO DYSPEPSIA; Start 06/05/17 at 16:45; Stop 06/05/17 at 16:45; Status DC Non-Formulary Medication 2,400 mg PRN QHS PRN PO CONSTIPATION; Start 06/05/17 at 16:45; Stop 06/05/17 at 16:45; Status DC Multivitamins/ Calcium (Thera-M Plus) 1 tab DAILY PO Last administered on at 07:52; Start 06/06/17 at 09:00 Ondansetron HCl (Zofran Odt) 8 mg PRN Q6HRS PRN PO NAUSEA Last administered on 06/18/17at 00:24; Start 06/05/17 at 17:00 Alprazolam (Xanax) 1 mg PRN TID PRN PO ANXIETY / AGITATION; Start 06/05/17 at 18 :45; Stop 06/05/17 at 19:15; Status DC Quetiapine Fumarate (SEROquel) 12.5 mg TID@0900,1300,1700 PO Last administered on 06/08/17at 17:05; Start 06/06/17 at 09:00; Stop 06/08/17 at 18:09; Status DC Alprazolam (Xanax) 1 mg TIDAFTMEAL PO Last administered on 06/07/17at 17:25; Start 06/06/17 at 09:00; Stop 06/07/17 at 19:13; Status DC Mirtazapine (Remeron) 7.5 mg QHS PO Last administered on 06/07/17at 20:09; Start 06/06/17 at 21:00; Stop 06/08/17 at 14:41; Status DC Trazodone HCl (Desyrel) 50 mg PRN QHS PRN PO INSOMNIA, MAY REPEAT X1 Last administered on 06/23/17at 01:06; Start 06/06/17 at 18:30; Stop 06/23/17 at 18:08 ; Status DC Alprazolam (Xanax) 1 mg BID PO Last administered on 06/30/17at 07:50; Start 06/08 at 09:00 Alprazolam (Xanax) 0.75 mg DAILY@1300 PO Last administered on 06/09/17at 12:59; Start 06/08/17 at 13:00; Stop 06/09/17 at 18:52; Status DC Quetiapine Fumarate (SEROquel) 12.5 mg QID PO Last administered on 06/16/17at 17 :23; Start 06/08/17 at 21:00; Stop 06/16/17 at 19:33; Status DC Lamotrigine (LaMICtal) 25 mg HS PO Last administered on 06/12/17at 19:43; Start 06/08/17 at 21:00; Stop 06/12/17 at 21:00; Status DC Lamotrigine (LaMICtal) 50 mg HS PO Last administered on 06/17/17at 19:41; Start 06/13/17 at 21:00; Stop 06/17/17 at 21:00; Status DC Lamotrigine (LaMICtal) 75 mg HS PO Last administered on 06/19/17at 20:11; Start 06/18/17 at 21:00; Stop 06/20/17 at 11:26; Status DC Lamotrigine (LaMICtal) 100 mg HS PO ; Start 06/23/17 at 21:00; Stop 06/23/17 at 21:00; Status DC Alprazolam (Xanax) 0.5 mg DAILY@1300 PO Last administered on 06/23/17at 12:42; Start 06/10/17 at 13:00; Stop 06/23/17 at 18:08; Status DC Pantoprazole Sodium (Protonix) 40 mg DAILYAC PO Last administered on 06/30/17at 07:41; Start 06/10/17 at 07:30 Vitamin D (Vitamin D3) 2,000 unit DAILYBFRLUN PO Last administered on at 11:53; Start 06/12/17 at 11:30 Olanzapine (ZyPREXA ZYDIS) 2.5 mg PRN Q2HR PRN PO PSYCHOSIS Last administered on 06/19/17at 13:58; Start 06/16/17 at 01:00 Potassium Chloride (Klor-Con) 20 meq BID PO Last administered on 06/30/17 07: 52; Start 06/17/17 at 21:00 Mirtazapine (Remeron) 7.5 mg QHS PO Last administered on 06/29/17at 19:31; Start 06/18/17 at 21:00 Risperidone (RisperDAL) 0.5 mg DAILY PO Last administered on 06/23/17at 08:19; Start 06/20/17 at 09:00; Stop 06/23/17 at 14:58; Status DC Risperidone (RisperDAL) 0.5 mg 1X ONCE PO Last administered on 06/19/17at 18:14 ; Start 06/19/17 at 18:15; Stop 06/19/17 at 18:16; Status DC Risperidone (RisperDAL) 0.5 mg 1X ONCE PO Last administered on 06/20/17at 10:31 ; Start 06/20/17 at 10:30; Stop 06/20/17 at 10:31; Status DC Risperidone (RisperDAL) 0.5 mg 1X ONCE PO Last administered on 06/20/17at 17:55 ; Start 06/20/17 at 17:00; Stop 06/20/17 at 17:01; Status DC Temazepam (Restoril) 15 mg QHS PO Last administered on 06/29/17at 19:31; Start 06/20/17 at 21:00 Temazepam (Restoril) 15 mg PRN QHS PRN PO INSOMNIA Last administered on at 01:35; Start 06/20/17 at 19:30 Dextrose/Sodium Chloride 1,000 ml @ 75 mls/hr 1X ONCE IV Last administered on 06/21/17at 17:45; Start 06/21/17 at 17:45; Stop 06/22/17 at 07:04; Status DC Sodium Biphosphate/ Sodium Phosphate (Fleet Adult) 133 ml 1X ONCE WI Last administered on 06/22/17at 19:22; Start 06/22/17 at 17:30; Stop 06/22/17 at 17:31 ; Status DC Risperidone (RisperDAL) 0.75 mg DAILY PO Last administered on 06/30/17at 07:51; Start 06/24/17 at 09:00 Alprazolam (Xanax) 0.25 mg DAILY@1300 PO Last administered on 06/30/17at 13:49; Start 06/24/17 at 13:00 Trazodone HCl (Desyrel) 50 mg QHS PO Last administered on 06/29/17at 19:32; Start 06/23/17 at 21:00 Magnesium Citrate (Citroma) 296 ml 1X ONCE PO Last administered on 06/24/17at 09:32; Start 06/24/17 at 09:00; Stop 06/24/17 at 09:09; Status DC Divalproex Sodium (Depakote Er) 250 mg QHS PO Last administered on 06/27/17at 20 :03; Start 06/25/17 at 21:00; Stop 06/28/17 at 19:29; Status DC Divalproex Sodium (Depakote Er) 500 mg QHS PO Last administered on 06/29/17at 19 :31; Start 06/28/17 at 21:00 Ferrous Sulfate (Feosol) 325 mg DAILYWBKFT PO Last administered on 06/30/17at 07 :50; Start 06/29/17 at 08:00 Active Scripts Active Reported Seroquel (Quetiapine Fumarate) 25 Mg Tablet 1 Tab PO DAILY Paroxetine Hcl 20 Mg Tablet 1 Tab PO DAILY Lorazepam 1 Mg Tablet 1 Tab PO TID Protonix (Pantoprazole Sodium) 40 Mg Tablet.dr 1 Tab PO DAILY06 Zofran Odt (Ondansetron) 8 Mg Tab.rapdis 1 Tab PO Q6HRS PRN Multivitamins (Multivitamin) 1 Each Tablet 1 Tab PO DAILY Docusate Sodium 100 Mg Capsule 1 Cap PO BID Atorvastatin Calcium 20 Mg Tablet 20 Mg PO QHS Saline Nasal Mist (Sodium Chloride) 126 Ml Mist 1 Stevan NS PRN Q1HR PRN Zoloft (Sertraline Hcl) 25 Mg Tablet 12.5 Mg PO DAILY Seroquel (Quetiapine Fumarate) 25 Mg Tablet 12.5 Mg PO [id number] Seroquel (Quetiapine Fumarate) 25 Mg Tablet 25 Mg PO QHS NITROGLYCERIN SubLingual (Nitroglycerin) 0.4 Mg Tab.subl 0.4 Mg SL PRN Q5MIN PRN Analgesic [place] (Methyl Salicylate/Menthol) 29 Gm Oint...g. 1 Stevan TP PRN QID PRN Milk Of Magnesia (Magnesium Hydroxide) 2,400 Mg/10 Ml Oral.susp 2,400 Mg PO PRN QHS PRN Advanced Antacid Liquid (Mag Hydrox/Al Hydrox/Simeth) 355 Ml Oral.susp 15 Ml PO PRN AFTMEALHC PRN Lorazepam 0.5 Mg Tablet 0.5 Mg PO PRN TID PRN Lorazepam 0.5 Mg Tablet 0.5 Mg PO Q8HRS Tylenol (Acetaminophen) 325 Mg Tablet 650 Mg PO PRN Q6HRS PRN Promethazine Hcl 25 Mg Tablet 12.5 Mg PO PRN Q4HRS PRN Aspirin 81 Mg Tab.chew 81 Mg PO DAILY I have reviewed the current psychotropics carefully including drug interactions. Risk benefit ratio favors no change other than as noted in my dictated progress note. Diagnosis: Problems: (1) Anxiety disorder (2) Bipolar affective disorder, mixed (3) Impulse control disorder (4) Panic disorder with agoraphobia and severe panic attacks (5) Obsessive compulsive disorder SANTIAGO FARFAN MD Jun 30, 2017 20:10
[2017-06-30] MEDS: DIVALPROEX ER 500 MG TAB.ER.24H PO SCH (20:35)
[2017-06-30] MEDS: ATORVASTATIN CALCIUM 20 MG TABLET PO SCH (20:35)
[2017-06-30] MEDS: traZODone 50 MG TABLET. PO SCH (20:35)
[2017-06-30] MEDS: TEMAZEPAM 15 MG CAPSULE PO SCH (20:36)
[2017-06-30] MEDS: MIRTAZAPINE 7.5 MG TABLET. PO SCH (20:36)
[2017-06-30] MEDS: ACETAMINOPHEN 325 MG TABLET PO PRN (21:32)
[2017-07-01 06:19] VITALS: BP 118/70
[2017-07-01] MEDS: PANTOPRAZOLE 40 MG TABLET. PO SCH (07:31)
[2017-07-01 07:46] LABS: BASO # 0.1 x10^3/uL (0.0-0.2); BASO % 1 % (0-3); EOS # 0.1 x10^3/uL (0.0-0.7); EOS % 3 % (0-3); HEMATOCRIT 28.8 % (36.0-47.0); HEMOGLOBIN 9.7 g/dL (12.0-15.5); LYMPH # 1.9 x10^3/uL (1.0-4.8); LYMPH % 38 % (24-48); MEAN CORPUSCULAR HEMOGLOBIN 31 pg (25-35); MEAN CORPUSCULAR HGB CONC 34 g/dL (31-37); MEAN CORPUSCULAR VOLUME 93 fL (79-100); MONO # 0.7 x10^3/uL (0.0-1.1); MONO % 14 % (0-9); NEUT # 2.2 x10^3uL (1.8-7.7); NEUT % 44 % (31-73); PLATELET COUNT 262 x10^3/uL (140-400); RED BLOOD COUNT 3.11 x10^6/uL (3.50-5.40); RED CELL DISTRIBUTION WIDTH 15.4 % (11.5-14.5)
[2017-07-01] MEDS: DOCUSATE SODIUM 100 MG CAPSULE PO SCH ×2 (08:03→19:34)
[2017-07-01] MEDS: FERROUS SULFATE 325 MG TABLET. PO SCH (08:03)
[2017-07-01] MEDS: MULTIVITAMIN with MINERAL TABLET. PO SCH ×2 (08:04→08:13)
[2017-07-01] MEDS: ASPIRIN 81 MG TAB.CHEW PO SCH (08:04)
[2017-07-01] MEDS: risperiDONE 0.5 MG TABLET. PO SCH (08:04)
[2017-07-01] MEDS: POTASSIUM CHLORIDE 20 MEQ TABLET.ER. PO SCH ×2 (08:05→19:35)
[2017-07-01] MEDS: ALPRAZolam 0.25 MG TABLET PO SCH ×3 (08:06→13:00)
[2017-07-01] MEDS: ALPRAZolam 0.5 MG TABLET PO SCH ×2 (08:11→19:36)
[2017-07-01 08:23] LABS: ALBUMIN 2.4 g/dL (3.4-5.0); ALBUMIN/GLOBULIN RATIO 0.7 (1.0-1.7); ALK PHOS 51 U/L (46-116); ALT (SGPT) 21 U/L (14-59); ANION GAP 7 (6-14); AST (SGOT) 15 U/L (15-37); BLOOD UREA NITROGEN 9 mg/dL (7-20); BUN/CREATININE RATIO 10 (6-20); CALCIUM 8.5 mg/dL (8.5-10.1); CARBON DIOXIDE 28 mmol/L (21-32); CHLORIDE 108 mmol/L (98-107); CREATININE 0.9 mg/dL (0.6-1.0); GFR 61.7; GLUCOSE 84 mg/dL (70-99); POTASSIUM 4.2 mmol/L (3.5-5.1); SODIUM 143 mmol/L (136-145); TOTAL BILIRUBIN 0.2 mg/dL (0.2-1.0); TOTAL PROTEIN 5.8 g/dL (6.4-8.2)
[2017-07-01 08:27] LABS: VAL ACID 50 mcg/mL (50-100)
[2017-07-01] MEDS: CHOLECALCIFEROL (VITAMIN D3) 1,000 UNIT TABLET PO SCH (12:47)
[2017-07-01 16:04] VITALS: BP 144/86
--- NOTE | 2017-07-01 16:35 | PN ---
DATE: 06/30/2017 SUBJECTIVE: The patient was seen today, met with the staff, chart reviewed. The patient admits to feeling depressed, still grieving over the loss of her who 2 years ago according to her. The patient also admits she was heavy on Xanax abusing them. Also, having multiple physical complaints, complaints of swollen feet and also having pain. The patient continues to have the mood swings. The patient also has history of having panic attacks. OBSERVATION: VITAL SIGNS: Temperature 97.5, blood pressure 142/78, pulse 78, respirations 20, O2 sat 97%. GENERAL: Slept about 6-1/2 hours last night. Appetite fair. CURRENT MEDICATIONS: Include Depakote 500 mg at night, Xanax on a tapering schedule 0.25 mg daily, Risperdal 0.75 mg daily, trazodone 50 mg at night, temazepam 15 mg at night, mirtazapine 7.5 mg at night, olanzapine 2.5 mg q.2 hours p.r.n. and also on Xanax 1 mg b.i.d. LABORATORY DATA: Reviewed hemoglobin level of 9.3. Creatinine level was normal. Calcium 8.3. The patient's AST was elevated at 111, ALT 70, total bilirubin was 1.1. ASSESSMENT: Bipolar disorder type 1, mixed, with psychotic features. PLAN: Continue with the treatment. VARUN HENDERSON MD DR: PRITESH/melody JOB#: [id number] / [id number]
[2017-07-01] MEDS: DIVALPROEX ER 500 MG TAB.ER.24H PO SCH (19:34)
[2017-07-01] MEDS: traZODone 50 MG TABLET. PO SCH (19:34)
[2017-07-01] MEDS: MIRTAZAPINE 7.5 MG TABLET. PO SCH (19:35)
[2017-07-01] MEDS: TEMAZEPAM 15 MG CAPSULE PO SCH (19:35)
[2017-07-01] MEDS: ATORVASTATIN CALCIUM 20 MG TABLET PO SCH (19:35)
[2017-07-01] MEDS: ACETAMINOPHEN 325 MG TABLET PO PRN (22:10)
[2017-07-02 06:07] VITALS: BP 113/57
[2017-07-02] MEDS: POTASSIUM CHLORIDE 20 MEQ TABLET.ER. PO SCH ×2 (07:54→19:01)
[2017-07-02] MEDS: PANTOPRAZOLE 40 MG TABLET. PO SCH (07:55)
[2017-07-02] MEDS: ASPIRIN 81 MG TAB.CHEW PO SCH (07:55)
[2017-07-02] MEDS: MULTIVITAMIN with MINERAL TABLET. PO SCH (07:55)
[2017-07-02] MEDS: FERROUS SULFATE 325 MG TABLET. PO SCH (07:55)
[2017-07-02] MEDS: DOCUSATE SODIUM 100 MG CAPSULE PO SCH ×2 (07:55→19:02)
[2017-07-02] MEDS: ALPRAZolam 0.5 MG TABLET PO SCH ×2 (07:56→19:03)
[2017-07-02] MEDS: risperiDONE 0.5 MG TABLET. PO SCH (07:56)
[2017-07-02] MEDS: CHOLECALCIFEROL (VITAMIN D3) 1,000 UNIT TABLET PO SCH (12:19)
[2017-07-02] MEDS: ALPRAZolam 0.25 MG TABLET PO SCH (12:19)
[2017-07-02 16:09] VITALS: BP 120/70
--- NOTE | 2017-07-02 17:02 | PN ---
DATE: 07/01/2017 SUBJECTIVE: The patient was seen today, met with the staff, chart reviewed. The patient's behavior remains the same, still having the mood swings, history of anxiety and panic attacks. Decreased appetite. The patient apparently lost her 2 years ago and the patient also has a history of Xanax abuse. The patient has multiple physical complaints, complaining of swollen feet and also chronic pain. OBSERVATION: VITAL SIGNS: Temperature 97.8, blood pressure 118/70, pulse 81, respiration 18, O2 sat 95%. Slept about 7 hours last night. MEDICATIONS: The patient's medications were reviewed. The patient is not having any side effects. Currently on Depakote 500 mg at night. He is on Xanax taper. The patient is also on Risperdal 0.75 mg daily, trazodone 50 mg at night, temazepam 15 mg at night, mirtazapine 7.5 mg at night. ASSESSMENT: Bipolar disorder type 1, mixed, with psychotic features. PLAN: To continue with the treatment. VARUN HENDERSON MD DR: PRITESH/melody JOB#: [id number] / [id number]
[2017-07-02] MEDS: traZODone 50 MG TABLET. PO SCH (18:59)
[2017-07-02] MEDS: DIVALPROEX ER 500 MG TAB.ER.24H PO SCH (18:59)
[2017-07-02] MEDS: MIRTAZAPINE 7.5 MG TABLET. PO SCH (18:59)
[2017-07-02] MEDS: ATORVASTATIN CALCIUM 20 MG TABLET PO SCH (19:00)
[2017-07-02] MEDS: TEMAZEPAM 15 MG CAPSULE PO SCH (19:03)
[2017-07-02] MEDS: ACETAMINOPHEN 325 MG TABLET PO PRN (21:43)
--- NOTE | 2017-07-02 22:46 | DS ---
DATE OF DISCHARGE: REASON FOR ADMISSION: This 72-year-old female who was admitted from [facility] Emergency Room where she presented herself with history of panic attacks, inability to sleep, decreased appetite, loss of interest. HISTORY OF PRESENT ILLNESS: The patient has been seeing her outpatient doctor, her primary care, and recently prescribed Xanax, then changed to Ativan and attempt to taper the benzodiazepines. She has been on almost 4 mg of Xanax a day. Since the taper of her Xanax, her anxiety has gotten worse and also panic attacks. She presented to the ER 4 or 5 times in the last few days. The patient apparently failed outpatient treatment. She was arrested at the [facility]. The patient admits she has a history of anxiety and obsessive-compulsive thoughts, panic attacks, agoraphobia and also some emotional lability and significant mood swings. The patient currently unable to drive because of her psychiatric problems, her agoraphobia and the panic attacks. The patient denied of any suicidal or homicidal thoughts. The patient is unable to take care of her needs currently because of her emotional state. HOSPITAL COURSE: The patient had a complete lab work including CBC, chem profile, urinalysis, which were all within normal range except for a low hemoglobin level of 9.7. The patient's iron was low at 21, iron saturation 225. Glucose level of 116. AST was elevated, ranging from 70 to 211. Her hemoglobin A1c was 5. Her lipid profile was within normal range except for HDL of 35. The patient was involved in the program including individual therapy, group therapy and activity therapy. The patient was continued on her ferrous sulfate 325 mg daily, Depakote 500 mg at night, Xanax was on taper of 0.25 mg daily, Risperdal 0.5 mg daily, trazodone 50 mg at night, temazepam 15 mg at night, mirtazapine 7.5 mg at night, potassium chloride 20 mEq b.i.d. She is also on vitamin, Protonix. She is also on Xanax 1 mg b.i.d., aspirin 81 mg daily, multivitamins, Lipitor 20 mg daily. The patient did fairly well. The patient was able to attend most of the activities, able to gain some insight to her problems. AFTERCARE PLAN: The patient is accepting of her discharge plan, thus she will return home placement and also she will continue to see her primary care doctor for followup and she will continue on the medications. VARUN HENDERSON MD DR: PRITESH/melody JOB#: [id number] / [id number]
[2017-07-03] MEDS ORDERED: ALPR1TAB6 PO (01:24)
[2017-07-03] MEDS ORDERED: ALPR0.25 PO (01:25)
[2017-07-03] MEDS ORDERED: CHOL10003 PO (01:26)
[2017-07-03] MEDS ORDERED: DIVA500T4 PO (01:27)
[2017-07-03] MEDS ORDERED: FERR-26 PO (01:30)
[2017-07-03] MEDS ORDERED: MIRT15TA3 PO (01:32)
[2017-07-03] MEDS ORDERED: OLAN5TAB5 PO (01:36)
[2017-07-03] MEDS ORDERED: POTA20TA4 PO (01:40)
[2017-07-03] MEDS ORDERED: TEMA15CA PO ×2 (01:41→01:42)
[2017-07-03] MEDS ORDERED: TRAZ50TA15 PO (01:44)
[2017-07-03] MEDS ORDERED: RISP0.5T24 PO (01:44)
[2017-07-03 06:15] VITALS: BP 132/67
[2017-07-03] MEDS: ASPIRIN 81 MG TAB.CHEW PO SCH (08:13)
[2017-07-03] MEDS: FERROUS SULFATE 325 MG TABLET. PO SCH (08:13)
[2017-07-03] MEDS: DOCUSATE SODIUM 100 MG CAPSULE PO SCH (08:13)
[2017-07-03] MEDS: MULTIVITAMIN with MINERAL TABLET. PO SCH (08:14)
[2017-07-03] MEDS: risperiDONE 0.5 MG TABLET. PO SCH (08:14)
[2017-07-03] MEDS: PANTOPRAZOLE 40 MG TABLET. PO SCH (08:14)
[2017-07-03] MEDS: POTASSIUM CHLORIDE 20 MEQ TABLET.ER. PO SCH (08:15)
[2017-07-03] MEDS: ALPRAZolam 0.5 MG TABLET PO SCH (08:16)
[2017-07-03] MEDS ORDERED: ALPR0.254 PO (10:42)
[2017-07-03] MEDS: CHOLECALCIFEROL (VITAMIN D3) 1,000 UNIT TABLET PO SCH (11:07)
--- NOTE | 2017-07-07 23:26 | PN ---
DATE: 06/29/2017 PSYCHIATRIC PROGRESS NOTE This is a late entry 06/29/2017 covers elements not covered in my initial note 06/29/2017. SUBJECTIVE: I met with the patient evening of 06/29/2017. I dictated this note at that time from an external line, but cannot be traced in the system. I am redictating. Per nursing report, the patient has been pleasant, coherent, compliant with medications and assessments. REVIEW OF SYSTEMS: No CV, , pulmonary, eye, ENT system symptoms on review. MENTAL STATUS EXAM: Reasonably oriented. Speech is coherent, abstraction fair, computation impaired, language function intact, attention span short. Mood and affect appears improved, more stable. LABORATORY DATA: Reviewed. IMPRESSION: Bipolar 1 disorder, mixed with psychotic features, in partial remission. PLAN: Continue current psychotropics including Depakote for her bipolar disorder. Risperdal as an antipsychotic. Adjust further as clinically indicated. SANTIAGO FARFAN MD DR: INNA/melody JOB#: [id number] / [id number]
== END 2017-07-03 11:50 | disposition home health service (06) | DRG 885 ==
LOC: GEROPSY 15:51
PROVIDERS: ADMIT Psychiatry & Neurology Psychiatry; ATTEND Psychiatry & Neurology Psychiatry
DX: F31.64 Bipolar disorder, current episode mixed, severe, with psychotic features (principal); D64.9 Anemia, unspecified; N39.0 Urinary tract infection, site not specified; E86.0 Dehydration; E78.5 Hyperlipidemia, unspecified; F40.01 Agoraphobia with panic disorder; F42.9 Obsessive-compulsive disorder, unspecified; F63.9 Impulse disorder, unspecified; G89.29 Other chronic pain; I10 Essential (primary) hypertension; K21.9 Gastro-esophageal reflux disease without esophagitis; K59.00 Constipation, unspecified; G47.00 Insomnia, unspecified; M54.5 Low back pain; R29.6 Repeated falls; Z79.82 Long term (current) use of aspirin; Z79.899 Other long term (current) drug therapy; Z88.7 Allergy status to serum and vaccine; Z91.018 Allergy to other foods; Z90.49 Acquired absence of other specified parts of digestive tract
CPT/HCPCS: 36415; 70450; 71045; 74018; 80048; 80053; 80061; 80164; 81001; 82150; 82274; 82306; 82607; 82947; 83036; 83540; 83550; 83605; 83615; 83690; 83735; 84436; 84443; 84480; 85007; 85025; 86593; 87086; Q0162

== ENCOUNTER 2017-08-07 11:17 | Inpatient (IN) | payer MEDICARE ==
[~2017-08-07] VITALS: Ht 160 cm; Wt 64.6 kg
[~2017-08-07 11:17] MED LIST changes: +ALPR0.25 PO; +ALPR0.254 PO; +ALPR1TAB6 PO; +ATOR20TA58 PO; +CHOL10003 PO; +DIVA500T4 PO; +DOCU100C28 PO; +FERR325T14 PO; +LORA1TAB PO; +MIRT15TA3 PO; +MULT1TAB52 PO; +OLAN5TAB5 PO; +ONDA8TAB12 PO; +PANT40TA3 PO; +PARO20TA3 PO; +POTA20TA4 PO; +RISP0.5T24 PO; +TRAZ50TA15 PO
--- NOTE | 2017-08-07 12:23 | EKG ---
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
[2017-08-07 12:30] LABS: BASO % 0 % (0-3); EOS # 0.1 x10^3/uL (0.0-0.7); EOS % 1 % (0-3); HEMATOCRIT 35.3 % (36.0-47.0); HEMOGLOBIN 11.8 g/dL (12.0-15.5); LYMPH # 1.5 x10^3/uL (1.0-4.8); LYMPH % 18 % (24-48); MEAN CORPUSCULAR HEMOGLOBIN 30 pg (25-35); MEAN CORPUSCULAR HGB CONC 34 g/dL (31-37); MEAN CORPUSCULAR VOLUME 90 fL (79-100); MONO # 0.5 x10^3/uL (0.0-1.1); MONO % 6 % (0-9); NEUT # 6.2 x10^3uL (1.8-7.7); NEUT % 75 % (31-73); PLATELET COUNT 198 x10^3/uL (140-400); RED BLOOD COUNT 3.92 x10^6/uL (3.50-5.40); RED CELL DISTRIBUTION WIDTH 15.5 % (11.5-14.5); WHITE BLOOD COUNT 8.3 x10^3/uL (4.0-11.0)
[2017-08-07 12:42] LABS: ALBUMIN 3.8 g/dL (3.4-5.0); CALCIUM 9.2 mg/dL (8.5-10.1); GFR 54.7; MAGNESIUM 1.8 mg/dL (1.8-2.4); POTASSIUM 3.8 mmol/L (3.5-5.1); TOTAL BILIRUBIN 0.4 mg/dL (0.2-1.0); TOTAL PROTEIN 7.8 g/dL (6.4-8.2)
[2017-08-07] MEDS ORDERED: ONDANSETRON ODT 4 MG TAB.RAPDIS PO ONE (13:00)
[2017-08-07 13:01] LABS: AMPHETAMINE/METHAMPHETAMINE NEG (NEG); BARBITURATES NEG (NEG); BENZODIAZEPINES POS (NEG); CANNABINOIDS NEG (NEG); COCAINE NEG (NEG); METHADONE NEG (NEG); OPIATES NEG (NEG); PHENCYCLIDINE NEG (NEG)
[2017-08-07 13:08] LABS: BACTERIA,URINE FEW /HPF (0-FEW); BILIRUBIN,URINE NEG (NEG); CLARITY,URINE HAZY; COLOR,URINE YELLOW; GLUCOSE,URINE NEG (NEG); NITRITE,URINE NEG (NEG); RBC,URINE OCC /HPF (0-2); SQUAMOUS EPITHELIAL CELL,UR OCC /LPF; UROBILINOGEN,URINE 0.2 mg/dL (0.2 mg/dL)
--- NOTE | 2017-08-07 13:19 | PHYS DOC ---
Past History Past Medical History: Anxiety, Depression, Hypertension Past Surgical History: Other Alcohol Use: None Drug Use: None Adult General Chief Complaint Chief Complaint: MULTIPLE COMPLAINTS HPI HPI 72-year-old female patient with extensive psychiatric problem on several medications states her psychiatric physician tapering her medication and she doesn't feel good with the new dose of her medication and ran out of her medication 1 week ago but was not able to get to her psychiatric because he is [place]. She complaining of shaking and not feeling good without suicidal or homicidal ideation and hallucination.. She had recent hospitalization in this facility. Review of Systems Review of Systems Constitutional: Denies fever or chills [] Eyes: Denies change in visual acuity, redness, or eye pain [] HENT: Denies nasal congestion or sore throat [] Respiratory: Denies cough or shortness of breath [] Cardiovascular: No additional information not addressed in HPI [] GI: Denies abdominal pain, nausea, vomiting, bloody stools or diarrhea [] : Denies dysuria or hematuria [] Musculoskeletal: Denies back pain or joint pain [] Integument: Denies rash or skin lesions [] Neurologic: Denies headache, focal weakness or sensory changes [] Endocrine: Denies polyuria or polydipsia [] All other systems were reviewed and found to be within normal limits, except as documented in this note. Current Medications Current Medications Current Medications Medications (Trade) Dose Ordered Sig/Zeeshan Start Time Stop Time Status Last Admin Dose Admin Ondansetron HCl (Zofran Odt) 4 mg 1X ONCE 08/07/17 13:00 08/07/17 13:01 DC 08/07/17 12:54 4 MG Allergies Allergies Allergies Coded Allergies Type Severity Reaction Last Updated Verified Influenza Virus Vaccines Allergy Intermediate Swelling 07/18/15 Yes chocolate flavor Allergy Intermediate 07/11/15 Yes Physical Exam Physical Exam Constitutional: Well nourished, mild distress, non-toxic appearance. [] HENT: Normocephalic, atraumatic Eyes: PERRLA, EOMI, conjunctiva normal, no discharge. [] Neck: Normal range of motion, no tenderness, supple, no stridor. [] Cardiovascular:Heart rate regular rhythm, no murmur [] Lungs & Thorax: Bilateral breath sounds clear to auscultation [] Abdomen: Bowel sounds normal, soft, no tenderness, no masses, no pulsatile masses. [] Skin: Warm, dry, no erythema, no rash. [] Back: No tenderness, no CVA tenderness. [] Extremities: No tenderness, no cyanosis, no clubbing, ROM intact, no edema. [] Neurologic: Alert and oriented X 3, normal motor function, normal sensory function, no focal deficits noted. [] Psychologic:Anxious, mood normal. [] Current Patient Data Vital Signs Vital Signs Date Time Temp Pulse Resp B/P (MAP) Pulse Ox O2 Delivery O2 Flow Rate FiO2 08/07/17 12:47 100 18 165/88 (113) 98 Room Air 08/07/17 11:39 98.2 Lab Results Laboratory Tests Test 08/07/17 12:18 08/07/17 12:42 White Blood Count 8.3 x10^3/uL (4.0-11.0) Red Blood Count 3.92 x10^6/uL (3.50-5.40) Hemoglobin 11.8 g/dL (12.0-15.5) L Hematocrit 35.3 % (36.0-47.0) L Mean Corpuscular Volume 90 fL (79-100) Mean Corpuscular Hemoglobin 30 pg (25-35) Mean Corpuscular Hemoglobin Concent 34 g/dL (31-37) Red Cell Distribution Width 15.5 % (11.5-14.5) H Platelet Count 198 x10^3/uL (140-400) Neutrophils (%) (Auto) 75 % (31-73) H Lymphocytes (%) (Auto) 18 % (24-48) L Monocytes (%) (Auto) 6 % (0-9) Eosinophils (%) (Auto) 1 % (0-3) Basophils (%) (Auto) 0 % (0-3) Neutrophils # (Auto) 6.2 x10^3uL (1.8-7.7) Lymphocytes # (Auto) 1.5 x10^3/uL (1.0-4.8) Monocytes # (Auto) 0.5 x10^3/uL (0.0-1.1) Eosinophils # (Auto) 0.1 x10^3/uL (0.0-0.7) Basophils # (Auto) 0.0 x10^3/uL (0.0-0.2) Sodium Level 135 mmol/L (136-145) L Potassium Level 3.8 mmol/L (3.5-5.1) Chloride Level 99 mmol/L (98-107) Carbon Dioxide Level 27 mmol/L (21-32) Anion Gap 9 (6-14) Blood Urea Nitrogen 16 mg/dL (7-20) Creatinine 1.0 mg/dL (0.6-1.0) Estimated GFR (Cockcroft-Gault) 54.7 BUN/Creatinine Ratio 16 (6-20) Glucose Level 110 mg/dL (70-99) H Calcium Level 9.2 mg/dL (8.5-10.1) Magnesium Level 1.8 mg/dL (1.8-2.4) Total Bilirubin 0.4 mg/dL (0.2-1.0) Aspartate Amino Transferase (AST) 17 U/L (15-37) Alanine Aminotransferase (ALT) 16 U/L (14-59) Alkaline Phosphatase 63 U/L (46-116) Total Protein 7.8 g/dL (6.4-8.2) Albumin 3.8 g/dL (3.4-5.0) Albumin/Globulin Ratio 1.0 (1.0-1.7) Ethyl Alcohol Level < 10 mg/dL (0-10) Urine Collection Type Unknown Urine Color Yellow Urine Clarity Hazy Urine pH 7.0 Urine Specific [place] 1.010 Urine Protein Trace (NEG-TRACE) Urine Glucose (UA) Neg mg/dL (NEG) Urine Ketones (Stick) Trace mg/dL (NEG) Urine Blood Neg (NEG) Urine Nitrite Neg (NEG) Urine Bilirubin Neg (NEG) Urine Urobilinogen Dipstick 0.2 mg/dL (0.2 mg/dL) Urine Leukocyte Esterase Mod (NEG) Urine RBC Occ /HPF (0-2) Urine WBC 5-10 /HPF (0-4) Urine Squamous Epithelial Cells Occ /LPF Urine Transitional Epithelial Cells Occ /LPF Urine Bacteria Few /HPF (0-FEW) Urine Opiates Screen Neg (NEG) Urine Methadone Screen Neg (NEG) Urine Barbiturates Neg (NEG) Urine Phencyclidine Screen Neg (NEG) Urine Amphetamine/Methamphetamine Neg (NEG) Urine Benzodiazepines Screen Pos (NEG) Urine Cocaine Screen Neg (NEG) Urine Cannabinoids Screen Neg (NEG) Urine Ethyl Alcohol Neg (NEG) EKG EKG [] Radiology/Procedures Radiology/Procedures EKG interpreted by me. EKG at 1219 showed normal sinus rhythm at rate of 76, no ST and T wave abnormality[] Course & Med Decision Making Course & Med Decision Making Pertinent Labs studies reviewed. (See chart for details) Evaluation of patient in ER showed 72-year-old female patient with extensive psychiatric problem complaining of not feeling good with tapering her medication. Patient had unremarkable physical exam except for anxiety. Labs showed UTI. Patient treated with Cipro in ER. Patient accepted to [facility]. Dragon Disclaimer Dragon Disclaimer This electronic medical record was generated, in whole or in part, using a voice recognition dictation system. Departure Departure: Impression: Primary Impression: Medical clearance for psychiatric admission Additional Impressions: Urinary tract infection Nausea Anxiety disorder Disposition: ADMITTED INPATIENT (At 1318) Condition: IMPROVED Referrals: WESTLEY SEAY MD (PCP) Problem Qualifiers PEDRO VERDIN MD Aug 07, 2017 13:19
[2017-08-07] MEDS ORDERED: CIPROFLOXACIN HCL 500 MG TABLET PO ONE (13:30)
--- NOTE | 2017-08-07 14:44 | NUR ---
Admission Note with Justification for Admission to [facility] Patient admitted to [facility] for protective oversight for emergency stabilization of acute psychiatric crisis. Pt admitted from: Hospital ER, she had taken a taxi from her home in [place] to the [facility]. Mode of arrival: EMS Accompanied By: EMS and Maximus from ER Precipitating behaviors that initiated intake and admission: increased anxiety and agitation. Describes feeling as if she "wants to stop taking xanax but is unable to". Stated she was taking her PRN 1 mg BID dose of xanax twice daily and has now run out of xanax. She states she "hasn't slept in 3 days and thinks she had a TIA last night". (ruled out by screening through ER) Description of failure of out patient attempts at stabilization in previous setting list behavior and medication trials: patient was In Patient here on the [facility] Jun 05-Jul 03, 2017. Upon discharge she returned to her home where she was to follow up at [facility] but she failed to do that. By her own account she has taken all of her PRN xanax and is now out of xanax. Behaviors and assessment findings upon admission: patient appears very anxious, is shaking. Patient states that she has run out of xanax and speculates that the staff where she lives has taken her xanax. Patient had taken a taxi here from [place] and was observed on her knees in the ambulance bay upon arrival per ER staff report. She appears restless, is unable to sit still. Vital signs obtained, belongings inventoried. Patient is currently anxious and pacing in the hallway, asking employees when the doctor will be here. She is asking the same questions of multiple employees as if she cannot remember what she asked previously. Plan: Admit for protective oversight for adjustment and stabilization of medications, behaviors and mood. Intense treatment regimen including groups, medication adjustments, therapy, consistent regimen for ADL's, self care, and sleep hygiene. Daily monitoring by Inpatient staff, Psychiatry, and Medical Physician.
[2017-08-07] MEDS ORDERED: ACETAMINOPHEN 325 MG TABLET PO PRN ×2 (15:30→17:30)
[2017-08-07] MEDS ORDERED: METHYL SALICYLATE/MENTHOL TOPICAL OINTMENT 29GM TUBE. TP PRN ×2 (15:30→17:30)
[2017-08-07] MEDS ORDERED: MAGNESIUM HYDROXIDE 2,400 MG/30 ML ORAL.SUSP. PO PRN (15:30)
[2017-08-07] MEDS ORDERED: TEMAZEPAM 15 MG CAPSULE PO PRN (15:30)
[2017-08-07] MEDS ORDERED: MAG HYDROX/AL HYDROX/SIMETH 30 ML ORAL.SUSP PO PRN (15:30)
[2017-08-07 15:35] VITALS: BP 161/99
[2017-08-07 16:00] LABS: VAL ACID 41 mcg/mL (50-100)
[2017-08-07 16:23] VITALS: BP 159/73
[2017-08-07] MEDS ORDERED: NON FORMULARY ITEM (Mag Hydrox/Al Hydrox/Simeth (Advanced Antacid Liquid) 15 ML) PO PRN (17:30)
[2017-08-07] MEDS ORDERED: NON FORMULARY ITEM (Magnesium Hydroxide (Milk Of Magnesia) 2,400 MG) PO PRN (17:30)
[2017-08-07] MEDS ORDERED: ONDANSETRON ODT 4 MG TAB.RAPDIS PO PRN (18:00)
[2017-08-07] MEDS ORDERED: SODIUM CHLORIDE 0.65% NASAL SPRAY 45ML BOTTLE. NS PRN (18:15)
[2017-08-07] MEDS: DOCUSATE SODIUM 100 MG CAPSULE PO SCH (20:04)
[2017-08-07] MEDS: MIRTAZAPINE 7.5 MG TABLET. PO SCH (20:05)
[2017-08-07] MEDS: POTASSIUM CHLORIDE 20 MEQ TABLET.ER. PO SCH (20:05)
[2017-08-07] MEDS: ATORVASTATIN CALCIUM 20 MG TABLET PO SCH (20:05)
[2017-08-07] MEDS: traZODone 50 MG TABLET. PO SCH (20:05)
[2017-08-07] MEDS: ALPRAZolam 0.5 MG TABLET PO PRN (20:06)
[2017-08-07] MEDS: TEMAZEPAM 15 MG CAPSULE PO SCH (20:06)
--- NOTE | 2017-08-07 20:07 | PDOC ---
Exam Note: Rian Note: Please also refer to the separate dictated note~for this date of service dictated separately.~Patient seen individually. Discussed the patient with Nursing staff reviewed the chart.~Reviewed interim history and current functioning. Reviewed vital signs,~Labs/ Radiology~and current medications noted below. Continue current treatment with the changes noted in the dictated addendum note Assessment: Vital Signs: Vital Signs Date Time Temp Pulse Resp B/P (MAP) Pulse Ox O2 Delivery O2 Flow Rate FiO2 08/07/17 16:23 97.0 106 22 159/73 (101) 97 08/07/17 15:35 Room Air Labs: Laboratory Tests Test 08/07/17 12:18 08/07/17 12:42 White Blood Count 8.3 x10^3/uL (4.0-11.0) Red Blood Count 3.92 x10^6/uL (3.50-5.40) Hemoglobin 11.8 g/dL (12.0-15.5) L Hematocrit 35.3 % (36.0-47.0) L Mean Corpuscular Volume 90 fL (79-100) Mean Corpuscular Hemoglobin 30 pg (25-35) Mean Corpuscular Hemoglobin Concent 34 g/dL (31-37) Red Cell Distribution Width 15.5 % (11.5-14.5) H Platelet Count 198 x10^3/uL (140-400) Neutrophils (%) (Auto) 75 % (31-73) H Lymphocytes (%) (Auto) 18 % (24-48) L Monocytes (%) (Auto) 6 % (0-9) Eosinophils (%) (Auto) 1 % (0-3) Basophils (%) (Auto) 0 % (0-3) Neutrophils # (Auto) 6.2 x10^3uL (1.8-7.7) Lymphocytes # (Auto) 1.5 x10^3/uL (1.0-4.8) Monocytes # (Auto) 0.5 x10^3/uL (0.0-1.1) Eosinophils # (Auto) 0.1 x10^3/uL (0.0-0.7) Basophils # (Auto) 0.0 x10^3/uL (0.0-0.2) Sodium Level 135 mmol/L (136-145) L Potassium Level 3.8 mmol/L (3.5-5.1) Chloride Level 99 mmol/L (98-107) Carbon Dioxide Level 27 mmol/L (21-32) Anion Gap 9 (6-14) Blood Urea Nitrogen 16 mg/dL (7-20) Creatinine 1.0 mg/dL (0.6-1.0) Estimated GFR (Cockcroft-Gault) 54.7 BUN/Creatinine Ratio 16 (6-20) Glucose Level 110 mg/dL (70-99) H Calcium Level 9.2 mg/dL (8.5-10.1) Magnesium Level 1.8 mg/dL (1.8-2.4) Total Bilirubin 0.4 mg/dL (0.2-1.0) Aspartate Amino Transferase (AST) 17 U/L (15-37) Alanine Aminotransferase (ALT) 16 U/L (14-59) Alkaline Phosphatase 63 U/L (46-116) Total Protein 7.8 g/dL (6.4-8.2) Albumin 3.8 g/dL (3.4-5.0) Albumin/Globulin Ratio 1.0 (1.0-1.7) Valproic Acid Level 41 mcg/mL (50-100) L Valproic Acid Last Dose Date 08/06/17 Valproic Acid Last Dose Time 2100 Ethyl Alcohol Level < 10 mg/dL (0-10) Urine Collection Type Unknown Urine Color Yellow Urine Clarity Hazy Urine pH 7.0 Urine Specific [place] 1.010 Urine Protein Trace (NEG-TRACE) Urine Glucose (UA) Neg mg/dL (NEG) Urine Ketones (Stick) Trace mg/dL (NEG) Urine Blood Neg (NEG) Urine Nitrite Neg (NEG) Urine Bilirubin Neg (NEG) Urine Urobilinogen Dipstick 0.2 mg/dL (0.2 mg/dL) Urine Leukocyte Esterase Mod (NEG) Urine RBC Occ /HPF (0-2) Urine WBC 5-10 /HPF (0-4) Urine Squamous Epithelial Cells Occ /LPF Urine Transitional Epithelial Cells Occ /LPF Urine Bacteria Few /HPF (0-FEW) Urine Opiates Screen Neg (NEG) Urine Methadone Screen Neg (NEG) Urine Barbiturates Neg (NEG) Urine Phencyclidine Screen Neg (NEG) Urine Amphetamine/Methamphetamine Neg (NEG) Urine Benzodiazepines Screen Pos (NEG) Urine Cocaine Screen Neg (NEG) Urine Cannabinoids Screen Neg (NEG) Urine Ethyl Alcohol Neg (NEG) Current Medications: Meds: Current Medications Ondansetron HCl (Zofran Odt) 4 mg 1X ONCE PO Last administered on 08/07/17at 12: 54; Start 08/07/17 at 13:00; Stop 08/07/17 at 13:01; Status DC Ciprofloxacin (Cipro) 500 mg 1X ONCE PO Last administered on 08/07/17at 13:29; Start 08/07/17 at 13:30; Stop 08/07/17 at 13:31; Status DC Alprazolam (Xanax) 0.25 mg DAILY@1300 PO ; Start 08/08/17 at 13:00 Divalproex Sodium (Depakote Er) 500 mg QHS PO ; Start 08/07/17 at 21:00 Mirtazapine (Remeron) 7.5 mg QHS PO ; Start 08/07/17 at 21:00 Olanzapine (ZyPREXA ZYDIS) 2.5 mg PRN Q2HR PRN PO PSYCHOSIS; Start 08/07/17 at 15:30 Risperidone (RisperDAL) 0.75 mg DAILY PO ; Start 08/08/17 at 09:00 Temazepam (Restoril) 15 mg PRN QHS PRN PO INSOMNIA; Start 08/07/17 at 15:30 Temazepam (Restoril) 15 mg QHS PO ; Start 08/07/17 at 21:00 Trazodone HCl (Desyrel) 50 mg QHS PO ; Start 08/07/17 at 21:00 Alprazolam (Xanax) 1 mg PRN BID PRN PO ANXIETY / AGITATION; Start 08/07/17 at 15 :45 Acetaminophen (Tylenol) 650 mg PRN Q6HRS PRN PO PAIN / TEMP; Start 08/07/17 at 15:30 Multi-Ingredient Ointment (Analgesic [place]) 1 stevan PRN QID PRN TP MUSCLE PAIN; Start 08/07/17 at 15:30 Al Hydroxide/Mg Hydroxide (Mylanta Plus Xs) 15 ml PRN AFTMEALHC PRN PO DYSPEPSIA; Start 08/07/17 at 15:30 Magnesium Hydroxide (Milk Of Magnesia) 2,400 mg PRN QHS PRN PO CONSTIPATION; Start 08/07/17 at 15:30 Acetaminophen (Tylenol) 650 mg PRN Q6HRS PRN PO PAIN / TEMP; Start 08/07/17 at 17:30; Status UNV Aspirin (Children'S Aspirin) 81 mg DAILY PO ; Start 08/08/17 at 09:00 Atorvastatin Calcium (Lipitor) 20 mg QHS PO ; Start 08/07/17 at 21:00 Vitamin D (Vitamin D3) 2,000 unit DAILYBFRLUN PO ; Start 08/08/17 at 11:30 Docusate Sodium (Colace) 100 mg BID PO ; Start 08/07/17 at 21:00 Ferrous Sulfate (Feosol) 325 mg DAILYWBKFT PO ; Start 08/08/17 at 08:00 Multi-Ingredient Ointment (Analgesic [place]) 1 stevan PRN QID PRN TP MUSCLE PAIN; Start 08/07/17 at 17:30; Status UNV Pantoprazole Sodium (Protonix) 40 mg DAILYAC PO ; Start 08/08/17 at 07:30 Potassium Chloride (Klor-Con) 20 meq BID PO ; Start 08/07/17 at 21:00 Non-Formulary Medication 15 ml PRN AFTMEALHC PRN PO DYSPEPSIA; Start 08/07/17 at 17:30; Status UNV Non-Formulary Medication 2,400 mg PRN QHS PRN PO CONSTIPATION; Start 08/07/17 at 17:30; Status UNV Multivitamins/ Calcium (Thera-M Plus) 1 tab DAILY PO ; Start 08/08/17 at 09:00 Ondansetron HCl (Zofran Odt) 8 mg PRN Q6HRS PRN PO NAUSEA; Start 08/07/17 at 18: 00 Sodium Chloride (Saline Mist Nasal) 1 stevan PRN Q1HR PRN NS NASAL CONGESTION; Start 08/07/17 at 18:15 Active Scripts Active Reported Alprazolam 0.25 Mg Tablet 0.25 Mg PO DAILY@1300 Trazodone Hcl 50 Mg Tablet 50 Mg PO QHS May repeat 1X Risperdal (Risperidone) 0.5 Mg Tablet 0.75 Mg PO DAILY Temazepam 15 Mg Capsule 15 Mg PO PRN QHS PRN Administer if first dose not effective Temazepam 15 Mg Capsule 15 Mg PO QHS Klor-Con M20 (Potassium Chloride) 20 Meq Tab.er.prt 20 Meq PO BID Zyprexa Zydis (Olanzapine) 5 Mg Tab.rapdis 2.5 Mg PO PRN Q2HR PRN Mirtazapine 15 Mg Tablet 7.5 Mg PO QHS Ferrous Sulfate 325 Mg Tablet 325 Mg PO DAILYWBKFT Depakote Er (Divalproex Sodium) 500 Mg Tab.er.24h 500 Mg PO QHS Vitamin D3 (Cholecalciferol (Vitamin D3)) 1,000 Unit Tablet 2,000 Unit PO DAILYBFRLUN Alprazolam 1 Mg Tablet 1 Mg PO BID PRN Protonix (Pantoprazole Sodium) 40 Mg Tablet.dr 40 Mg PO DAILYAC Zofran Odt (Ondansetron) 8 Mg Tab.rapdis 8 Mg PO PRN Q6HRS PRN Multivitamins (Multivitamin) 1 Each Tablet 1 Tab PO DAILY Docusate Sodium 100 Mg Capsule 100 Mg PO BID Atorvastatin Calcium 20 Mg Tablet 20 Mg PO QHS Saline Nasal Mist (Sodium Chloride) 126 Ml Mist 1 Stevan NS PRN Q1HR PRN Analgesic [place] (Methyl Salicylate/Menthol) 29 Gm Oint...g. 1 Stevan TP PRN QID PRN Milk Of Magnesia (Magnesium Hydroxide) 2,400 Mg/10 Ml Oral.susp 2,400 Mg PO PRN QHS PRN Advanced Antacid Liquid (Mag Hydrox/Al Hydrox/Simeth) 355 Ml Oral.susp 15 Ml PO PRN AFTMEALHC PRN Tylenol (Acetaminophen) 325 Mg Tablet 650 Mg PO PRN Q6HRS PRN Aspirin 81 Mg Tab.chew 81 Mg PO DAILY I have reviewed the current psychotropics carefully including drug interactions. Risk benefit ratio favors no change other than as noted in my dictated progress note. Diagnosis: Problems: (1) Anxiety disorder (2) Bipolar affective disorder, mixed (3) Impulse control disorder (4) Panic disorder with agoraphobia and severe panic attacks (5) Obsessive compulsive disorder SANTIAGO FARFAN MD Aug 07, 2017 20:07
[2017-08-07] MEDS ORDERED: DIVALPROEX ER 500 MG TAB.ER.24H PO SCH (21:00)
--- NOTE | 2017-08-07 21:45 | NUR ---
Behavior Intervention Response and Plan: BIRP Note: Behavior: Assumed Care of patient, patient located in Patient Room at shift change. Patient exhibited the following behavior Restless, Wandering, Disorganized. Brief assessment on rounds of vital signs, medication needs, lab studies, and pain. Treatment plan problems .1&2 Intervention: Patient assessed and the following interventions initiated safety checks 15 Minute Checks Cognitive Assessment , Head to toe Assessment , Medications. Response: After interactions and interventions patient responded in the following manner, Compulsive , Able to Focus on Task ,Cooperative. Continue to assess behaviors and condition will continue to monitor throughout the shift as needed. Patient educated on ADL's, and hand hygiene. Plan: Continue to monitor Master Treatment Plan for patient's progress toward short term goals of Decreased Anxiety, Improved Mood, joint terminal attack controller goals to return to previous living setting vs placement. Continue to assess patient for changes in above assessment. Monitor for medication needs, pain, and safety concerns. Hourly rounding performed to ensure safe environment.
[2017-08-08 04:09] LABS: HEMOGLOBIN A1C 5.1 % (4.8-5.6); THYROXINE 9.2 ug/dL (4.5-12.0)
[2017-08-08 06:23] VITALS: BP 127/59
[2017-08-08] MEDS: DOCUSATE SODIUM 100 MG CAPSULE PO SCH ×2 (08:09→19:41)
[2017-08-08] MEDS: FERROUS SULFATE 325 MG TABLET. PO SCH (08:09)
[2017-08-08] MEDS: MULTIVITAMIN with MINERAL TABLET. PO SCH (08:09)
[2017-08-08] MEDS: POTASSIUM CHLORIDE 20 MEQ TABLET.ER. PO SCH ×2 (08:09→19:42)
[2017-08-08] MEDS: risperiDONE 0.5 MG TABLET. PO SCH (08:09)
[2017-08-08] MEDS: ASPIRIN 81 MG TAB.CHEW PO SCH (08:09)
[2017-08-08] MEDS: PANTOPRAZOLE 40 MG TABLET. PO SCH (08:10)
[2017-08-08] MEDS: ALPRAZolam 0.5 MG TABLET PO PRN ×2 (08:51→20:11)
--- NOTE | 2017-08-08 09:26 | NUR ---
Behavior Intervention Response and Plan: BIRP Note: Behavior: Assumed Care of patient, patient located in Dining Room at shift change. Patient exhibited the following behavior Somatic, Compliant, Anxious. Brief assessment on rounds of vital signs, medication needs, lab studies, and pain. Treatment plan problems . Intervention: Patient assessed and the following interventions initiated safety checks 15 Minute Checks Cognitive Assessment , Head to toe Assessment , Medications. Response: After interactions and interventions patient responded in the following manner, Anxious , Drowsy ,Withdrawn. Continue to assess behaviors and condition will continue to monitor throughout the shift as needed. Patient educated on ADL's, and hand hygiene. Plan: Continue to monitor Master Treatment Plan for patient's progress toward short term goals of Decreased Anxiety, Improved Mood, [facility] goals to return to previous living setting vs placement. Continue to assess patient for changes in above assessment. Monitor for medication needs, pain, and safety concerns. Hourly rounding performed to ensure safe environment.
--- NOTE | 2017-08-08 10:51 | HP ---
ADMIT DATE: 08/07/2017 PSYCHIATRIC ADMISSION HISTORY/EVALUATION This late entry 08/07/2017 covers elements not covered in my initial note 08/07/2017. I met with the patient evening of 08/07/2017. Discussed with nursing staff on 3 or 4 occasions prior to the patient's admission to gather referral information through the Emergency Room at [facility] where the patient presented with increased agitation, anxiety, psychotic symptoms. Prior to this, I had been called by the nursing staff to refill the patient's Xanax since she was unable to get into the [facility] in [place] since her discharge from us about a month back. I done this, but despite this patient had failed outpatient psychiatric interventions resulting in this referral. CHIEF COMPLAINT: "I tried to do it on the outside, but I could not. There is something wrong. There is something wrong. I need the Xanax." HISTORY OF PRESENT ILLNESS: The patient has a history of bipolar disorder with mood swings, periods of elation, racing thoughts alternating with getting depressed, hopeless, worthless, helpless, extremely anxious, and labile. During her past hospitalization, there were periods of time when she was totally disorganized, crawling on the floor, unable to even feed herself and all of this seemed to improve as her psychosis and mood symptoms was stabilized. Recently, she has had a significant exacerbation of all of the above with worsening mood swings, sleep and appetite changes, vague suicidal ideation, no homicidal ideation. The patient has marked OCD symptoms. PAST PSYCHIATRIC HISTORY: As above. MEDICAL HISTORY: Positive for anemia, hypertension, hyperlipidemia, chronic insomnia, back pain, history of recurrent falls, recurrent UTIs. DIET: Regular. Accu-Cheks: None. She is a full code. ALLERGIES: CHOCOLATE FLAVOR and INFLUENZA VACCINE. CURRENT PSYCHOTROPICS: Xanax 1 mg twice a day p.r.n. anxiety, Depakote ER 500 mg at bedtime, Remeron 7.5 mg at bedtime, Zyprexa p.r.n., Risperdal 0.75 mg at bedtime, Restoril 15 mg at bedtime p.r.n. insomnia, trazodone 50 mg at bedtime p.r.n. FAMILY HISTORY: Noncontributory. SOCIAL HISTORY: The patient lives alone at home. No alcohol, drug abuse, physical, sexual, or elder abuse history is noted. Not known to be a perpetrator. MENTAL STATUS EXAMINATION: The patient was seen individually evening of 08/07/2017. She is anxious, restless, constantly moving, disorganized, hyperverbal, distractible. Insight, judgment, recent memory is impaired. Language function intact. Attention span short. Mood and affect labile, quite rapid, disorganized as I met with her, distractable. Reaction to hospitalization, the patient accepting of this. ASSETS: Supportive family, outpatient followup at [facility]. IMPRESSION: Bipolar 1 disorder, mixed with psychotic features, history of obsessive compulsive disorder, anxiety disorder, unspecified; cognitive disorder, unspecified. Rest as above. PLAN: Admit to geropsychiatry unit at [facility]. I will see the patient daily individually from a psychiatric standpoint. Medical followup per Dr. Childress/Dr. Bertrand. Restart her psychotropics. Check her valproic acid level, adjust to reach a therapeutic level. Adjust the benzodiazepine, Xanax as clinically indicated. MAN Richar FARFAN MD DR: INNA/melody JOB#: [id number] / [id number]
[2017-08-08] MEDS: CHOLECALCIFEROL (VITAMIN D3) 1,000 UNIT TABLET PO SCH (12:56)
[2017-08-08] MEDS: ALPRAZolam 0.25 MG TABLET PO SCH (12:56)
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
[2017-08-08 14:26] LABS: THYROID STIM HORMONE (TSH) 1.881 uIU/mL (0.358-3.740)
[2017-08-08] MEDS ORDERED: FOSFOMYCIN TROMETHAMINE 3 GM PACKET PO ONE (15:00)
[2017-08-08 16:38] VITALS: BP 114/66
--- NOTE | 2017-08-08 17:14 | HP ---
ADMIT DATE: 08/07/2017 REASON FOR ADMISSION: This is a 72-year-old female who had a previous [facility] who presented to the Emergency Room because she ran out of her Xanax. She was on it and was unable to get a refill as her psychiatrist was not available. The patient was complaining of shaking and not feeling good and so presented herself to the Emergency Room. PAST MEDICAL HISTORY: Anxiety, depression, hypertension, admission in 06/2017 for panic attacks and depression and after going to the Emergency Room at [place] in June at least 5 times. Recent UTI. PAST SURGICAL HISTORY: Right sinus surgery, , cholecystectomy. ALLERGIES: CHOCOLATE. MEDICATIONS: Reviewed and are available on the JUL. Again, she is out of her Xanax. FAMILY HISTORY: Two sisters and brothers, all younger and healthy. SOCIAL HISTORY: She is a . 2 years ago. She has 2 daughters, 1 lives in [place], 1 in [place]. Never smoked, never drank. She currently lives in an independent living group home center in [place]. Could not live in [place] as it was too expensive. REVIEW OF SYSTEMS: The patient states "I am fine now, I would like to go home, do not you think Dr. Lord will now send me home now that I have my Xanax." Complaining of jaw being swollen from biopsy. OBJECTIVE: VITAL SIGNS: Blood pressure 127/59, temperature 97.1, pulse 78, respirations 18, pulse ox 95% on room air. Height 63 inches, weight 140 pounds. GENERAL: Appearance is pale. HEENT: She has blue eyes that are clear. Nose patent. Throat clear. Face on exam, just a slight swelling of the right side of her check. There is a bony prominence internally. NECK: Supple. LUNGS: Clear to auscultation. CARDIOVASCULAR: Regular rhythm and rate. ABDOMEN: Soft, nontender. EXTREMITIES: Without edema. She has flat feet and had a callus on the bottom of her left great toe, which was easily extracted. NEUROLOGIC: She is intact. Cognitively she is intact. She is a little bit anxious, however. LABORATORY DATA: Reviewed. Normal thyroid function. Normal iron studies. Cholesterol slightly elevated at 246 with an LDL of 180. Drug screen positive for benzos. ASSESSMENT: 1. Chronic anxiety. 2. Chronic bipolar disorder, panic attacks, obsessive-compulsive disorder, anemia, hyperlipidemia, hypertension, insomnia. PLAN: Dr. Lord will manage her anxiety. INEZ PADILLA DO DR: ISHMAEL/melody JOB#: [id number] / [id number]
--- NOTE | 2017-08-08 17:29 | NUR ---
pt up for breakfast. very anxious requesting xanax. did not get up for lunch but did get up for supper. sitting calmly at dinner table.
[2017-08-08] MEDS: traZODone 50 MG TABLET. PO SCH (19:42)
[2017-08-08] MEDS: TEMAZEPAM 15 MG CAPSULE PO SCH (19:43)
[2017-08-08] MEDS: MIRTAZAPINE 7.5 MG TABLET. PO SCH (19:43)
[2017-08-08] MEDS: ATORVASTATIN CALCIUM 20 MG TABLET PO SCH (19:43)
[2017-08-08] MEDS: DIVALPROEX ER 250 MG TAB.ER.24H. PO SCH (19:44)
--- NOTE | 2017-08-08 20:03 | PDOC ---
Exam Note: Rian Note: Please also refer to the separate dictated note~for this date of service dictated separately.~Patient seen individually. Discussed the patient with Nursing staff reviewed the chart.~Reviewed interim history and current functioning. Reviewed vital signs,~Labs/ Radiology~and current medications noted below. Continue current treatment with the changes noted in the dictated addendum note Assessment: Vital Signs: Vital Signs Date Time Temp Pulse Resp B/P (MAP) Pulse Ox O2 Delivery O2 Flow Rate FiO2 08/08/17 16:38 97.0 83 18 114/66 (82) 96 08/07/17 15:35 Room Air I&O Intake and Output 08/08/17 07:00 Intake Total 120 ml Balance 120 ml Intake Oral 120 ml Current Medications: Meds: Current Medications Ondansetron HCl (Zofran Odt) 4 mg 1X ONCE PO Last administered on 08/07/17 12: 54; Start 08/07/17 at 13:00; Stop 08/07/17 at 13:01; Status DC Ciprofloxacin (Cipro) 500 mg 1X ONCE PO Last administered on 08/07/17 13:29; Start 08/07/17 at 13:30; Stop 08/07/17 at 13:31; Status DC Alprazolam (Xanax) 0.25 mg DAILY@1300 PO Last administered on 08/08/17 12:56; Start 08/08/17 at 13:00 Divalproex Sodium (Depakote Er) 500 mg QHS PO Last administered on 08/07/17at 20: 05; Start 08/07/17 at 21:00; Stop 08/08/17 at 18:51; Status DC Mirtazapine (Remeron) 7.5 mg QHS PO Last administered on 08/08/17at 19:43; Start 08/07/17 at 21:00 Olanzapine (ZyPREXA ZYDIS) 2.5 mg PRN Q2HR PRN PO PSYCHOSIS; Start 08/07/17 at 15:30 Risperidone (RisperDAL) 0.75 mg DAILY PO Last administered on 08/08/17at 08:09; Start 08/08/17 at 09:00 Temazepam (Restoril) 15 mg PRN QHS PRN PO INSOMNIA Last administered on 22:52; Start 08/07/17 at 15:30 Temazepam (Restoril) 15 mg QHS PO Last administered on 08/08/17 19:43; Start at 21:00 Trazodone HCl (Desyrel) 50 mg QHS PO Last administered on 08/08/17 19:42; Start 08/07/17 at 21:00 Alprazolam (Xanax) 1 mg PRN BID PRN PO ANXIETY / AGITATION Last administered on 08/08/17 08:51; Start 08/07/17 at 15:45 Acetaminophen (Tylenol) 650 mg PRN Q6HRS PRN PO PAIN / TEMP; Start 08/07/17 at 15:30 Multi-Ingredient Ointment (Analgesic [place]) 1 stevan PRN QID PRN TP MUSCLE PAIN; Start 08/07/17 at 15:30 Al Hydroxide/Mg Hydroxide (Mylanta Plus Xs) 15 ml PRN AFTMEALHC PRN PO DYSPEPSIA; Start 08/07/17 at 15:30 Magnesium Hydroxide (Milk Of Magnesia) 2,400 mg PRN QHS PRN PO CONSTIPATION; Start 08/07/17 at 15:30 Acetaminophen (Tylenol) 650 mg PRN Q6HRS PRN PO PAIN / TEMP; Start 08/07/17 at 17:30; Status UNV Aspirin (Children'S Aspirin) 81 mg DAILY PO Last administered on 08/08/17 08:09 ; Start 08/08/17 at 09:00 Atorvastatin Calcium (Lipitor) 20 mg QHS PO Last administered on 08/08/17 19:43 ; Start 08/07/17 at 21:00 Vitamin D (Vitamin D3) 2,000 unit DAILYBFRLUN PO Last administered on 08/08/17 12:56; Start 08/08/17 at 11:30 Docusate Sodium (Colace) 100 mg BID PO Last administered on 08/08/17 19:41; Start 08/07/17 at 21:00 Ferrous Sulfate (Feosol) 325 mg DAILYWBKFT PO Last administered on 08/08/17 08: 09; Start 08/08/17 at 08:00 Multi-Ingredient Ointment (Analgesic [place]) 1 stevan PRN QID PRN TP MUSCLE PAIN; Start 08/07/17 at 17:30; Status UNV Pantoprazole Sodium (Protonix) 40 mg DAILYAC PO Last administered on 08/08/17at 08:10; Start 08/08/17 at 07:30 Potassium Chloride (Klor-Con) 20 meq BID PO Last administered on 08/08/17at 19:42 ; Start 08/07/17 at 21:00 Non-Formulary Medication 15 ml PRN AFTMEALHC PRN PO DYSPEPSIA; Start 08/07/17 at 17:30; Status UNV Non-Formulary Medication 2,400 mg PRN QHS PRN PO CONSTIPATION; Start 08/07/17 at 17:30; Status UNV Multivitamins/ Calcium (Thera-M Plus) 1 tab DAILY PO Last administered on at 08:09; Start 08/08/17 at 09:00 Ondansetron HCl (Zofran Odt) 8 mg PRN Q6HRS PRN PO NAUSEA; Start 08/07/17 at 18: 00 Sodium Chloride (Saline Mist Nasal) 1 stevan PRN Q1HR PRN NS NASAL CONGESTION; Start 08/07/17 at 18:15 Fosfomycin Tromethamine (Monurol) 3 gm 1X ONCE PO ; Start 08/08/17 at 15:00; Stop 08/08/17 at 17:02; Status DC Divalproex Sodium (Depakote Er) 750 mg QHS PO Last administered on 08/08/17at 19: 44; Start 08/08/17 at 21:00 Active Scripts Active Reported Alprazolam 0.25 Mg Tablet 0.25 Mg PO DAILY@1300 Trazodone Hcl 50 Mg Tablet 50 Mg PO QHS May repeat 1X Risperdal (Risperidone) 0.5 Mg Tablet 0.75 Mg PO DAILY Temazepam 15 Mg Capsule 15 Mg PO PRN QHS PRN Administer if first dose not effective Temazepam 15 Mg Capsule 15 Mg PO QHS Klor-Con M20 (Potassium Chloride) 20 Meq Tab.er.prt 20 Meq PO BID Zyprexa Zydis (Olanzapine) 5 Mg Tab.rapdis 2.5 Mg PO PRN Q2HR PRN Mirtazapine 15 Mg Tablet 7.5 Mg PO QHS Ferrous Sulfate 325 Mg Tablet 325 Mg PO DAILYWBKFT Depakote Er (Divalproex Sodium) 500 Mg Tab.er.24h 500 Mg PO QHS Vitamin D3 (Cholecalciferol (Vitamin D3)) 1,000 Unit Tablet 2,000 Unit PO DAILYBFRLUN Alprazolam 1 Mg Tablet 1 Mg PO BID PRN Protonix (Pantoprazole Sodium) 40 Mg Tablet.dr 40 Mg PO DAILYAC Zofran Odt (Ondansetron) 8 Mg Tab.rapdis 8 Mg PO PRN Q6HRS PRN Multivitamins (Multivitamin) 1 Each Tablet 1 Tab PO DAILY Docusate Sodium 100 Mg Capsule 100 Mg PO BID Atorvastatin Calcium 20 Mg Tablet 20 Mg PO QHS Saline Nasal Mist (Sodium Chloride) 126 Ml Mist 1 Stevan NS PRN Q1HR PRN Analgesic [place] (Methyl Salicylate/Menthol) 29 Gm Oint...g. 1 Stevan TP PRN QID PRN Milk Of Magnesia (Magnesium Hydroxide) 2,400 Mg/10 Ml Oral.susp 2,400 Mg PO PRN QHS PRN Advanced Antacid Liquid (Mag Hydrox/Al Hydrox/Simeth) 355 Ml Oral.susp 15 Ml PO PRN AFTMEALHC PRN Tylenol (Acetaminophen) 325 Mg Tablet 650 Mg PO PRN Q6HRS PRN Aspirin 81 Mg Tab.chew 81 Mg PO DAILY I have reviewed the current psychotropics carefully including drug interactions. Risk benefit ratio favors no change other than as noted in my dictated progress note. Diagnosis: Problems: (1) Anxiety disorder (2) Bipolar affective disorder, mixed (3) Impulse control disorder (4) Panic disorder with agoraphobia and severe panic attacks (5) Obsessive compulsive disorder SANTIAGO FARFAN MD Aug 08, 2017 20:03
--- NOTE | 2017-08-08 21:45 | NUR ---
Behavior Intervention Response and Plan: BIRP Note: Behavior: Assumed Care of patient, patient located in Patient Room at shift change. Patient exhibited the following behavior Calm, Disorganized, Able to Focus on Task. Brief assessment on rounds of vital signs, medication needs, lab studies, and pain. Treatment plan problems .1&2 Intervention: Patient assessed and the following interventions initiated safety checks 15 Minute Checks Cognitive Assessment , Head to toe Assessment , Medications. Response: After interactions and interventions patient responded in the following manner, Compliant , Appropriate ,Cooperative. Continue to assess behaviors and condition will continue to monitor throughout the shift as needed. Patient educated on ADL's, and hand hygiene. 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 Continue to assess patient for changes in above assessment. Monitor for medication needs, pain, and safety concerns. Hourly rounding performed to ensure safe environment.
[2017-08-09 07:18] VITALS: BP 117/65
[2017-08-09] MEDS: PANTOPRAZOLE 40 MG TABLET. PO SCH (07:48)
[2017-08-09] MEDS: FERROUS SULFATE 325 MG TABLET. PO SCH (07:48)
[2017-08-09] MEDS: MULTIVITAMIN with MINERAL TABLET. PO SCH (07:48)
[2017-08-09] MEDS: POTASSIUM CHLORIDE 20 MEQ TABLET.ER. PO SCH ×2 (07:48→19:40)
[2017-08-09] MEDS: ASPIRIN 81 MG TAB.CHEW PO SCH (07:48)
[2017-08-09] MEDS: DOCUSATE SODIUM 100 MG CAPSULE PO SCH ×2 (07:48→19:39)
[2017-08-09] MEDS: risperiDONE 0.5 MG TABLET. PO SCH (07:49)
--- NOTE | 2017-08-09 09:29 | NUR ---
Behavior Intervention Response and Plan: BIRP Note: Behavior: Assumed Care of patient, patient located in Dining Room at shift change. Patient exhibited the following behavior Somatic, Compliant, Anxious. Brief assessment on rounds of vital signs, medication needs, lab studies, and pain. Treatment plan problems . Intervention: Patient assessed and the following interventions initiated safety checks 15 Minute Checks Cognitive Assessment , Head to toe Assessment , Medications. Response: After interactions and interventions patient responded in the following manner, Anxious , Drowsy ,Withdrawn. Continue to assess behaviors and condition will continue to monitor throughout the shift as needed. Patient educated on ADL's, and hand hygiene. Plan: Continue to monitor Master Treatment Plan for patient's progress toward short term goals of Decreased Anxiety, Improved Mood, senior living goals to return to previous living setting vs placement. Continue to assess patient for changes in above assessment. Monitor for medication needs, pain, and safety concerns. Hourly rounding performed to ensure safe environment.
[2017-08-09] MEDS: ALPRAZolam 0.5 MG TABLET PO PRN ×2 (09:30→19:40)
[2017-08-09] MEDS: CHOLECALCIFEROL (VITAMIN D3) 1,000 UNIT TABLET PO SCH (13:00)
[2017-08-09] MEDS: ALPRAZolam 0.25 MG TABLET PO SCH (13:00)
[2017-08-09 16:31] VITALS: BP 127/58
--- NOTE | 2017-08-09 16:53 | NUR ---
pt up adl to meals. has requested xanax x1 for anxiety. has been in pleasant spirits.
[2017-08-09] MEDS: traZODone 50 MG TABLET. PO SCH (19:39)
[2017-08-09] MEDS: DIVALPROEX ER 250 MG TAB.ER.24H. PO SCH (19:39)
[2017-08-09] MEDS: ATORVASTATIN CALCIUM 20 MG TABLET PO SCH (19:40)
[2017-08-09] MEDS: TEMAZEPAM 15 MG CAPSULE PO SCH (19:40)
[2017-08-09] MEDS: MIRTAZAPINE 7.5 MG TABLET. PO SCH (19:40)
--- NOTE | 2017-08-09 19:40 | NUR ---
Pt req xanax for anxiety. Administered as ordered.
--- NOTE | 2017-08-09 21:00 | NUR ---
Behavior Intervention Response and Plan: BIRP Note: Behavior: Assumed Care of patient, patient located in Day Room at shift change. Patient exhibited the following behavior Calm, Interactive, Able to Focus on Task. Brief assessment on rounds of vital signs, medication needs, lab studies, and pain. Treatment plan problems .1&2 Intervention: Patient assessed and the following interventions initiated safety checks 15 Minute Checks Cognitive Assessment , Head to toe Assessment , Medications. Response: After interactions and interventions patient responded in the following manner, Appropriate , Compliant ,Cooperative. Continue to assess behaviors and condition will continue to monitor throughout the shift as needed. Patient educated on ADL's, and hand hygiene. 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 Continue to assess patient for changes in above assessment. Monitor for medication needs, pain, and safety concerns. Hourly rounding performed to ensure safe environment.
--- NOTE | 2017-08-09 21:18 | PDOC ---
Exam Note: Rian Note: Please also refer to the separate dictated note~for this date of service dictated separately.~Patient seen individually. Discussed the patient with Nursing staff reviewed the chart.~Reviewed interim history and current functioning. Reviewed vital signs,~Labs/ Radiology~and current medications noted below. Continue current treatment with the changes noted in the dictated addendum note Assessment: Vital Signs: Vital Signs Date Time Temp Pulse Resp B/P (MAP) Pulse Ox O2 Delivery O2 Flow Rate FiO2 08/09/17 16:31 96.7 79 18 127/58 (81) 97 Room Air I&O Intake and Output 08/09/17 07:00 Intake Total 780 ml Balance 780 ml Intake Oral 780 ml Current Medications: Meds: Current Medications Ondansetron HCl (Zofran Odt) 4 mg 1X ONCE PO Last administered on 08/07/17at 12: 54; Start 08/07/17 at 13:00; Stop 08/07/17 at 13:01; Status DC Ciprofloxacin (Cipro) 500 mg 1X ONCE PO Last administered on 08/07/17at 13:29; Start 08/07/17 at 13:30; Stop 08/07/17 at 13:31; Status DC Alprazolam (Xanax) 0.25 mg DAILY@1300 PO Last administered on 08/09/17at 13:00; Start 08/08/17 at 13:00 Divalproex Sodium (Depakote Er) 500 mg QHS PO Last administered on 08/07/17at 20: 05; Start 08/07/17 at 21:00; Stop 08/08/17 at 18:51; Status DC Mirtazapine (Remeron) 7.5 mg QHS PO Last administered on 08/09/17at 19:40; Start 08/07/17 at 21:00 Olanzapine (ZyPREXA ZYDIS) 2.5 mg PRN Q2HR PRN PO PSYCHOSIS; Start 08/07/17 at 15:30 Risperidone (RisperDAL) 0.75 mg DAILY PO Last administered on 08/09/17at 07:49; Start 08/08/17 at 09:00 Temazepam (Restoril) 15 mg PRN QHS PRN PO INSOMNIA Last administered on at 22:52; Start 08/07/17 at 15:30 Temazepam (Restoril) 15 mg QHS PO Last administered on 08/09/17 19:40; Start 08/07/17 at 21:00 Trazodone HCl (Desyrel) 50 mg QHS PO Last administered on 08/09/17 19:39; Start 08/07/17 at 21:00 Alprazolam (Xanax) 1 mg PRN BID PRN PO ANXIETY / AGITATION Last administered on 08/09/17 19:40; Start 08/07/17 at 15:45 Acetaminophen (Tylenol) 650 mg PRN Q6HRS PRN PO PAIN / TEMP; Start 08/07/17 at 15:30 Multi-Ingredient Ointment (Analgesic [place]) 1 stevan PRN QID PRN TP MUSCLE PAIN; Start 08/07/17 at 15:30 Al Hydroxide/Mg Hydroxide (Mylanta Plus Xs) 15 ml PRN AFTMEALHC PRN PO DYSPEPSIA; Start 08/07/17 at 15:30 Magnesium Hydroxide (Milk Of Magnesia) 2,400 mg PRN QHS PRN PO CONSTIPATION; Start 08/07/17 at 15:30 Acetaminophen (Tylenol) 650 mg PRN Q6HRS PRN PO PAIN / TEMP; Start 08/07/17 at 17:30; Status UNV Aspirin (Children'S Aspirin) 81 mg DAILY PO Last administered on 08/09/17 07: 48; Start 08/08/17 at 09:00 Atorvastatin Calcium (Lipitor) 20 mg QHS PO Last administered on 08/09/17 19: 40; Start 08/07/17 at 21:00 Vitamin D (Vitamin D3) 2,000 unit DAILYBFRLUN PO Last administered on at 13:00; Start 08/08/17 at 11:30 Docusate Sodium (Colace) 100 mg BID PO Last administered on 08/09/17 19:39; Start 08/07/17 at 21:00 Ferrous Sulfate (Feosol) 325 mg DAILYWBKFT PO Last administered on 08/09/17 07 :48; Start 08/08/17 at 08:00 Multi-Ingredient Ointment (Analgesic [place]) 1 stevan PRN QID PRN TP MUSCLE PAIN; Start 08/07/17 at 17:30; Status UNV Pantoprazole Sodium (Protonix) 40 mg DAILYAC PO Last administered on 08/09/17at 07:48; Start 08/08/17 at 07:30 Potassium Chloride (Klor-Con) 20 meq BID PO Last administered on 08/09/17at 19: 40; Start 08/07/17 at 21:00 Non-Formulary Medication 15 ml PRN AFTMEALHC PRN PO DYSPEPSIA; Start 08/07/17 at 17:30; Status UNV Non-Formulary Medication 2,400 mg PRN QHS PRN PO CONSTIPATION; Start 08/07/17 at 17:30; Status UNV Multivitamins/ Calcium (Thera-M Plus) 1 tab DAILY PO Last administered on at 07:48; Start 08/08/17 at 09:00 Ondansetron HCl (Zofran Odt) 8 mg PRN Q6HRS PRN PO NAUSEA; Start 08/07/17 at 18: 00 Sodium Chloride (Saline Mist Nasal) 1 stevan PRN Q1HR PRN NS NASAL CONGESTION; Start 08/07/17 at 18:15 Fosfomycin Tromethamine (Monurol) 3 gm 1X ONCE PO ; Start 08/08/17 at 15:00; Stop 08/08/17 at 17:02; Status DC Divalproex Sodium (Depakote Er) 750 mg QHS PO Last administered on 08/09/17at 19 :39; Start 08/08/17 at 21:00 Active Scripts Active Reported Alprazolam 0.25 Mg Tablet 0.25 Mg PO DAILY@1300 Trazodone Hcl 50 Mg Tablet 50 Mg PO QHS May repeat 1X Risperdal (Risperidone) 0.5 Mg Tablet 0.75 Mg PO DAILY Temazepam 15 Mg Capsule 15 Mg PO PRN QHS PRN Administer if first dose not effective Temazepam 15 Mg Capsule 15 Mg PO QHS Klor-Con M20 (Potassium Chloride) 20 Meq Tab.er.prt 20 Meq PO BID Zyprexa Zydis (Olanzapine) 5 Mg Tab.rapdis 2.5 Mg PO PRN Q2HR PRN Mirtazapine 15 Mg Tablet 7.5 Mg PO QHS Ferrous Sulfate 325 Mg Tablet 325 Mg PO DAILYWBKFT Depakote Er (Divalproex Sodium) 500 Mg Tab.er.24h 500 Mg PO QHS Vitamin D3 (Cholecalciferol (Vitamin D3)) 1,000 Unit Tablet 2,000 Unit PO DAILYBFRLUN Alprazolam 1 Mg Tablet 1 Mg PO BID PRN Protonix (Pantoprazole Sodium) 40 Mg Tablet.dr 40 Mg PO DAILYAC Zofran Odt (Ondansetron) 8 Mg Tab.rapdis 8 Mg PO PRN Q6HRS PRN Multivitamins (Multivitamin) 1 Each Tablet 1 Tab PO DAILY Docusate Sodium 100 Mg Capsule 100 Mg PO BID Atorvastatin Calcium 20 Mg Tablet 20 Mg PO QHS Saline Nasal Mist (Sodium Chloride) 126 Ml Mist 1 Stevan NS PRN Q1HR PRN Analgesic [place] (Methyl Salicylate/Menthol) 29 Gm Oint...g. 1 Stevan TP PRN QID PRN Milk Of Magnesia (Magnesium Hydroxide) 2,400 Mg/10 Ml Oral.susp 2,400 Mg PO PRN QHS PRN Advanced Antacid Liquid (Mag Hydrox/Al Hydrox/Simeth) 355 Ml Oral.susp 15 Ml PO PRN AFTMEALHC PRN Tylenol (Acetaminophen) 325 Mg Tablet 650 Mg PO PRN Q6HRS PRN Aspirin 81 Mg Tab.chew 81 Mg PO DAILY I have reviewed the current psychotropics carefully including drug interactions. Risk benefit ratio favors no change other than as noted in my dictated progress note. Diagnosis: Problems: (1) Anxiety disorder (2) Bipolar affective disorder, mixed (3) Impulse control disorder (4) Panic disorder with agoraphobia and severe panic attacks (5) Obsessive compulsive disorder SANTIAGO FARFAN MD Aug 09, 2017 21:17
[2017-08-10 06:31] VITALS: BP 131/81
[2017-08-10] MEDS: ASPIRIN 81 MG TAB.CHEW PO SCH (07:35)
[2017-08-10] MEDS: PANTOPRAZOLE 40 MG TABLET. PO SCH (07:35)
[2017-08-10] MEDS: DOCUSATE SODIUM 100 MG CAPSULE PO SCH ×2 (07:35→20:16)
[2017-08-10] MEDS: POTASSIUM CHLORIDE 20 MEQ TABLET.ER. PO SCH ×2 (07:36→20:14)
[2017-08-10] MEDS: MULTIVITAMIN with MINERAL TABLET. PO SCH (07:36)
[2017-08-10] MEDS: risperiDONE 0.5 MG TABLET. PO SCH (07:37)
[2017-08-10] MEDS: FERROUS SULFATE 325 MG TABLET. PO SCH (07:37)
[2017-08-10] MEDS: ALPRAZolam 0.5 MG TABLET PO PRN ×2 (07:38→20:29)
--- NOTE | 2017-08-10 10:25 | NUR ---
Behavior Intervention Response and Plan: BIRP Note: Behavior: Assumed Care of patient, patient located in Dining Room at shift change. Patient exhibited the following behavior Somatic, Compliant, Anxious. Brief assessment on rounds of vital signs, medication needs, lab studies, and pain. Treatment plan problems . Intervention: Patient assessed and the following interventions initiated safety checks 15 Minute Checks Cognitive Assessment , Head to toe Assessment , Medications. Response: After interactions and interventions patient responded in the following manner, Anxious , Drowsy ,Withdrawn. Continue to assess behaviors and condition will continue to monitor throughout the shift as needed. Patient educated on ADL's, and hand hygiene. Plan: Continue to monitor Master Treatment Plan for patient's progress toward short term goals of Decreased Anxiety, Improved Mood, intermediate goals to return to previous living setting vs placement. Continue to assess patient for changes in above assessment. Monitor for medication needs, pain, and safety concerns. Hourly rounding performed to ensure safe environment.
--- NOTE | 2017-08-10 10:25 | NUR ---
Attempted to meet and complete assessment; however, Pt. was sleeping
[2017-08-10] MEDS: CHOLECALCIFEROL (VITAMIN D3) 1,000 UNIT TABLET PO SCH (11:30)
[2017-08-10] MEDS: ALPRAZolam 0.25 MG TABLET PO SCH (13:00)
--- NOTE | 2017-08-10 14:13 | PN ---
DATE: 08/08/2017 This late entry, 08/08/2017, covers elements not covered in my initial note of 08/08/2017. SUBJECTIVE: I met with the patient the evening of 08/08/2017. The patient remains somewhat anxious around breakfast time, refused lunch, ate some dinner. REVIEW OF SYSTEMS: No CV, , pulmonary, eye system symptoms on review. Complains of tiredness. Valproic acid level is 41. MENTAL STATUS EXAM: Reasonably oriented. Speech coherent, abstraction fair, computation impaired, language function intact, attention span short. Mood and affect somewhat anxious and labile at times. LABORATORY DATA: Valproic acid level subtherapeutic at 41 on Depakote ER 500 mg p.o. at bedtime. PLAN: Continue Remeron 7.5 mg at bedtime, Risperdal 0.75 mg at bedtime, Zyprexa p.r.n., trazodone 50 mg at bedtime, Xanax 1 mg twice a day. We will increase Depakote ER to 750 mg at bedtime. Check CBC, CMP, valproic acid level in 3 days. MAN Richar FARFAN MD DR: INNA/melody JOB#: [id number] / [id number]
[2017-08-10 16:28] VITALS: BP 131/79
--- NOTE | 2017-08-10 16:49 | NUR ---
pt up adl to meals. has been quiet and withdrawn at times. c/o of constipation. MOM given per pt request.
[2017-08-10] MEDS: TEMAZEPAM 15 MG CAPSULE PO SCH (20:13)
[2017-08-10] MEDS: MIRTAZAPINE 7.5 MG TABLET. PO SCH (20:13)
[2017-08-10] MEDS: traZODone 50 MG TABLET. PO SCH (20:14)
[2017-08-10] MEDS: DIVALPROEX ER 250 MG TAB.ER.24H. PO SCH (20:14)
[2017-08-10] MEDS: ATORVASTATIN CALCIUM 20 MG TABLET PO SCH (20:16)
--- NOTE | 2017-08-10 21:13 | PDOC ---
Exam Note: Rian Note: Please also refer to the separate dictated note~for this date of service dictated separately.~Patient seen individually. Discussed the patient with Nursing staff reviewed the chart.~Reviewed interim history and current functioning. Reviewed vital signs,~Labs/ Radiology~and current medications noted below. Continue current treatment with the changes noted in the dictated addendum note Assessment: Vital Signs: Vital Signs Date Time Temp Pulse Resp B/P (MAP) Pulse Ox O2 Delivery O2 Flow Rate FiO2 08/10/17 16:28 97.9 96 20 131/79 (96) 97 08/09/17 16:31 Room Air I&O Intake and Output 08/10/17 07:00 Intake Total 900 ml Balance 900 ml Intake Oral 900 ml Current Medications: Meds: Current Medications Ondansetron HCl (Zofran Odt) 4 mg 1X ONCE PO Last administered on 08/07/17 12: 54; Start 08/07/17 at 13:00; Stop 08/07/17 at 13:01; Status DC Ciprofloxacin (Cipro) 500 mg 1X ONCE PO Last administered on 08/07/17 13:29; Start 08/07/17 at 13:30; Stop 08/07/17 at 13:31; Status DC Alprazolam (Xanax) 0.25 mg DAILY@1300 PO Last administered on 08/10/17 13:00; Start 08/08/17 at 13:00 Divalproex Sodium (Depakote Er) 500 mg QHS PO Last administered on 08/07/17 20: 05; Start 08/07/17 at 21:00; Stop 08/08/17 at 18:51; Status DC Mirtazapine (Remeron) 7.5 mg QHS PO Last administered on 08/10/17at 20:13; Start 08/07/17 at 21:00 Olanzapine (ZyPREXA ZYDIS) 2.5 mg PRN Q2HR PRN PO PSYCHOSIS; Start 08/07/17 at 15:30 Risperidone (RisperDAL) 0.75 mg DAILY PO Last administered on 08/10/17at 07:37; Start 08/08/17 at 09:00 Temazepam (Restoril) 15 mg PRN QHS PRN PO INSOMNIA Last administered on 22:52; Start 08/07/17 at 15:30 Temazepam (Restoril) 15 mg QHS PO Last administered on 08/10/17 20:13; Start 08/07/17 at 21:00 Trazodone HCl (Desyrel) 50 mg QHS PO Last administered on 08/10/17 20:14; Start 08/07/17 at 21:00 Alprazolam (Xanax) 1 mg PRN BID PRN PO ANXIETY / AGITATION Last administered on 08/10/17 20:29; Start 08/07/17 at 15:45 Acetaminophen (Tylenol) 650 mg PRN Q6HRS PRN PO PAIN / TEMP; Start 08/07/17 at 15:30 Multi-Ingredient Ointment (Analgesic [place]) 1 stevan PRN QID PRN TP MUSCLE PAIN; Start 08/07/17 at 15:30 Al Hydroxide/Mg Hydroxide (Mylanta Plus Xs) 15 ml PRN AFTMEALHC PRN PO DYSPEPSIA; Start 08/07/17 at 15:30 Magnesium Hydroxide (Milk Of Magnesia) 2,400 mg PRN QHS PRN PO CONSTIPATION; Start 08/07/17 at 15:30 Acetaminophen (Tylenol) 650 mg PRN Q6HRS PRN PO PAIN / TEMP; Start 08/07/17 at 17:30; Status UNV Aspirin (Children'S Aspirin) 81 mg DAILY PO Last administered on 08/10/17 07: 35; Start 08/08/17 at 09:00 Atorvastatin Calcium (Lipitor) 20 mg QHS PO Last administered on 08/10/17 20: 16; Start 08/07/17 at 21:00 Vitamin D (Vitamin D3) 2,000 unit DAILYBFRLUN PO Last administered on 11:30; Start 08/08/17 at 11:30 Docusate Sodium (Colace) 100 mg BID PO Last administered on 08/10/17 20:16; Start 08/07/17 at 21:00 Ferrous Sulfate (Feosol) 325 mg DAILYWBKFT PO Last administered on 08/10/17 07 :37; Start 08/08/17 at 08:00 Multi-Ingredient Ointment (Analgesic [place]) 1 stevan PRN QID PRN TP MUSCLE PAIN; Start 08/07/17 at 17:30; Status UNV Pantoprazole Sodium (Protonix) 40 mg DAILYAC PO Last administered on 08/10/17at 07:35; Start 08/08/17 at 07:30 Potassium Chloride (Klor-Con) 20 meq BID PO Last administered on 08/10/17at 20: 14; Start 08/07/17 at 21:00 Non-Formulary Medication 15 ml PRN AFTMEALHC PRN PO DYSPEPSIA; Start 08/07/17 at 17:30; Status UNV Non-Formulary Medication 2,400 mg PRN QHS PRN PO CONSTIPATION; Start 08/07/17 at 17:30; Status UNV Multivitamins/ Calcium (Thera-M Plus) 1 tab DAILY PO Last administered on at 07:36; Start 08/08/17 at 09:00 Ondansetron HCl (Zofran Odt) 8 mg PRN Q6HRS PRN PO NAUSEA; Start 08/07/17 at 18: 00 Sodium Chloride (Saline Mist Nasal) 1 stevan PRN Q1HR PRN NS NASAL CONGESTION; Start 08/07/17 at 18:15 Fosfomycin Tromethamine (Monurol) 3 gm 1X ONCE PO ; Start 08/08/17 at 15:00; Stop 08/08/17 at 17:02; Status DC Divalproex Sodium (Depakote Er) 750 mg QHS PO Last administered on 08/10/17at 20 :14; Start 08/08/17 at 21:00 Active Scripts Active Reported Alprazolam 0.25 Mg Tablet 0.25 Mg PO DAILY@1300 Trazodone Hcl 50 Mg Tablet 50 Mg PO QHS May repeat 1X Risperdal (Risperidone) 0.5 Mg Tablet 0.75 Mg PO DAILY Temazepam 15 Mg Capsule 15 Mg PO PRN QHS PRN Administer if first dose not effective Temazepam 15 Mg Capsule 15 Mg PO QHS Klor-Con M20 (Potassium Chloride) 20 Meq Tab.er.prt 20 Meq PO BID Zyprexa Zydis (Olanzapine) 5 Mg Tab.rapdis 2.5 Mg PO PRN Q2HR PRN Mirtazapine 15 Mg Tablet 7.5 Mg PO QHS Ferrous Sulfate 325 Mg Tablet 325 Mg PO DAILYWBKFT Depakote Er (Divalproex Sodium) 500 Mg Tab.er.24h 500 Mg PO QHS Vitamin D3 (Cholecalciferol (Vitamin D3)) 1,000 Unit Tablet 2,000 Unit PO DAILYBFRLUN Alprazolam 1 Mg Tablet 1 Mg PO BID PRN Protonix (Pantoprazole Sodium) 40 Mg Tablet.dr 40 Mg PO DAILYAC Zofran Odt (Ondansetron) 8 Mg Tab.rapdis 8 Mg PO PRN Q6HRS PRN Multivitamins (Multivitamin) 1 Each Tablet 1 Tab PO DAILY Docusate Sodium 100 Mg Capsule 100 Mg PO BID Atorvastatin Calcium 20 Mg Tablet 20 Mg PO QHS Saline Nasal Mist (Sodium Chloride) 126 Ml Mist 1 Stevan NS PRN Q1HR PRN Analgesic [place] (Methyl Salicylate/Menthol) 29 Gm Oint...g. 1 Stevan TP PRN QID PRN Milk Of Magnesia (Magnesium Hydroxide) 2,400 Mg/10 Ml Oral.susp 2,400 Mg PO PRN QHS PRN Advanced Antacid Liquid (Mag Hydrox/Al Hydrox/Simeth) 355 Ml Oral.susp 15 Ml PO PRN AFTMEALHC PRN Tylenol (Acetaminophen) 325 Mg Tablet 650 Mg PO PRN Q6HRS PRN Aspirin 81 Mg Tab.chew 81 Mg PO DAILY I have reviewed the current psychotropics carefully including drug interactions. Risk benefit ratio favors no change other than as noted in my dictated progress note. Diagnosis: Problems: (1) Anxiety disorder (2) Bipolar affective disorder, mixed (3) Impulse control disorder (4) Panic disorder with agoraphobia and severe panic attacks (5) Obsessive compulsive disorder SANTIAGO FARFAN MD Aug 10, 2017 21:13
--- NOTE | 2017-08-10 22:48 | NUR ---
Behavior Intervention Response and Plan: BIRP Note: Behavior: Assumed Care of patient, patient located in Day Room at shift change. Patient exhibited the following behavior Able to Focus on Task, Anxious, Interactive. Brief assessment on rounds of vital signs, medication needs, lab studies, and pain. Treatment plan problems:1-2 Intervention: Patient assessed and the following interventions initiated safety checks 15 Minute Checks Cognitive Assessment , Head to toe Assessment , Medications. Response: After interactions and interventions patient responded in the following manner, Anxious , Able to Focus on Task ,Compliant. Continue to assess behaviors and condition will continue to monitor throughout the shift as needed. Patient educated on ADL's, and hand hygiene. Plan: Continue to monitor Master Treatment Plan for patient's progress toward short term goals of Decreased Anxiety, Improved Mood, long term care phlebotomist goals to return to previous living setting vs placement. Continue to assess patient for changes in above assessment. Monitor for medication needs, pain, and safety concerns. Hourly rounding performed to ensure safe environment.
[2017-08-11 06:05] VITALS: BP 120/75
[2017-08-11] MEDS: PANTOPRAZOLE 40 MG TABLET. PO SCH (07:35)
[2017-08-11] MEDS: FERROUS SULFATE 325 MG TABLET. PO SCH (07:43)
[2017-08-11 07:55] LABS: BASO % 1 % (0-3); EOS # 0.2 x10^3/uL (0.0-0.7); EOS % 4 % (0-3); HEMATOCRIT 32.6 % (36.0-47.0); HEMOGLOBIN 10.8 g/dL (12.0-15.5); LYMPH # 1.9 x10^3/uL (1.0-4.8); LYMPH % 37 % (24-48); MEAN CORPUSCULAR HEMOGLOBIN 30 pg (25-35); MEAN CORPUSCULAR HGB CONC 33 g/dL (31-37); MEAN CORPUSCULAR VOLUME 92 fL (79-100); MONO # 0.7 x10^3/uL (0.0-1.1); MONO % 13 % (0-9); NEUT # 2.3 x10^3uL (1.8-7.7); NEUT % 45 % (31-73); PLATELET COUNT 230 x10^3/uL (140-400); RED BLOOD COUNT 3.56 x10^6/uL (3.50-5.40); RED CELL DISTRIBUTION WIDTH 15.6 % (11.5-14.5); WHITE BLOOD COUNT 5.2 x10^3/uL (4.0-11.0)
[2017-08-11 08:05] LABS: ALBUMIN/GLOBULIN RATIO 0.8 (1.0-1.7); ALK PHOS 54 U/L (46-116); ALT (SGPT) 17 U/L (14-59); ANION GAP 7 (6-14); AST (SGOT) 16 U/L (15-37); BLOOD UREA NITROGEN 16 mg/dL (7-20); BUN/CREATININE RATIO 18 (6-20); CALCIUM 8.6 mg/dL (8.5-10.1); CARBON DIOXIDE 27 mmol/L (21-32); CHLORIDE 103 mmol/L (98-107); CREATININE 0.9 mg/dL (0.6-1.0); GFR 61.7; GLUCOSE 82 mg/dL (70-99); POTASSIUM 4.3 mmol/L (3.5-5.1); SODIUM 137 mmol/L (136-145); TOTAL BILIRUBIN 0.4 mg/dL (0.2-1.0); TOTAL PROTEIN 6.7 g/dL (6.4-8.2)
[2017-08-11 08:07] LABS: VAL ACID 80 mcg/mL (50-100)
[2017-08-11] MEDS: DOCUSATE SODIUM 100 MG CAPSULE PO SCH ×2 (08:52→20:23)
[2017-08-11] MEDS: POTASSIUM CHLORIDE 20 MEQ TABLET.ER. PO SCH ×2 (08:52→20:23)
[2017-08-11] MEDS: ALPRAZolam 0.5 MG TABLET PO PRN ×2 (08:52→20:53)
[2017-08-11] MEDS: MULTIVITAMIN with MINERAL TABLET. PO SCH (08:52)
[2017-08-11] MEDS: ASPIRIN 81 MG TAB.CHEW PO SCH (08:52)
[2017-08-11] MEDS: risperiDONE 0.5 MG TABLET. PO SCH (08:53)
--- NOTE | 2017-08-11 09:34 | PN ---
DATE: 08/09/2017 PSYCHIATRIC PROGRESS NOTE This late entry 08/09/2017 covers elements not covered in my initial note of 08/09/2017. SUBJECTIVE: Met with the patient in the afternoon of 08/09/2017 in her room. She has been calm, cooperative, still anxious, labile at times. REVIEW OF SYSTEMS: No CV, , pulmonary, eye, ENT system symptoms on review. Slept six and a quarter hours previous evening. MENTAL STATUS EXAM: Reasonably oriented. Speech coherent, abstraction fair, computation impaired, language function intact, attention span short. Mood and affect is anxious, labile, but showing improvement. LABORATORY DATA: Reviewed. Valproic acid level is subtherapeutic at 41. Depakote is being adjusted. Repeat labs level. IMPRESSION: Unchanged from initial note. Bipolar 1 disorder, mixed with psychotic features, in partial remission; anxiety disorder, unspecified. PLAN: Continue psychotropics mentioned in my initial note. Check labs level of the Depakote on 08/11/2017. Adjust as clinically indicated. MAN Richar FARFAN MD DR: INNA/melody JOB#: [id number] / [id number]
[2017-08-11] MEDS: CHOLECALCIFEROL (VITAMIN D3) 1,000 UNIT TABLET PO SCH (12:16)
[2017-08-11] MEDS: ALPRAZolam 0.25 MG TABLET PO SCH (12:21)
--- NOTE | 2017-08-11 13:35 | NUR ---
Attempted to meet and complete assessment; however, Pt. was sleeping at both 0945 and 1335.
--- NOTE | 2017-08-11 14:00 | NUR ---
Behavior Intervention Response and Plan: BIRP Note: Behavior: Assumed Care of patient, patient located in Hallway at shift change. Patient exhibited the following behavior Anxious, Medication Seeking, Withdrawn. Brief assessment on rounds of vital signs, medication needs, lab studies, and pain. Treatment plan problems alteration in mood and fall risk . Intervention: Patient assessed and the following interventions initiated safety checks 15 Minute Checks Head to toe Assessment , Cognitive Assessment , Medications. Response: After interactions and interventions patient responded in the following manner, Drowsy , Compliant ,Withdrawn. Continue to assess behaviors and condition will continue to monitor throughout the shift as needed. Patient educated on ADL's, and hand hygiene. Plan: Continue to monitor Master Treatment Plan for patient's progress toward short term goals of Decreased Agitation, Decreased Anxiety, retirement goals to return to previous living setting vs placement. Continue to assess patient for changes in above assessment. Monitor for medication needs, pain, and safety concerns. Hourly rounding performed to ensure safe environment.
[2017-08-11 16:11] VITALS: BP 154/88
--- NOTE | 2017-08-11 17:33 | NUR ---
SW reviewed pt's insurance upon admit. Face sheet, CSNAP and intake state pt's insurance is Medicare A, B and no part C. No auth required.
--- NOTE | 2017-08-11 17:34 | NUR ---
SW discussed concerns w/Dr. Lord regarding pt's reason for admit to this facility. According to intake and pt's report to Dr. Lord, pt had run out of her Xanax, prompting her to call a cab and request to be driven to this facility for admit so that she could have her prescription refilled. It has been noted by ER staff upon arrival by cab, pt was crawling on the ambulance bay. Pt was admitted to the unit and has since, displayed med seeking behaviors. SW expressed concerns w/pt not following thru w/previous dc plan on 07/03/17 set by this SW for pt to attend [facility] walk in intake services to establish w/a Psychiatrist nor was she able to have a refill by a PCP. It should also be noted pt requested a short fill by Dr. Lord, which was provided, and pt still presented requesting a prescription a week later. KELLI would like to work w/pt on discharging straight from this facility to [facility] to assist in establishing services for pt and to hopefully eliminate any future roadblocks for pt on refilling medications in the [facility]. SW then met w/pt 1:1 in pt's room to discuss dc plans. Pt presented alert, oriented, well kept, organized, speech normal, maintained eye contact, body language appropriate and did not appear to this SW to have current anxiety. Pt stated she was ready to dc from this facility as soon as she could get the medications straightened out. SW asked if pt would be ready to dc tomorrow, and pt stated yes, as long as the medication refill was handled. SW asked for pt to explain what happened to make pt take a cab to this facility. Pt initially stated her "caregiver" messed up her Xanax and didn't give it to her. Pt stated she will just have to start having the Pharmacy deliver the medications straight to her since she can't trust her caregiver to get it correct. SW clarified w/pt the issue was she needed a new script because she did not have any more refills. Pt then stated yes, she was suppose to have an appointment at [facility], but it got pushed back and that wasn't her fault so "someone, maybe the pharmacy, but it wasn't her even though that nurse said it was me" called Dr. Lord for a refill and it was suppose to be at the Pharmacy but it wasn't actually there. Pt stated she last took Xanax on Friday, went w/o Friday- and then took a cab to this facility evening. SW inquired about pt's behavior upon arriving to the ED, specifically crawling on her knees in the ambulance bay. Pt stated she did not remember this, and seemed surprised, stating "well, I didn't really have time for that this time. They had me on a bed pretty quickly once I arrived. I know I did that quite a bit last time I was here just a few weeks ago, but I didn't have time for it this time". SW attempted to clarify w/pt several times regarding the [facility] appointments and timeline for when pt did go in for an intake. Pt's time frame for appointments was not consistent. SW also asked pt about f/u w/Dr. Edmonds office and why she did not attempt to request a refill from his office and pt stated initially she did not know she had a f/u w/his office at last dc, then she stated she did know but canceled his appt to go to a Dr. Verdin but found out she does not prescribe psych medications. Pt stated she called Dr. Edmonds last week for a refill but was unable to schedule another appt? SW asked if pt would consent to signing a release of information for further communication w/[facility]. Pt was agreeable and SW faxed the release to [facility]. SW will f/u in the am w/previous intake date and to verify if pt does have a medication appt already scheduled, as pt has reported to this SW, for August 12 at 3:30pm. SW spoke very candidly to pt about the importance of following thru with med appointments as she will not be able to continue to use this facility as a way to have her medications refilled. Pt stated she understands this and is willing to dc tomorrow and go straight to [facility] for her med appt to officially become established and on a schedule. Pt requested SW to arrange for the same transportation as during last visit w/[facility]. Pt would like for SW to attempt to set up a f/u appt w/ Dr. Edmonds's office.
[2017-08-11] MEDS: ATORVASTATIN CALCIUM 20 MG TABLET PO SCH (20:22)
[2017-08-11] MEDS: MIRTAZAPINE 7.5 MG TABLET. PO SCH (20:22)
[2017-08-11] MEDS: DIVALPROEX ER 250 MG TAB.ER.24H. PO SCH (20:22)
[2017-08-11] MEDS: TEMAZEPAM 15 MG CAPSULE PO SCH (20:23)
[2017-08-11] MEDS: traZODone 50 MG TABLET. PO SCH (20:23)
--- NOTE | 2017-08-11 20:37 | PDOC ---
Exam Note: Rian Note: Please also refer to the separate dictated note~for this date of service dictated separately.~Patient seen individually. Discussed the patient with Nursing staff reviewed the chart.~Reviewed interim history and current functioning. Reviewed vital signs,~Labs/ Radiology~and current medications noted below. Continue current treatment with the changes noted in the dictated addendum note Assessment: Vital Signs: Vital Signs Date Time Temp Pulse Resp B/P (MAP) Pulse Ox O2 Delivery O2 Flow Rate FiO2 08/11/17 16:11 97.7 80 18 154/88 (110) 98 08/09/17 16:31 Room Air I&O Intake and Output 08/11/17 07:00 Intake Total 680 ml Balance 680 ml Intake Oral 680 ml Labs: Laboratory Tests Test 08/11/17 07:33 White Blood Count 5.2 x10^3/uL (4.0-11.0) Red Blood Count 3.56 x10^6/uL (3.50-5.40) Hemoglobin 10.8 g/dL (12.0-15.5) L Hematocrit 32.6 % (36.0-47.0) L Mean Corpuscular Volume 92 fL (79-100) Mean Corpuscular Hemoglobin 30 pg (25-35) Mean Corpuscular Hemoglobin Concent 33 g/dL (31-37) Red Cell Distribution Width 15.6 % (11.5-14.5) H Platelet Count 230 x10^3/uL (140-400) Neutrophils (%) (Auto) 45 % (31-73) Lymphocytes (%) (Auto) 37 % (24-48) Monocytes (%) (Auto) 13 % (0-9) H Eosinophils (%) (Auto) 4 % (0-3) H Basophils (%) (Auto) 1 % (0-3) Neutrophils # (Auto) 2.3 x10^3uL (1.8-7.7) Lymphocytes # (Auto) 1.9 x10^3/uL (1.0-4.8) Monocytes # (Auto) 0.7 x10^3/uL (0.0-1.1) Eosinophils # (Auto) 0.2 x10^3/uL (0.0-0.7) Basophils # (Auto) 0.0 x10^3/uL (0.0-0.2) Sodium Level 137 mmol/L (136-145) Potassium Level 4.3 mmol/L (3.5-5.1) Chloride Level 103 mmol/L (98-107) Carbon Dioxide Level 27 mmol/L (21-32) Anion Gap 7 (6-14) Blood Urea Nitrogen 16 mg/dL (7-20) Creatinine 0.9 mg/dL (0.6-1.0) Estimated GFR (Cockcroft-Gault) 61.7 BUN/Creatinine Ratio 18 (6-20) Glucose Level 82 mg/dL (70-99) Calcium Level 8.6 mg/dL (8.5-10.1) Total Bilirubin 0.4 mg/dL (0.2-1.0) Aspartate Amino Transferase (AST) 16 U/L (15-37) Alanine Aminotransferase (ALT) 17 U/L (14-59) Alkaline Phosphatase 54 U/L (46-116) Total Protein 6.7 g/dL (6.4-8.2) Albumin 3.0 g/dL (3.4-5.0) L Albumin/Globulin Ratio 0.8 (1.0-1.7) L Valproic Acid Level 80 mcg/mL (50-100) Valproic Acid Last Dose Date 08/10/17 Valproic Acid Last Dose Time 2100 Current Medications: Meds: Current Medications Ondansetron HCl (Zofran Odt) 4 mg 1X ONCE PO Last administered on 08/07/17at 12: 54; Start 08/07/17 at 13:00; Stop 08/07/17 at 13:01; Status DC Ciprofloxacin (Cipro) 500 mg 1X ONCE PO Last administered on 08/07/17at 13:29; Start 08/07/17 at 13:30; Stop 08/07/17 at 13:31; Status DC Alprazolam (Xanax) 0.25 mg DAILY@1300 PO Last administered on 08/11/17at 12:21; Start 08/08/17 at 13:00 Divalproex Sodium (Depakote Er) 500 mg QHS PO Last administered on 08/07/17at 20: 05; Start 08/07/17 at 21:00; Stop 08/08/17 at 18:51; Status DC Mirtazapine (Remeron) 7.5 mg QHS PO Last administered on 08/11/17 20:22; Start 08/07/17 at 21:00 Olanzapine (ZyPREXA ZYDIS) 2.5 mg PRN Q2HR PRN PO PSYCHOSIS; Start 08/07/17 at 15:30 Risperidone (RisperDAL) 0.75 mg DAILY PO Last administered on 08/11/17 08:53; Start 08/08/17 at 09:00 Temazepam (Restoril) 15 mg PRN QHS PRN PO INSOMNIA Last administered on 22:52; Start 08/07/17 at 15:30 Temazepam (Restoril) 15 mg QHS PO Last administered on 08/11/17 20:23; Start 08/07/17 at 21:00 Trazodone HCl (Desyrel) 50 mg QHS PO Last administered on 08/11/17 20:23; Start 08/07/17 at 21:00 Alprazolam (Xanax) 1 mg PRN BID PRN PO ANXIETY / AGITATION Last administered on 08/11/17 08:52; Start 08/07/17 at 15:45 Acetaminophen (Tylenol) 650 mg PRN Q6HRS PRN PO PAIN / TEMP; Start 08/07/17 at 15:30 Multi-Ingredient Ointment (Analgesic [place]) 1 stevan PRN QID PRN TP MUSCLE PAIN; Start 08/07/17 at 15:30 Al Hydroxide/Mg Hydroxide (Mylanta Plus Xs) 15 ml PRN AFTMEALHC PRN PO DYSPEPSIA; Start 08/07/17 at 15:30 Magnesium Hydroxide (Milk Of Magnesia) 2,400 mg PRN QHS PRN PO CONSTIPATION; Start 08/07/17 at 15:30 Acetaminophen (Tylenol) 650 mg PRN Q6HRS PRN PO PAIN / TEMP; Start 08/07/17 at 17:30; Status UNV Aspirin (Children'S Aspirin) 81 mg DAILY PO Last administered on 08/11/17 08: 52; Start 08/08/17 at 09:00 Atorvastatin Calcium (Lipitor) 20 mg QHS PO Last administered on 08/11/17 20: 22; Start 08/07/17 at 21:00 Vitamin D (Vitamin D3) 2,000 unit DAILYBFRLUN PO Last administered on 12:16; Start 08/08/17 at 11:30 Docusate Sodium (Colace) 100 mg BID PO Last administered on 08/11/17 20:23; Start 08/07/17 at 21:00 Ferrous Sulfate (Feosol) 325 mg DAILYWBKFT PO Last administered on 08/11/17 07 :43; Start 08/08/17 at 08:00 Multi-Ingredient Ointment (Analgesic [place]) 1 stevan PRN QID PRN TP MUSCLE PAIN; Start 08/07/17 at 17:30; Status UNV Pantoprazole Sodium (Protonix) 40 mg DAILYAC PO Last administered on 08/11/17 07:35; Start 08/08/17 at 07:30 Potassium Chloride (Klor-Con) 20 meq BID PO Last administered on 08/11/17 20: 23; Start 08/07/17 at 21:00 Non-Formulary Medication 15 ml PRN AFTMEALHC PRN PO DYSPEPSIA; Start 08/07/17 at 17:30; Status UNV Non-Formulary Medication 2,400 mg PRN QHS PRN PO CONSTIPATION; Start 08/07/17 at 17:30; Status UNV Multivitamins/ Calcium (Thera-M Plus) 1 tab DAILY PO Last administered on 08:52; Start 08/08/17 at 09:00 Ondansetron HCl (Zofran Odt) 8 mg PRN Q6HRS PRN PO NAUSEA; Start 08/07/17 at 18: 00 Sodium Chloride (Saline Mist Nasal) 1 stevan PRN Q1HR PRN NS NASAL CONGESTION; Start 08/07/17 at 18:15 Fosfomycin Tromethamine (Monurol) 3 gm 1X ONCE PO ; Start 08/08/17 at 15:00; Stop 08/08/17 at 17:02; Status DC Divalproex Sodium (Depakote Er) 750 mg QHS PO Last administered on 08/11/17 20 :22; Start 08/08/17 at 21:00 Active Scripts Active Reported Alprazolam 0.25 Mg Tablet 0.25 Mg PO DAILY@1300 Trazodone Hcl 50 Mg Tablet 50 Mg PO QHS May repeat 1X Risperdal (Risperidone) 0.5 Mg Tablet 0.75 Mg PO DAILY Temazepam 15 Mg Capsule 15 Mg PO PRN QHS PRN Administer if first dose not effective Temazepam 15 Mg Capsule 15 Mg PO QHS Klor-Con M20 (Potassium Chloride) 20 Meq Tab.er.prt 20 Meq PO BID Zyprexa Zydis (Olanzapine) 5 Mg Tab.rapdis 2.5 Mg PO PRN Q2HR PRN Mirtazapine 15 Mg Tablet 7.5 Mg PO QHS Ferrous Sulfate 325 Mg Tablet 325 Mg PO DAILYWBKFT Depakote Er (Divalproex Sodium) 500 Mg Tab.er.24h 500 Mg PO QHS Vitamin D3 (Cholecalciferol (Vitamin D3)) 1,000 Unit Tablet 2,000 Unit PO DAILYBFRLUN Alprazolam 1 Mg Tablet 1 Mg PO BID PRN Protonix (Pantoprazole Sodium) 40 Mg Tablet.dr 40 Mg PO DAILYAC Zofran Odt (Ondansetron) 8 Mg Tab.rapdis 8 Mg PO PRN Q6HRS PRN Multivitamins (Multivitamin) 1 Each Tablet 1 Tab PO DAILY Docusate Sodium 100 Mg Capsule 100 Mg PO BID Atorvastatin Calcium 20 Mg Tablet 20 Mg PO QHS Saline Nasal Mist (Sodium Chloride) 126 Ml Mist 1 Stevan NS PRN Q1HR PRN Analgesic [place] (Methyl Salicylate/Menthol) 29 Gm Oint...g. 1 Stevan TP PRN QID PRN Milk Of Magnesia (Magnesium Hydroxide) 2,400 Mg/10 Ml Oral.susp 2,400 Mg PO PRN QHS PRN Advanced Antacid Liquid (Mag Hydrox/Al Hydrox/Simeth) 355 Ml Oral.susp 15 Ml PO PRN AFTMEALHC PRN Tylenol (Acetaminophen) 325 Mg Tablet 650 Mg PO PRN Q6HRS PRN Aspirin 81 Mg Tab.chew 81 Mg PO DAILY I have reviewed the current psychotropics carefully including drug interactions. Risk benefit ratio favors no change other than as noted in my dictated progress note. Diagnosis: Problems: (1) Anxiety disorder (2) Bipolar affective disorder, mixed (3) Impulse control disorder (4) Panic disorder with agoraphobia and severe panic attacks (5) Obsessive compulsive disorder SANTIAGO FARFAN MD Aug 11, 2017 20:37
--- NOTE | 2017-08-11 20:45 | NUR ---
Nursing Note: Nurse in to administer HS Medications, Upon entrance Pt asked "is there Xanax in here" Nurse explained to pt that she did not have scheduled Xanax at bedtime but she did have Temazepam scheduled which was in with the rest of her medications. Pt states "oh, I have to have my Xanax every night or I will have a panic attack" Nurse informed pt she only had PRN Xanax and had to let staff know she needed it, Pt then states "I need it" PRN Xanax administered per PRN order and Pt demand at this time.
--- NOTE | 2017-08-11 23:09 | NUR ---
Behavior Intervention Response and Plan: BIRP Note: Behavior: Assumed Care of patient, patient located in Patient Room at shift change. Patient exhibited the following behavior Withdrawn, Anxious, Compliant. Brief assessment on rounds of vital signs, medication needs, lab studies, and pain. Treatment plan problems Alteration in Mood and Fall Risk. Intervention: Patient assessed and the following interventions initiated safety checks 15 Minute Checks Cognitive Assessment , Head to toe Assessment , Medications. Response: After interactions and interventions patient responded in the following manner, Withdrawn , Compliant ,Anxious. Continue to assess behaviors and condition will continue to monitor throughout the shift as needed. Patient educated on ADL's, and hand hygiene. Plan: Continue to monitor Master Treatment Plan for patient's progress toward short term goals of Improved Mood, Medication Compliance, group home goals to return to previous living setting vs placement. Continue to assess patient for changes in above assessment. Monitor for medication needs, pain, and safety concerns. Hourly rounding performed to ensure safe environment.
[2017-08-11] MEDS ORDERED: DIVA250T4 PO (23:49)
[2017-08-11] MEDS ORDERED: MAGN400O7 PO (23:51)
[2017-08-12 06:07] VITALS: BP 111/68
--- NOTE | 2017-08-12 08:01 | PN ---
DATE: 08/10/2017 This late entry 08/10/2017 covers elements not covered in my initial note 08/10/2017. Met with the patient in her room at length evening of 08/10/2017. The patient slept 6-1/4 hours previous evening, has had many somatic symptoms. Complains of feeling sick. REVIEW OF SYMPTOMS: No CV, , pulmonary, eye system symptoms on review. MENTAL STATUS EXAM: Reasonably oriented. Speech coherent, has some latency. Abstraction fair, computation impaired, language function intact, attention span short. Mood and affect labile. LABORATORY DATA: Reviewed. IMPRESSION: Bipolar 1 disorder, mixed with psychotic features; anxiety disorder, unspecified. Rest unchanged. PLAN: Continue psychotropics mentioned in my initial note. Depakote has been adjusted. Check labs level on 08/11/2017. Adjust further as clinically indicated. MAN Richar FARFAN MD DR: INNA/melody JOB#: [id number] / [id number]
[2017-08-12] MEDS: FERROUS SULFATE 325 MG TABLET. PO SCH (08:23)
[2017-08-12] MEDS: PANTOPRAZOLE 40 MG TABLET. PO SCH (08:23)
[2017-08-12] MEDS: ASPIRIN 81 MG TAB.CHEW PO SCH (08:23)
[2017-08-12] MEDS: POTASSIUM CHLORIDE 20 MEQ TABLET.ER. PO SCH (08:24)
[2017-08-12] MEDS: DOCUSATE SODIUM 100 MG CAPSULE PO SCH (08:24)
[2017-08-12] MEDS: risperiDONE 0.5 MG TABLET. PO SCH (08:25)
[2017-08-12] MEDS: MULTIVITAMIN with MINERAL TABLET. PO SCH (08:27)
[2017-08-12] MEDS: ALPRAZolam 0.5 MG TABLET PO PRN (08:34)
--- NOTE | 2017-08-12 09:34 | NUR ---
[facility] Social Work Discharge Planning Form Patient Name RICK PITTS Admit Date: 08/07/17 DISCHARGE PLAN Discharge Destination: return home Transportation: [employer] company to [place] 08/12/17 TBD (pt to private pay) Special Instructions/Notes: Please fax dc summary to Erick Graham DISCHARGE TO HOME: Address: [address] [place] [id number] Responsible [employer]: self Pharmacy: [facility] @ [address] [place] [address] PHONE: [phone] Psychiatrist/Mental Health Follow Up: Erick Graham [address] [address] PHONE: [phone] FAX: [phone] Medications w/Abby Shaikh APRN FOLLOW UP APPOINTMENT SCHEDULED FOR July AT 3:30pm Please take your discharge packet with you to your appointment Primary Care Follow Up: Dr. Nathalie Edmonds @ [address] [address] PHONE: [phone] KELLI contacted PCP to schedule follow up appointment and was told patient has missed last 3 scheduled appointments. KELLI left message w/Nurse to contact patient to discuss their policy. KELLI provided patient with printed information for [facility] for a new provider, if needed.
--- NOTE | 2017-08-12 09:46 | NUR ---
KELLI contacted Moriah, Medical Records at [facility] to verify receipt of the release of information KELLI faxed yesterday. KELLI also confirmed pt's intake date in which Moriah stated pt completed intake at [facility] on 07/30/17 and was scheduled to have her medication appointment today, 08/12/17 at 3:30. KELLI also contacted pt's PCP, Dr. Ron Edmonds's office to schedule a [facility] appt [facility] and was told pt has no-showed the last 3 scheduled appointments. They have a strict policy and will likely not accept pt back. KELLI left a message for the nurse to contact pt to discuss this matter further. KELLI also printed information for [facility] in [place] in the event pt needs to obtain a new PCP.
--- NOTE | 2017-08-12 11:00 | NUR ---
Behavior Intervention Response and Plan: BIRP Note: Behavior: Assumed Care of patient, patient located in Patient Room at shift change. Patient exhibited the following behavior Anxious, Interactive, Cooperative. Brief assessment on rounds of vital signs, medication needs, lab studies, and pain. Treatment plan problems 1-2. Intervention: Patient assessed and the following interventions initiated safety checks 15 Minute Checks Cognitive Assessment , Head to toe Assessment , Medications. Response: After interactions and interventions patient responded in the following manner, Medication Seeking , Anxious ,Compliant. Continue to assess behaviors and condition will continue to monitor throughout the shift as needed. Patient educated on ADL's, and hand hygiene. Plan: Continue to monitor Master Treatment Plan for patient's progress toward short term goals of Decreased Agitation, Decreased Anxiety, terminologist goals to return to previous living setting vs placement. Continue to assess patient for changes in above assessment. Monitor for medication needs, pain, and safety concerns. Hourly rounding performed to ensure safe environment.
--- NOTE | 2017-08-12 11:31 | NUR ---
Transition Record was faxed to follow-up provider with the following elements: Reason for admission, procedures, tests, principal diagnosis, pending studies, patient instructions, 23/12 contact information for unit, phone number to obtain pending test results, plan for follow-up care, physician follow-up, advanced directive information, and medication list with dose, duration and instructions. This information was included in the following documents: History and physical, lab results, study results, progress notes, social work planning form, DC instruction form, patient visit summary, and medication reconciliation form. Date & time record faxed: 08/12/17 @ 1015 Record faxed to: Erick Graham [facility] Record discussed with/ report given to: report discussed with patient since patient is a self-sign
--- NOTE | 2017-08-12 22:44 | PN ---
DATE: 08/11/2017 This is a late entry for 08/11/2017 covers elements not covered in my initial note of 08/11/2017. SUBJECTIVE: I met with the patient in the evening of 08/11/2017. The patient slept for 3/4 hours previous evening, quite particular about when she gets Xanax, suspicious regarding her medications. REVIEW OF SYSTEMS: No CV, , pulmonary, eye system symptoms on review. MENTAL STATUS EXAM: Reasonably oriented. Speech is coherent, abstraction fair, computation impaired, language function intact. Mood and affect anxious, labile, but improved. No suicidal or homicidal ideation. LABORATORY DATA: Reviewed. IMPRESSION: Unchanged from initial note. PLAN: Continue current psychotropics mentioned in my initial note. Transition to outpatient treatment at the [facility] in the next day or two. MAN Richar FARFAN MD DR: INNA/melody JOB#: [id number] / [id number]
--- NOTE | 2017-08-13 22:14 | DS ---
DATE OF DISCHARGE: 08/12/2017 DISCHARGE SUMMARY/PSYCHIATRIC PROGRESS NOTE This late entry for date of service 08/12/2017 covers elements not covered in my initial note 08/12/2017. REASON FOR ADMISSION: Please refer to the admission history for details. Briefly, the patient is a 72-year-old female returned back to us via the Emergency Room at [place], where at the Emergency Room after she presented on account of increased agitation and anxiety. She arrived from home at the ER at [facility] in a taxi from [place], [place], approximately 40 or 50 miles ago. She states she was overwhelmed with anxiety, had failed outpatient psychiatric interventions following a recent inpatient stay in our facility. She run out of her benzodiazepines, Xanax and had contacted the unit, had called in a refill, but despite this, have anxiety, panic, mood lability worsened to where she felt unsafe at home and brought herself to the ERs. SIGNIFICANT FINDINGS AND CLINICAL COURSE: Following admission, the patient was seen daily individually by myself, followed medically per Dr. Childress/Dr. Bertrand. She was restarted back on her psychotropics including the Depakote as a mood stabilizer with a valproic acid level therapeutic at 80. Gradually, mood improved. She was much less anxious, labile. Psychotic symptoms seemed to subside. She responded to a combination of Depakote 750 mg at bedtime, Risperdal 0.75 mg daily, Xanax 0.25 mg at 1300 and 1 mg p.r.n. b.i.d., Remeron 7.5 mg at bedtime, Restoril 15 mg at bedtime and p.r.n. bedtime and trazodone 50 mg at bedtime. CONDITION AT DISCHARGE: Improved prior to discharge. REVIEW OF SYSTEMS: No CV, , pulmonary, eye, ENT system symptoms on review. Reliability poor. MENTAL STATUS EXAM: Oriented to herself and situation. Speech coherent, much less anxious. Abstraction fair, computation impaired, language function intact. Mood and affect is improved. No suicidal or homicidal ideation prior to discharge. FINAL DIAGNOSES: Bipolar 1 disorder, mixed with psychotic features, in partial remission; anxiety disorder, unspecified; impulse control disorder, unspecified. Rest unchanged from admission. DISCHARGE MEDICATIONS: Please refer to the MRAD. DISCHARGE INSTRUCTIONS: Outpatient psychiatric and medical followup at [facility]. Time for discharge day management greater than 30 minutes. SANTIAGO FARFAN MD DR: INNA/melody JOB#: [id number] / [id number]
== END 2017-08-12 11:20 | disposition home or self-care (01) | DRG 885 ==
LOC: ER 11:17 → GEROPSY 15:05
PROVIDERS: ADMIT Psychiatry & Neurology Psychiatry; ATTEND Psychiatry & Neurology Psychiatry
DX: F31.64 Bipolar disorder, current episode mixed, severe, with psychotic features (principal); D64.9 Anemia, unspecified; N39.0 Urinary tract infection, site not specified; E78.5 Hyperlipidemia, unspecified; F09 Unspecified mental disorder due to known physiological condition; F40.01 Agoraphobia with panic disorder; F42.9 Obsessive-compulsive disorder, unspecified; F41.9 Anxiety disorder, unspecified; F63.9 Impulse disorder, unspecified; F51.04 Psychophysiologic insomnia; I10 Essential (primary) hypertension; Z60.2 Problems related to living alone; Z79.899 Other long term (current) drug therapy; Z87.440 Personal history of urinary (tract) infections; Z88.7 Allergy status to serum and vaccine; Z91.018 Allergy to other foods; Z90.49 Acquired absence of other specified parts of digestive tract
CPT/HCPCS: 36415; 80053; 80061; 80164; 80307; 81001; 82306; 82607; 83036; 83540; 83550; 83735; 84436; 84443; 84480; 85025; 87086; 93005; G0480; Q0162; 99285-25; G0479

== ENCOUNTER 2017-10-01 18:15 | Inpatient (IN) | payer MEDICARE ==
[~2017-10-01] VITALS: Ht 160 cm; Wt 63.0 kg
[~2017-10-01 18:15] MED LIST changes: +DIVA250T4 PO; +MAGN400O7 PO
[2017-10-01] MEDS ORDERED: DICY10CA3 PO (19:53)
[2017-10-01] MEDS ORDERED: POTA10TA10 PO (19:53)
[2017-10-01] MEDS ORDERED: CYAN10005 PO (19:53)
[2017-10-01] MEDS ORDERED: ONDA4TAB12 PO (19:53)
[2017-10-01] MEDS ORDERED: SUCR1TAB PO (19:53)
[2017-10-01] MEDS ORDERED: DIVA500T17 PO (19:53)
[2017-10-01] MEDS ORDERED: ONDA4TAB11 PO (19:53)
[2017-10-01] MEDS ORDERED: NON FORMULARY ITEM (Ondansetron Hcl 4 MG) PO PRN (20:00)
[2017-10-01] MEDS ORDERED: METHYL SALICYLATE/MENTHOL TOPICAL OINTMENT 29GM TUBE. TP PRN (20:00)
[2017-10-01 20:06] VITALS: BP 179/79
[2017-10-01] MEDS: DICYCLOMINE HCL 10 MG CAPSULE PO SCH (20:51)
[2017-10-01] MEDS: traZODone 50 MG TABLET. PO SCH (20:51)
[2017-10-01] MEDS: SUCRALFATE 1 GM TABLET. PO SCH (20:51)
[2017-10-01] MEDS: ONDANSETRON ODT 4 MG TAB.RAPDIS PO PRN (20:51)
[2017-10-01] MEDS: ATORVASTATIN CALCIUM 20 MG TABLET PO SCH (20:51)
[2017-10-01] MEDS: MIRTAZAPINE 7.5 MG TABLET. PO SCH (20:52)
[2017-10-01] MEDS: CYANOCOBALAMIN (VITAMIN B-12) 1,000 MCG TABLET. PO SCH (20:52)
[2017-10-01] MEDS: TEMAZEPAM 15 MG CAPSULE PO SCH (20:52)
--- NOTE | 2017-10-01 20:55 | PDOC ---
Exam Note: Rian Note: Please also refer to the separate dictated note~for this date of service dictated separately.~Patient seen individually. Discussed the patient with Nursing staff reviewed the chart.~Reviewed interim history and current functioning. Reviewed vital signs,~Labs/ Radiology~and current medications noted below. Continue current treatment with the changes noted in the dictated addendum note Assessment: Vital Signs: Vital Signs Date Time Temp Pulse Resp B/P (MAP) Pulse Ox O2 Delivery O2 Flow Rate FiO2 10/01/17 20:06 98.2 76 20 179/79 (112) 97 Room Air Current Medications: Meds: Current Medications Alprazolam (Xanax) 0.25 mg PRN Q2HR PRN PO ANXIETY / AGITATION; Start 10/01/17 at 20:00 Divalproex Sodium (Depakote Er) 500 mg DAILY PO ; Start 10/02/17 at 09:00 Mirtazapine (Remeron) 7.5 mg QHS PO Last administered on 10/01/17at 20:52; Start 10/01/17 at 21:00 Olanzapine (ZyPREXA ZYDIS) 2.5 mg PRN DAILY PRN PO PSYCHOSIS; Start 10/01/17 at 20:00 Risperidone (RisperDAL) 0.75 mg DAILY PO ; Start 10/02/17 at 09:00 Temazepam (Restoril) 15 mg PRN QHS PRN PO INSOMNIA; Start 10/01/17 at 20:00 Temazepam (Restoril) 15 mg QHS PO Last administered on 10/01/17at 20:52; Start at 21:00 Trazodone HCl (Desyrel) 50 mg QHS PO Last administered on 10/01/17at 20:51; Start 10/01/17 at 21:00 Acetaminophen (Tylenol) 650 mg PRN Q6HRS PRN PO PAIN / TEMP; Start 10/01/17 at 20:00 Aspirin (Children'S Aspirin) 81 mg DAILY PO ; Start 10/02/17 at 09:00 Atorvastatin Calcium (Lipitor) 20 mg QHS PO Last administered on 10/01/17at 20:51 ; Start 10/01/17 at 21:00 Cyanocobalamin (Vitamin B-12) 500 mcg BID PO Last administered on 10/01/17at 20: 52; Start 10/01/17 at 21:00 Dicyclomine HCl (Bentyl) 10 mg QID PO Last administered on 10/01/17at 20:51; Start 10/01/17 at 21:00 Ondansetron HCl (Zofran Odt) 4 mg PRN Q8HRS PRN PO NAUSEA/VOMITING Last administered on 10/01/17at 20:51; Start 10/01/17 at 20:00 Sucralfate (Carafate) 1 gm QIDACHS PO Last administered on 10/01/17at 20:51; Start 10/01/17 at 21:00 Multivitamins/ Calcium (Thera-M Plus) 1 tab DAILY PO ; Start 10/02/17 at 09:00 Non-Formulary Medication (Ondansetron Hcl ) 4 mg PRN Q6HRS PRN PO NAUSEA/ VOMITING; Start 10/01/17 at 20:00; Status UNV Potassium Chloride (Klor-Con) 10 meq DAILY PO ; Start 10/02/17 at 09:00 Multi-Ingredient Ointment (Analgesic [place]) 1 marianne PRN QID PRN TP MUSCLE PAIN; Start 10/01/17 at 20:00 Al Hydroxide/Mg Hydroxide (Mylanta Plus Xs) 15 ml PRN AFTMEALHC PRN PO DYSPEPSIA; Start 10/01/17 at 20:00 Magnesium Hydroxide (Milk Of Magnesia) 2,400 mg PRN QHS PRN PO CONSTIPATION; Start 10/01/17 at 20:00 Active Scripts Active Reported Potassium Chloride 10 Meq Tablet.er 10 Meq PO DAILY Divalproex Sodium Er (Divalproex Sodium) 500 Mg Tab.er.24h 500 Mg PO DAILY Vitamin B-12 (Cyanocobalamin (Vitamin B-12)) 1,000 Mcg Tablet 500 Mcg PO BID Ondansetron Odt (Ondansetron) 4 Mg Tab.rapdis 4 Mg PO PRN Q8HRS PRN Ondansetron Hcl 4 Mg Tablet 4 Mg PO PRN Q6HRS PRN Sucralfate 1 Gm Tablet 1 Gm PO QIDACHS Dicyclomine Hcl 10 Mg Capsule 1-2 Cap PO QID Alprazolam 0.25 Mg Tablet 0.25 Mg PO PRN Q2HR PRN Max 2 tabs daily Trazodone Hcl 50 Mg Tablet 50 Mg PO QHS May repeat 1X Risperdal (Risperidone) 0.5 Mg Tablet 0.75 Mg PO DAILY Temazepam 15 Mg Capsule 15 Mg PO PRN QHS PRN Administer if first dose not effective Temazepam 15 Mg Capsule 15 Mg PO QHS Zyprexa Zydis (Olanzapine) 5 Mg Tab.rapdis 2.5 Mg PO DAILY PRN Mirtazapine 15 Mg Tablet 7.5 Mg PO QHS Multivitamins (Multivitamin) 1 Each Tablet 1 Tab PO DAILY Atorvastatin Calcium 20 Mg Tablet 20 Mg PO QHS Tylenol (Acetaminophen) 325 Mg Tablet 650 Mg PO PRN Q6HRS PRN MDD 4000 Aspirin 81 Mg Tab.chew 81 Mg PO DAILY I have reviewed the current psychotropics carefully including drug interactions. Risk benefit ratio favors no change other than as noted in my dictated progress note. 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
[2017-10-01] MEDS: ACETAMINOPHEN 325 MG TABLET PO PRN (21:02)
[2017-10-01 21:42] LABS: BASO # 0.1 x10^3/uL (0.0-0.2); BASO % 1 % (0-3); EOS % 0 % (0-3); HEMATOCRIT 32.4 % (36.0-47.0); HEMOGLOBIN 10.8 g/dL (12.0-15.5); LYMPH # 2.6 x10^3/uL (1.0-4.8); LYMPH % 34 % (24-48); MEAN CORPUSCULAR HEMOGLOBIN 30 pg (25-35); MEAN CORPUSCULAR HGB CONC 33 g/dL (31-37); MEAN CORPUSCULAR VOLUME 90 fL (79-100); MONO % 13 % (0-9); NEUT % 52 % (31-73); PLATELET COUNT 288 x10^3/uL (140-400); RED BLOOD COUNT 3.59 x10^6/uL (3.50-5.40); RED CELL DISTRIBUTION WIDTH 16.3 % (11.5-14.5); WHITE BLOOD COUNT 7.6 x10^3/uL (4.0-11.0)
[2017-10-01 21:53] LABS: ALBUMIN 3.6 g/dL (3.4-5.0); CALCIUM 8.8 mg/dL (8.5-10.1); CREATININE 1.2 mg/dL (0.6-1.0); GFR 44.3; MAGNESIUM 1.7 mg/dL (1.8-2.4); TOTAL BILIRUBIN 0.7 mg/dL (0.2-1.0); TOTAL PROTEIN 7.3 g/dL (6.4-8.2)
[2017-10-01 22:10] LABS: VAL ACID < 3 mcg/mL (50-100)
[2017-10-02] MEDS: TEMAZEPAM 15 MG CAPSULE PO PRN (01:44)
[2017-10-02 05:39] VITALS: BP 104/48
[2017-10-02] MEDS: SUCRALFATE 1 GM TABLET. PO SCH ×4 (07:53→20:40)
--- NOTE | 2017-10-02 08:01 | HP ---
ADMIT DATE: 10/01/2017 This late entry 10/01/2017, covers the elements not covered in my initial note 10/01/2017. I met with the patient evening of 10/01/2017, and previously discussed with the nursing staff at 3:00 a.m. director employee safety and health of 10/01/2017. After the patient presented to the [facility] Emergency Room and with suicidal ideation, worsening mood swings, benzodiazepine abuse and was referred for inpatient psychiatric stabilization. Since then, I have discussed with nursing staff on 2 or 3 occasions as well. IDENTIFYING DATA: The patient is a 72-year-old female, referred back to us from [facility] Emergency Room where she presented around midnight, morning of 09/30/2017 / 10/01/2017 from her home with marked increased anxiety, mood swings, worsening depression, suicidal ideation, wanting to , for reasons that were not entirely clear including resentment towards her daughter for "not being a priority." ER staff had also determined that the patient was overusing the Xanax that had been prescribed for her and had repeatedly failed to follow up outpatient at the [facility] where she was supposed to have followed up post-discharge from her last psychiatric hospitalization with us. CHIEF COMPLAINT: "It became too much. Yes, I wanted to just ." HISTORY OF PRESENT ILLNESS: I met with the patient in her room the evening of 10/01/2017 for this evaluation. The patient states she has been living at home alone and resents the fact that her daughter has not been coming and visiting her at all. She has been extremely anxious, labile, agitated, and overusing the Xanax. She has had sleep and appetite changes and the recent suicidal ideation. In the past, she has a history of mood swings, consistent with bipolar disorder with periods of elation, racing thoughts alternating with being depressed. PAST PSYCHIATRIC HISTORY: As noted above, she has had multiple hospitalizations at our facility and other facilities. PAST MEDICAL HISTORY: While in the ER, it was noted she was having some sweating, increased agitation with a question of benzodiazepine withdrawal, but vital signs were stable. No tremors were noted at that time. She does have a history of gastritis, chronic constipation, hyperlipidemia, history of hyponatremia, takes her medications whole. CODE STATUS: DNR. ALLERGIES: FLU VACCINE, CHOCOLATE. ACCU-CHEKS: None. DIET: Regular. CURRENT PSYCHOTROPICS: At the time of admission, the patient was previously taking Xanax 1 mg b.i.d. plus p.r.n. She is on B12 supplements, Lipitor, Depakote ER 500 mg daily, Remeron 7.5 mg at bedtime, Zyprexa p.r.n., Risperdal 0.75 mg daily, Restoril 15 mg at bedtime plus 15 mg p.r.n., trazodone 50 mg at bedtime. FAMILY HISTORY: Noncontributory. SOCIAL HISTORY: Benzodiazepine abuse noted above. She reportedly lives alone. Daughter is in the community, but the patient resents that the daughter was not more available to her. No alcohol or drug abuse history notes. No physical, sexual, or elder abuse history noted. She is not known to be a perpetrator. MENTAL STATUS EXAMINATION: The patient was seen individually in her room, the evening of 10/01/2017, on the unit. She seemed to recognize me. Speech coherent, somewhat disorganized, anxious, constantly folding and unfolding her clothes on her bed. Insight limited, judgment marginal, language function intact, attention span short. Mood and affect labile. Otherwise, she seems oriented to place and situation, but quite disorganized. ASSETS: Supportive family. REACTION TO HOSPITALIZATION: The patient accepting of it. IMPRESSION: Bipolar 1 disorder, mixed with psychotic features; anxiety disorder, unspecified; benzodiazepine abuse; impulse control disorder; cognitive disorder, unspecified. Rest diagnoses as above. PLAN: Admit to Geropsychiatry Unit at [facility]. I will see the patient daily individually from a psychiatric standpoint, medical followup per Dr. Bertrand/Dr. Knapp. We will stop her scheduled Xanax and start Xanax 0.25 mg q.2 hours p.r.n. anxiety/benzodiazepine withdrawal, max 2 mg in 24 hours. Continue rest of the psychotropics unchanged and make changes post baseline assessment. She definitely needs intense outpatient followup to avoid repeated almost daily visits to the Emergency Room at [facility] and then an occasional referral back to inpatient psychiatry to stop this cycle, which has been going on for some time. SANTIAGO FARFAN MD DR: INNA/melody JOB#: [id number] / [id number]
[2017-10-02 09:36] LABS: BACTERIA,URINE FEW /HPF (0-FEW); BILIRUBIN,URINE NEG (NEG); CLARITY,URINE CLOUDY; COLOR,URINE YELLOW; GLUCOSE,URINE NEG (NEG); NITRITE,URINE NEG (NEG); RBC,URINE 0 /HPF (0-2); SQUAMOUS EPITHELIAL CELL,UR MOD /LPF; UROBILINOGEN,URINE 0.2 mg/dL (0.2 mg/dL); WBC,URINE 20-40 /HPF (0-4)
[2017-10-02] MEDS: CYANOCOBALAMIN (VITAMIN B-12) 1,000 MCG TABLET. PO SCH ×2 (10:12→20:41)
[2017-10-02] MEDS: DICYCLOMINE HCL 10 MG CAPSULE PO SCH ×4 (10:12→20:40)
[2017-10-02] MEDS: risperiDONE 0.5 MG TABLET. PO SCH (10:16)
[2017-10-02] MEDS: DIVALPROEX ER 500 MG TAB.ER.24H PO SCH (10:17)
[2017-10-02] MEDS: ASPIRIN 81 MG TAB.CHEW PO SCH (10:17)
[2017-10-02] MEDS: MULTIVITAMIN with MINERAL TABLET. PO SCH (10:17)
[2017-10-02] MEDS: POTASSIUM CHLORIDE 10 MEQ TABLET.ER. PO SCH (10:20)
[2017-10-02 14:56] LABS: THYROID STIM HORMONE (TSH) 0.861 uIU/mL (0.358-3.740)
[2017-10-02 16:21] VITALS: BP_SYST 109; BP_SYST 123; BP_DIAS 64; BP_DIAS 81
[2017-10-02 18:15] LABS: T3 TOTAL 97 ng/dL (71-180); THYROXINE 8.1 ug/dL (4.5-12.0)
[2017-10-02] MEDS: TEMAZEPAM 15 MG CAPSULE PO SCH (20:40)
[2017-10-02] MEDS: MIRTAZAPINE 7.5 MG TABLET. PO SCH (20:41)
[2017-10-02] MEDS: traZODone 50 MG TABLET. PO SCH (20:41)
[2017-10-02] MEDS: ATORVASTATIN CALCIUM 20 MG TABLET PO SCH (20:41)
--- NOTE | 2017-10-02 21:01 | PDOC ---
Exam Note: Rian Note: Please also refer to the separate dictated note~for this date of service dictated separately.~Patient seen individually. Discussed the patient with Nursing staff reviewed the chart.~Reviewed interim history and current functioning. Reviewed vital signs,~Labs/ Radiology~and current medications noted below. Continue current treatment with the changes noted in the dictated addendum note Assessment: Vital Signs: Vital Signs Date Time Temp Pulse Resp B/P (MAP) Pulse Ox O2 Delivery O2 Flow Rate FiO2 10/02/17 16:21 97.6 79 18 123/81 (95) 97 10/01/17 20:06 Room Air I&O Intake and Output 10/02/17 07:00 Intake Total 120 ml Balance 120 ml Intake Oral 120 ml Labs: Laboratory Tests Test 10/01/17 21:33 10/02/17 09:00 White Blood Count 7.6 x10^3/uL (4.0-11.0) Red Blood Count 3.59 x10^6/uL (3.50-5.40) Hemoglobin 10.8 g/dL (12.0-15.5) L Hematocrit 32.4 % (36.0-47.0) L Mean Corpuscular Volume 90 fL (79-100) Mean Corpuscular Hemoglobin 30 pg (25-35) Mean Corpuscular Hemoglobin Concent 33 g/dL (31-37) Red Cell Distribution Width 16.3 % (11.5-14.5) H Platelet Count 288 x10^3/uL (140-400) Neutrophils (%) (Auto) 52 % (31-73) Lymphocytes (%) (Auto) 34 % (24-48) Monocytes (%) (Auto) 13 % (0-9) H Eosinophils (%) (Auto) 0 % (0-3) Basophils (%) (Auto) 1 % (0-3) Neutrophils # (Auto) 4.0 x10^3uL (1.8-7.7) Lymphocytes # (Auto) 2.6 x10^3/uL (1.0-4.8) Monocytes # (Auto) 1.0 x10^3/uL (0.0-1.1) Eosinophils # (Auto) 0.0 x10^3/uL (0.0-0.7) Basophils # (Auto) 0.1 x10^3/uL (0.0-0.2) Sodium Level 138 mmol/L (136-145) Potassium Level 3.0 mmol/L (3.5-5.1) L Chloride Level 102 mmol/L (98-107) Carbon Dioxide Level 26 mmol/L (21-32) Anion Gap 10 (6-14) Blood Urea Nitrogen 31 mg/dL (7-20) H Creatinine 1.2 mg/dL (0.6-1.0) H Estimated GFR (Cockcroft-Gault) 44.3 BUN/Creatinine Ratio 26 (6-20) H Glucose Level 118 mg/dL (70-99) H Calcium Level 8.8 mg/dL (8.5-10.1) Magnesium Level 1.7 mg/dL (1.8-2.4) L Iron Level 60 ug/dL (50-170) Total Iron Binding Capacity 321 ug/dL (250-450) Iron Saturation 19 % (15-34) Total Bilirubin 0.7 mg/dL (0.2-1.0) Aspartate Amino Transferase (AST) 55 U/L (15-37) H Alanine Aminotransferase (ALT) 38 U/L (14-59) Alkaline Phosphatase 52 U/L (46-116) Total Protein 7.3 g/dL (6.4-8.2) Albumin 3.6 g/dL (3.4-5.0) Albumin/Globulin Ratio 1.0 (1.0-1.7) Triglycerides Level 116 mg/dL (0-150) Cholesterol Level 199 mg/dL (0-200) LDL Cholesterol, Calculated 140 mg/dL (0-100) H VLDL Cholesterol, Calculated 23 mg/dL (0-40) Non-HDL Cholesterol Calculated 163 mg/dL (0-129) H HDL Cholesterol 36 mg/dL (40-60) L Cholesterol/HDL Ratio 5.0 Vitamin B12 Level 896 pg/mL (247-911) 25-Hydroxy Vitamin D Total 30.1 ng/mL (30-100) Thyroid Stimulating Hormone (TSH) 0.861 uIU/mL (0.358-3.740) Thyroxine (T4) 8.1 ug/dL (4.5-12.0) Total Triiodothyronine (TT3) 97 ng/dL (71-180) Valproic Acid Level < 3 mcg/mL (50-100) L Valproic Acid Last Dose Date 09/30/17 Valproic Acid Last Dose Time 0900 Rapid Plasma Reagin Pending Urine Collection Type Unknown Urine Color Yellow Urine Clarity Cloudy Urine pH 6.0 Urine Specific [place] 1.020 Urine Protein 100 mg/dl (NEG-TRACE) Urine Glucose (UA) Neg mg/dL (NEG) Urine Ketones (Stick) Trace mg/dL (NEG) Urine Blood Neg (NEG) Urine Nitrite Neg (NEG) Urine Bilirubin Neg (NEG) Urine Urobilinogen Dipstick 0.2 mg/dL (0.2 mg/dL) Urine Leukocyte Esterase Mod (NEG) Urine RBC 0 /HPF (0-2) Urine WBC 20-40 /HPF (0-4) Urine Squamous Epithelial Cells Mod /LPF Urine Transitional Epithelial Cells Occ /LPF Urine Bacteria Few /HPF (0-FEW) Urine Mucus Marked /LPF Current Medications: Meds: Current Medications Alprazolam (Xanax) 0.25 mg PRN Q2HR PRN PO ANXIETY / AGITATION; Start 10/01/17 at 20:00 Divalproex Sodium (Depakote Er) 500 mg DAILY PO Last administered on 10/02/17at 10:17; Start 10/02/17 at 09:00 Mirtazapine (Remeron) 7.5 mg QHS PO Last administered on 10/02/17at 20:41; Start 10/01/17 at 21:00 Olanzapine (ZyPREXA ZYDIS) 2.5 mg PRN DAILY PRN PO PSYCHOSIS; Start 10/01/17 at 20:00; Stop 10/01/17 at 23:17; Status DC Risperidone (RisperDAL) 0.75 mg DAILY PO Last administered on 10/02/17at 10:16; Start 10/02/17 at 09:00 Temazepam (Restoril) 15 mg PRN QHS PRN PO INSOMNIA Last administered on 01:44; Start 10/01/17 at 20:00 Temazepam (Restoril) 15 mg QHS PO Last administered on 10/02/17at 20:40; Start at 21:00 Trazodone HCl (Desyrel) 50 mg QHS PO Last administered on 10/02/17at 20:41; Start 10/01/17 at 21:00 Acetaminophen (Tylenol) 650 mg PRN Q6HRS PRN PO PAIN / TEMP Last administered on 10/01/17 21:02; Start 10/01/17 at 20:00 Aspirin (Children'S Aspirin) 81 mg DAILY PO Last administered on 10/02/17 10:17 ; Start 10/02/17 at 09:00 Atorvastatin Calcium (Lipitor) 20 mg QHS PO Last administered on 10/02/17 20:41 ; Start 10/01/17 at 21:00 Cyanocobalamin (Vitamin B-12) 500 mcg BID PO Last administered on 10/02/17 20: 41; Start 10/01/17 at 21:00 Dicyclomine HCl (Bentyl) 10 mg QID PO Last administered on 10/02/17 20:40; Start 10/01/17 at 21:00 Ondansetron HCl (Zofran Odt) 4 mg PRN Q8HRS PRN PO NAUSEA/VOMITING Last administered on 10/01/17 20:51; Start 10/01/17 at 20:00 Sucralfate (Carafate) 1 gm QIDACHS PO Last administered on 10/02/17 20:40; Start 10/01/17 at 21:00 Multivitamins/ Calcium (Thera-M Plus) 1 tab DAILY PO Last administered on 10:17; Start 10/02/17 at 09:00 Non-Formulary Medication (Ondansetron Hcl ) 4 mg PRN Q6HRS PRN PO NAUSEA/ VOMITING; Start 10/01/17 at 20:00; Status UNV Potassium Chloride (Klor-Con) 10 meq DAILY PO Last administered on 10/02/17 10: 20; Start 10/02/17 at 09:00 Multi-Ingredient Ointment (Analgesic Thida) 1 marianne PRN QID PRN TP MUSCLE PAIN; Start 10/01/17 at 20:00 Al Hydroxide/Mg Hydroxide (Mylanta Plus Xs) 15 ml PRN AFTMEALHC PRN PO DYSPEPSIA; Start 10/01/17 at 20:00 Magnesium Hydroxide (Milk Of Magnesia) 2,400 mg PRN QHS PRN PO CONSTIPATION; Start 10/01/17 at 20:00 Olanzapine (ZyPREXA ZYDIS) 2.5 mg DAILY PO ; Start 10/01/17 at 23:30; Stop at 23:30; Status DC Olanzapine (ZyPREXA ZYDIS) 2.5 mg DAILY PO Last administered on 10/02/17at 10:19 ; Start 10/02/17 at 09:00 Active Scripts Active Reported Potassium Chloride 10 Meq Tablet.er 10 Meq PO DAILY Divalproex Sodium Er (Divalproex Sodium) 500 Mg Tab.er.24h 500 Mg PO DAILY Vitamin B-12 (Cyanocobalamin (Vitamin B-12)) 1,000 Mcg Tablet 500 Mcg PO BID Ondansetron Odt (Ondansetron) 4 Mg Tab.rapdis 4 Mg PO PRN Q8HRS PRN Ondansetron Hcl 4 Mg Tablet 4 Mg PO PRN Q6HRS PRN Sucralfate 1 Gm Tablet 1 Gm PO QIDACHS Dicyclomine Hcl 10 Mg Capsule 1-2 Cap PO QID Alprazolam 0.25 Mg Tablet 0.25 Mg PO PRN Q2HR PRN Max 2 tabs daily Trazodone Hcl 50 Mg Tablet 50 Mg PO QHS May repeat 1X Risperdal (Risperidone) 0.5 Mg Tablet 0.75 Mg PO DAILY Temazepam 15 Mg Capsule 15 Mg PO PRN QHS PRN Administer if first dose not effective Temazepam 15 Mg Capsule 15 Mg PO QHS Zyprexa Zydis (Olanzapine) 5 Mg Tab.rapdis 2.5 Mg PO DAILY PRN Mirtazapine 15 Mg Tablet 7.5 Mg PO QHS Multivitamins (Multivitamin) 1 Each Tablet 1 Tab PO DAILY Atorvastatin Calcium 20 Mg Tablet 20 Mg PO QHS Tylenol (Acetaminophen) 325 Mg Tablet 650 Mg PO PRN Q6HRS PRN MDD 4000 Aspirin 81 Mg Tab.chew 81 Mg PO DAILY I have reviewed the current psychotropics carefully including drug interactions. Risk benefit ratio favors no change other than as noted in my dictated progress note. Diagnosis: Problems: (1) Anxiety disorder (2) Bipolar affective disorder, mixed (3) Impulse control disorder (4) Panic disorder with agoraphobia and severe panic attacks (5) Obsessive compulsive disorder SANTIAGO FARFAN MD October 02, 2017 21:01
[2017-10-02 23:09] LABS: HEMOGLOBIN A1C 5.1 % (4.8-5.6)
--- NOTE | 2017-10-03 03:05 | CONS ---
DATE OF CONSULTATION: 10/02/2017 REASON FOR CONSULTATION: Medical management. HISTORY OF PRESENT ILLNESS: The patient is a 72-year-old female patient, who was referred back from [facility] Emergency Room where she was presented around midnight from her home with markedly increased anxiety, mood swings, worsening depression and suicidal ideation, wanting to , reason that were not entirely clear, but apparently resentment toward her daughter for not being priority. The ER staff also determined that she has been overusing her Xanax that has been prescribed for her and had repeatedly failed to follow up outpatient at the [facility] where she was supposed to have followed up post-discharge from her last psychiatric hospitalization for that; however, she denied any other complaint. PAST MEDICAL HISTORY: Significant for hypertension, hyperlipidemia, severe anxiety. PAST SURGICAL HISTORY: Significant for right sinus surgery, and cholecystectomy. ALLERGIES: SHE IS ALLERGIC TO CHOCOLATE. She is also known to have chronic constipation, history of gastritis, history of hyponatremia. FAMILY HISTORY: Noncontributory. SOCIAL HISTORY: She basically lives alone. Daughter lives in the community, but the patient resents that daughter was not more available to her. She does not drink alcohol or use any recreational drugs. MEDICATIONS: She is currently on following medications: She is on dicyclomine 10 mg 4 times a day, atorvastatin calcium 20 mg at bedtime, aspirin 81 mg once a day, Tylenol 650 mg every 4 hours as needed, divalproex sodium 500 mg daily, mirtazapine 7.5 mg once a day, trazodone 50 mg at bedtime, olanzapine for Zyprexa Zydis 2.5 mg daily, risperidone 0.75 mg daily. She is also on alprazolam 0.25 mg every 2 hours, temazepam 50 mg at bedtime, temazepam to be given as needed at nighttime for insomnia, potassium chloride 10 mEq once a day, ondansetron 4 mg as needed for nausea and vomiting, sucralfate 1 gram 4 times a day, cyanocobalamin 1000 mcg tablet once a day, multivitamin 1 tablet once a day. PHYSICAL EXAMINATION: GENERAL: When I examined her, she was sitting comfortably in her chair in no apparent respiratory distress. She was slightly pale, but no jaundice, cyanosis or thyromegaly. No jugular venous distension. No lower limb edema. VITAL SIGNS: Her heart rate was 79, blood pressure 123/80, temperature was 97.6, respiratory rate was 18 and oxygen saturation was 97%. HEAD, EYES, EARS, NOSE AND THROAT: Showed she is normocephalic, atraumatic. NECK: Supple. HEART: Showed normal first and second heart sounds with no gallop, rub or murmur. CHEST: Clear to auscultation. No crepitation or rhonchi. ABDOMEN: Distended, soft, nontender. NEUROLOGIC: She is awake, alert, responding appropriately. Cranial nerves intact. EXTREMITIES: She moves extremities without difficulty. She ambulates without assistance or assistive devices. LABORATORY DATA: Showed a white cell count of 7600, hemoglobin 11, hematocrit 32, MCV 90 and platelet count 288,000. Her chemistry showed a serum sodium 138, potassium 3, chloride 102, bicarbonate 26, anion gap of 10, BUN 31, creatinine 1.2. Estimated GFR was 44 mL per minute. Her glucose was 118. Calcium was 8.8, magnesium 1.7. Serum iron was 60, TIBC was 321 and iron saturation was 19. Total bilirubin, AST, ALT, alkaline phosphatase were normal. Total protein was 7.3, albumin was 3.6. Her serum triglycerides were 116, total cholesterol was 199, LDL was 140, VLDL was 23 and HDL cholesterol was 56. TSH is normal at 0.861. Total T4 was 8.1, total T3 was 97. Vitamin B12 was 896 pg/mL and 25-hydroxy vitamin D was 30 ng/mL, which is well within normal range. Her urinalysis showed the urine was yellow, cloudy with a pH of 6, specific gravity of 1.020, small amount of protein, negative for glucose, trace of ketones, negative for blood, nitrites and leukocyte esterase was moderate, were 20-40 wbc's, moderate amount of very few bacteria. Her RPR was still pending and toxicology screen showed valproic acid was less than 3. ASSESSMENT AND PLAN: So in summary, this is a 72-year-old female patient, who yet again came with marked increase in anxiety, mood swings, worsening depression, suicidal ideation, wanting to . She has been apparently using Xanax and basically her scheduled Xanax was discontinued. She is now on 0.25 mg every 2 hours as needed for anxiety and for benzodiazepine withdrawal. All her vital signs and lab works are all within acceptable range. I will follow obviously all her labs that are still pending at the time of this dictation and make any necessary recommendation. Thank you Dr. Lord for allowing me to participate in the care of this patient. MARA PENALOZA MD DR: ROBINSON/melody JOB#: [id number] / [id number]
[2017-10-03 05:47] VITALS: BP 111/56
[2017-10-03] MEDS: SUCRALFATE 1 GM TABLET. PO SCH ×4 (07:22→19:29)
[2017-10-03] MEDS: ONDANSETRON ODT 4 MG TAB.RAPDIS PO PRN (07:23)
[2017-10-03] MEDS: risperiDONE 0.5 MG TABLET. PO SCH (07:43)
[2017-10-03] MEDS: MULTIVITAMIN with MINERAL TABLET. PO SCH (07:43)
[2017-10-03] MEDS: POTASSIUM CHLORIDE 10 MEQ TABLET.ER. PO SCH (07:43)
[2017-10-03] MEDS: ASPIRIN 81 MG TAB.CHEW PO SCH (07:43)
[2017-10-03] MEDS: CYANOCOBALAMIN (VITAMIN B-12) 1,000 MCG TABLET. PO SCH ×2 (07:44→19:29)
[2017-10-03] MEDS: DIVALPROEX ER 500 MG TAB.ER.24H PO SCH (07:44)
[2017-10-03] MEDS: DICYCLOMINE HCL 10 MG CAPSULE PO SCH ×4 (07:45→19:29)
[2017-10-03] MEDS: MAGNESIUM HYDROXIDE 2,400 MG/30 ML ORAL.SUSP. PO PRN ×2 (12:00→20:09)
[2017-10-03 15:54] VITALS: BP 122/71
[2017-10-03] MEDS: TEMAZEPAM 15 MG CAPSULE PO SCH (19:28)
[2017-10-03] MEDS: ATORVASTATIN CALCIUM 20 MG TABLET PO SCH (19:29)
[2017-10-03] MEDS: traZODone 50 MG TABLET. PO SCH (19:29)
[2017-10-03] MEDS: MIRTAZAPINE 7.5 MG TABLET. PO SCH (19:29)
--- NOTE | 2017-10-03 21:03 | PDOC ---
Exam Note: Rian Note: Please also refer to the separate dictated note~for this date of service dictated separately.~Patient seen individually. Discussed the patient with Nursing staff reviewed the chart.~Reviewed interim history and current functioning. Reviewed vital signs,~Labs/ Radiology~and current medications noted below. Continue current treatment with the changes noted in the dictated addendum note Assessment: Vital Signs: Vital Signs Date Time Temp Pulse Resp B/P (MAP) Pulse Ox O2 Delivery O2 Flow Rate FiO2 10/03/17 15:54 97.7 72 18 122/71 (88) 98 10/01/17 20:06 Room Air I&O Intake and Output 10/03/17 07:00 Intake Total 1180 ml Balance 1180 ml Intake Oral 1180 ml Current Medications: Meds: Current Medications Alprazolam (Xanax) 0.25 mg PRN Q2HR PRN PO ANXIETY / AGITATION; Start 10/01/17 at 20:00 Divalproex Sodium (Depakote Er) 500 mg DAILY PO Last administered on 10/03/17 07:44; Start 10/02/17 at 09:00 Mirtazapine (Remeron) 7.5 mg QHS PO Last administered on 10/03/17 19:29; Start 10/01/17 at 21:00 Olanzapine (ZyPREXA ZYDIS) 2.5 mg PRN DAILY PRN PO PSYCHOSIS; Start 10/01/17 at 20:00; Stop 10/01/17 at 23:17; Status DC Risperidone (RisperDAL) 0.75 mg DAILY PO Last administered on 10/03/17 07:43; Start 10/02/17 at 09:00 Temazepam (Restoril) 15 mg PRN QHS PRN PO INSOMNIA Last administered on 01:44; Start 10/01/17 at 20:00 Temazepam (Restoril) 15 mg QHS PO Last administered on 10/03/17 19:28; Start at 21:00 Trazodone HCl (Desyrel) 50 mg QHS PO Last administered on 10/03/17 19:29; Start 10/01/17 at 21:00 Acetaminophen (Tylenol) 650 mg PRN Q6HRS PRN PO PAIN / TEMP Last administered on 10/01/17 21:02; Start 10/01/17 at 20:00 Aspirin (Children'S Aspirin) 81 mg DAILY PO Last administered on 10/03/17 07:43 ; Start 10/02/17 at 09:00 Atorvastatin Calcium (Lipitor) 20 mg QHS PO Last administered on 10/03/17 19:29 ; Start 10/01/17 at 21:00 Cyanocobalamin (Vitamin B-12) 500 mcg BID PO Last administered on 10/03/17 19: 29; Start 10/01/17 at 21:00 Dicyclomine HCl (Bentyl) 10 mg QID PO Last administered on 10/03/17 19:29; Start 10/01/17 at 21:00 Ondansetron HCl (Zofran Odt) 4 mg PRN Q8HRS PRN PO NAUSEA/VOMITING Last administered on 10/03/17 07:23; Start 10/01/17 at 20:00 Sucralfate (Carafate) 1 gm QIDACHS PO Last administered on 10/03/17 19:29; Start 10/01/17 at 21:00 Multivitamins/ Calcium (Thera-M Plus) 1 tab DAILY PO Last administered on 07:43; Start 10/02/17 at 09:00 Non-Formulary Medication (Ondansetron Hcl ) 4 mg PRN Q6HRS PRN PO NAUSEA/ VOMITING; Start 10/01/17 at 20:00; Status UNV Potassium Chloride (Klor-Con) 10 meq DAILY PO Last administered on 10/03/17 07: 43; Start 10/02/17 at 09:00 Multi-Ingredient Ointment (Analgesic Flom) 1 marianne PRN QID PRN TP MUSCLE PAIN; Start 10/01/17 at 20:00 Al Hydroxide/Mg Hydroxide (Mylanta Plus Xs) 15 ml PRN AFTMEALHC PRN PO DYSPEPSIA; Start 10/01/17 at 20:00 Magnesium Hydroxide (Milk Of Magnesia) 2,400 mg PRN QHS PRN PO CONSTIPATION Last administered on 10/03/17 20:09; Start 10/01/17 at 20:00 Olanzapine (ZyPREXA ZYDIS) 2.5 mg DAILY PO ; Start 10/01/17 at 23:30; Stop at 23:30; Status DC Olanzapine (ZyPREXA ZYDIS) 2.5 mg DAILY PO Last administered on 10/03/17at 07:43 ; Start 10/02/17 at 09:00 Active Scripts Active Reported Potassium Chloride 10 Meq Tablet.er 10 Meq PO DAILY Divalproex Sodium Er (Divalproex Sodium) 500 Mg Tab.er.24h 500 Mg PO DAILY Vitamin B-12 (Cyanocobalamin (Vitamin B-12)) 1,000 Mcg Tablet 500 Mcg PO BID Ondansetron Odt (Ondansetron) 4 Mg Tab.rapdis 4 Mg PO PRN Q8HRS PRN Ondansetron Hcl 4 Mg Tablet 4 Mg PO PRN Q6HRS PRN Sucralfate 1 Gm Tablet 1 Gm PO QIDACHS Dicyclomine Hcl 10 Mg Capsule 1-2 Cap PO QID Alprazolam 0.25 Mg Tablet 0.25 Mg PO PRN Q2HR PRN Max 2 tabs daily Trazodone Hcl 50 Mg Tablet 50 Mg PO QHS May repeat 1X Risperdal (Risperidone) 0.5 Mg Tablet 0.75 Mg PO DAILY Temazepam 15 Mg Capsule 15 Mg PO PRN QHS PRN Administer if first dose not effective Temazepam 15 Mg Capsule 15 Mg PO QHS Zyprexa Zydis (Olanzapine) 5 Mg Tab.rapdis 2.5 Mg PO DAILY PRN Mirtazapine 15 Mg Tablet 7.5 Mg PO QHS Multivitamins (Multivitamin) 1 Each Tablet 1 Tab PO DAILY Atorvastatin Calcium 20 Mg Tablet 20 Mg PO QHS Tylenol (Acetaminophen) 325 Mg Tablet 650 Mg PO PRN Q6HRS PRN MDD 4000 Aspirin 81 Mg Tab.chew 81 Mg PO DAILY I have reviewed the current psychotropics carefully including drug interactions. Risk benefit ratio favors no change other than as noted in my dictated progress note. Diagnosis: Problems: (1) Anxiety disorder (2) Bipolar affective disorder, mixed (3) Impulse control disorder (4) Panic disorder with agoraphobia and severe panic attacks (5) Obsessive compulsive disorder SANTIAGO FARFAN MD October 03, 2017 21:03
[2017-10-03] MEDS: TEMAZEPAM 15 MG CAPSULE PO PRN (22:05)
[2017-10-04 06:18] VITALS: BP 131/69
--- NOTE | 2017-10-04 06:59 | EKG ---
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
[2017-10-04] MEDS: DIVALPROEX ER 500 MG TAB.ER.24H PO SCH (07:42)
[2017-10-04] MEDS: CYANOCOBALAMIN (VITAMIN B-12) 1,000 MCG TABLET. PO SCH ×2 (07:43→20:26)
[2017-10-04] MEDS: DICYCLOMINE HCL 10 MG CAPSULE PO SCH ×4 (07:43→20:27)
[2017-10-04] MEDS: ASPIRIN 81 MG TAB.CHEW PO SCH (07:43)
[2017-10-04] MEDS: MULTIVITAMIN with MINERAL TABLET. PO SCH (07:43)
[2017-10-04] MEDS: POTASSIUM CHLORIDE 10 MEQ TABLET.ER. PO SCH (07:43)
[2017-10-04] MEDS: SUCRALFATE 1 GM TABLET. PO SCH ×4 (07:43→20:26)
[2017-10-04] MEDS: risperiDONE 0.5 MG TABLET. PO SCH (07:44)
[2017-10-04 11:08] LABS: ALBUMIN 3.6 g/dL (3.4-5.0); ALBUMIN/GLOBULIN RATIO 0.9 (1.0-1.7); ALK PHOS 109 U/L (46-116); ALT (SGPT) 23 U/L (14-59); ANION GAP 9 (6-14); AST (SGOT) 19 U/L (15-37); BLOOD UREA NITROGEN 17 mg/dL (7-20); BUN/CREATININE RATIO 24 (6-20); CALCIUM 9.2 mg/dL (8.5-10.1); CARBON DIOXIDE 28 mmol/L (21-32); CHLORIDE 100 mmol/L (98-107); CREATININE 0.7 mg/dL (0.6-1.0); GFR 82.5; GLUCOSE 93 mg/dL (70-99); POTASSIUM 4.1 mmol/L (3.5-5.1); SODIUM 137 mmol/L (136-145); TOTAL BILIRUBIN 0.2 mg/dL (0.2-1.0); TOTAL PROTEIN 7.4 g/dL (6.4-8.2)
[2017-10-04 11:15] LABS: VAL ACID < 3 mcg/mL (50-100)
[2017-10-04 11:18] LABS: BASO % 1 % (0-3); EOS # 0.1 x10^3/uL (0.0-0.7); EOS % 1 % (0-3); HEMATOCRIT 33.5 % (36.0-47.0); HEMOGLOBIN 11.5 g/dL (12.0-15.5); LYMPH # 0.8 x10^3/uL (1.0-4.8); LYMPH % 15 % (24-48); MEAN CORPUSCULAR HEMOGLOBIN 34 pg (25-35); MEAN CORPUSCULAR HGB CONC 34 g/dL (31-37); MEAN CORPUSCULAR VOLUME 98 fL (79-100); MONO # 0.3 x10^3/uL (0.0-1.1); MONO % 7 % (0-9); NEUT # 3.9 x10^3uL (1.8-7.7); NEUT % 76 % (31-73); PLATELET COUNT 403 x10^3/uL (140-400); RED CELL DISTRIBUTION WIDTH 17.3 % (11.5-14.5); WHITE BLOOD COUNT 5.2 x10^3/uL (4.0-11.0)
[2017-10-04 16:52] VITALS: BP 103/67
--- NOTE | 2017-10-04 17:12 | PN ---
DATE: 10/02/2017 This is a late entry 10/02, covers elements not covered in my initial note 10/02. SUBJECTIVE: The patient was staffed at treatment team meeting with the entire team in the morning, seen individually in the evening. At treatment team meeting discussed her repeated hospitalizations. Repeated visits to the ER, need for her to be in a more structured placement where she is administered her medications since she tends to overuse the Xanax repeatedly and never follows up outpatient at the [facility]. REVIEW OF SYSTEMS: Positive for some tiredness. No CV, , pulmonary, eye, ENT system symptoms on review. MENTAL STATUS EXAM: Oriented to herself, at times situation. Speech coherent, at times pressured. Abstraction fair, computation impaired, language function intact. Attention span short easily distracted. No active suicidal or homicidal ideation. LABORATORY DATA: Reviewed. IMPRESSION: Bipolar 1 disorder, mixed episode; anxiety disorder, unspecified. Rest unchanged. PLAN: Continue psychotropics mentioned in my initial note. She has been restarted on Risperdal, Depakote along with the Remeron, Xanax p.r.n. SANTIAGO FARFAN MD DR: INNA/melody JOB#: [id number] / [id number]
[2017-10-04] MEDS: TEMAZEPAM 15 MG CAPSULE PO SCH (20:26)
[2017-10-04] MEDS: ATORVASTATIN CALCIUM 20 MG TABLET PO SCH (20:26)
[2017-10-04] MEDS: traZODone 50 MG TABLET. PO SCH (20:26)
[2017-10-04] MEDS: MIRTAZAPINE 7.5 MG TABLET. PO SCH (20:27)
--- NOTE | 2017-10-04 23:01 | PDOC ---
Exam Note: Rian Note: Please also refer to the separate dictated note~for this date of service dictated separately.~Patient seen individually. Discussed the patient with Nursing staff reviewed the chart.~Reviewed interim history and current functioning. Reviewed vital signs,~Labs/ Radiology~and current medications noted below. Continue current treatment with the changes noted in the dictated addendum note Assessment: Vital Signs: Vital Signs Date Time Temp Pulse Resp B/P (MAP) Pulse Ox O2 Delivery O2 Flow Rate FiO2 10/04/17 16:52 97.6 77 16 103/67 (79) 100 10/01/17 20:06 Room Air I&O Intake and Output 10/04/17 07:00 Intake Total 720 ml Balance 720 ml Intake Oral 720 ml Labs: Laboratory Tests Test 10/04/17 10:04 White Blood Count 5.2 x10^3/uL (4.0-11.0) Red Blood Count 3.40 x10^6/uL (3.50-5.40) L Hemoglobin 11.5 g/dL (12.0-15.5) L Hematocrit 33.5 % (36.0-47.0) L Mean Corpuscular Volume 98 fL (79-100) # Mean Corpuscular Hemoglobin 34 pg (25-35) Mean Corpuscular Hemoglobin Concent 34 g/dL (31-37) Red Cell Distribution Width 17.3 % (11.5-14.5) H Platelet Count 403 x10^3/uL (140-400) H Neutrophils (%) (Auto) 76 % (31-73) H Lymphocytes (%) (Auto) 15 % (24-48) L Monocytes (%) (Auto) 7 % (0-9) Eosinophils (%) (Auto) 1 % (0-3) Basophils (%) (Auto) 1 % (0-3) Neutrophils # (Auto) 3.9 x10^3uL (1.8-7.7) Lymphocytes # (Auto) 0.8 x10^3/uL (1.0-4.8) L Monocytes # (Auto) 0.3 x10^3/uL (0.0-1.1) Eosinophils # (Auto) 0.1 x10^3/uL (0.0-0.7) Basophils # (Auto) 0.0 x10^3/uL (0.0-0.2) Sodium Level 137 mmol/L (136-145) Potassium Level 4.1 mmol/L (3.5-5.1) Chloride Level 100 mmol/L (98-107) Carbon Dioxide Level 28 mmol/L (21-32) Anion Gap 9 (6-14) Blood Urea Nitrogen 17 mg/dL (7-20) Creatinine 0.7 mg/dL (0.6-1.0) Estimated GFR (Cockcroft-Gault) 82.5 BUN/Creatinine Ratio 24 (6-20) H Glucose Level 93 mg/dL (70-99) Calcium Level 9.2 mg/dL (8.5-10.1) Total Bilirubin 0.2 mg/dL (0.2-1.0) Aspartate Amino Transferase (AST) 19 U/L (15-37) Alanine Aminotransferase (ALT) 23 U/L (14-59) Alkaline Phosphatase 109 U/L (46-116) Total Protein 7.4 g/dL (6.4-8.2) Albumin 3.6 g/dL (3.4-5.0) Albumin/Globulin Ratio 0.9 (1.0-1.7) L Valproic Acid Level < 3 mcg/mL (50-100) L Valproic Acid Last Dose Date 10/03/2017 Valproic Acid Last Dose Time 2100 Current Medications: Meds: Current Medications Alprazolam (Xanax) 0.25 mg PRN Q2HR PRN PO ANXIETY / AGITATION; Start 10/01/17 at 20:00 Divalproex Sodium (Depakote Er) 500 mg DAILY PO Last administered on 10/04/17at 07:42; Start 10/02/17 at 09:00 Mirtazapine (Remeron) 7.5 mg QHS PO Last administered on 10/04/17at 20:27; Start 10/01/17 at 21:00 Olanzapine (ZyPREXA ZYDIS) 2.5 mg PRN DAILY PRN PO PSYCHOSIS; Start 10/01/17 at 20:00; Stop 10/01/17 at 23:17; Status DC Risperidone (RisperDAL) 0.75 mg DAILY PO Last administered on 10/04/17at 07:44; Start 10/02/17 at 09:00 Temazepam (Restoril) 15 mg PRN QHS PRN PO INSOMNIA Last administered on 22:05; Start 10/01/17 at 20:00 Temazepam (Restoril) 15 mg QHS PO Last administered on 10/04/17 20:26; Start at 21:00 Trazodone HCl (Desyrel) 50 mg QHS PO Last administered on 10/04/17 20:26; Start 10/01/17 at 21:00 Acetaminophen (Tylenol) 650 mg PRN Q6HRS PRN PO PAIN / TEMP Last administered on 10/01/17 21:02; Start 10/01/17 at 20:00 Aspirin (Children'S Aspirin) 81 mg DAILY PO Last administered on 10/04/17 07:43 ; Start 10/02/17 at 09:00 Atorvastatin Calcium (Lipitor) 20 mg QHS PO Last administered on 10/04/17 20:26 ; Start 10/01/17 at 21:00 Cyanocobalamin (Vitamin B-12) 500 mcg BID PO Last administered on 10/04/17 20: 26; Start 10/01/17 at 21:00 Dicyclomine HCl (Bentyl) 10 mg QID PO Last administered on 10/04/17 20:27; Start 10/01/17 at 21:00 Ondansetron HCl (Zofran Odt) 4 mg PRN Q8HRS PRN PO NAUSEA/VOMITING Last administered on 10/03/17 07:23; Start 10/01/17 at 20:00 Sucralfate (Carafate) 1 gm QIDACHS PO Last administered on 10/04/17 20:26; Start 10/01/17 at 21:00 Multivitamins/ Calcium (Thera-M Plus) 1 tab DAILY PO Last administered on 07:43; Start 10/02/17 at 09:00 Non-Formulary Medication (Ondansetron Hcl ) 4 mg PRN Q6HRS PRN PO NAUSEA/ VOMITING; Start 10/01/17 at 20:00; Status UNV Potassium Chloride (Klor-Con) 10 meq DAILY PO Last administered on 10/04/17 07: 43; Start 10/02/17 at 09:00 Multi-Ingredient Ointment (Analgesic [place]) 1 marianne PRN QID PRN TP MUSCLE PAIN; Start 10/01/17 at 20:00 Al Hydroxide/Mg Hydroxide (Mylanta Plus Xs) 15 ml PRN AFTMEALHC PRN PO DYSPEPSIA; Start 10/01/17 at 20:00 Magnesium Hydroxide (Milk Of Magnesia) 2,400 mg PRN QHS PRN PO CONSTIPATION Last administered on 10/03/17at 12:00; Start 10/01/17 at 20:00 Olanzapine (ZyPREXA ZYDIS) 2.5 mg DAILY PO ; Start 10/01/17 at 23:30; Stop at 23:30; Status DC Olanzapine (ZyPREXA ZYDIS) 2.5 mg DAILY PO Last administered on 10/04/17at 16:39 ; Start 10/02/17 at 09:00 Hydroxyzine HCl (Atarax) 25 mg PRN Q4HRS PRN PO ITCHING; Start 10/04/17 at 20:15 Active Scripts Active Reported Potassium Chloride 10 Meq Tablet.er 10 Meq PO DAILY Divalproex Sodium Er (Divalproex Sodium) 500 Mg Tab.er.24h 500 Mg PO DAILY Vitamin B-12 (Cyanocobalamin (Vitamin B-12)) 1,000 Mcg Tablet 500 Mcg PO BID Ondansetron Odt (Ondansetron) 4 Mg Tab.rapdis 4 Mg PO PRN Q8HRS PRN Ondansetron Hcl 4 Mg Tablet 4 Mg PO PRN Q6HRS PRN Sucralfate 1 Gm Tablet 1 Gm PO QIDACHS Dicyclomine Hcl 10 Mg Capsule 1-2 Cap PO QID Alprazolam 0.25 Mg Tablet 0.25 Mg PO PRN Q2HR PRN Max 2 tabs daily Trazodone Hcl 50 Mg Tablet 50 Mg PO QHS May repeat 1X Risperdal (Risperidone) 0.5 Mg Tablet 0.75 Mg PO DAILY Temazepam 15 Mg Capsule 15 Mg PO PRN QHS PRN Administer if first dose not effective Temazepam 15 Mg Capsule 15 Mg PO QHS Zyprexa Zydis (Olanzapine) 5 Mg Tab.rapdis 2.5 Mg PO DAILY PRN Mirtazapine 15 Mg Tablet 7.5 Mg PO QHS Multivitamins (Multivitamin) 1 Each Tablet 1 Tab PO DAILY Atorvastatin Calcium 20 Mg Tablet 20 Mg PO QHS Tylenol (Acetaminophen) 325 Mg Tablet 650 Mg PO PRN Q6HRS PRN MDD 4000 Aspirin 81 Mg Tab.chew 81 Mg PO DAILY I have reviewed the current psychotropics carefully including drug interactions. Risk benefit ratio favors no change other than as noted in my dictated progress note. Diagnosis: Problems: (1) Anxiety disorder (2) Bipolar affective disorder, mixed (3) Impulse control disorder (4) Panic disorder with agoraphobia and severe panic attacks (5) Obsessive compulsive disorder SANTIAGO FARFAN MD October 04, 2017 23:01
[2017-10-05 06:23] VITALS: BP 127/59
[2017-10-05] MEDS: DIVALPROEX ER 500 MG TAB.ER.24H PO SCH (07:52)
[2017-10-05] MEDS: POTASSIUM CHLORIDE 10 MEQ TABLET.ER. PO SCH (07:52)
[2017-10-05] MEDS: DICYCLOMINE HCL 10 MG CAPSULE PO SCH ×4 (07:52→19:59)
[2017-10-05] MEDS: CYANOCOBALAMIN (VITAMIN B-12) 1,000 MCG TABLET. PO SCH ×2 (07:53→19:59)
[2017-10-05] MEDS: MULTIVITAMIN with MINERAL TABLET. PO SCH (07:54)
[2017-10-05] MEDS: ASPIRIN 81 MG TAB.CHEW PO SCH (07:54)
[2017-10-05] MEDS: risperiDONE 0.5 MG TABLET. PO SCH (07:54)
[2017-10-05] MEDS: SUCRALFATE 1 GM TABLET. PO SCH ×4 (07:55→19:59)
[2017-10-05] MEDS: hydrOXYzine HCL 25 MG TABLET PO PRN ×3 (12:00→23:31)
[2017-10-05 16:37] VITALS: BP 135/87
--- NOTE | 2017-10-05 18:46 | PDOC ---
Exam Note: Rian Note: Please also refer to the separate dictated note~for this date of service dictated separately.~Patient seen individually. Discussed the patient with Nursing staff reviewed the chart.~Reviewed interim history and current functioning. Reviewed vital signs,~Labs/ Radiology~and current medications noted below. Continue current treatment with the changes noted in the dictated addendum note Assessment: Vital Signs: Vital Signs Date Time Temp Pulse Resp B/P (MAP) Pulse Ox O2 Delivery O2 Flow Rate FiO2 10/05/17 16:37 98.4 78 20 135/87 (103) 96 10/01/17 20:06 Room Air I&O Intake and Output 10/05/17 07:00 Intake Total 600 ml Balance 600 ml Intake Oral 600 ml # Bowel Movements 1 Current Medications: Meds: Current Medications Alprazolam (Xanax) 0.25 mg PRN Q2HR PRN PO ANXIETY / AGITATION; Start 10/01/17 at 20:00 Divalproex Sodium (Depakote Er) 500 mg DAILY PO Last administered on 10/05/17at 07:52; Start 10/02/17 at 09:00 Mirtazapine (Remeron) 7.5 mg QHS PO Last administered on 10/04/17 20:27; Start 10/01/17 at 21:00 Olanzapine (ZyPREXA ZYDIS) 2.5 mg PRN DAILY PRN PO PSYCHOSIS; Start 10/01/17 at 20:00; Stop 10/01/17 at 23:17; Status DC Risperidone (RisperDAL) 0.75 mg DAILY PO Last administered on 10/05/17at 07:54; Start 10/02/17 at 09:00 Temazepam (Restoril) 15 mg PRN QHS PRN PO INSOMNIA Last administered on 22:05; Start 10/01/17 at 20:00 Temazepam (Restoril) 15 mg QHS PO Last administered on 10/04/17 20:26; Start at 21:00 Trazodone HCl (Desyrel) 50 mg QHS PO Last administered on 10/04/17 20:26; Start 10/01/17 at 21:00 Acetaminophen (Tylenol) 650 mg PRN Q6HRS PRN PO PAIN / TEMP Last administered on 10/01/17at 21:02; Start 10/01/17 at 20:00 Aspirin (Children'S Aspirin) 81 mg DAILY PO Last administered on 10/05/17 07:54 ; Start 10/02/17 at 09:00 Atorvastatin Calcium (Lipitor) 20 mg QHS PO Last administered on 10/04/17 20:26 ; Start 10/01/17 at 21:00 Cyanocobalamin (Vitamin B-12) 500 mcg BID PO Last administered on 10/05/17 07: 53; Start 10/01/17 at 21:00 Dicyclomine HCl (Bentyl) 10 mg QID PO Last administered on 10/05/17 17:00; Start 10/01/17 at 21:00 Ondansetron HCl (Zofran Odt) 4 mg PRN Q8HRS PRN PO NAUSEA/VOMITING Last administered on 10/03/17 07:23; Start 10/01/17 at 20:00 Sucralfate (Carafate) 1 gm QIDACHS PO Last administered on 10/05/17 16:30; Start 10/01/17 at 21:00 Multivitamins/ Calcium (Thera-M Plus) 1 tab DAILY PO Last administered on 07:54; Start 10/02/17 at 09:00; Stop 10/05/17 at 13:55; Status DC Non-Formulary Medication (Ondansetron Hcl ) 4 mg PRN Q6HRS PRN PO NAUSEA/ VOMITING; Start 10/01/17 at 20:00; Status UNV Potassium Chloride (Klor-Con) 10 meq DAILY PO Last administered on 10/05/17 07: 52; Start 10/02/17 at 09:00 Multi-Ingredient Ointment (Analgesic [place]) 1 marianne PRN QID PRN TP MUSCLE PAIN; Start 10/01/17 at 20:00 Al Hydroxide/Mg Hydroxide (Mylanta Plus Xs) 15 ml PRN AFTMEALHC PRN PO DYSPEPSIA; Start 10/01/17 at 20:00 Magnesium Hydroxide (Milk Of Magnesia) 2,400 mg PRN QHS PRN PO CONSTIPATION Last administered on 10/03/17 12:00; Start 10/01/17 at 20:00 Olanzapine (ZyPREXA ZYDIS) 2.5 mg DAILY PO ; Start 10/01/17 at 23:30; Stop at 23:30; Status DC Olanzapine (ZyPREXA ZYDIS) 2.5 mg DAILY PO Last administered on 10/05/17at 07:54 ; Start 10/02/17 at 09:00 Hydroxyzine HCl (Atarax) 25 mg PRN Q4HRS PRN PO ITCHING Last administered on 10/05/17at 18:15; Start 10/04/17 at 20:15 Active Scripts Active Reported Potassium Chloride 10 Meq Tablet.er 10 Meq PO DAILY Divalproex Sodium Er (Divalproex Sodium) 500 Mg Tab.er.24h 500 Mg PO DAILY Vitamin B-12 (Cyanocobalamin (Vitamin B-12)) 1,000 Mcg Tablet 500 Mcg PO BID Ondansetron Odt (Ondansetron) 4 Mg Tab.rapdis 4 Mg PO PRN Q8HRS PRN Ondansetron Hcl 4 Mg Tablet 4 Mg PO PRN Q6HRS PRN Sucralfate 1 Gm Tablet 1 Gm PO QIDACHS Dicyclomine Hcl 10 Mg Capsule 1-2 Cap PO QID Alprazolam 0.25 Mg Tablet 0.25 Mg PO PRN Q2HR PRN Max 2 tabs daily Trazodone Hcl 50 Mg Tablet 50 Mg PO QHS May repeat 1X Risperdal (Risperidone) 0.5 Mg Tablet 0.75 Mg PO DAILY Temazepam 15 Mg Capsule 15 Mg PO PRN QHS PRN Administer if first dose not effective Temazepam 15 Mg Capsule 15 Mg PO QHS Zyprexa Zydis (Olanzapine) 5 Mg Tab.rapdis 2.5 Mg PO DAILY PRN Mirtazapine 15 Mg Tablet 7.5 Mg PO QHS Multivitamins (Multivitamin) 1 Each Tablet 1 Tab PO DAILY Atorvastatin Calcium 20 Mg Tablet 20 Mg PO QHS Tylenol (Acetaminophen) 325 Mg Tablet 650 Mg PO PRN Q6HRS PRN MDD 4000 Aspirin 81 Mg Tab.chew 81 Mg PO DAILY I have reviewed the current psychotropics carefully including drug interactions. Risk benefit ratio favors no change other than as noted in my dictated progress note. 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
[2017-10-05] MEDS: MIRTAZAPINE 7.5 MG TABLET. PO SCH (19:59)
[2017-10-05] MEDS: ATORVASTATIN CALCIUM 20 MG TABLET PO SCH (19:59)
[2017-10-05] MEDS: TEMAZEPAM 15 MG CAPSULE PO SCH (19:59)
[2017-10-05] MEDS: traZODone 50 MG TABLET. PO SCH (20:00)
[2017-10-06] MEDS: ONDANSETRON ODT 4 MG TAB.RAPDIS PO PRN (00:10)
[2017-10-06] MEDS: CYANOCOBALAMIN (VITAMIN B-12) 1,000 MCG TABLET. PO SCH ×2 (05:01→20:23)
[2017-10-06] MEDS: SUCRALFATE 1 GM TABLET. PO SCH ×4 (05:01→20:24)
[2017-10-06] MEDS: DIVALPROEX ER 500 MG TAB.ER.24H PO SCH (05:01)
[2017-10-06] MEDS: ASPIRIN 81 MG TAB.CHEW PO SCH (05:01)
[2017-10-06] MEDS: risperiDONE 0.5 MG TABLET. PO SCH (05:02)
[2017-10-06] MEDS: POTASSIUM CHLORIDE 10 MEQ TABLET.ER. PO SCH (05:02)
[2017-10-06] MEDS: DICYCLOMINE HCL 10 MG CAPSULE PO SCH ×4 (05:02→20:24)
[2017-10-06 06:26] VITALS: BP 132/76
[2017-10-06 16:30] VITALS: BP 116/63
[2017-10-06] MEDS: MIRTAZAPINE 7.5 MG TABLET. PO SCH (20:23)
[2017-10-06] MEDS: traZODone 50 MG TABLET. PO SCH (20:24)
[2017-10-06] MEDS: ATORVASTATIN CALCIUM 20 MG TABLET PO SCH (20:25)
[2017-10-06] MEDS: TEMAZEPAM 15 MG CAPSULE PO SCH (20:27)
--- NOTE | 2017-10-06 20:57 | PDOC ---
Exam Note: Rian Note: Please also refer to the separate dictated note~for this date of service dictated separately.~Patient seen individually. Discussed the patient with Nursing staff reviewed the chart.~Reviewed interim history and current functioning. Reviewed vital signs,~Labs/ Radiology~and current medications noted below. Continue current treatment with the changes noted in the dictated addendum note Assessment: Vital Signs: Vital Signs Date Time Temp Pulse Resp B/P (MAP) Pulse Ox O2 Delivery O2 Flow Rate FiO2 10/06/17 16:30 98.3 71 16 116/63 (80) 97 10/01/17 20:06 Room Air I&O Intake and Output 10/06/17 07:00 Intake Total 1080 ml Balance 1080 ml Intake Oral 1080 ml # Bowel Movements 1 Current Medications: Meds: Current Medications Alprazolam (Xanax) 0.25 mg PRN Q2HR PRN PO ANXIETY / AGITATION; Start 10/01/17 at 20:00 Divalproex Sodium (Depakote Er) 500 mg DAILY PO Last administered on 10/06/17at 05:01; Start 10/02/17 at 09:00 Mirtazapine (Remeron) 7.5 mg QHS PO Last administered on 10/06/17 20:23; Start 10/01/17 at 21:00 Olanzapine (ZyPREXA ZYDIS) 2.5 mg PRN DAILY PRN PO PSYCHOSIS; Start 10/01/17 at 20:00; Stop 10/01/17 at 23:17; Status DC Risperidone (RisperDAL) 0.75 mg DAILY PO Last administered on 10/06/17 05:02; Start 10/02/17 at 09:00 Temazepam (Restoril) 15 mg PRN QHS PRN PO INSOMNIA Last administered on 22:05; Start 10/01/17 at 20:00 Temazepam (Restoril) 15 mg QHS PO Last administered on 10/06/17 20:27; Start at 21:00 Trazodone HCl (Desyrel) 50 mg QHS PO Last administered on 10/06/17 20:24; Start 10/01/17 at 21:00 Acetaminophen (Tylenol) 650 mg PRN Q6HRS PRN PO PAIN / TEMP Last administered on 10/01/17 21:02; Start 10/01/17 at 20:00 Aspirin (Children'S Aspirin) 81 mg DAILY PO Last administered on 10/06/17 05:01 ; Start 10/02/17 at 09:00 Atorvastatin Calcium (Lipitor) 20 mg QHS PO Last administered on 10/06/17 20:25 ; Start 10/01/17 at 21:00 Cyanocobalamin (Vitamin B-12) 500 mcg BID PO Last administered on 10/06/17 20: 23; Start 10/01/17 at 21:00 Dicyclomine HCl (Bentyl) 10 mg QID PO Last administered on 10/06/17 20:24; Start 10/01/17 at 21:00 Ondansetron HCl (Zofran Odt) 4 mg PRN Q8HRS PRN PO NAUSEA/VOMITING Last administered on 10/06/17 00:10; Start 10/01/17 at 20:00 Sucralfate (Carafate) 1 gm QIDACHS PO Last administered on 10/06/17 20:24; Start 10/01/17 at 21:00 Multivitamins/ Calcium (Thera-M Plus) 1 tab DAILY PO Last administered on 07:54; Start 10/02/17 at 09:00; Stop 10/05/17 at 13:55; Status DC Non-Formulary Medication (Ondansetron Hcl ) 4 mg PRN Q6HRS PRN PO NAUSEA/ VOMITING; Start 10/01/17 at 20:00; Status UNV Potassium Chloride (Klor-Con) 10 meq DAILY PO Last administered on 10/06/17 05: 02; Start 10/02/17 at 09:00 Multi-Ingredient Ointment (Analgesic [place]) 1 marianne PRN QID PRN TP MUSCLE PAIN; Start 10/01/17 at 20:00 Al Hydroxide/Mg Hydroxide (Mylanta Plus Xs) 15 ml PRN AFTMEALHC PRN PO DYSPEPSIA; Start 10/01/17 at 20:00 Magnesium Hydroxide (Milk Of Magnesia) 2,400 mg PRN QHS PRN PO CONSTIPATION Last administered on 10/03/17 12:00; Start 10/01/17 at 20:00 Olanzapine (ZyPREXA ZYDIS) 2.5 mg DAILY PO ; Start 10/01/17 at 23:30; Stop at 23:30; Status DC Olanzapine (ZyPREXA ZYDIS) 2.5 mg DAILY PO Last administered on 10/06/17at 05:03 ; Start 10/02/17 at 09:00 Hydroxyzine HCl (Atarax) 25 mg PRN Q4HRS PRN PO ITCHING Last administered on 10/05/17at 23:31; Start 10/04/17 at 20:15 Active Scripts Active Reported Potassium Chloride 10 Meq Tablet.er 10 Meq PO DAILY Divalproex Sodium Er (Divalproex Sodium) 500 Mg Tab.er.24h 500 Mg PO DAILY Vitamin B-12 (Cyanocobalamin (Vitamin B-12)) 1,000 Mcg Tablet 500 Mcg PO BID Ondansetron Odt (Ondansetron) 4 Mg Tab.rapdis 4 Mg PO PRN Q8HRS PRN Ondansetron Hcl 4 Mg Tablet 4 Mg PO PRN Q6HRS PRN Sucralfate 1 Gm Tablet 1 Gm PO QIDACHS Dicyclomine Hcl 10 Mg Capsule 1-2 Cap PO QID Alprazolam 0.25 Mg Tablet 0.25 Mg PO PRN Q2HR PRN Max 2 tabs daily Trazodone Hcl 50 Mg Tablet 50 Mg PO QHS May repeat 1X Risperdal (Risperidone) 0.5 Mg Tablet 0.75 Mg PO DAILY Temazepam 15 Mg Capsule 15 Mg PO PRN QHS PRN Administer if first dose not effective Temazepam 15 Mg Capsule 15 Mg PO QHS Zyprexa Zydis (Olanzapine) 5 Mg Tab.rapdis 2.5 Mg PO DAILY PRN Mirtazapine 15 Mg Tablet 7.5 Mg PO QHS Multivitamins (Multivitamin) 1 Each Tablet 1 Tab PO DAILY Atorvastatin Calcium 20 Mg Tablet 20 Mg PO QHS Tylenol (Acetaminophen) 325 Mg Tablet 650 Mg PO PRN Q6HRS PRN MDD 4000 Aspirin 81 Mg Tab.chew 81 Mg PO DAILY I have reviewed the current psychotropics carefully including drug interactions. Risk benefit ratio favors no change other than as noted in my dictated progress note. Diagnosis: Problems: (1) Anxiety disorder (2) Bipolar affective disorder, mixed (3) Impulse control disorder (4) Panic disorder with agoraphobia and severe panic attacks (5) Obsessive compulsive disorder ADOLPH,MAN M MD October 06, 2017 20:57
--- NOTE | 2017-10-07 04:04 | PN ---
DATE: 10/03/2017 PSYCHIATRIC PROGRESS NOTE This late entry 10/03/2017 covers elements not covered in my initial note of 10/03/2017. SUBJECTIVE: The patient was seen evening of 10/03/2017. She slept 3-3/4 hours previous evening. Complains of some nausea and constipation and ongoing anxiety. REVIEW OF SYSTEMS: No CV, , pulmonary, eye, ENT system symptoms on review. Valproic acid level is less than 3. MENTAL STATUS EXAM: Oriented to herself and situation. Speech is coherent, abstraction fair, computation impaired, language function intact. Mood and affect remain somewhat anxious, labile. LABORATORIES: Reviewed. IMPRESSION: Bipolar 1 disorder, mixed episode; anxiety disorder, unspecified; history of benzodiazepine abuse. PLAN: Continue current psychotropics. Check a valproic acid level 55. Maintain Vistaril for anxiety, which has been helpful and avoid benzodiazepines. Educate the patient on this. SANTIAGO FARFAN MD DR: INNA/melody JOB#: [id number] / [id number]
--- NOTE | 2017-10-07 04:10 | PN ---
DATE: 10/05/2017 PSYCHIATRIC PROGRESS NOTE This late entry 10/05/2017 covers elements not covered in my initial note 10/05/2017. SUBJECTIVE: I met with the patient in the evening of 10/05/2017. She did have some Vistaril for anxiety, seems to be effective. We are trying to avoid benzodiazepines. She has vague somatic symptoms. REVIEW OF SYSTEMS: No CV, , pulmonary, eye system symptoms on review. MENTAL STATUS EXAM: Oriented to herself and situation. Speech is coherent, abstraction fair, computation impaired, language function intact. Mood and affect; lability is improved, still anxious. No suicidal or homicidal ideation. IMPRESSION: Unchanged from initial note. PLAN: Continue current psychotropics and use Vistaril for anxiety rather than Xanax. MAN Richar FARFAN MD DR: INNA/melody JOB#: [id number] / [id number]
--- NOTE | 2017-10-07 04:25 | PN ---
DATE: 10/04/2017 PSYCHIATRIC PROGRESS NOTE This late entry 10/04/2017 covers elements not covered in my initial note 10/04/2017. SUBJECTIVE: I met with the patient in the evening. She complains of some dizziness and weakness, Zyprexa Zydis given. She is somatic. Received hydroxyzine, which seems to help. REVIEW OF SYSTEMS: No CV, , pulmonary, eye, ENT system symptoms on review. She has vague somatic symptoms, wanting Xanax p.r.n. MENTAL STATUS EXAM: Oriented to herself and situation. Speech coherent, abstraction fair, computation impaired, language function intact, remain somewhat anxious. No suicidal or homicidal ideation. LABORATORIES: Reviewed. IMPRESSION: Unchanged from initial note. PLAN: Continue current psychotropics, valproic acid level is being repeated. We will adjust thereafter. MAN Richar FARFAN MD DR: INNA/melody JOB#: [id number] / [id number]
[2017-10-07 06:19] VITALS: BP 120/60
[2017-10-07] MEDS: CYANOCOBALAMIN (VITAMIN B-12) 1,000 MCG TABLET. PO SCH ×2 (07:59→19:40)
[2017-10-07] MEDS: risperiDONE 0.5 MG TABLET. PO SCH (08:00)
[2017-10-07] MEDS: SUCRALFATE 1 GM TABLET. PO SCH ×4 (08:00→19:41)
[2017-10-07] MEDS: DIVALPROEX ER 500 MG TAB.ER.24H PO SCH (08:00)
[2017-10-07] MEDS: ASPIRIN 81 MG TAB.CHEW PO SCH (08:00)
[2017-10-07] MEDS: DICYCLOMINE HCL 10 MG CAPSULE PO SCH ×4 (08:01→19:39)
[2017-10-07] MEDS: POTASSIUM CHLORIDE 10 MEQ TABLET.ER. PO SCH (08:01)
[2017-10-07] MEDS: MAGNESIUM HYDROXIDE 2,400 MG/30 ML ORAL.SUSP. PO PRN (10:09)
[2017-10-07 10:33] LABS: VAL ACID 48 mcg/mL (50-100)
[2017-10-07 16:14] VITALS: BP 136/77
[2017-10-07] MEDS: ATORVASTATIN CALCIUM 20 MG TABLET PO SCH (19:40)
[2017-10-07] MEDS: TEMAZEPAM 15 MG CAPSULE PO SCH (19:40)
[2017-10-07] MEDS: MIRTAZAPINE 7.5 MG TABLET. PO SCH (19:40)
[2017-10-07] MEDS: traZODone 50 MG TABLET. PO SCH (19:40)
[2017-10-07] MEDS: ACETAMINOPHEN 325 MG TABLET PO PRN (19:46)
--- NOTE | 2017-10-07 20:51 | PDOC ---
Exam Note: Rian Note: Please also refer to the separate dictated note~for this date of service dictated separately.~Patient seen individually. Discussed the patient with Nursing staff reviewed the chart.~Reviewed interim history and current functioning. Reviewed vital signs,~Labs/ Radiology~and current medications noted below. Continue current treatment with the changes noted in the dictated addendum note Assessment: Vital Signs: Vital Signs Date Time Temp Pulse Resp B/P (MAP) Pulse Ox O2 Delivery O2 Flow Rate FiO2 10/07/17 16:14 97.6 84 18 136/77 (96) 96 10/01/17 20:06 Room Air I&O Intake and Output 10/07/17 07:00 Intake Total 900 ml Balance 900 ml Intake Oral 900 ml Labs: Laboratory Tests Test 10/07/17 06:40 Valproic Acid Level 48 mcg/mL (50-100) L Valproic Acid Last Dose Date 10/06/17 Valproic Acid Last Dose Time 0900 Current Medications: Meds: Current Medications Alprazolam (Xanax) 0.25 mg PRN Q2HR PRN PO ANXIETY / AGITATION; Start 10/01/17 at 20:00 Divalproex Sodium (Depakote Er) 500 mg DAILY PO Last administered on 10/07/17at 08:00; Start 10/02/17 at 09:00; Stop 10/07/17 at 18:45; Status DC Mirtazapine (Remeron) 7.5 mg QHS PO Last administered on 10/07/17at 19:40; Start 10/01/17 at 21:00 Olanzapine (ZyPREXA ZYDIS) 2.5 mg PRN DAILY PRN PO PSYCHOSIS; Start 10/01/17 at 20:00; Stop 10/01/17 at 23:17; Status DC Risperidone (RisperDAL) 0.75 mg DAILY PO Last administered on 10/07/17at 08:00; Start 10/02/17 at 09:00 Temazepam (Restoril) 15 mg PRN QHS PRN PO INSOMNIA Last administered on at 22:05; Start 10/01/17 at 20:00 Temazepam (Restoril) 15 mg QHS PO Last administered on 10/07/17at 19:40; Start at 21:00 Trazodone HCl (Desyrel) 50 mg QHS PO Last administered on 10/07/17 19:40; Start 10/01/17 at 21:00 Acetaminophen (Tylenol) 650 mg PRN Q6HRS PRN PO PAIN / TEMP Last administered on 10/07/17 19:46; Start 10/01/17 at 20:00 Aspirin (Children'S Aspirin) 81 mg DAILY PO Last administered on 10/07/17 08:00 ; Start 10/02/17 at 09:00 Atorvastatin Calcium (Lipitor) 20 mg QHS PO Last administered on 10/07/17 19:40 ; Start 10/01/17 at 21:00 Cyanocobalamin (Vitamin B-12) 500 mcg BID PO Last administered on 10/07/17 19: 40; Start 10/01/17 at 21:00 Dicyclomine HCl (Bentyl) 10 mg QID PO Last administered on 10/07/17 19:39; Start 10/01/17 at 21:00 Ondansetron HCl (Zofran Odt) 4 mg PRN Q8HRS PRN PO NAUSEA/VOMITING Last administered on 10/06/17 00:10; Start 10/01/17 at 20:00 Sucralfate (Carafate) 1 gm QIDACHS PO Last administered on 10/07/17 19:41; Start 10/01/17 at 21:00 Multivitamins/ Calcium (Thera-M Plus) 1 tab DAILY PO Last administered on 07:54; Start 10/02/17 at 09:00; Stop 10/05/17 at 13:55; Status DC Non-Formulary Medication (Ondansetron Hcl ) 4 mg PRN Q6HRS PRN PO NAUSEA/ VOMITING; Start 10/01/17 at 20:00; Status UNV Potassium Chloride (Klor-Con) 10 meq DAILY PO Last administered on 10/07/17 08: 01; Start 10/02/17 at 09:00 Multi-Ingredient Ointment (Analgesic [place]) 1 marianne PRN QID PRN TP MUSCLE PAIN; Start 10/01/17 at 20:00 Al Hydroxide/Mg Hydroxide (Mylanta Plus Xs) 15 ml PRN AFTMEALHC PRN PO DYSPEPSIA; Start 10/01/17 at 20:00 Magnesium Hydroxide (Milk Of Magnesia) 2,400 mg PRN QHS PRN PO CONSTIPATION Last administered on 10/07/17at 10:09; Start 10/01/17 at 20:00 Olanzapine (ZyPREXA ZYDIS) 2.5 mg DAILY PO ; Start 10/01/17 at 23:30; Stop at 23:30; Status DC Olanzapine (ZyPREXA ZYDIS) 2.5 mg DAILY PO Last administered on 10/07/17at 08:02 ; Start 10/02/17 at 09:00 Hydroxyzine HCl (Atarax) 25 mg PRN Q4HRS PRN PO ITCHING Last administered on 10/05/17at 23:31; Start 10/04/17 at 20:15 Divalproex Sodium (Depakote Er) 750 mg DAILY PO ; Start 10/08/17 at 09:00 Active Scripts Active Reported Potassium Chloride 10 Meq Tablet.er 10 Meq PO DAILY Divalproex Sodium Er (Divalproex Sodium) 500 Mg Tab.er.24h 500 Mg PO DAILY Vitamin B-12 (Cyanocobalamin (Vitamin B-12)) 1,000 Mcg Tablet 500 Mcg PO BID Ondansetron Odt (Ondansetron) 4 Mg Tab.rapdis 4 Mg PO PRN Q8HRS PRN Ondansetron Hcl 4 Mg Tablet 4 Mg PO PRN Q6HRS PRN Sucralfate 1 Gm Tablet 1 Gm PO QIDACHS Dicyclomine Hcl 10 Mg Capsule 1-2 Cap PO QID Alprazolam 0.25 Mg Tablet 0.25 Mg PO PRN Q2HR PRN Max 2 tabs daily Trazodone Hcl 50 Mg Tablet 50 Mg PO QHS May repeat 1X Risperdal (Risperidone) 0.5 Mg Tablet 0.75 Mg PO DAILY Temazepam 15 Mg Capsule 15 Mg PO PRN QHS PRN Administer if first dose not effective Temazepam 15 Mg Capsule 15 Mg PO QHS Zyprexa Zydis (Olanzapine) 5 Mg Tab.rapdis 2.5 Mg PO DAILY PRN Mirtazapine 15 Mg Tablet 7.5 Mg PO QHS Multivitamins (Multivitamin) 1 Each Tablet 1 Tab PO DAILY Atorvastatin Calcium 20 Mg Tablet 20 Mg PO QHS Tylenol (Acetaminophen) 325 Mg Tablet 650 Mg PO PRN Q6HRS PRN MDD 4000 Aspirin 81 Mg Tab.chew 81 Mg PO DAILY I have reviewed the current psychotropics carefully including drug interactions. Risk benefit ratio favors no change other than as noted in my dictated progress note. Diagnosis: Problems: (1) Anxiety disorder (2) Bipolar affective disorder, mixed (3) Impulse control disorder (4) Panic disorder with agoraphobia and severe panic attacks (5) Obsessive compulsive disorder SANTIAGO FARFAN MD October 07, 2017 20:51
--- NOTE | 2017-10-07 22:41 | PN ---
DATE: 10/06/2017 PSYCHIATRIC PROGRESS NOTE This is a late entry for 10/06/2017, covers elements not covered in my initial note of 10/06/2017. SUBJECTIVE: I met with the patient in the evening. The patient slept 6-1/2 hours. She has been withdrawn, spending much time in her room. Repeat valproic acid in the morning of 10/07/2017 and then we may adjust the Depakote. Current level is less than 3. REVIEW OF SYSTEMS: No CV, , pulmonary, eye system symptoms on review. Does complain of anxiety. MENTAL STATUS EXAM: Oriented to herself and situation. Speech is coherent little, somewhat rapid at times. Abstraction fair, computation impaired, language function intact, attention span short. Mood and affect remain somewhat anxious, labile. LABORATORY DATA: Reviewed. IMPRESSION: Bipolar 1 disorder, mixed with psychotic features, in partial remission. Rest unchanged. PLAN: Continue current psychotropics. Repeat valproic acid level and adjust Depakote thereafter. MAN Richar FARFAN MD DR: INNA/melody JOB#: [id number] / [id number]
[2017-10-08 05:59] VITALS: BP 123/73
[2017-10-08] MEDS: SUCRALFATE 1 GM TABLET. PO SCH ×4 (07:45→19:21)
[2017-10-08] MEDS: POTASSIUM CHLORIDE 10 MEQ TABLET.ER. PO SCH (09:07)
[2017-10-08] MEDS: DICYCLOMINE HCL 10 MG CAPSULE PO SCH ×4 (09:07→19:19)
[2017-10-08] MEDS: risperiDONE 0.5 MG TABLET. PO SCH (09:07)
[2017-10-08] MEDS: ASPIRIN 81 MG TAB.CHEW PO SCH (09:07)
[2017-10-08] MEDS: CYANOCOBALAMIN (VITAMIN B-12) 1,000 MCG TABLET. PO SCH ×2 (09:08→19:19)
[2017-10-08] MEDS: DIVALPROEX ER 250 MG TAB.ER.24H. PO SCH (09:10)
[2017-10-08 18:16] VITALS: BP 118/61
[2017-10-08] MEDS: MIRTAZAPINE 7.5 MG TABLET. PO SCH (19:18)
[2017-10-08] MEDS: traZODone 50 MG TABLET. PO SCH (19:19)
[2017-10-08] MEDS: ATORVASTATIN CALCIUM 20 MG TABLET PO SCH (19:19)
[2017-10-08] MEDS: TEMAZEPAM 15 MG CAPSULE PO SCH (19:21)
[2017-10-08] MEDS: TEMAZEPAM 15 MG CAPSULE PO PRN (22:10)
--- NOTE | 2017-10-08 22:16 | PDOC ---
Exam Note: Rian Note: Please also refer to the separate dictated note~for this date of service dictated separately.~Patient seen individually. Discussed the patient with Nursing staff reviewed the chart.~Reviewed interim history and current functioning. Reviewed vital signs,~Labs/ Radiology~and current medications noted below. Continue current treatment with the changes noted in the dictated addendum note Assessment: Vital Signs: Vital Signs Date Time Temp Pulse Resp B/P (MAP) Pulse Ox O2 Delivery O2 Flow Rate FiO2 10/08/17 18:16 97.2 61 18 118/61 (80) 100 I&O Intake and Output 10/08/17 07:00 Intake Total 1200 ml Balance 1200 ml Intake Oral 1200 ml Current Medications: Meds: Current Medications Alprazolam (Xanax) 0.25 mg PRN Q2HR PRN PO ANXIETY / AGITATION; Start 10/01/17 at 20:00 Divalproex Sodium (Depakote Er) 500 mg DAILY PO Last administered on 10/07/17at 08:00; Start 10/02/17 at 09:00; Stop 10/07/17 at 18:45; Status DC Mirtazapine (Remeron) 7.5 mg QHS PO Last administered on 10/08/17 19:18; Start 10/01/17 at 21:00 Olanzapine (ZyPREXA ZYDIS) 2.5 mg PRN DAILY PRN PO PSYCHOSIS; Start 10/01/17 at 20:00; Stop 10/01/17 at 23:17; Status DC Risperidone (RisperDAL) 0.75 mg DAILY PO Last administered on 10/08/17at 09:07; Start 10/02/17 at 09:00 Temazepam (Restoril) 15 mg PRN QHS PRN PO INSOMNIA Last administered on 22:10; Start 10/01/17 at 20:00 Temazepam (Restoril) 15 mg QHS PO Last administered on 10/08/17 19:21; Start at 21:00 Trazodone HCl (Desyrel) 50 mg QHS PO Last administered on 10/08/17 19:19; Start 10/01/17 at 21:00 Acetaminophen (Tylenol) 650 mg PRN Q6HRS PRN PO PAIN / TEMP Last administered on 10/07/17at 19:46; Start 10/01/17 at 20:00 Aspirin (Children'S Aspirin) 81 mg DAILY PO Last administered on 10/08/17 09:07 ; Start 10/02/17 at 09:00 Atorvastatin Calcium (Lipitor) 20 mg QHS PO Last administered on 10/08/17 19:19 ; Start 10/01/17 at 21:00 Cyanocobalamin (Vitamin B-12) 500 mcg BID PO Last administered on 10/08/17 19: 19; Start 10/01/17 at 21:00 Dicyclomine HCl (Bentyl) 10 mg QID PO Last administered on 10/08/17 19:19; Start 10/01/17 at 21:00 Ondansetron HCl (Zofran Odt) 4 mg PRN Q8HRS PRN PO NAUSEA/VOMITING Last administered on 10/06/17 00:10; Start 10/01/17 at 20:00 Sucralfate (Carafate) 1 gm QIDACHS PO Last administered on 10/08/17 19:21; Start 10/01/17 at 21:00 Multivitamins/ Calcium (Thera-M Plus) 1 tab DAILY PO Last administered on 07:54; Start 10/02/17 at 09:00; Stop 10/05/17 at 13:55; Status DC Non-Formulary Medication (Ondansetron Hcl ) 4 mg PRN Q6HRS PRN PO NAUSEA/ VOMITING; Start 10/01/17 at 20:00; Status UNV Potassium Chloride (Klor-Con) 10 meq DAILY PO Last administered on 10/08/17 09: 07; Start 10/02/17 at 09:00 Multi-Ingredient Ointment (Analgesic [place]) 1 marianne PRN QID PRN TP MUSCLE PAIN; Start 10/01/17 at 20:00 Al Hydroxide/Mg Hydroxide (Mylanta Plus Xs) 15 ml PRN AFTMEALHC PRN PO DYSPEPSIA; Start 10/01/17 at 20:00 Magnesium Hydroxide (Milk Of Magnesia) 2,400 mg PRN QHS PRN PO CONSTIPATION Last administered on 10/07/17 10:09; Start 10/01/17 at 20:00 Olanzapine (ZyPREXA ZYDIS) 2.5 mg DAILY PO ; Start 10/01/17 at 23:30; Stop at 23:30; Status DC Olanzapine (ZyPREXA ZYDIS) 2.5 mg DAILY PO Last administered on 10/08/17at 09:09 ; Start 10/02/17 at 09:00 Hydroxyzine HCl (Atarax) 25 mg PRN Q4HRS PRN PO ITCHING Last administered on 10/05/17at 23:31; Start 10/04/17 at 20:15 Divalproex Sodium (Depakote Er) 750 mg DAILY PO Last administered on 10/08/17at 09:10; Start 10/08/17 at 09:00 Active Scripts Active Reported Potassium Chloride 10 Meq Tablet.er 10 Meq PO DAILY Divalproex Sodium Er (Divalproex Sodium) 500 Mg Tab.er.24h 500 Mg PO DAILY Vitamin B-12 (Cyanocobalamin (Vitamin B-12)) 1,000 Mcg Tablet 500 Mcg PO BID Ondansetron Odt (Ondansetron) 4 Mg Tab.rapdis 4 Mg PO PRN Q8HRS PRN Ondansetron Hcl 4 Mg Tablet 4 Mg PO PRN Q6HRS PRN Sucralfate 1 Gm Tablet 1 Gm PO QIDACHS Dicyclomine Hcl 10 Mg Capsule 1-2 Cap PO QID Alprazolam 0.25 Mg Tablet 0.25 Mg PO PRN Q2HR PRN Max 2 tabs daily Trazodone Hcl 50 Mg Tablet 50 Mg PO QHS May repeat 1X Risperdal (Risperidone) 0.5 Mg Tablet 0.75 Mg PO DAILY Temazepam 15 Mg Capsule 15 Mg PO PRN QHS PRN Administer if first dose not effective Temazepam 15 Mg Capsule 15 Mg PO QHS Zyprexa Zydis (Olanzapine) 5 Mg Tab.rapdis 2.5 Mg PO DAILY PRN Mirtazapine 15 Mg Tablet 7.5 Mg PO QHS Multivitamins (Multivitamin) 1 Each Tablet 1 Tab PO DAILY Atorvastatin Calcium 20 Mg Tablet 20 Mg PO QHS Tylenol (Acetaminophen) 325 Mg Tablet 650 Mg PO PRN Q6HRS PRN MDD 4000 Aspirin 81 Mg Tab.chew 81 Mg PO DAILY I have reviewed the current psychotropics carefully including drug interactions. Risk benefit ratio favors no change other than as noted in my dictated progress note. Diagnosis: Problems: (1) Anxiety disorder (2) Bipolar affective disorder, mixed (3) Impulse control disorder (4) Panic disorder with agoraphobia and severe panic attacks (5) Obsessive compulsive disorder SANTIAGO FARFAN MD October 08, 2017 22:16
--- NOTE | 2017-10-09 01:44 | PN ---
DATE: 10/07/2017 This is a late entry of 10/07/2017 covers elements not covered in my initial note of 10/07/2017. SUBJECTIVE: I met with the patient in the evening. The patient slept 6-1/2 hours previous evening, somewhat withdrawn, sad, anxious at times, still has mood lability, minimizes problems prompting admission. Discussed with social service staff. The daughter wants the patient home rather than in a more structured setting and this will be a challenge given her repeated hospitalizations. REVIEW OF SYSTEMS: Vague somatic symptoms. No CV, , pulmonary, eye, ENT system symptoms on review. MENTAL STATUS EXAM: Oriented to herself and situation. Speech is coherent, at times a little pressured. Abstraction fair, computation impaired, language function intact, attention span short. Mood and affect remain somewhat labile. LABORATORY DATA: Reviewed. IMPRESSION: Unchanged from initial note. PLAN: Continue psychotropics mentioned in my initial note. SANTIAGO FARFAN MD DR: INNA/melody JOB#: [id number] / [id number]
[2017-10-09] MEDS: DICYCLOMINE HCL 10 MG CAPSULE PO SCH ×4 (10:01→19:41)
[2017-10-09] MEDS: SUCRALFATE 1 GM TABLET. PO SCH ×4 (10:01→19:41)
[2017-10-09] MEDS: risperiDONE 0.5 MG TABLET. PO SCH (10:02)
[2017-10-09] MEDS: POTASSIUM CHLORIDE 10 MEQ TABLET.ER. PO SCH (10:02)
[2017-10-09] MEDS: DIVALPROEX ER 250 MG TAB.ER.24H. PO SCH (10:02)
[2017-10-09] MEDS: ASPIRIN 81 MG TAB.CHEW PO SCH (10:02)
[2017-10-09] MEDS: CYANOCOBALAMIN (VITAMIN B-12) 1,000 MCG TABLET. PO SCH ×2 (10:02→19:42)
[2017-10-09] MEDS: ACETAMINOPHEN 325 MG TABLET PO PRN (12:48)
[2017-10-09] MEDS: ALPRAZolam 0.25 MG TABLET PO PRN ×2 (17:19→19:45)
[2017-10-09 18:16] VITALS: BP 122/60
[2017-10-09] MEDS: ATORVASTATIN CALCIUM 20 MG TABLET PO SCH (19:41)
[2017-10-09] MEDS: MIRTAZAPINE 7.5 MG TABLET. PO SCH (19:41)
[2017-10-09] MEDS: traZODone 50 MG TABLET. PO SCH (19:41)
[2017-10-09] MEDS: TEMAZEPAM 15 MG CAPSULE PO SCH (19:45)
--- NOTE | 2017-10-09 20:48 | PDOC ---
Exam Note: Rian Note: Please also refer to the separate dictated note~for this date of service dictated separately.~Patient seen individually. Discussed the patient with Nursing staff reviewed the chart.~Reviewed interim history and current functioning. Reviewed vital signs,~Labs/ Radiology~and current medications noted below. Continue current treatment with the changes noted in the dictated addendum note Assessment: Vital Signs: Vital Signs Date Time Temp Pulse Resp B/P (MAP) Pulse Ox O2 Delivery O2 Flow Rate FiO2 10/09/17 18:16 97.8 71 18 122/60 (80) 97 I&O Intake and Output 10/09/17 07:00 Intake Total 535 ml Balance 535 ml Intake Oral 535 ml # Voids 1 Current Medications: Meds: Current Medications Alprazolam (Xanax) 0.25 mg PRN Q2HR PRN PO ANXIETY / AGITATION Last administered on 10/09/17 19:45; Start 10/01/17 at 20:00 Divalproex Sodium (Depakote Er) 500 mg DAILY PO Last administered on 10/07/17at 08:00; Start 10/02/17 at 09:00; Stop 10/07/17 at 18:45; Status DC Mirtazapine (Remeron) 7.5 mg QHS PO Last administered on 10/09/17 19:41; Start 10/01/17 at 21:00 Olanzapine (ZyPREXA ZYDIS) 2.5 mg PRN DAILY PRN PO PSYCHOSIS; Start 10/01/17 at 20:00; Stop 10/01/17 at 23:17; Status DC Risperidone (RisperDAL) 0.75 mg DAILY PO Last administered on 10/09/17 10:02; Start 10/02/17 at 09:00 Temazepam (Restoril) 15 mg PRN QHS PRN PO INSOMNIA Last administered on 22:10; Start 10/01/17 at 20:00 Temazepam (Restoril) 15 mg QHS PO Last administered on 10/09/17 19:45; Start 10/01/17 at 21:00 Trazodone HCl (Desyrel) 50 mg QHS PO Last administered on 10/09/17 19:41; Start 10/01/17 at 21:00 Acetaminophen (Tylenol) 650 mg PRN Q6HRS PRN PO PAIN / TEMP Last administered on 10/09/17 12:48; Start 10/01/17 at 20:00 Aspirin (Children'S Aspirin) 81 mg DAILY PO Last administered on 10/09/17 10: 02; Start 10/02/17 at 09:00 Atorvastatin Calcium (Lipitor) 20 mg QHS PO Last administered on 10/09/17 19: 41; Start 10/01/17 at 21:00 Cyanocobalamin (Vitamin B-12) 500 mcg BID PO Last administered on 10/09/17 19: 42; Start 10/01/17 at 21:00 Dicyclomine HCl (Bentyl) 10 mg QID PO Last administered on 10/09/17 19:41; Start 10/01/17 at 21:00 Ondansetron HCl (Zofran Odt) 4 mg PRN Q8HRS PRN PO NAUSEA/VOMITING Last administered on 10/06/17 00:10; Start 10/01/17 at 20:00 Sucralfate (Carafate) 1 gm QIDACHS PO Last administered on 10/09/17 19:41; Start 10/01/17 at 21:00 Multivitamins/ Calcium (Thera-M Plus) 1 tab DAILY PO Last administered on 07:54; Start 10/02/17 at 09:00; Stop 10/05/17 at 13:55; Status DC Non-Formulary Medication (Ondansetron Hcl ) 4 mg PRN Q6HRS PRN PO NAUSEA/ VOMITING; Start 10/01/17 at 20:00; Status UNV Potassium Chloride (Klor-Con) 10 meq DAILY PO Last administered on 10/09/17 10 :02; Start 10/02/17 at 09:00 Multi-Ingredient Ointment ([facility] [place]) 1 marianne PRN QID PRN TP MUSCLE PAIN; Start 10/01/17 at 20:00 Al Hydroxide/Mg Hydroxide (Mylanta Plus Xs) 15 ml PRN AFTMEALHC PRN PO DYSPEPSIA; Start 10/01/17 at 20:00 Magnesium Hydroxide (Milk Of Magnesia) 2,400 mg PRN QHS PRN PO CONSTIPATION Last administered on 10/07/17 10:09; Start 5/2/18 at 20:00 Olanzapine (ZyPREXA ZYDIS) 2.5 mg DAILY PO ; Start 10/01/17 at 23:30; Stop at 23:30; Status DC Olanzapine (ZyPREXA ZYDIS) 2.5 mg DAILY PO Last administered on 10/09/17at 10:03 ; Start 10/02/17 at 09:00 Hydroxyzine HCl (Atarax) 25 mg PRN Q4HRS PRN PO ITCHING Last administered on 10/05/17at 23:31; Start 10/04/17 at 20:15 Divalproex Sodium (Depakote Er) 750 mg DAILY PO Last administered on 10/09/17at 10:02; Start 10/08/17 at 09:00 Active Scripts Active Reported Potassium Chloride 10 Meq Tablet.er 10 Meq PO DAILY Divalproex Sodium Er (Divalproex Sodium) 500 Mg Tab.er.24h 500 Mg PO DAILY Vitamin B-12 (Cyanocobalamin (Vitamin B-12)) 1,000 Mcg Tablet 500 Mcg PO BID Ondansetron Odt (Ondansetron) 4 Mg Tab.rapdis 4 Mg PO PRN Q8HRS PRN Ondansetron Hcl 4 Mg Tablet 4 Mg PO PRN Q6HRS PRN Sucralfate 1 Gm Tablet 1 Gm PO QIDACHS Dicyclomine Hcl 10 Mg Capsule 1-2 Cap PO QID Alprazolam 0.25 Mg Tablet 0.25 Mg PO PRN Q2HR PRN Max 2 tabs daily Trazodone Hcl 50 Mg Tablet 50 Mg PO QHS May repeat 1X Risperdal (Risperidone) 0.5 Mg Tablet 0.75 Mg PO DAILY Temazepam 15 Mg Capsule 15 Mg PO PRN QHS PRN Administer if first dose not effective Temazepam 15 Mg Capsule 15 Mg PO QHS Zyprexa Zydis (Olanzapine) 5 Mg Tab.rapdis 2.5 Mg PO DAILY PRN Mirtazapine 15 Mg Tablet 7.5 Mg PO QHS Multivitamins (Multivitamin) 1 Each Tablet 1 Tab PO DAILY Atorvastatin Calcium 20 Mg Tablet 20 Mg PO QHS Tylenol (Acetaminophen) 325 Mg Tablet 650 Mg PO PRN Q6HRS PRN MDD 4000 Aspirin 81 Mg Tab.chew 81 Mg PO DAILY I have reviewed the current psychotropics carefully including drug interactions. Risk benefit ratio favors no change other than as noted in my dictated progress note. Diagnosis: Problems: (1) Anxiety disorder (2) Bipolar affective disorder, mixed (3) Impulse control disorder (4) Panic disorder with agoraphobia and severe panic attacks (5) Obsessive compulsive disorder SANTIAGO FARFAN MD October 09, 2017 20:48
[2017-10-10 05:30] VITALS: BP 114/56
[2017-10-10 07:09] LABS: BASO % 1 % (0-3); EOS # 0.3 x10^3/uL (0.0-0.7); EOS % 5 % (0-3); HEMOGLOBIN 10.5 g/dL (12.0-15.5); LYMPH # 1.5 x10^3/uL (1.0-4.8); LYMPH % 26 % (24-48); MEAN CORPUSCULAR HEMOGLOBIN 31 pg (25-35); MEAN CORPUSCULAR HGB CONC 34 g/dL (31-37); MEAN CORPUSCULAR VOLUME 91 fL (79-100); MONO # 0.8 x10^3/uL (0.0-1.1); MONO % 15 % (0-9); NEUT % 54 % (31-73); PLATELET COUNT 256 x10^3/uL (140-400); RED BLOOD COUNT 3.42 x10^6/uL (3.50-5.40); RED CELL DISTRIBUTION WIDTH 16.2 % (11.5-14.5); WHITE BLOOD COUNT 5.6 x10^3/uL (4.0-11.0)
[2017-10-10 07:31] LABS: ALBUMIN 2.7 g/dL (3.4-5.0); ALBUMIN/GLOBULIN RATIO 0.8 (1.0-1.7); ALK PHOS 58 U/L (46-116); ALT (SGPT) 21 U/L (14-59); ANION GAP 8 (6-14); AST (SGOT) 19 U/L (15-37); BLOOD UREA NITROGEN 15 mg/dL (7-20); BUN/CREATININE RATIO 17 (6-20); CALCIUM 8.4 mg/dL (8.5-10.1); CARBON DIOXIDE 27 mmol/L (21-32); CHLORIDE 107 mmol/L (98-107); CREATININE 0.9 mg/dL (0.6-1.0); GFR 61.7; GLUCOSE 85 mg/dL (70-99); SODIUM 142 mmol/L (136-145); TOTAL BILIRUBIN 0.3 mg/dL (0.2-1.0); TOTAL PROTEIN 6.3 g/dL (6.4-8.2); VAL ACID 71 mcg/mL (50-100)
[2017-10-10] MEDS: SUCRALFATE 1 GM TABLET. PO SCH ×4 (07:33→19:43)
[2017-10-10] MEDS: CYANOCOBALAMIN (VITAMIN B-12) 1,000 MCG TABLET. PO SCH ×2 (08:09→19:43)
[2017-10-10] MEDS: POTASSIUM CHLORIDE 10 MEQ TABLET.ER. PO SCH (08:10)
[2017-10-10] MEDS: DIVALPROEX ER 250 MG TAB.ER.24H. PO SCH (08:10)
[2017-10-10] MEDS: ASPIRIN 81 MG TAB.CHEW PO SCH (08:10)
[2017-10-10] MEDS: DICYCLOMINE HCL 10 MG CAPSULE PO SCH ×4 (08:10→19:43)
[2017-10-10] MEDS: risperiDONE 0.5 MG TABLET. PO SCH (08:11)
[2017-10-10 16:38] VITALS: BP 136/80
[2017-10-10] MEDS: TEMAZEPAM 15 MG CAPSULE PO SCH (19:43)
[2017-10-10] MEDS: MIRTAZAPINE 7.5 MG TABLET. PO SCH (19:43)
[2017-10-10] MEDS: ATORVASTATIN CALCIUM 20 MG TABLET PO SCH (19:43)
[2017-10-10] MEDS: traZODone 50 MG TABLET. PO SCH (19:44)
[2017-10-10] MEDS: MAG HYDROX/AL HYDROX/SIMETH 30 ML ORAL.SUSP PO PRN (19:46)
[2017-10-10] MEDS: hydrOXYzine HCL 25 MG TABLET PO PRN (20:12)
--- NOTE | 2017-10-10 20:48 | PDOC ---
Exam Note: Rian Note: Please also refer to the separate dictated note~for this date of service dictated separately.~Patient seen individually. Discussed the patient with Nursing staff reviewed the chart.~Reviewed interim history and current functioning. Reviewed vital signs,~Labs/ Radiology~and current medications noted below. Continue current treatment with the changes noted in the dictated addendum note Assessment: Vital Signs: Vital Signs Date Time Temp Pulse Resp B/P (MAP) Pulse Ox O2 Delivery O2 Flow Rate FiO2 10/10/17 16:38 95.7 85 20 136/80 (98) 99 I&O Intake and Output 10/10/17 07:00 Intake Total 840 ml Balance 840 ml Intake Oral 840 ml # Bowel Movements 1 Labs: Laboratory Tests Test 10/10/17 06:42 10/10/17 06:53 White Blood Count 5.6 x10^3/uL (4.0-11.0) Red Blood Count 3.42 x10^6/uL (3.50-5.40) L Hemoglobin 10.5 g/dL (12.0-15.5) L Hematocrit 31.0 % (36.0-47.0) L Mean Corpuscular Volume 91 fL (79-100) # Mean Corpuscular Hemoglobin 31 pg (25-35) Mean Corpuscular Hemoglobin Concent 34 g/dL (31-37) Red Cell Distribution Width 16.2 % (11.5-14.5) H Platelet Count 256 x10^3/uL (140-400) Neutrophils (%) (Auto) 54 % (31-73) Lymphocytes (%) (Auto) 26 % (24-48) Monocytes (%) (Auto) 15 % (0-9) H Eosinophils (%) (Auto) 5 % (0-3) H Basophils (%) (Auto) 1 % (0-3) Neutrophils # (Auto) 3.0 x10^3uL (1.8-7.7) Lymphocytes # (Auto) 1.5 x10^3/uL (1.0-4.8) Monocytes # (Auto) 0.8 x10^3/uL (0.0-1.1) Eosinophils # (Auto) 0.3 x10^3/uL (0.0-0.7) Basophils # (Auto) 0.0 x10^3/uL (0.0-0.2) Sodium Level 142 mmol/L (136-145) Potassium Level 4.0 mmol/L (3.5-5.1) Chloride Level 107 mmol/L (98-107) Carbon Dioxide Level 27 mmol/L (21-32) Anion Gap 8 (6-14) Blood Urea Nitrogen 15 mg/dL (7-20) Creatinine 0.9 mg/dL (0.6-1.0) Estimated GFR (Cockcroft-Gault) 61.7 BUN/Creatinine Ratio 17 (6-20) Glucose Level 85 mg/dL (70-99) Calcium Level 8.4 mg/dL (8.5-10.1) L Total Bilirubin 0.3 mg/dL (0.2-1.0) Aspartate Amino Transferase (AST) 19 U/L (15-37) Alanine Aminotransferase (ALT) 21 U/L (14-59) Alkaline Phosphatase 58 U/L (46-116) Total Protein 6.3 g/dL (6.4-8.2) L Albumin 2.7 g/dL (3.4-5.0) L Albumin/Globulin Ratio 0.8 (1.0-1.7) L Valproic Acid Level 71 mcg/mL (50-100) Valproic Acid Last Dose Date 10/09/2017 Valproic Acid Last Dose Time 2100 Current Medications: Meds: Current Medications Alprazolam (Xanax) 0.25 mg PRN Q2HR PRN PO ANXIETY / AGITATION Last administered on 10/09/17at 19:45; Start 10/01/17 at 20:00 Divalproex Sodium (Depakote Er) 500 mg DAILY PO Last administered on 10/07/17at 08:00; Start 10/02/17 at 09:00; Stop 10/07/17 at 18:45; Status DC Mirtazapine (Remeron) 7.5 mg QHS PO Last administered on 10/10/17at 19:43; Start 10/01/17 at 21:00 Olanzapine (ZyPREXA ZYDIS) 2.5 mg PRN DAILY PRN PO PSYCHOSIS; Start 10/01/17 at 20:00; Stop 10/01/17 at 23:17; Status DC Risperidone (RisperDAL) 0.75 mg DAILY PO Last administered on 10/10/17 08:11; Start 10/02/17 at 09:00 Temazepam (Restoril) 15 mg PRN QHS PRN PO INSOMNIA Last administered on 22:10; Start 10/01/17 at 20:00 Temazepam (Restoril) 15 mg QHS PO Last administered on 10/10/17 19:43; Start 10/01/17 at 21:00 Trazodone HCl (Desyrel) 50 mg QHS PO Last administered on 10/10/17 19:44; Start 10/01/17 at 21:00 Acetaminophen (Tylenol) 650 mg PRN Q6HRS PRN PO PAIN / TEMP Last administered on 10/09/17 12:48; Start 10/01/17 at 20:00 Aspirin (Children'S Aspirin) 81 mg DAILY PO Last administered on 10/10/17 08: 10; Start 10/02/17 at 09:00 Atorvastatin Calcium (Lipitor) 20 mg QHS PO Last administered on 10/10/17 19: 43; Start 10/01/17 at 21:00 Cyanocobalamin (Vitamin B-12) 500 mcg BID PO Last administered on 10/10/17 19: 43; Start 10/01/17 at 21:00 Dicyclomine HCl (Bentyl) 10 mg QID PO Last administered on 10/10/17 19:43; Start 10/01/17 at 21:00 Ondansetron HCl (Zofran Odt) 4 mg PRN Q8HRS PRN PO NAUSEA/VOMITING Last administered on 10/06/17 00:10; Start 10/01/17 at 20:00 Sucralfate (Carafate) 1 gm QIDACHS PO Last administered on 10/10/17 19:43; Start 10/01/17 at 21:00 Multivitamins/ Calcium (Thera-M Plus) 1 tab DAILY PO Last administered on 07:54; Start 10/02/17 at 09:00; Stop 10/05/17 at 13:55; Status DC Non-Formulary Medication (Ondansetron Hcl ) 4 mg PRN Q6HRS PRN PO NAUSEA/ VOMITING; Start 10/01/17 at 20:00; Status UNV Potassium Chloride (Klor-Con) 10 meq DAILY PO Last administered on 10/10/17at 08 :10; Start 10/02/17 at 09:00 Multi-Ingredient Ointment (Analgesic [place]) 1 marianne PRN QID PRN TP MUSCLE PAIN; Start 10/01/17 at 20:00 Al Hydroxide/Mg Hydroxide (Mylanta Plus Xs) 15 ml PRN AFTMEALHC PRN PO DYSPEPSIA Last administered on 10/10/17at 19:46; Start 10/01/17 at 20:00 Magnesium Hydroxide (Milk Of Magnesia) 2,400 mg PRN QHS PRN PO CONSTIPATION Last administered on 10/07/17at 10:09; Start 10/01/17 at 20:00 Olanzapine (ZyPREXA ZYDIS) 2.5 mg DAILY PO ; Start 10/01/17 at 23:30; Stop at 23:30; Status DC Olanzapine (ZyPREXA ZYDIS) 2.5 mg DAILY PO Last administered on 10/10/17at 08:11 ; Start 10/02/17 at 09:00 Hydroxyzine HCl (Atarax) 25 mg PRN Q4HRS PRN PO ITCHING Last administered on 04/19at 20:12; Start 10/04/17 at 20:15 Divalproex Sodium (Depakote Er) 750 mg DAILY PO Last administered on 10/10/17at 08:10; Start 10/08/17 at 09:00 Active Scripts Active Reported Potassium Chloride 10 Meq Tablet.er 10 Meq PO DAILY Divalproex Sodium Er (Divalproex Sodium) 500 Mg Tab.er.24h 500 Mg PO DAILY Vitamin B-12 (Cyanocobalamin (Vitamin B-12)) 1,000 Mcg Tablet 500 Mcg PO BID Ondansetron Odt (Ondansetron) 4 Mg Tab.rapdis 4 Mg PO PRN Q8HRS PRN Ondansetron Hcl 4 Mg Tablet 4 Mg PO PRN Q6HRS PRN Sucralfate 1 Gm Tablet 1 Gm PO QIDACHS Dicyclomine Hcl 10 Mg Capsule 1-2 Cap PO QID Alprazolam 0.25 Mg Tablet 0.25 Mg PO PRN Q2HR PRN Max 2 tabs daily Trazodone Hcl 50 Mg Tablet 50 Mg PO QHS May repeat 1X Risperdal (Risperidone) 0.5 Mg Tablet 0.75 Mg PO DAILY Temazepam 15 Mg Capsule 15 Mg PO PRN QHS PRN Administer if first dose not effective Temazepam 15 Mg Capsule 15 Mg PO QHS Zyprexa Zydis (Olanzapine) 5 Mg Tab.rapdis 2.5 Mg PO DAILY PRN Mirtazapine 15 Mg Tablet 7.5 Mg PO QHS Multivitamins (Multivitamin) 1 Each Tablet 1 Tab PO DAILY Atorvastatin Calcium 20 Mg Tablet 20 Mg PO QHS Tylenol (Acetaminophen) 325 Mg Tablet 650 Mg PO PRN Q6HRS PRN MDD 4000 Aspirin 81 Mg Tab.chew 81 Mg PO DAILY I have reviewed the current psychotropics carefully including drug interactions. Risk benefit ratio favors no change other than as noted in my dictated progress note. Diagnosis: Problems: (1) Anxiety disorder (2) Bipolar affective disorder, mixed (3) Impulse control disorder (4) Panic disorder with agoraphobia and severe panic attacks (5) Obsessive compulsive disorder SANTIAGO FARFAN MD October 10, 2017 20:48
[2017-10-11] MEDS: TEMAZEPAM 15 MG CAPSULE PO PRN (02:53)
[2017-10-11] MEDS: hydrOXYzine HCL 25 MG TABLET PO PRN ×2 (02:53→15:38)
[2017-10-11 05:57] VITALS: BP 115/63
[2017-10-11] MEDS: SUCRALFATE 1 GM TABLET. PO SCH ×4 (08:07→20:12)
[2017-10-11] MEDS: DIVALPROEX ER 250 MG TAB.ER.24H. PO SCH (08:07)
[2017-10-11] MEDS: ASPIRIN 81 MG TAB.CHEW PO SCH (08:07)
[2017-10-11] MEDS: DICYCLOMINE HCL 10 MG CAPSULE PO SCH ×4 (08:07→20:12)
[2017-10-11] MEDS: CYANOCOBALAMIN (VITAMIN B-12) 1,000 MCG TABLET. PO SCH ×2 (08:08→20:12)
[2017-10-11] MEDS: POTASSIUM CHLORIDE 10 MEQ TABLET.ER. PO SCH (08:08)
[2017-10-11] MEDS: risperiDONE 0.5 MG TABLET. PO SCH (08:08)
--- NOTE | 2017-10-11 11:59 | PN ---
DATE: 10/08/2017 This late entry, 10/08/2017, covers elements not covered in my initial note of 10/08/2017. SUBJECTIVE: I met with the patient in the evening. The patient slept 6 hours, quite anxious, wanting Xanax in the evening, wanting all her PRNs, can be quite inappropriate with respect to how much medication she wants at any one time. REVIEW OF SYSTEMS: No CV, , pulmonary, eye system symptoms on review. MENTAL STATUS EXAM: Reasonably oriented. Speech coherent, abstraction fair, computation impaired, language function intact. Mood and affect somewhat anxious, labile. No suicidal ideation. LABORATORY DATA: Reviewed. IMPRESSION: Unchanged from initial note. PLAN: Continue current psychotropics, minimize Xanax use, hydroxyzine. MAN Richar FARFAN MD DR: INNA/melody JOB#: [id number] / [id number]
--- NOTE | 2017-10-11 12:01 | PN ---
DATE: 10/09/2017 PSYCHIATRIC PROGRESS NOTE This late entry 10/09/2017 covers elements not covered in my initial note of 10/09/2017. SUBJECTIVE: The patient was staffed in the morning and seen individually in the evening, fixated on wanting extra Xanax, wanting PRNs. Processed this with her individually. REVIEW OF SYSTEMS: No CV, , pulmonary, eye system symptoms on review. MENTAL STATUS EXAM: Oriented to herself, situation. Speech is coherent, rapid at times. Abstraction fair, computation is impaired, language function intact. Mood and affect remain somewhat labile. Valproic acid level is 48. IMPRESSION: Unchanged from my initial note. PLAN: Continue current psychotropics, may need to increase Depakote further once we get repeat labs on the increased dosage of 750. MAN Richar FARFAN MD DR: INNA/melody JOB#: [id number] / [id number]
[2017-10-11 16:07] VITALS: BP 139/81
[2017-10-11] MEDS: MIRTAZAPINE 7.5 MG TABLET. PO SCH (20:12)
[2017-10-11] MEDS: traZODone 50 MG TABLET. PO SCH (20:12)
[2017-10-11] MEDS: TEMAZEPAM 15 MG CAPSULE PO SCH (20:12)
[2017-10-11] MEDS: ATORVASTATIN CALCIUM 20 MG TABLET PO SCH (20:12)
[2017-10-11] MEDS: ACETAMINOPHEN 325 MG TABLET PO PRN (20:18)
--- NOTE | 2017-10-11 22:51 | PDOC ---
Exam Note: Rian Note: Please also refer to the separate dictated note~for this date of service dictated separately.~Patient seen individually. Discussed the patient with Nursing staff reviewed the chart.~Reviewed interim history and current functioning. Reviewed vital signs,~Labs/ Radiology~and current medications noted below. Continue current treatment with the changes noted in the dictated addendum note Assessment: Vital Signs: Vital Signs Date Time Temp Pulse Resp B/P (MAP) Pulse Ox O2 Delivery O2 Flow Rate FiO2 10/11/17 16:07 98.9 88 17 139/81 (100) 98 I&O Intake and Output 10/11/17 07:00 Intake Total 1440 ml Balance 1440 ml Intake Oral 1440 ml Current Medications: Meds: Current Medications Alprazolam (Xanax) 0.25 mg PRN Q2HR PRN PO ANXIETY / AGITATION Last administered on 10/09/17at 19:45; Start 10/01/17 at 20:00 Divalproex Sodium (Depakote Er) 500 mg DAILY PO Last administered on 10/07/17at 08:00; Start 10/02/17 at 09:00; Stop 10/07/17 at 18:45; Status DC Mirtazapine (Remeron) 7.5 mg QHS PO Last administered on 10/11/17 20:12; Start 10/01/17 at 21:00 Olanzapine (ZyPREXA ZYDIS) 2.5 mg PRN DAILY PRN PO PSYCHOSIS; Start 10/01/17 at 20:00; Stop 10/01/17 at 23:17; Status DC Risperidone (RisperDAL) 0.75 mg DAILY PO Last administered on 10/11/17at 08:08; Start 10/02/17 at 09:00 Temazepam (Restoril) 15 mg PRN QHS PRN PO INSOMNIA Last administered on 02:53; Start 10/01/17 at 20:00 Temazepam (Restoril) 15 mg QHS PO Last administered on 10/11/17 20:12; Start 10/01/17 at 21:00 Trazodone HCl (Desyrel) 50 mg QHS PO Last administered on 10/11/17 20:12; Start 10/01/17 at 21:00 Acetaminophen (Tylenol) 650 mg PRN Q6HRS PRN PO PAIN / TEMP Last administered on 10/11/17 20:18; Start 10/01/17 at 20:00 Aspirin (Children'S Aspirin) 81 mg DAILY PO Last administered on 10/11/17 08: 07; Start 10/02/17 at 09:00 Atorvastatin Calcium (Lipitor) 20 mg QHS PO Last administered on 10/11/17 20: 12; Start 10/01/17 at 21:00 Cyanocobalamin (Vitamin B-12) 500 mcg BID PO Last administered on 10/11/17 20: 12; Start 10/01/17 at 21:00 Dicyclomine HCl (Bentyl) 10 mg QID PO Last administered on 10/11/17 20:12; Start 10/01/17 at 21:00 Ondansetron HCl (Zofran Odt) 4 mg PRN Q8HRS PRN PO NAUSEA/VOMITING Last administered on 10/06/17 00:10; Start 10/01/17 at 20:00 Sucralfate (Carafate) 1 gm QIDACHS PO Last administered on 10/11/17 20:12; Start 10/01/17 at 21:00 Multivitamins/ Calcium (Thera-M Plus) 1 tab DAILY PO Last administered on 07:54; Start 10/02/17 at 09:00; Stop 10/05/17 at 13:55; Status DC Non-Formulary Medication (Ondansetron Hcl ) 4 mg PRN Q6HRS PRN PO NAUSEA/ VOMITING; Start 10/01/17 at 20:00; Status UNV Potassium Chloride (Klor-Con) 10 meq DAILY PO Last administered on 10/11/17 08 :08; Start 10/02/17 at 09:00 Multi-Ingredient Ointment (Analgesic [place]) 1 marianne PRN QID PRN TP MUSCLE PAIN; Start 10/01/17 at 20:00 Al Hydroxide/Mg Hydroxide (Mylanta Plus Xs) 15 ml PRN AFTMEALHC PRN PO DYSPEPSIA Last administered on 10/10/17 19:46; Start 10/01/17 at 20:00 Magnesium Hydroxide (Milk Of Magnesia) 2,400 mg PRN QHS PRN PO CONSTIPATION Last administered on 5/8/18at 10:09; Start 10/01/17 at 20:00 Olanzapine (ZyPREXA ZYDIS) 2.5 mg DAILY PO ; Start 10/01/17 at 23:30; Stop at 23:30; Status DC Olanzapine (ZyPREXA ZYDIS) 2.5 mg DAILY PO Last administered on 10/11/17at 08:08 ; Start 10/02/17 at 09:00 Hydroxyzine HCl (Atarax) 25 mg PRN Q4HRS PRN PO ITCHING Last administered on 05/19at 15:38; Start 10/04/17 at 20:15 Divalproex Sodium (Depakote Er) 750 mg DAILY PO Last administered on 10/11/17at 08:07; Start 10/08/17 at 09:00 Active Scripts Active Reported Potassium Chloride 10 Meq Tablet.er 10 Meq PO DAILY Divalproex Sodium Er (Divalproex Sodium) 500 Mg Tab.er.24h 500 Mg PO DAILY Vitamin B-12 (Cyanocobalamin (Vitamin B-12)) 1,000 Mcg Tablet 500 Mcg PO BID Ondansetron Odt (Ondansetron) 4 Mg Tab.rapdis 4 Mg PO PRN Q8HRS PRN Ondansetron Hcl 4 Mg Tablet 4 Mg PO PRN Q6HRS PRN Sucralfate 1 Gm Tablet 1 Gm PO QIDACHS Dicyclomine Hcl 10 Mg Capsule 1-2 Cap PO QID Alprazolam 0.25 Mg Tablet 0.25 Mg PO PRN Q2HR PRN Max 2 tabs daily Trazodone Hcl 50 Mg Tablet 50 Mg PO QHS May repeat 1X Risperdal (Risperidone) 0.5 Mg Tablet 0.75 Mg PO DAILY Temazepam 15 Mg Capsule 15 Mg PO PRN QHS PRN Administer if first dose not effective Temazepam 15 Mg Capsule 15 Mg PO QHS Zyprexa Zydis (Olanzapine) 5 Mg Tab.rapdis 2.5 Mg PO DAILY PRN Mirtazapine 15 Mg Tablet 7.5 Mg PO QHS Multivitamins (Multivitamin) 1 Each Tablet 1 Tab PO DAILY Atorvastatin Calcium 20 Mg Tablet 20 Mg PO QHS Tylenol (Acetaminophen) 325 Mg Tablet 650 Mg PO PRN Q6HRS PRN MDD 4000 Aspirin 81 Mg Tab.chew 81 Mg PO DAILY I have reviewed the current psychotropics carefully including drug interactions. Risk benefit ratio favors no change other than as noted in my dictated progress note. Diagnosis: Problems: (1) Anxiety disorder (2) Bipolar affective disorder, mixed (3) Impulse control disorder (4) Panic disorder with agoraphobia and severe panic attacks (5) Obsessive compulsive disorder SANTIAGO FARFAN MD October 11, 2017 22:51
[2017-10-12] MEDS: hydrOXYzine HCL 25 MG TABLET PO PRN ×2 (03:48→19:42)
[2017-10-12 05:35] VITALS: BP 128/70
[2017-10-12] MEDS: DICYCLOMINE HCL 10 MG CAPSULE PO SCH ×4 (10:25→19:42)
[2017-10-12] MEDS: ASPIRIN 81 MG TAB.CHEW PO SCH (10:25)
[2017-10-12] MEDS: SUCRALFATE 1 GM TABLET. PO SCH ×4 (10:25→19:41)
[2017-10-12] MEDS: DIVALPROEX ER 250 MG TAB.ER.24H. PO SCH (10:25)
[2017-10-12] MEDS: POTASSIUM CHLORIDE 10 MEQ TABLET.ER. PO SCH (10:25)
[2017-10-12] MEDS: CYANOCOBALAMIN (VITAMIN B-12) 1,000 MCG TABLET. PO SCH ×2 (10:26→19:42)
[2017-10-12] MEDS: risperiDONE 0.5 MG TABLET. PO SCH (10:26)
[2017-10-12 16:46] VITALS: BP 105/64
[2017-10-12] MEDS: traZODone 50 MG TABLET. PO SCH (19:42)
[2017-10-12] MEDS: ATORVASTATIN CALCIUM 20 MG TABLET PO SCH (19:42)
[2017-10-12] MEDS: MIRTAZAPINE 7.5 MG TABLET. PO SCH (19:42)
[2017-10-12] MEDS: ACETAMINOPHEN 325 MG TABLET PO PRN (19:43)
[2017-10-12] MEDS: TEMAZEPAM 15 MG CAPSULE PO SCH (20:16)
[2017-10-12] MEDS: MAG HYDROX/AL HYDROX/SIMETH 30 ML ORAL.SUSP PO PRN (20:37)
--- NOTE | 2017-10-12 20:51 | PDOC ---
Exam Note: Rian Note: Please also refer to the separate dictated note~for this date of service dictated separately.~Patient seen individually. Discussed the patient with Nursing staff reviewed the chart.~Reviewed interim history and current functioning. Reviewed vital signs,~Labs/ Radiology~and current medications noted below. Continue current treatment with the changes noted in the dictated addendum note Assessment: Vital Signs: Vital Signs Date Time Temp Pulse Resp B/P (MAP) Pulse Ox O2 Delivery O2 Flow Rate FiO2 10/12/17 16:46 98.9 78 18 105/64 (78) 97 I&O Intake and Output 10/12/17 07:00 Intake Total 966 ml Balance 966 ml Intake Oral 966 ml Current Medications: Meds: Current Medications Alprazolam (Xanax) 0.25 mg PRN Q2HR PRN PO ANXIETY / AGITATION Last administered on 10/09/17 19:45; Start 10/01/17 at 20:00 Divalproex Sodium (Depakote Er) 500 mg DAILY PO Last administered on 10/07/17at 08:00; Start 10/02/17 at 09:00; Stop 10/07/17 at 18:45; Status DC Mirtazapine (Remeron) 7.5 mg QHS PO Last administered on 10/12/17 19:42; Start 10/01/17 at 21:00 Olanzapine (ZyPREXA ZYDIS) 2.5 mg PRN DAILY PRN PO PSYCHOSIS; Start 10/01/17 at 20:00; Stop 10/01/17 at 23:17; Status DC Risperidone (RisperDAL) 0.75 mg DAILY PO Last administered on 10/12/17 10:26; Start 10/02/17 at 09:00 Temazepam (Restoril) 15 mg PRN QHS PRN PO INSOMNIA Last administered on 02:53; Start 10/01/17 at 20:00 Temazepam (Restoril) 15 mg QHS PO Last administered on 10/12/17 20:16; Start 10/01/17 at 21:00 Trazodone HCl (Desyrel) 50 mg QHS PO Last administered on 10/12/17 19:42; Start 10/01/17 at 21:00 Acetaminophen (Tylenol) 650 mg PRN Q6HRS PRN PO PAIN / TEMP Last administered on 10/12/17 19:43; Start 10/01/17 at 20:00 Aspirin (Children'S Aspirin) 81 mg DAILY PO Last administered on 10/12/17 10: 25; Start 10/02/17 at 09:00 Atorvastatin Calcium (Lipitor) 20 mg QHS PO Last administered on 10/12/17 19: 42; Start 10/01/17 at 21:00 Cyanocobalamin (Vitamin B-12) 500 mcg BID PO Last administered on 10/12/17 19: 42; Start 10/01/17 at 21:00 Dicyclomine HCl (Bentyl) 10 mg QID PO Last administered on 10/12/17 19:42; Start 10/01/17 at 21:00 Ondansetron HCl (Zofran Odt) 4 mg PRN Q8HRS PRN PO NAUSEA/VOMITING Last administered on 10/06/17 00:10; Start 10/01/17 at 20:00 Sucralfate (Carafate) 1 gm QIDACHS PO Last administered on 10/12/17 19:41; Start 10/01/17 at 21:00 Multivitamins/ Calcium (Thera-M Plus) 1 tab DAILY PO Last administered on 07:54; Start 10/02/17 at 09:00; Stop 10/05/17 at 13:55; Status DC Non-Formulary Medication (Ondansetron Hcl ) 4 mg PRN Q6HRS PRN PO NAUSEA/ VOMITING; Start 10/01/17 at 20:00; Status UNV Potassium Chloride (Klor-Con) 10 meq DAILY PO Last administered on 10/12/17 10 :25; Start 10/02/17 at 09:00 Multi-Ingredient Ointment (Analgesic [place]) 1 marianne PRN QID PRN TP MUSCLE PAIN; Start 10/01/17 at 20:00 Al Hydroxide/Mg Hydroxide (Mylanta Plus Xs) 15 ml PRN AFTMEALHC PRN PO DYSPEPSIA Last administered on 10/12/17 20:37; Start 10/01/17 at 20:00 Magnesium Hydroxide (Milk Of Magnesia) 2,400 mg PRN QHS PRN PO CONSTIPATION Last administered on 5/8/18at 10:09; Start 10/01/17 at 20:00 Olanzapine (ZyPREXA ZYDIS) 2.5 mg DAILY PO ; Start 10/01/17 at 23:30; Stop at 23:30; Status DC Olanzapine (ZyPREXA ZYDIS) 2.5 mg DAILY PO Last administered on 10/12/17at 10:26 ; Start 10/02/17 at 09:00 Hydroxyzine HCl (Atarax) 25 mg PRN Q4HRS PRN PO ITCHING Last administered on at 19:42; Start 10/04/17 at 20:15 Divalproex Sodium (Depakote Er) 750 mg DAILY PO Last administered on 10/12/17at 10:25; Start 10/08/17 at 09:00 Active Scripts Active Reported Potassium Chloride 10 Meq Tablet.er 10 Meq PO DAILY Divalproex Sodium Er (Divalproex Sodium) 500 Mg Tab.er.24h 500 Mg PO DAILY Vitamin B-12 (Cyanocobalamin (Vitamin B-12)) 1,000 Mcg Tablet 500 Mcg PO BID Ondansetron Odt (Ondansetron) 4 Mg Tab.rapdis 4 Mg PO PRN Q8HRS PRN Ondansetron Hcl 4 Mg Tablet 4 Mg PO PRN Q6HRS PRN Sucralfate 1 Gm Tablet 1 Gm PO QIDACHS Dicyclomine Hcl 10 Mg Capsule 1-2 Cap PO QID Alprazolam 0.25 Mg Tablet 0.25 Mg PO PRN Q2HR PRN Max 2 tabs daily Trazodone Hcl 50 Mg Tablet 50 Mg PO QHS May repeat 1X Risperdal (Risperidone) 0.5 Mg Tablet 0.75 Mg PO DAILY Temazepam 15 Mg Capsule 15 Mg PO PRN QHS PRN Administer if first dose not effective Temazepam 15 Mg Capsule 15 Mg PO QHS Zyprexa Zydis (Olanzapine) 5 Mg Tab.rapdis 2.5 Mg PO DAILY PRN Mirtazapine 15 Mg Tablet 7.5 Mg PO QHS Multivitamins (Multivitamin) 1 Each Tablet 1 Tab PO DAILY Atorvastatin Calcium 20 Mg Tablet 20 Mg PO QHS Tylenol (Acetaminophen) 325 Mg Tablet 650 Mg PO PRN Q6HRS PRN MDD 4000 Aspirin 81 Mg Tab.chew 81 Mg PO DAILY I have reviewed the current psychotropics carefully including drug interactions. Risk benefit ratio favors no change other than as noted in my dictated progress note. Diagnosis: Problems: (1) Anxiety disorder (2) Bipolar affective disorder, mixed (3) Impulse control disorder (4) Panic disorder with agoraphobia and severe panic attacks (5) Obsessive compulsive disorder SANTIAGO FARFAN MD October 12, 2017 20:51
--- NOTE | 2017-10-12 23:20 | PN ---
DATE: 10/10/2017 This is a late entry of 10/10/2017 covers elements not covered in my initial note of 10/10/2017. SUBJECTIVE: I met with the patient in the evening. The patient slept 9 hours, repeatedly wanting Xanax. Complains of being anxious, does get Restoril, which seems to help. REVIEW OF SYSTEMS: No CV, , pulmonary, eye system symptoms on review other than anxiety. MENTAL STATUS EXAM: Oriented to herself, situation and reasonably oriented. Overall, speech coherent, somewhat rapid, anxious. Abstraction fair, computation impaired, language function intact. Mood and affect remain somewhat anxious. IMPRESSION: Unchanged from initial note. PLAN: Continue Risperdal, Depakote, trazodone along with hydroxyzine p.r.n., Remeron and we will consider stopping the Zyprexa, which is scheduled 2.5 mg a day. SANTIAGO FARFAN MD DR: INNA/melody JOB#: [id number] / [id number]
[2017-10-13 05:48] VITALS: BP 112/66
[2017-10-13] MEDS: ASPIRIN 81 MG TAB.CHEW PO SCH (08:51)
[2017-10-13] MEDS: DIVALPROEX ER 250 MG TAB.ER.24H. PO SCH (08:51)
[2017-10-13] MEDS: risperiDONE 0.5 MG TABLET. PO SCH (08:51)
[2017-10-13] MEDS: DICYCLOMINE HCL 10 MG CAPSULE PO SCH ×4 (08:51→19:39)
[2017-10-13] MEDS: SUCRALFATE 1 GM TABLET. PO SCH ×4 (08:51→19:42)
[2017-10-13] MEDS: POTASSIUM CHLORIDE 10 MEQ TABLET.ER. PO SCH (08:51)
[2017-10-13] MEDS: CYANOCOBALAMIN (VITAMIN B-12) 1,000 MCG TABLET. PO SCH ×2 (08:52→19:40)
[2017-10-13 15:52] VITALS: BP 145/79
[2017-10-13] MEDS: ATORVASTATIN CALCIUM 20 MG TABLET PO SCH (19:40)
[2017-10-13] MEDS: MIRTAZAPINE 7.5 MG TABLET. PO SCH (19:40)
[2017-10-13] MEDS: traZODone 50 MG TABLET. PO SCH (19:40)
[2017-10-13] MEDS: TEMAZEPAM 15 MG CAPSULE PO SCH (19:42)
[2017-10-13] MEDS: hydrOXYzine HCL 25 MG TABLET PO PRN (19:48)
[2017-10-13] MEDS: ACETAMINOPHEN 325 MG TABLET PO PRN (19:50)
--- NOTE | 2017-10-13 20:52 | PDOC ---
Exam Note: Rian Note: Please also refer to the separate dictated note~for this date of service dictated separately.~Patient seen individually. Discussed the patient with Nursing staff reviewed the chart.~Reviewed interim history and current functioning. Reviewed vital signs,~Labs/ Radiology~and current medications noted below. Continue current treatment with the changes noted in the dictated addendum note Assessment: Vital Signs: Vital Signs Date Time Temp Pulse Resp B/P (MAP) Pulse Ox O2 Delivery O2 Flow Rate FiO2 10/13/17 15:52 98.8 69 16 145/79 (101) 96 10/13/17 05:48 Room Air I&O Intake and Output 10/13/17 07:00 Intake Total 420 ml Balance 420 ml Intake Oral 420 ml Current Medications: Meds: Current Medications Alprazolam (Xanax) 0.25 mg PRN Q2HR PRN PO ANXIETY / AGITATION Last administered on 10/09/17 19:45; Start 10/01/17 at 20:00 Divalproex Sodium (Depakote Er) 500 mg DAILY PO Last administered on 10/07/17 08:00; Start 10/02/17 at 09:00; Stop 10/07/17 at 18:45; Status DC Mirtazapine (Remeron) 7.5 mg QHS PO Last administered on 10/13/17 19:40; Start 10/01/17 at 21:00 Olanzapine (ZyPREXA ZYDIS) 2.5 mg PRN DAILY PRN PO PSYCHOSIS; Start 10/01/17 at 20:00; Stop 10/01/17 at 23:17; Status DC Risperidone (RisperDAL) 0.75 mg DAILY PO Last administered on 10/13/17at 08:51; Start 10/02/17 at 09:00 Temazepam (Restoril) 15 mg PRN QHS PRN PO INSOMNIA Last administered on 02:53; Start 10/01/17 at 20:00 Temazepam (Restoril) 15 mg QHS PO Last administered on 10/13/17at 19:42; Start 10/01/17 at 21:00 Trazodone HCl (Desyrel) 50 mg QHS PO Last administered on 10/13/17 19:40; Start 10/01/17 at 21:00 Acetaminophen (Tylenol) 650 mg PRN Q6HRS PRN PO PAIN / TEMP Last administered on 10/13/17 19:50; Start 10/01/17 at 20:00 Aspirin (Children'S Aspirin) 81 mg DAILY PO Last administered on 10/13/17 08: 51; Start 10/02/17 at 09:00 Atorvastatin Calcium (Lipitor) 20 mg QHS PO Last administered on 10/13/17 19: 40; Start 10/01/17 at 21:00 Cyanocobalamin (Vitamin B-12) 500 mcg BID PO Last administered on 10/13/17 19: 40; Start 10/01/17 at 21:00 Dicyclomine HCl (Bentyl) 10 mg QID PO Last administered on 10/13/17 19:39; Start 10/01/17 at 21:00 Ondansetron HCl (Zofran Odt) 4 mg PRN Q8HRS PRN PO NAUSEA/VOMITING Last administered on 10/06/17 00:10; Start 10/01/17 at 20:00 Sucralfate (Carafate) 1 gm QIDACHS PO Last administered on 10/13/17 19:42; Start 10/01/17 at 21:00 Multivitamins/ Calcium (Thera-M Plus) 1 tab DAILY PO Last administered on 07:54; Start 10/02/17 at 09:00; Stop 10/05/17 at 13:55; Status DC Non-Formulary Medication (Ondansetron Hcl ) 4 mg PRN Q6HRS PRN PO NAUSEA/ VOMITING; Start 10/01/17 at 20:00; Status UNV Potassium Chloride (Klor-Con) 10 meq DAILY PO Last administered on 10/13/17 08 :51; Start 10/02/17 at 09:00 Multi-Ingredient Ointment (Analgesic [place]) 1 marianne PRN QID PRN TP MUSCLE PAIN; Start 10/01/17 at 20:00 Al Hydroxide/Mg Hydroxide (Mylanta Plus Xs) 15 ml PRN AFTMEALHC PRN PO DYSPEPSIA Last administered on 10/12/17 20:37; Start 10/01/17 at 20:00 Magnesium Hydroxide (Milk Of Magnesia) 2,400 mg PRN QHS PRN PO CONSTIPATION Last administered on 5/8/18at 10:09; Start 10/01/17 at 20:00 Olanzapine (ZyPREXA ZYDIS) 2.5 mg DAILY PO ; Start 10/01/17 at 23:30; Stop at 23:30; Status DC Olanzapine (ZyPREXA ZYDIS) 2.5 mg DAILY PO Last administered on 10/13/17at 08:52 ; Start 10/02/17 at 09:00; Stop 10/13/17 at 16:07; Status DC Hydroxyzine HCl (Atarax) 25 mg PRN Q4HRS PRN PO ITCHING Last administered on at 19:48; Start 10/04/17 at 20:15 Divalproex Sodium (Depakote Er) 750 mg DAILY PO Last administered on 10/13/17at 08:51; Start 10/08/17 at 09:00 Trazodone HCl (Desyrel) 12.5 mg DAILY PO ; Start 10/14/17 at 09:00 Active Scripts Active Reported Potassium Chloride 10 Meq Tablet.er 10 Meq PO DAILY Divalproex Sodium Er (Divalproex Sodium) 500 Mg Tab.er.24h 500 Mg PO DAILY Vitamin B-12 (Cyanocobalamin (Vitamin B-12)) 1,000 Mcg Tablet 500 Mcg PO BID Ondansetron Odt (Ondansetron) 4 Mg Tab.rapdis 4 Mg PO PRN Q8HRS PRN Ondansetron Hcl 4 Mg Tablet 4 Mg PO PRN Q6HRS PRN Sucralfate 1 Gm Tablet 1 Gm PO QIDACHS Dicyclomine Hcl 10 Mg Capsule 1-2 Cap PO QID Alprazolam 0.25 Mg Tablet 0.25 Mg PO PRN Q2HR PRN Max 2 tabs daily Trazodone Hcl 50 Mg Tablet 50 Mg PO QHS May repeat 1X Risperdal (Risperidone) 0.5 Mg Tablet 0.75 Mg PO DAILY Temazepam 15 Mg Capsule 15 Mg PO PRN QHS PRN Administer if first dose not effective Temazepam 15 Mg Capsule 15 Mg PO QHS Zyprexa Zydis (Olanzapine) 5 Mg Tab.rapdis 2.5 Mg PO DAILY PRN Mirtazapine 15 Mg Tablet 7.5 Mg PO QHS Multivitamins (Multivitamin) 1 Each Tablet 1 Tab PO DAILY Atorvastatin Calcium 20 Mg Tablet 20 Mg PO QHS Tylenol (Acetaminophen) 325 Mg Tablet 650 Mg PO PRN Q6HRS PRN MDD 4000 Aspirin 81 Mg Tab.chew 81 Mg PO DAILY I have reviewed the current psychotropics carefully including drug interactions. Risk benefit ratio favors no change other than as noted in my dictated progress note. Diagnosis: Problems: (1) Anxiety disorder (2) Bipolar affective disorder, mixed (3) Impulse control disorder (4) Panic disorder with agoraphobia and severe panic attacks (5) Obsessive compulsive disorder SANTIAGO FARFAN MD October 13, 2017 20:52
--- NOTE | 2017-10-14 00:34 | PN ---
DATE: 10/11/2017 This is a late entry for 10/11/2017 covers elements not covered in my initial note of 10/11/2017. SUBJECTIVE: I met with the patient in the evening. The patient slept 8 hours, had a good night, good day, during the day still anxious, withdrawn, fixated on wanting Xanax repeatedly. She has been receiving Vistaril and is able to accept it even though this is reluctantly. REVIEW OF SYSTEMS: No CV, , pulmonary, eye system symptoms on review. Remains quite anxious, hyperverbal. MENTAL STATUS EXAM: Reasonably oriented. Speech coherent, rapid at times. Abstraction fair, computation impaired, language function intact, attention span short. Mood and affect, anxious, labile at times. No suicidal or homicidal ideation. LABORATORY DATA: Reviewed. IMPRESSION: Bipolar 1 disorder, mixed anxiety disorder, unspecified. PLAN: Continue current psychotropics, Risperdal, Depakote along with hydroxyzine p.r.n. We will go ahead and stop the Zyprexa 2.5 mg in a day or so since she is on the Risperdal. SANTIAGO FARFAN MD DR: INNA/melody JOB#: [id number] / [id number]
[2017-10-14] MEDS: hydrOXYzine HCL 25 MG TABLET PO PRN ×2 (01:54→12:51)
[2017-10-14] MEDS: MAG HYDROX/AL HYDROX/SIMETH 30 ML ORAL.SUSP PO PRN (04:02)
--- NOTE | 2017-10-14 05:04 | PN ---
DATE: 10/12/2017 This is a late entry for 10/12/2017 covers elements not covered in my initial note of 10/12/2017. SUBJECTIVE: I met with the patient in the evening at length in her room. She was quite withdrawn the previous evening, woke up 03:45 in the morning, wanted Xanax, received a Vistaril. Anxiety was better with this. She has had some somatic symptoms during the day on 10/12/2017. I addressed this at length with her and her request for wanting Xanax and the need to stay off benzodiazepines given her history. She is reluctantly accepting of it. REVIEW OF SYSTEMS: No CV, , pulmonary, eye system symptoms on review. MENTAL STATUS EXAM: Oriented reasonably. Speech coherent, abstraction fair, computation somewhat impaired, language function intact. Mood and affect still anxious, hyperverbal at times. She was sad that neither of her two daughters contacted her on 10/12/2017, which is Mother's Day and we processed this at length. LABORATORY DATA: Reviewed. IMPRESSION: Bipolar 1 disorder, depressed, in partial remission; anxiety disorder, unspecified. PLAN: Continue psychotropics mentioned in my initial note. Valproic acid level is 71. Stop the Zyprexa 2.5 mg daily since she is on Risperdal 0.75 mg daily. Maintain Depakote, trazodone, Restoril, Remeron along with Vistaril p.r.n. SANTIAGO FARFAN MD DR: INNA/melody JOB#: [id number] / [id number]
[2017-10-14] MEDS: ONDANSETRON ODT 4 MG TAB.RAPDIS PO PRN ×2 (06:09→15:47)
[2017-10-14 06:20] VITALS: BP 140/79
[2017-10-14] MEDS: DICYCLOMINE HCL 10 MG CAPSULE PO SCH ×4 (08:04→20:28)
[2017-10-14] MEDS: POTASSIUM CHLORIDE 10 MEQ TABLET.ER. PO SCH (08:04)
[2017-10-14] MEDS: ASPIRIN 81 MG TAB.CHEW PO SCH (08:04)
[2017-10-14] MEDS: SUCRALFATE 1 GM TABLET. PO SCH ×4 (08:04→20:28)
[2017-10-14] MEDS: DIVALPROEX ER 250 MG TAB.ER.24H. PO SCH (08:05)
[2017-10-14] MEDS: CYANOCOBALAMIN (VITAMIN B-12) 1,000 MCG TABLET. PO SCH ×2 (08:05→20:29)
[2017-10-14] MEDS: risperiDONE 0.5 MG TABLET. PO SCH (08:06)
[2017-10-14] MEDS: traZODone 50 MG TABLET. PO SCH ×2 (08:09→20:28)
[2017-10-14 16:33] VITALS: BP 142/79
--- NOTE | 2017-10-14 18:40 | PN ---
DATE: 10/13/2017 PSYCHIATRIC PROGRESS NOTE This is a late entry for 10/13/2017, covers elements not covered in my initial note of 10/13/2017. SUBJECTIVE: I met with the patient in her room at length individually the evening of 10/13/2017. The patient slept 8 hours, somewhat irritable, anxious at times, wanting Xanax. Received hydroxyzine, but fixated on the benzodiazepines. REVIEW OF SYSTEMS: No CV, , pulmonary, eye, ENT system symptoms on review. Also discussed with social service staff, who called me earlier in the day. MENTAL STATUS EXAM: Reasonably oriented. Speech coherent, abstraction fair, computation impaired, language function intact, attention span short. Mood and affect still anxious. LABORATORY DATA: Reviewed. IMPRESSION: Bipolar 1 disorder, mixed in partial remission; anxiety disorder, unspecified. PLAN: Start trazodone 12.5 mg at 9 a.m. to help with anxiety symptoms and minimize usage of benzodiazepines. Continue rest unchanged from initial note. SANTIAGO FARFAN MD DR: INNA/melody JOB#: [id number] / [id number]
--- NOTE | 2017-10-14 20:19 | PDOC ---
Exam Note: Rian Note: Please also refer to the separate dictated note~for this date of service dictated separately.~Patient seen individually. Discussed the patient with Nursing staff reviewed the chart.~Reviewed interim history and current functioning. Reviewed vital signs,~Labs/ Radiology~and current medications noted below. Continue current treatment with the changes noted in the dictated addendum note Assessment: Vital Signs: Vital Signs Date Time Temp Pulse Resp B/P (MAP) Pulse Ox O2 Delivery O2 Flow Rate FiO2 10/14/17 16:33 98.0 74 20 142/79 (100) 98 10/13/17 05:48 Room Air I&O Intake and Output 10/14/17 07:00 Intake Total 840 ml Balance 840 ml Intake Oral 840 ml Current Medications: Meds: Current Medications Alprazolam (Xanax) 0.25 mg PRN Q2HR PRN PO ANXIETY / AGITATION Last administered on 10/09/17 19:45; Start 10/01/17 at 20:00 Divalproex Sodium (Depakote Er) 500 mg DAILY PO Last administered on 10/07/17 08:00; Start 10/02/17 at 09:00; Stop 10/07/17 at 18:45; Status DC Mirtazapine (Remeron) 7.5 mg QHS PO Last administered on 10/13/17 19:40; Start 10/01/17 at 21:00 Olanzapine (ZyPREXA ZYDIS) 2.5 mg PRN DAILY PRN PO PSYCHOSIS; Start 10/01/17 at 20:00; Stop 10/01/17 at 23:17; Status DC Risperidone (RisperDAL) 0.75 mg DAILY PO Last administered on 10/14/17 08:06; Start 10/02/17 at 09:00 Temazepam (Restoril) 15 mg PRN QHS PRN PO INSOMNIA Last administered on 02:53; Start 10/01/17 at 20:00 Temazepam (Restoril) 15 mg QHS PO Last administered on 10/13/17 19:42; Start 10/01/17 at 21:00 Trazodone HCl (Desyrel) 50 mg QHS PO Last administered on 10/13/17 19:40; Start 10/01/17 at 21:00 Acetaminophen (Tylenol) 650 mg PRN Q6HRS PRN PO PAIN / TEMP Last administered on 10/13/17 19:50; Start 10/01/17 at 20:00 Aspirin (Children'S Aspirin) 81 mg DAILY PO Last administered on 10/14/17 08: 04; Start 10/02/17 at 09:00 Atorvastatin Calcium (Lipitor) 20 mg QHS PO Last administered on 10/13/17 19: 40; Start 10/01/17 at 21:00 Cyanocobalamin (Vitamin B-12) 500 mcg BID PO Last administered on 10/14/17 08: 05; Start 10/01/17 at 21:00 Dicyclomine HCl (Bentyl) 10 mg QID PO Last administered on 10/14/17 16:27; Start 10/01/17 at 21:00 Ondansetron HCl (Zofran Odt) 4 mg PRN Q8HRS PRN PO NAUSEA/VOMITING Last administered on 10/14/17 15:47; Start 10/01/17 at 20:00 Sucralfate (Carafate) 1 gm QIDACHS PO Last administered on 10/14/17 16:27; Start 10/01/17 at 21:00 Multivitamins/ Calcium (Thera-M Plus) 1 tab DAILY PO Last administered on 07:54; Start 10/02/17 at 09:00; Stop 10/05/17 at 13:55; Status DC Non-Formulary Medication (Ondansetron Hcl ) 4 mg PRN Q6HRS PRN PO NAUSEA/ VOMITING; Start 10/01/17 at 20:00; Status UNV Potassium Chloride (Klor-Con) 10 meq DAILY PO Last administered on 10/14/17 08 :04; Start 10/02/17 at 09:00 Multi-Ingredient Ointment (Analgesic [place]) 1 marianne PRN QID PRN TP MUSCLE PAIN; Start 10/01/17 at 20:00 Al Hydroxide/Mg Hydroxide (Mylanta Plus Xs) 15 ml PRN AFTMEALHC PRN PO DYSPEPSIA Last administered on 10/14/17 04:02; Start 10/01/17 at 20:00 Magnesium Hydroxide (Milk Of Magnesia) 2,400 mg PRN QHS PRN PO CONSTIPATION Last administered on 10/07/17at 10:09; Start 10/01/17 at 20:00 Olanzapine (ZyPREXA ZYDIS) 2.5 mg DAILY PO ; Start 10/01/17 at 23:30; Stop at 23:30; Status DC Olanzapine (ZyPREXA ZYDIS) 2.5 mg DAILY PO Last administered on 10/13/17at 08:52 ; Start 10/02/17 at 09:00; Stop 10/13/17 at 16:07; Status DC Hydroxyzine HCl (Atarax) 25 mg PRN Q4HRS PRN PO ITCHING Last administered on at 12:51; Start 10/04/17 at 20:15 Divalproex Sodium (Depakote Er) 750 mg DAILY PO Last administered on 10/14/17at 08:05; Start 10/08/17 at 09:00 Trazodone HCl (Desyrel) 12.5 mg DAILY PO Last administered on 10/14/17at 08:09; Start 10/14/17 at 09:00 Chlordiazepoxide (Librium) 25 mg QHS PO ; Start 10/14/17 at 21:00 Active Scripts Active Reported Potassium Chloride 10 Meq Tablet.er 10 Meq PO DAILY Divalproex Sodium Er (Divalproex Sodium) 500 Mg Tab.er.24h 500 Mg PO DAILY Vitamin B-12 (Cyanocobalamin (Vitamin B-12)) 1,000 Mcg Tablet 500 Mcg PO BID Ondansetron Odt (Ondansetron) 4 Mg Tab.rapdis 4 Mg PO PRN Q8HRS PRN Ondansetron Hcl 4 Mg Tablet 4 Mg PO PRN Q6HRS PRN Sucralfate 1 Gm Tablet 1 Gm PO QIDACHS Dicyclomine Hcl 10 Mg Capsule 1-2 Cap PO QID Alprazolam 0.25 Mg Tablet 0.25 Mg PO PRN Q2HR PRN Max 2 tabs daily Trazodone Hcl 50 Mg Tablet 50 Mg PO QHS May repeat 1X Risperdal (Risperidone) 0.5 Mg Tablet 0.75 Mg PO DAILY Temazepam 15 Mg Capsule 15 Mg PO PRN QHS PRN Administer if first dose not effective Temazepam 15 Mg Capsule 15 Mg PO QHS Zyprexa Zydis (Olanzapine) 5 Mg Tab.rapdis 2.5 Mg PO DAILY PRN Mirtazapine 15 Mg Tablet 7.5 Mg PO QHS Multivitamins (Multivitamin) 1 Each Tablet 1 Tab PO DAILY Atorvastatin Calcium 20 Mg Tablet 20 Mg PO QHS Tylenol (Acetaminophen) 325 Mg Tablet 650 Mg PO PRN Q6HRS PRN MDD 4000 Aspirin 81 Mg Tab.chew 81 Mg PO DAILY I have reviewed the current psychotropics carefully including drug interactions. Risk benefit ratio favors no change other than as noted in my dictated progress note. Diagnosis: Problems: (1) Anxiety disorder (2) Bipolar affective disorder, mixed (3) Impulse control disorder (4) Panic disorder with agoraphobia and severe panic attacks (5) Obsessive compulsive disorder SANTIAGO FARFAN MD October 14, 2017 20:19
[2017-10-14] MEDS: MIRTAZAPINE 7.5 MG TABLET. PO SCH (20:28)
[2017-10-14] MEDS: ATORVASTATIN CALCIUM 20 MG TABLET PO SCH (20:28)
[2017-10-14] MEDS: TEMAZEPAM 15 MG CAPSULE PO SCH (20:30)
[2017-10-14] MEDS: chlordiazePOXIDE HCL 25 MG CAPSULE PO SCH (20:30)
[2017-10-15] MEDS: ONDANSETRON ODT 4 MG TAB.RAPDIS PO PRN (02:03)
[2017-10-15 06:01] VITALS: BP 110/57
[2017-10-15] MEDS: CYANOCOBALAMIN (VITAMIN B-12) 1,000 MCG TABLET. PO SCH ×2 (08:02→20:33)
[2017-10-15] MEDS: SUCRALFATE 1 GM TABLET. PO SCH ×4 (08:02→20:31)
[2017-10-15] MEDS: ASPIRIN 81 MG TAB.CHEW PO SCH (08:03)
[2017-10-15] MEDS: DIVALPROEX ER 250 MG TAB.ER.24H. PO SCH (08:03)
[2017-10-15] MEDS: risperiDONE 0.5 MG TABLET. PO SCH (08:04)
[2017-10-15] MEDS: DICYCLOMINE HCL 10 MG CAPSULE PO SCH ×4 (08:05→20:30)
[2017-10-15] MEDS: traZODone 50 MG TABLET. PO SCH ×2 (08:05→20:33)
[2017-10-15] MEDS: POTASSIUM CHLORIDE 10 MEQ TABLET.ER. PO SCH (08:05)
[2017-10-15 18:19] VITALS: BP 116/72
[2017-10-15] MEDS: MIRTAZAPINE 7.5 MG TABLET. PO SCH (20:32)
[2017-10-15] MEDS: TEMAZEPAM 15 MG CAPSULE PO PRN (20:32)
[2017-10-15] MEDS: chlordiazePOXIDE HCL 25 MG CAPSULE PO SCH (20:32)
[2017-10-15] MEDS: ATORVASTATIN CALCIUM 20 MG TABLET PO SCH (20:32)
--- NOTE | 2017-10-15 22:13 | PDOC ---
Exam Note: Rian Note: Please also refer to the separate dictated note~for this date of service dictated separately.~Patient seen individually. Discussed the patient with Nursing staff reviewed the chart.~Reviewed interim history and current functioning. Reviewed vital signs,~Labs/ Radiology~and current medications noted below. Continue current treatment with the changes noted in the dictated addendum note Assessment: Vital Signs: Vital Signs Date Time Temp Pulse Resp B/P (MAP) Pulse Ox O2 Delivery O2 Flow Rate FiO2 10/15/17 18:19 97.5 77 18 116/72 (87) 98 10/13/17 05:48 Room Air I&O Intake and Output 10/15/17 07:00 Intake Total 480 ml Balance 480 ml Intake Oral 480 ml Current Medications: Meds: Current Medications Alprazolam (Xanax) 0.25 mg PRN Q2HR PRN PO ANXIETY / AGITATION Last administered on 10/09/17 19:45; Start 10/01/17 at 20:00; Stop 10/15/17 at 13:15 ; Status DC Divalproex Sodium (Depakote Er) 500 mg DAILY PO Last administered on 10/07/17at 08:00; Start 10/02/17 at 09:00; Stop 10/07/17 at 18:45; Status DC Mirtazapine (Remeron) 7.5 mg QHS PO Last administered on 10/15/17 20:32; Start 10/01/17 at 21:00 Olanzapine (ZyPREXA ZYDIS) 2.5 mg PRN DAILY PRN PO PSYCHOSIS; Start 10/01/17 at 20:00; Stop 10/01/17 at 23:17; Status DC Risperidone (RisperDAL) 0.75 mg DAILY PO Last administered on 10/15/17 08:04; Start 10/02/17 at 09:00 Temazepam (Restoril) 15 mg PRN QHS PRN PO INSOMNIA Last administered on 20:32; Start 10/01/17 at 20:00 Temazepam (Restoril) 15 mg QHS PO Last administered on 10/14/17 20:30; Start 10/01/17 at 21:00; Stop 10/15/17 at 18:32; Status DC Trazodone HCl (Desyrel) 50 mg QHS PO Last administered on 10/15/17 20:33; Start 10/01/17 at 21:00 Acetaminophen (Tylenol) 650 mg PRN Q6HRS PRN PO PAIN / TEMP Last administered on 10/13/17 19:50; Start 10/01/17 at 20:00 Aspirin (Children'S Aspirin) 81 mg DAILY PO Last administered on 10/15/17 08: 03; Start 10/02/17 at 09:00 Atorvastatin Calcium (Lipitor) 20 mg QHS PO Last administered on 10/15/17 20: 32; Start 10/01/17 at 21:00 Cyanocobalamin (Vitamin B-12) 500 mcg BID PO Last administered on 10/15/17 20: 33; Start 10/01/17 at 21:00 Dicyclomine HCl (Bentyl) 10 mg QID PO Last administered on 10/15/17 20:30; Start 10/01/17 at 21:00 Ondansetron HCl (Zofran Odt) 4 mg PRN Q8HRS PRN PO NAUSEA/VOMITING Last administered on 10/15/17 02:03; Start 10/01/17 at 20:00 Sucralfate (Carafate) 1 gm QIDACHS PO Last administered on 10/15/17 20:31; Start 10/01/17 at 21:00 Multivitamins/ Calcium (Thera-M Plus) 1 tab DAILY PO Last administered on 07:54; Start 10/02/17 at 09:00; Stop 10/05/17 at 13:55; Status DC Non-Formulary Medication (Ondansetron Hcl ) 4 mg PRN Q6HRS PRN PO NAUSEA/ VOMITING; Start 10/01/17 at 20:00; Status UNV Potassium Chloride (Klor-Con) 10 meq DAILY PO Last administered on 10/15/17 08 :05; Start 10/02/17 at 09:00 Multi-Ingredient Ointment (Analgesic [place]) 1 marianne PRN QID PRN TP MUSCLE PAIN; Start 10/01/17 at 20:00 Al Hydroxide/Mg Hydroxide (Mylanta Plus Xs) 15 ml PRN AFTMEALHC PRN PO DYSPEPSIA Last administered on 10/14/17 04:02; Start 10/01/17 at 20:00 Magnesium Hydroxide (Milk Of Magnesia) 2,400 mg PRN QHS PRN PO CONSTIPATION Last administered on 10/07/17at 10:09; Start 10/01/17 at 20:00 Olanzapine (ZyPREXA ZYDIS) 2.5 mg DAILY PO ; Start 10/01/17 at 23:30; Stop at 23:30; Status DC Olanzapine (ZyPREXA ZYDIS) 2.5 mg DAILY PO Last administered on 10/13/17at 08:52 ; Start 10/02/17 at 09:00; Stop 10/13/17 at 16:07; Status DC Hydroxyzine HCl (Atarax) 25 mg PRN Q4HRS PRN PO ITCHING Last administered on at 12:51; Start 10/04/17 at 20:15 Divalproex Sodium (Depakote Er) 750 mg DAILY PO Last administered on 10/15/17at 08:03; Start 10/08/17 at 09:00 Trazodone HCl (Desyrel) 12.5 mg DAILY PO Last administered on 10/15/17at 08:05; Start 10/14/17 at 09:00 Chlordiazepoxide (Librium) 25 mg QHS PO Last administered on 10/15/17at 20:32; Start 10/14/17 at 21:00 Active Scripts Active Reported Potassium Chloride 10 Meq Tablet.er 10 Meq PO DAILY Divalproex Sodium Er (Divalproex Sodium) 500 Mg Tab.er.24h 500 Mg PO DAILY Vitamin B-12 (Cyanocobalamin (Vitamin B-12)) 1,000 Mcg Tablet 500 Mcg PO BID Ondansetron Odt (Ondansetron) 4 Mg Tab.rapdis 4 Mg PO PRN Q8HRS PRN Ondansetron Hcl 4 Mg Tablet 4 Mg PO PRN Q6HRS PRN Sucralfate 1 Gm Tablet 1 Gm PO QIDACHS Dicyclomine Hcl 10 Mg Capsule 1-2 Cap PO QID Alprazolam 0.25 Mg Tablet 0.25 Mg PO PRN Q2HR PRN Max 2 tabs daily Trazodone Hcl 50 Mg Tablet 50 Mg PO QHS May repeat 1X Risperdal (Risperidone) 0.5 Mg Tablet 0.75 Mg PO DAILY Temazepam 15 Mg Capsule 15 Mg PO PRN QHS PRN Administer if first dose not effective Temazepam 15 Mg Capsule 15 Mg PO QHS Zyprexa Zydis (Olanzapine) 5 Mg Tab.rapdis 2.5 Mg PO DAILY PRN Mirtazapine 15 Mg Tablet 7.5 Mg PO QHS Multivitamins (Multivitamin) 1 Each Tablet 1 Tab PO DAILY Atorvastatin Calcium 20 Mg Tablet 20 Mg PO QHS Tylenol (Acetaminophen) 325 Mg Tablet 650 Mg PO PRN Q6HRS PRN MDD 4000 Aspirin 81 Mg Tab.chew 81 Mg PO DAILY I have reviewed the current psychotropics carefully including drug interactions. Risk benefit ratio favors no change other than as noted in my dictated progress note. Diagnosis: Problems: (1) Anxiety disorder (2) Bipolar affective disorder, mixed (3) Impulse control disorder (4) Panic disorder with agoraphobia and severe panic attacks (5) Obsessive compulsive disorder SANTIAGO FARFAN MD October 15, 2017 22:13
--- NOTE | 2017-10-16 01:21 | PN ---
DATE: 10/14/2017 This late entry 10/14/2017 covers elements not covered in my initial note 10/14/2017. SUBJECTIVE: I met with the patient in the evening. The patient slept 4-1/2 hours, complains a lot of queasy tummy and feeling sick in the morning, received Zofran. She complains of ongoing anxiety, is obsessed about wanting some benzodiazepines, states her mother did very well on low-dose Librium and amitriptyline. We have kept her off benzodiazepines, specifically the Xanax so far and subjective anxiety becomes overwhelming for her despite the Vistaril. REVIEW OF SYSTEMS: No CV, , pulmonary, eye, ENT system symptoms on review. MENTAL STATUS EXAM: Oriented reasonably. Speech coherent, abstraction fair, computation impaired, language function intact, attention span short. Mood and affect somewhat dysphoric, anxious, but showing improvement. LABORATORY DATA: Reviewed. IMPRESSION: Bipolar 1 disorder, depressed; anxiety disorder, unspecified. PLAN: Start Librium 25 mg p.o. at bedtime. Continue rest unchanged including Depakote with Valproic acid level therapeutic at 71 and Risperdal 75 mg daily. MAN Richar FARFAN MD DR: INNA/melody JOB#: [id number] / [id number]
[2017-10-16 06:01] VITALS: BP 108/56
[2017-10-16] MEDS: SUCRALFATE 1 GM TABLET. PO SCH ×4 (07:52→20:43)
[2017-10-16] MEDS: CYANOCOBALAMIN (VITAMIN B-12) 1,000 MCG TABLET. PO SCH ×2 (09:31→20:40)
[2017-10-16] MEDS: DICYCLOMINE HCL 10 MG CAPSULE PO SCH ×4 (09:31→20:42)
[2017-10-16] MEDS: DIVALPROEX ER 250 MG TAB.ER.24H. PO SCH (09:35)
[2017-10-16] MEDS: risperiDONE 0.5 MG TABLET. PO SCH (09:36)
[2017-10-16] MEDS: POTASSIUM CHLORIDE 10 MEQ TABLET.ER. PO SCH (09:37)
[2017-10-16] MEDS: traZODone 50 MG TABLET. PO SCH ×2 (09:38→20:41)
[2017-10-16] MEDS: ASPIRIN 81 MG TAB.CHEW PO SCH (09:38)
[2017-10-16] MEDS: MAGNESIUM HYDROXIDE 2,400 MG/30 ML ORAL.SUSP. PO PRN (10:25)
[2017-10-16 16:44] VITALS: BP 114/76
--- NOTE | 2017-10-16 20:16 | PDOC ---
Exam Note: Rian Note: Please also refer to the separate dictated note~for this date of service dictated separately.~Patient seen individually. Discussed the patient with Nursing staff reviewed the chart.~Reviewed interim history and current functioning. Reviewed vital signs,~Labs/ Radiology~and current medications noted below. Continue current treatment with the changes noted in the dictated addendum note Assessment: Vital Signs: Vital Signs Date Time Temp Pulse Resp B/P (MAP) Pulse Ox O2 Delivery O2 Flow Rate FiO2 10/16/17 16:44 96.9 79 18 114/76 (89) 98 Room Air I&O Intake and Output 10/16/17 07:00 Intake Total 840 ml Balance 840 ml Intake Oral 840 ml Current Medications: Meds: Current Medications Alprazolam (Xanax) 0.25 mg PRN Q2HR PRN PO ANXIETY / AGITATION Last administered on 10/09/17at 19:45; Start 10/01/17 at 20:00; Stop 10/15/17 at 13:15 ; Status DC Divalproex Sodium (Depakote Er) 500 mg DAILY PO Last administered on 10/07/17at 08:00; Start 10/02/17 at 09:00; Stop 10/07/17 at 18:45; Status DC Mirtazapine (Remeron) 7.5 mg QHS PO Last administered on 10/15/17at 20:32; Start 10/01/17 at 21:00 Olanzapine (ZyPREXA ZYDIS) 2.5 mg PRN DAILY PRN PO PSYCHOSIS; Start 10/01/17 at 20:00; Stop 10/01/17 at 23:17; Status DC Risperidone (RisperDAL) 0.75 mg DAILY PO Last administered on 10/16/17at 09:36; Start 10/02/17 at 09:00 Temazepam (Restoril) 15 mg PRN QHS PRN PO INSOMNIA Last administered on 20:32; Start 10/01/17 at 20:00 Temazepam (Restoril) 15 mg QHS PO Last administered on 10/14/17at 20:30; Start 10/01/17 at 21:00; Stop 10/15/17 at 18:32; Status DC Trazodone HCl (Desyrel) 50 mg QHS PO Last administered on 5/16/18at 20:33; Start 10/01/17 at 21:00 Acetaminophen (Tylenol) 650 mg PRN Q6HRS PRN PO PAIN / TEMP Last administered on 10/13/17 19:50; Start 10/01/17 at 20:00 Aspirin (Children'S Aspirin) 81 mg DAILY PO Last administered on 10/16/17 09: 38; Start 10/02/17 at 09:00 Atorvastatin Calcium (Lipitor) 20 mg QHS PO Last administered on 10/15/17 20: 32; Start 10/01/17 at 21:00 Cyanocobalamin (Vitamin B-12) 500 mcg BID PO Last administered on 10/16/17 09: 31; Start 10/01/17 at 21:00 Dicyclomine HCl (Bentyl) 10 mg QID PO Last administered on 10/16/17 15:45; Start 10/01/17 at 21:00 Ondansetron HCl (Zofran Odt) 4 mg PRN Q8HRS PRN PO NAUSEA/VOMITING Last administered on 10/15/17 02:03; Start 10/01/17 at 20:00 Sucralfate (Carafate) 1 gm QIDACHS PO Last administered on 10/16/17 15:45; Start 10/01/17 at 21:00 Multivitamins/ Calcium (Thera-M Plus) 1 tab DAILY PO Last administered on 07:54; Start 10/02/17 at 09:00; Stop 10/05/17 at 13:55; Status DC Non-Formulary Medication (Ondansetron Hcl ) 4 mg PRN Q6HRS PRN PO NAUSEA/ VOMITING; Start 10/01/17 at 20:00; Status UNV Potassium Chloride (Klor-Con) 10 meq DAILY PO Last administered on 10/16/17 09 :37; Start 10/02/17 at 09:00 Multi-Ingredient Ointment (Analgesic [place]) 1 marianne PRN QID PRN TP MUSCLE PAIN; Start 10/01/17 at 20:00 Al Hydroxide/Mg Hydroxide (Mylanta Plus Xs) 15 ml PRN AFTMEALHC PRN PO DYSPEPSIA Last administered on 10/14/17 04:02; Start 10/01/17 at 20:00 Magnesium Hydroxide (Milk Of Magnesia) 2,400 mg PRN QHS PRN PO CONSTIPATION Last administered on 10/16/17 10:25; Start 10/01/17 at 20:00 Olanzapine (ZyPREXA ZYDIS) 2.5 mg DAILY PO ; Start 10/01/17 at 23:30; Stop at 23:30; Status DC Olanzapine (ZyPREXA ZYDIS) 2.5 mg DAILY PO Last administered on 10/13/17at 08:52 ; Start 10/02/17 at 09:00; Stop 10/13/17 at 16:07; Status DC Hydroxyzine HCl (Atarax) 25 mg PRN Q4HRS PRN PO ITCHING Last administered on at 12:51; Start 10/04/17 at 20:15 Divalproex Sodium (Depakote Er) 750 mg DAILY PO Last administered on 10/16/17at 09:35; Start 10/08/17 at 09:00 Trazodone HCl (Desyrel) 12.5 mg DAILY PO Last administered on 10/16/17at 09:38; Start 10/14/17 at 09:00 Chlordiazepoxide (Librium) 25 mg QHS PO Last administered on 10/15/17at 20:32; Start 10/14/17 at 21:00 Active Scripts Active Reported Potassium Chloride 10 Meq Tablet.er 10 Meq PO DAILY Divalproex Sodium Er (Divalproex Sodium) 500 Mg Tab.er.24h 500 Mg PO DAILY Vitamin B-12 (Cyanocobalamin (Vitamin B-12)) 1,000 Mcg Tablet 500 Mcg PO BID Ondansetron Odt (Ondansetron) 4 Mg Tab.rapdis 4 Mg PO PRN Q8HRS PRN Ondansetron Hcl 4 Mg Tablet 4 Mg PO PRN Q6HRS PRN Sucralfate 1 Gm Tablet 1 Gm PO QIDACHS Dicyclomine Hcl 10 Mg Capsule 1-2 Cap PO QID Alprazolam 0.25 Mg Tablet 0.25 Mg PO PRN Q2HR PRN Max 2 tabs daily Trazodone Hcl 50 Mg Tablet 50 Mg PO QHS May repeat 1X Risperdal (Risperidone) 0.5 Mg Tablet 0.75 Mg PO DAILY Temazepam 15 Mg Capsule 15 Mg PO PRN QHS PRN Administer if first dose not effective Temazepam 15 Mg Capsule 15 Mg PO QHS Zyprexa Zydis (Olanzapine) 5 Mg Tab.rapdis 2.5 Mg PO DAILY PRN Mirtazapine 15 Mg Tablet 7.5 Mg PO QHS Multivitamins (Multivitamin) 1 Each Tablet 1 Tab PO DAILY Atorvastatin Calcium 20 Mg Tablet 20 Mg PO QHS Tylenol (Acetaminophen) 325 Mg Tablet 650 Mg PO PRN Q6HRS PRN MDD 4000 Aspirin 81 Mg Tab.chew 81 Mg PO DAILY I have reviewed the current psychotropics carefully including drug interactions. Risk benefit ratio favors no change other than as noted in my dictated progress note. Diagnosis: Problems: (1) Anxiety disorder (2) Bipolar affective disorder, mixed (3) Impulse control disorder (4) Panic disorder with agoraphobia and severe panic attacks (5) Obsessive compulsive disorder SANTIAGO FARFAN MD October 16, 2017 20:16
[2017-10-16] MEDS: ATORVASTATIN CALCIUM 20 MG TABLET PO SCH (20:40)
[2017-10-16] MEDS: chlordiazePOXIDE HCL 25 MG CAPSULE PO SCH (20:40)
[2017-10-16] MEDS: MIRTAZAPINE 7.5 MG TABLET. PO SCH (20:41)
[2017-10-16] MEDS: TEMAZEPAM 15 MG CAPSULE PO PRN (23:01)
[2017-10-17 05:42] VITALS: BP 101/46
[2017-10-17] MEDS: traZODone 50 MG TABLET. PO SCH ×2 (07:41→20:41)
[2017-10-17] MEDS: risperiDONE 0.5 MG TABLET. PO SCH (07:42)
[2017-10-17] MEDS: CYANOCOBALAMIN (VITAMIN B-12) 1,000 MCG TABLET. PO SCH ×2 (07:42→20:41)
[2017-10-17] MEDS: DIVALPROEX ER 250 MG TAB.ER.24H. PO SCH (07:43)
[2017-10-17] MEDS: POTASSIUM CHLORIDE 10 MEQ TABLET.ER. PO SCH (07:43)
[2017-10-17] MEDS: SUCRALFATE 1 GM TABLET. PO SCH ×4 (07:43→20:41)
[2017-10-17] MEDS: ASPIRIN 81 MG TAB.CHEW PO SCH (07:43)
[2017-10-17] MEDS: DICYCLOMINE HCL 10 MG CAPSULE PO SCH ×4 (07:43→20:41)
[2017-10-17] MEDS ORDERED: BISACODYL 10 MG SUPP.RECT PR PRN (08:45)
[2017-10-17] MEDS ORDERED: MAGNESIUM CITRATE 296 ML SOLUTION. PO PRN (08:45)
[2017-10-17] MEDS: MAGNESIUM HYDROXIDE 2,400 MG/30 ML ORAL.SUSP. PO PRN (11:30)
[2017-10-17] MEDS: ACETAMINOPHEN 325 MG TABLET PO PRN (12:32)
[2017-10-17 16:19] VITALS: BP 94/50
[2017-10-17] MEDS: chlordiazePOXIDE HCL 25 MG CAPSULE PO SCH (20:41)
[2017-10-17] MEDS: ATORVASTATIN CALCIUM 20 MG TABLET PO SCH (20:41)
[2017-10-17] MEDS: MIRTAZAPINE 7.5 MG TABLET. PO SCH (20:43)
[2017-10-17] MEDS ORDERED: TRAZ50TA15 PO (23:06)
[2017-10-17] MEDS ORDERED: HYDR25TA PO (23:11)
[2017-10-17] MEDS ORDERED: CHLO1CAP PO ×2 (23:14)
[2017-10-17] MEDS ORDERED: BISA10SU2 RC (23:15)
[2017-10-17] MEDS ORDERED: MAGN296S9 PO (23:16)
[2017-10-17] MEDS ORDERED: MAGN2400 PO (23:17)
[2017-10-17] MEDS ORDERED: METH29OI TP (23:18)
[2017-10-17] MEDS ORDERED: MAG30ORA2 PO (23:19)
[2017-10-17] MEDS ORDERED: MAG355OR11 PO (23:19)
[2017-10-17] MEDS ORDERED: DIVA250T14 PO (23:21)
--- NOTE | 2017-10-18 02:49 | PN ---
DATE: 10/15/2017 This late entry of 10/15/2017 covers elements not covered in my initial note 10/15/2017. SUBJECTIVE: I met with the patient in the evening. The patient was staffed at a treatment team meeting with the entire team earlier in the day as well. Reviewed her psychosocial history. Her primary care physician is Dr. Merino in [place], [place]. She goes to the [facility], somewhat noncompliant. REVIEW OF SYSTEMS: The patient states she is sleeping better on the Librium. No CV, , pulmonary, eye system symptoms on review, quite anxious, has vague somatic symptoms. MENTAL STATUS EXAM: Reasonably oriented. Speech is coherent, somewhat pressured at times. Abstraction fair, computation impaired, language function intact. Mood and affect somewhat anxious, labile, but showing improvement. LABORATORY DATA: Reviewed. IMPRESSION: Unchanged from initial note. PLAN: Continue current psychotropics. SANTIAGO FARFAN MD DR: INNA/melody JOB#: [id number] / [id number]
--- NOTE | 2017-10-18 02:51 | PN ---
DATE: 10/16/2017 This late entry 10/16/2017 covers elements not covered in my initial note 10/16/2017. SUBJECTIVE: I met with the patient in the evening. The patient slept 7-3/4 hours previous evening, somewhat obsessed with bowels, trying to put her fingers in the rectal area and nursing staff are addressing this symptomatically for constipation. REVIEW OF SYSTEMS: No CV, , pulmonary, eye system symptoms on review other than above. MENTAL STATUS EXAM: Reasonably oriented. Speech is coherent, less pressured. Abstraction fair, computation impaired, language function intact. Mood and affect showing improvement, less anxious and somewhat obsessive. LABORATORY DATA: Reviewed. IMPRESSION: Unchanged from initial note. PLAN: Continue current psychotropics from initial note. MAN Richar FARFAN MD DR: INNA/melody JOB#: [id number] / [id number]
[2017-10-18] MEDS: ONDANSETRON ODT 4 MG TAB.RAPDIS PO PRN (06:00)
[2017-10-18 06:08] VITALS: BP 108/47
[2017-10-18 07:50] LABS: BASO % 1 % (0-3); EOS # 0.2 x10^3/uL (0.0-0.7); EOS % 3 % (0-3); HEMATOCRIT 30.3 % (36.0-47.0); HEMOGLOBIN 10.2 g/dL (12.0-15.5); LYMPH # 1.6 x10^3/uL (1.0-4.8); LYMPH % 35 % (24-48); MEAN CORPUSCULAR HEMOGLOBIN 30 pg (25-35); MEAN CORPUSCULAR HGB CONC 34 g/dL (31-37); MEAN CORPUSCULAR VOLUME 90 fL (79-100); MONO # 0.8 x10^3/uL (0.0-1.1); MONO % 18 % (0-9); NEUT # 1.9 x10^3uL (1.8-7.7); NEUT % 43 % (31-73); PLATELET COUNT 236 x10^3/uL (140-400); RED BLOOD COUNT 3.36 x10^6/uL (3.50-5.40); WHITE BLOOD COUNT 4.5 x10^3/uL (4.0-11.0)
[2017-10-18] MEDS: DIVALPROEX ER 250 MG TAB.ER.24H. PO SCH (08:10)
[2017-10-18] MEDS: risperiDONE 0.5 MG TABLET. PO SCH (08:10)
[2017-10-18] MEDS: DICYCLOMINE HCL 10 MG CAPSULE PO SCH (08:10)
[2017-10-18] MEDS: SUCRALFATE 1 GM TABLET. PO SCH (08:10)
[2017-10-18] MEDS: traZODone 50 MG TABLET. PO SCH (08:10)
[2017-10-18] MEDS: ASPIRIN 81 MG TAB.CHEW PO SCH (08:11)
[2017-10-18] MEDS: CYANOCOBALAMIN (VITAMIN B-12) 1,000 MCG TABLET. PO SCH (08:11)
[2017-10-18] MEDS: POTASSIUM CHLORIDE 10 MEQ TABLET.ER. PO SCH (08:11)
[2017-10-18 08:25] LABS: ALBUMIN 2.7 g/dL (3.4-5.0); ALBUMIN/GLOBULIN RATIO 0.8 (1.0-1.7); CALCIUM 8.6 mg/dL (8.5-10.1); CREATININE 0.9 mg/dL (0.6-1.0); GFR 61.7; POTASSIUM 4.1 mmol/L (3.5-5.1); TOTAL BILIRUBIN 0.3 mg/dL (0.2-1.0); TOTAL PROTEIN 6.1 g/dL (6.4-8.2)
--- NOTE | 2017-10-18 19:06 | PDOC ---
Exam Note: Rian Note: Please also refer to the separate dictated note~for this date of service dictated separately.~Patient seen individually. Discussed the patient with Nursing staff reviewed the chart.~Reviewed interim history and current functioning. Reviewed vital signs,~Labs/ Radiology~and current medications noted below. Continue current treatment with the changes noted in the dictated addendum note Assessment: Vital Signs: Vital Signs Date Time Temp Pulse Resp B/P (MAP) Pulse Ox O2 Delivery O2 Flow Rate FiO2 10/18/17 06:08 98.5 71 18 108/47 (67) 94 10/17/17 05:42 Room Air I&O Intake and Output 10/18/17 07:00 Intake Total 780 ml Balance 780 ml Intake Oral 780 ml Labs: Laboratory Tests Test 10/18/17 06:51 White Blood Count 4.5 x10^3/uL (4.0-11.0) Red Blood Count 3.36 x10^6/uL (3.50-5.40) L Hemoglobin 10.2 g/dL (12.0-15.5) L Hematocrit 30.3 % (36.0-47.0) L Mean Corpuscular Volume 90 fL (79-100) Mean Corpuscular Hemoglobin 30 pg (25-35) Mean Corpuscular Hemoglobin Concent 34 g/dL (31-37) Red Cell Distribution Width 16.0 % (11.5-14.5) H Platelet Count 236 x10^3/uL (140-400) Neutrophils (%) (Auto) 43 % (31-73) Lymphocytes (%) (Auto) 35 % (24-48) Monocytes (%) (Auto) 18 % (0-9) H Eosinophils (%) (Auto) 3 % (0-3) Basophils (%) (Auto) 1 % (0-3) Neutrophils # (Auto) 1.9 x10^3uL (1.8-7.7) Lymphocytes # (Auto) 1.6 x10^3/uL (1.0-4.8) Monocytes # (Auto) 0.8 x10^3/uL (0.0-1.1) Eosinophils # (Auto) 0.2 x10^3/uL (0.0-0.7) Basophils # (Auto) 0.0 x10^3/uL (0.0-0.2) Sodium Level 140 mmol/L (136-145) Potassium Level 4.1 mmol/L (3.5-5.1) Chloride Level 105 mmol/L (98-107) Carbon Dioxide Level 27 mmol/L (21-32) Anion Gap 8 (6-14) Blood Urea Nitrogen 13 mg/dL (7-20) Creatinine 0.9 mg/dL (0.6-1.0) Estimated GFR (Cockcroft-Gault) 61.7 BUN/Creatinine Ratio 14 (6-20) Glucose Level 77 mg/dL (70-99) Calcium Level 8.6 mg/dL (8.5-10.1) Total Bilirubin 0.3 mg/dL (0.2-1.0) Aspartate Amino Transferase (AST) 16 U/L (15-37) Alanine Aminotransferase (ALT) 15 U/L (14-59) Alkaline Phosphatase 76 U/L (46-116) Total Protein 6.1 g/dL (6.4-8.2) L Albumin 2.7 g/dL (3.4-5.0) L Albumin/Globulin Ratio 0.8 (1.0-1.7) L Current Medications: Meds: Current Medications Alprazolam (Xanax) 0.25 mg PRN Q2HR PRN PO ANXIETY / AGITATION Last administered on 10/09/17at 19:45; Start 10/01/17 at 20:00; Stop 10/15/17 at 13:15 ; Status DC Divalproex Sodium (Depakote Er) 500 mg DAILY PO Last administered on 10/07/17at 08:00; Start 10/02/17 at 09:00; Stop 10/07/17 at 18:45; Status DC Mirtazapine (Remeron) 7.5 mg QHS PO Last administered on 10/17/17at 20:43; Start 10/01/17 at 21:00; Stop 10/18/17 at 11:22; Status DC Olanzapine (ZyPREXA ZYDIS) 2.5 mg PRN DAILY PRN PO PSYCHOSIS; Start 10/01/17 at 20:00; Stop 10/01/17 at 23:17; Status DC Risperidone (RisperDAL) 0.75 mg DAILY PO Last administered on 10/18/17at 08:10; Start 10/02/17 at 09:00; Stop 10/18/17 at 11:22; Status DC Temazepam (Restoril) 15 mg PRN QHS PRN PO INSOMNIA Last administered on at 23:01; Start 10/01/17 at 20:00; Stop 10/18/17 at 11:22; Status DC Temazepam (Restoril) 15 mg QHS PO Last administered on 10/14/17at 20:30; Start 10/01/17 at 21:00; Stop 10/15/17 at 18:32; Status DC Trazodone HCl (Desyrel) 50 mg QHS PO Last administered on 10/17/17at 20:41; Start 10/01/17 at 21:00; Stop 10/18/17 at 11:22; Status DC Acetaminophen (Tylenol) 650 mg PRN Q6HRS PRN PO PAIN / TEMP Last administered on 10/17/17at 12:32; Start 10/01/17 at 20:00; Stop 10/18/17 at 11:22; Status DC Aspirin (Children'S Aspirin) 81 mg DAILY PO Last administered on 10/18/17at 08: 11; Start 10/02/17 at 09:00; Stop 10/18/17 at 11:22; Status DC Atorvastatin Calcium (Lipitor) 20 mg QHS PO Last administered on 10/17/17 20: 41; Start 10/01/17 at 21:00; Stop 10/18/17 at 11:22; Status DC Cyanocobalamin (Vitamin B-12) 500 mcg BID PO Last administered on 10/18/17at 08: 11; Start 10/01/17 at 21:00; Stop 10/18/17 at 11:22; Status DC Dicyclomine HCl (Bentyl) 10 mg QID PO Last administered on 10/18/17at 08:10; Start 10/01/17 at 21:00; Stop 10/18/17 at 11:22; Status DC Ondansetron HCl (Zofran Odt) 4 mg PRN Q8HRS PRN PO NAUSEA/VOMITING Last administered on 10/18/17at 06:00; Start 10/01/17 at 20:00; Stop 10/18/17 at 11:22 ; Status DC Sucralfate (Carafate) 1 gm QIDACHS PO Last administered on 10/18/17at 08:10; Start 10/01/17 at 21:00; Stop 10/18/17 at 11:22; Status DC Multivitamins/ Calcium (Thera-M Plus) 1 tab DAILY PO Last administered on at 07:54; Start 10/02/17 at 09:00; Stop 10/05/17 at 13:55; Status DC Non-Formulary Medication (Ondansetron Hcl ) 4 mg PRN Q6HRS PRN PO NAUSEA/ VOMITING; Start 10/01/17 at 20:00; Status UNV Potassium Chloride (Klor-Con) 10 meq DAILY PO Last administered on 10/18/17at 08 :11; Start 10/02/17 at 09:00; Stop 10/18/17 at 11:22; Status DC Multi-Ingredient Ointment (Analgesic [place]) 1 stevan PRN QID PRN TP MUSCLE PAIN; Start 10/01/17 at 20:00; Stop 10/18/17 at 11:22; Status DC Al Hydroxide/Mg Hydroxide (Mylanta Plus Xs) 15 ml PRN AFTMEALHC PRN PO DYSPEPSIA Last administered on 10/14/17at 04:02; Start 10/01/17 at 20:00; Stop at 11:22; Status DC Magnesium Hydroxide (Milk Of Magnesia) 2,400 mg PRN QHS PRN PO CONSTIPATION Last administered on 10/17/17at 11:30; Start 10/01/17 at 20:00; Stop 10/18/17 at 11:22; Status DC Olanzapine (ZyPREXA ZYDIS) 2.5 mg DAILY PO ; Start 10/01/17 at 23:30; Stop at 23:30; Status DC Olanzapine (ZyPREXA ZYDIS) 2.5 mg DAILY PO Last administered on 10/13/17at 08:52 ; Start 10/02/17 at 09:00; Stop 10/13/17 at 16:07; Status DC Hydroxyzine HCl (Atarax) 25 mg PRN Q4HRS PRN PO ITCHING Last administered on at 12:51; Start 10/04/17 at 20:15; Stop 10/18/17 at 11:22; Status DC Divalproex Sodium (Depakote Er) 750 mg DAILY PO Last administered on 10/18/17at 08:10; Start 10/08/17 at 09:00; Stop 10/18/17 at 11:22; Status DC Trazodone HCl (Desyrel) 12.5 mg DAILY PO Last administered on 10/18/17at 08:10; Start 10/14/17 at 09:00; Stop 10/18/17 at 11:22; Status DC Chlordiazepoxide (Librium) 25 mg QHS PO Last administered on 10/17/17at 20:41; Start 10/14/17 at 21:00; Stop 10/18/17 at 11:22; Status DC Magnesium Citrate (Citroma) 296 ml PRN DAILY PRN PO CONSTIPATION Last administered on 10/17/17at 09:08; Start 10/17/17 at 08:45; Stop 10/18/17 at 11:22 ; Status DC Bisacodyl (Dulcolax Supp) 10 mg PRN DAILY PRN TX CONSTIPATION Last administered on 10/17/17at 13:00; Start 10/17/17 at 08:45; Stop 10/18/17 at 11:22 ; Status DC Active Scripts Active Reported Divalproex Sodium Er (Divalproex Sodium) 250 Mg Tab.er.24h 750 Mg PO DAILY Mag-Al Plus Xs Suspension (Mag Hydrox/Al Hydrox/Simeth) 30 Ml Oral.susp 30 Ml PO PRN AFTMEALHC PRN Analgesic [place] (Methyl Salicylate/Menthol) 28 Gm Oint...g. 1 Stevan TP PRN QID PRN Milk Of Magnesia (Magnesium Hydroxide) 2,400 Mg/10 Ml Oral.susp 2,400 Mg PO PRN QHS PRN Magnesium Citrate 296 Ml Solution 296 Ml PO PRN DAILY PRN Bisacodyl 10 Mg Supp.rect 10 Mg RC PRN DAILY PRN Librax Capsule (Chlordiazepoxide/Clidinium Br) 1 Each Capsule 25 Mg PO QHS Hydroxyzine Hcl 25 Mg Tablet 25 Mg PO PRN Q4HRS PRN Trazodone Hcl 50 Mg Tablet 12.5 Mg PO DAILY Potassium Chloride 10 Meq Tablet.er 10 Meq PO DAILY Vitamin B-12 (Cyanocobalamin (Vitamin B-12)) 1,000 Mcg Tablet 500 Mcg PO BID Ondansetron Odt (Ondansetron) 4 Mg Tab.rapdis 4 Mg PO PRN Q8HRS PRN Sucralfate 1 Gm Tablet 1 Gm PO QIDACHS Dicyclomine Hcl 10 Mg Capsule 10 Mg PO QID Trazodone Hcl 50 Mg Tablet 50 Mg PO QHS May repeat 1X Risperdal (Risperidone) 0.5 Mg Tablet 0.75 Mg PO DAILY Temazepam 15 Mg Capsule 15 Mg PO PRN QHS PRN Administer if first dose not effective Mirtazapine 15 Mg Tablet 7.5 Mg PO QHS Atorvastatin Calcium 20 Mg Tablet 20 Mg PO QHS Tylenol (Acetaminophen) 325 Mg Tablet 650 Mg PO PRN Q6HRS PRN MDD 4000 Aspirin 81 Mg Tab.chew 81 Mg PO DAILY I have reviewed the current psychotropics carefully including drug interactions. Risk benefit ratio favors no change other than as noted in my dictated progress note. 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
--- NOTE | 2017-10-19 04:41 | DS ---
DATE OF DISCHARGE: 10/18/2017 This note covers the elements not covered in my initial note, 10/18/2017. REASON FOR ADMISSION: Please refer to the admission history for details. Briefly, the patient is a 72-year-old female referred back to us from [facility] Emergency Room where she presented making suicidal statements. She admits to increasingly being depressed, resentment towards her daughter for "not being a priority." She states she wanted to . She had been in outpatient treatment at [facility], but had failed all of this and was noncompliant with this. SIGNIFICANT FINDINGS AND CLINICAL COURSE: Following admission, the patient was seen daily individually from a psychiatric standpoint by myself, followed medically per Dr. Knapp/Dr. Bertrand. She was quite anxious, labile, had been abusing Xanax prior to admission. This was tapered and discontinued. She was started on hydroxyzine p.r.n. for anxiety. Adjustments were made in her psychotropics. She seemed to respond to a combination of Risperdal 0.75 mg daily, Depakote ER 750 mg daily, trazodone 50 mg at bedtime and 12.5 mg at 0900, Restoril 15 mg at bedtime, may repeat x 1 p.r.n., Remeron 7.5 mg at bedtime. Librium was started shortly prior to discharge of the patient's insistence that she stated there is a family history in her mother of significant anxiety that responded very well to low-dose Librium. The hope was that this would reduce the chances of her getting into a cycle of abusing Xanax like she had in the past. Additionally, the long-acting Librium was preferable to the Xanax. She is also on Vistaril p.r.n., Remeron 7.5 mg p.o. at bedtime. REVIEW OF SYSTEMS: Prior to discharge on 10/18/2017, no CV, , pulmonary, eye, ENT system symptoms on review. MENTAL STATUS EXAM: Oriented to herself and situation. Speech coherent, abstraction fair, computation impaired, language function intact, attention span short. Mood and affect is improved. No suicidal ideation at discharge. CONDITION AT DISCHARGE: Improved. FINAL DIAGNOSES: Bipolar 1 disorder, mixed with psychotic features, in partial remission; anxiety disorder, unspecified; benzodiazepine abuse. Rest unchanged from admission. DISCHARGE MEDICATIONS: Please refer to the MRAD. DISCHARGE INSTRUCTIONS: Outpatient psychiatric followup at [facility] and medical followup with her primary care physician. SANTIAGO FARFAN MD DR: INNA/melody JOB#: [id number] / [id number]
--- NOTE | 2017-10-19 21:03 | PN ---
DATE: 10/17/2017 This is a late entry of 10/17/2017 covers elements not covered in my initial note of 10/17/2017. SUBJECTIVE: I met with the patient in the evening. The patient remains quite anxious, apprehensive, wanting increased amounts of benzodiazepines, obsessed with her bowel, received mag citrate along with milk of mag with prune juice with little effect so far. REVIEW OF SYSTEMS: No CV, , pulmonary, eye, ENT system symptoms on review. MENTAL STATUS EXAM: Oriented to herself and situation. Speech coherent. Abstraction fair, computation impaired, language function intact. Mood and affect still somewhat dysphoric, but improved. No suicidal or homicidal ideation. No psychotic symptoms. LABORATORY DATA: Reviewed. IMPRESSION: Unchanged with initial note. PLAN: Continue to monitor for her psychotropics. She has been constipated, received mag citrate. Adjust further as clinically indicated. MAN Richar FARFAN MD DR: INNA/melody JOB#: [id number] / [id number]
== END 2017-10-18 11:10 | disposition home or self-care (01) | DRG 885 ==
LOC: GEROPSY 18:46
PROVIDERS: ADMIT Psychiatry & Neurology Psychiatry; ATTEND Psychiatry & Neurology Psychiatry
DX: F31.77 Bipolar disorder, in partial remission, most recent episode mixed (principal); R45.851 Suicidal ideations; Z91.19 Patient's noncompliance with other medical treatment and regimen; F13.239 Sedative, hypnotic or anxiolytic dependence with withdrawal, unspecified; E78.5 Hyperlipidemia, unspecified; F63.9 Impulse disorder, unspecified; K59.09 Other constipation; Z66 Do not resuscitate; I10 Essential (primary) hypertension; F40.01 Agoraphobia with panic disorder; F42.9 Obsessive-compulsive disorder, unspecified; F09 Unspecified mental disorder due to known physiological condition; Z79.899 Other long term (current) drug therapy; Z90.49 Acquired absence of other specified parts of digestive tract; Z91.018 Allergy to other foods
CPT/HCPCS: 36415; 80053; 80061; 80164; 81001; 82306; 82607; 83036; 83540; 83550; 83735; 84436; 84443; 84480; 85025; 86593; 87086; 93005; Q0162